=== PATIENT | male | born 1940 | race Caucasian/White ===

== ENCOUNTER 2017-07-19 16:06 | Inpatient (IN) ==
[2017-07-19] MEDS ORDERED: D5% in Water 1,000 ML IVC PRN (20:01)
[2017-07-19] MEDS ORDERED: *HR* Dextrose 50 % in Water (Syg) 50 ML SYRINGE IVP PRN (20:01)
[2017-07-19] MEDS ORDERED: Dextrose Gel 15 GM/37.5 ML TUBE PO PRN ×2 (20:01)
[2017-07-19] MEDS ORDERED: Naloxone 0.4 MG/ML INJ IVP PRN (20:01)
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
[2017-07-19] MEDS: 0.9 % Sodium Chloride 1,000 ML IVC SCH (21:19)
[2017-07-19] MEDS: Acyclovir 700 MG in D5% in Water 250 ML IVPB SCH (23:16)
[2017-07-19] MEDS: Insulin LISPRO 300 UNITS/3 ML VIAL SQ SCH (23:53)
[2017-07-20] MEDS ORDERED: cefTRIAXone 2,000 MG in Water for inj. (sterile) 20 ML IVP SCH (02:00)
[2017-07-20] MEDS: cefTRIAXone 2,000 MG in Water for inj. (sterile) 20 ML 20 ML IVP SCH ×2 (02:49→16:42)
[2017-07-20] MEDS ORDERED: 0.9 % Sodium Chloride 2,000 ML IVC ONE (04:09)
[2017-07-20] MEDS ORDERED: 0.9 % Sodium Chloride 1,000 ML IVC ONE ×2 (04:19→11:11)
[2017-07-20 04:44] LABS: Basophils # 0.1 K/mcL (0.0-0.2); Basophils % 0.6 %; Eosinophils # 0.1 K/mcL (0.0-0.6); Eosinophils % 0.6 %; Hematocrit 38.1 % (37.5-50.1); Hemoglobin 12.5 g/dL (12.9-16.9); Immature Granulocytes % 0.5 % (0-4); Lymphocytes # 2.5 K/mcL (0.6-4.6); Lymphocytes % 16.9 %; Mean Corpuscular HGB Conc 32.8 g/dL (31.6-35.5); Mean Corpuscular Hemoglobin 30.3 pg (28.0-33.3); Mean Corpuscular Volume 92.3 fL (83.0-100.0); Mean Platelet Volume 8.9 fL (9.4-12.4); Monocytes # 1.7 K/mcL (0.0-1.3); Monocytes % 11.7 %; Neutrophils # 10.4 K/mcL (1.6-8.9); Platelet Count 322 K/mcL (140-400); Red Blood Count 4.13 M/mcL (4.19-5.50); Red Cell Distribution Width 12.7 % (11.5-14.5); Segmented Neutrophils % 69.7 %
[2017-07-20 04:49] LABS: Prothrombin Time 11.1 Seconds (9.4-12.1)
[2017-07-20 04:51] LABS: Activated Partial Thrombo Time 25.7 Seconds (26.0-36.0)
[2017-07-20 05:09] LABS: Albumin 3.2 g/dL (3.5-5.7); Albumin/Globulin Ratio 1.1 (1.1-2.2); Bilirubin,Total 0.3 mg/dL (0.3-1.0); Globulin 2.9 g/dL (2.4-3.5); Magnesium 1.7 mg/dL (1.6-2.6); Potassium 3.7 mEq/L (3.5-5.1); Total Protein 6.1 g/dL (6.4-8.9)
[2017-07-20] MEDS: *HR* Heparin 5,000 UNIT/ML VIAL SQ SCH ×2 (05:15→16:43)
[2017-07-20] MEDS: Insulin LISPRO 300 UNITS/3 ML VIAL SQ SCH ×3 (06:10→18:16)
[2017-07-20 09:29] LABS: Hemoglobin A1C 11.1 %
[2017-07-20 09:55] LABS: Red Blood Cell,CSF < 0.002 M/mcL
[2017-07-20 10:00] LABS: Appearance,CSF Clear (Clear)
[2017-07-20] MEDS ORDERED: 0.9 % Sodium Chloride 500 ML IVC ONE ×2 (10:04→10:27)
[2017-07-20] MEDS ORDERED: 0.9 % Sodium Chloride 500 ML ONE (10:07)
[2017-07-20 10:12] LABS: Glucose,CSF 156 mg/dL (40-70); Total Protein,CSF 82 mg/dL (15-45)
[2017-07-20] MEDS ORDERED: 0.9 % Sodium Chloride 1,000 ML IVC SCH (10:30)
[2017-07-20] MEDS ORDERED: Potassium Phosphate 44 MEQ in 0.9 % Sodium Chloride 250 ML IVPB PRN (11:07)
[2017-07-20] MEDS: 0.9 % Sodium Chloride 1,000 ML IVC SCH (11:14)
[2017-07-20] MEDS: Acyclovir 700 MG in D5% in Water 250 ML IVPB SCH ×2 (11:14→16:42)
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
[2017-07-20 11:30] LABS: Troponin I 0.03 ng/mL (< 0.04)
[2017-07-20 11:35] LABS: BUN/Creatinine Ratio 26 (6-26); Blood Urea Nitrogen 30 mg/dL (8-23); Calcium 8.2 mg/dL (8.6-10.3); Carbon Dioxide 24 mEq/L (23-29); Chloride 112 mEq/L (98-107); Glucose 173 mg/dL (70-105); Magnesium 1.7 mg/dL (1.6-2.6); Osmolality,Calculated 306 (280-300); Phosphorous 2.4 mg/dL (2.7-4.5); Potassium 3.7 mEq/L (3.5-5.1); Sodium 143 mEq/L (136-145); eGFR For African Americans > 60 (> 60); eGFR For Non-African Americans > 60 (> 60)
--- NOTE | 2017-07-20 13:33 | Procedure Note ---
<Pierce Bueno - Last Filed: 07/20/17 13:28> Date of procedure: 07/20/17 Pre-op diagnosis: Hypotension Post-op diagnosis: same Procedure: Resident: Pierce Bueno DO Attending: Dennise French A time-out was completed verifying correct patient, procedure, site, positioning , and special equipment. The patient was placed in a supine position appropriate for central line placement based on the vein to be cannulated. The patients right groin was prepped and draped in sterile fashion. 1% Lidocaine was used to anesthetize the surrounding skin area. A triple lumen 9Fr Cordis catheter was introduced into the the right common femoral vein using the Seldinger technique under ultrasound guidance. The needle was visualized entering the femoral vein with appropriate easy blood draw. The guide wire was visualized in the vein in longitudinal and cross sectional views. The catheter was threaded smoothly over the guide wire and appropriate blood return was obtained. Each lumen of the catheter was evacuated of air and flushed with sterile saline. The catheter was then sutured in place to the skin and a sterile dressing applied. Perfusion to the extremity distal to the point of catheter insertion was checked and found to be adequate. Dr. French was present for the entire procedure. Estimated Blood Loss: 1-2mL The patient tolerated the procedure well and there were no complications. Anesthesia: local Surgeon: Pierce Bueno Was there an assistant community director present: Yes Welder Fitter Helper: Dennise French Estimated blood loss (cc): 1 IV fluids (cc): 0 Urine output (cc): 0 Specimen: 0 Pathology: none sent Condition: critical Disposition: ICU <Dennise French - Last Filed: 07/20/17 18:58> Procedure: I was present in the entire procedure assisting in critical portions of the procedure .
--- NOTE | 2017-07-20 13:48 | Infectious Disease Consult ---
Date of Encounter: 07/20/17 Time of Encounter: 14:15 Assessment and Plan (1) Septic shock Status: Acute Assessment and plan: Septic shock present Patient requiring levofed for blood pressure support Leukocytosis and hypothermia present Causative organism unknown Possible URI or GI pathogen (2) Altered mental status Status: Acute Assessment and plan: Patient had decreased mentation, some confusion, disorientation Secondary to acute CVA Lumbar puncture and Gram stain negative for pathogens, leukocytosis observed No meningeal signs on physical exam Nervous system infection unlikely Recommend stopping all antimicrobials for potential [employer] infection Qualifiers: Altered mental status type: delirium Qualified Code(s): R41.0 - Disorientation, unspecified (3) Abnormal chest xray Status: Acute Assessment and plan: Right-sided interstitial lung markings observed Might be due to aspiration Consider swallow evaluation All other antimicrobial stopped Start Zosyn (4) Diarrhea Status: Acute Assessment and plan: Patient's describes having 2 episodes of diarrhea. One the night before admission and the second at the [place] [facility]. His son is a chronic carrier of C. difficile and his states that his son's previous acute bout was similar to this We will send C. difficile PCR Recommend contact and droplet precautions until result of C. difficile PCR returned Qualifiers: Diarrhea type: unspecified type Qualified Code(s): R19.7 - Diarrhea, unspecified (5) URI (upper respiratory infection) Status: Acute Assessment and plan: Patient's reports he had cough for 3 days prior to admission States she has been coughing as well Concern for URI We will obtain respiratory infection panel Qualifiers: URI type: unspecified viral URI Qualified Code(s): J06.9 - Acute upper respiratory infection, unspecified (6) Carotid stenosis Status: Acute Assessment and plan: Severe carotid stenosis diagnosed in 05/23/17 Complete occlusion right carotid artery with concerns of 60-75% occlusion of left Acute strokes likely due to carotid disease Continue management per primary team Qualifiers: Laterality: right Qualified Code(s): I65.21 - Occlusion and stenosis of right carotid artery (7) Coronary artery disease Status: Chronic Assessment and plan: Patient has coronary artery disease with prior MIs Had CABG done in 2009 Qualifiers: Coronary Disease-Associated Artery/Lesion type: bypass graft [place] vs. transplanted heart: [place] heart Associated angina: angina presence unspecified Qualified Code(s): I25.810 - Atherosclerosis of coronary artery bypass graft(s) without angina pectoris (8) Hypotension Status: Resolved Assessment and plan: Patient having consistent hypotension requiring levofed to maintain blood pressure Unsure cause of hypotension Plan as above Qualifiers: Hypotension type: unspecified hypotension type Qualified Code(s): I95.9 - Hypotension, unspecified (9) Diabetes mellitus Status: Chronic Assessment and plan: Continue management per primary team Qualifiers: Diabetes mellitus type: type 2 Diabetes mellitus [employer]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 Nava is a 77 year old male with past medical history significant for CAD ( with prior AK and CABG in 2009), diabetes mellitus, mild dementia (as per his ), and severe carotid stenosis (diagnosed on 05/23/2017) presented to the [place] [facility] on 07/19/17 with disorientation, confusion, reports a bout of diarrhea and nausea. Infectious disease was consulted on 07/20/17 because of concerns of viral meningitis. Patient does not appear to be answering questions appropriately, as such most history is obtained by talking to patients and through chart review. Patient lives at home with his and presented to the [place] [facility] the morning of 07/21/17 because his is having difficulty getting him to talk or walk. She states that the night before patient had a single episode of nausea and diarrhea, that occurred around midnight. Following this the patient went to sleep and upon awakening the morning was disoriented and confused. Prior to this occurring she states that the patient had been relatively healthy , had not had fever, chills, shortness of breath, chest pain, or abdominal pain. We does state that he had had a cough for several days duration. She also states that she has had a cough for several weeks as well. She has had other sick contacts recently including his grandchildren who have had various episodes of 24-hour GI bugs resulting in diarrhea and nausea. She also states that their son is a chronic carrier of C. difficile and that the patients diarrhea with confusion was reminiscent of the times that he has had acute C. difficile before. At the [place], patient had decreased mentation so a neurologic was difficult to perform. His initial vital signs showed a temperature of 99.3, heart rate of 95, respiratory rate 20. Initial lab work showed a neutrophil predominant leukocytosis of 19.4, elevated serum creatinine 1.33, elevated lactic acid 3.2, and a UA that was not suspicious for UTI. He had a chest x- ray and head CT, neither of which showed acute abnormalities. He was started on IV fluids and given vancomycin and ceftriaxone. Due to concerns of patient decreased mentation, he was transferred to [place] for further workup and management. At [place] he underwent a lumbar puncture, the resultant CSF fluid showed a glucose of 156, elevated protein of 82, and total nucleated cells of 5. An MRI and MRA of his head were performed that showed 6 subcentimeter foci of restricted diffusion consistent with acute infarct. Diffuse cerebral volume loss, chronic small vessel ischemic changes, and fluid in the middle ears. Complete occlusion of the right carotid was observed as well. Patient has been negative for meningeal signs, but neurologic exam shows asymmetric weakness. Patient mentation has improved and he has started answering some questions and states that he is hungry. Although he does answer questions appropriately, is unclear how much he comprehends. CC: Renetta Faulkner, LILIAN Past Med Surg Social Fam HX - Past Medical History Medical history: diabetes Psychiatric history: no psych history - Past Surgical History Surgical History: angioplasty/stent, cholecystectomy - Social History Smoking Status: Never smoker Alcohol use: none Drug use: none - Family History Mother Hx Family Endocrine Disorder: Yes (DM) Infectious Disease-CN:Meds Aspirin [Lo-Dose Aspirin EC] 81 mg PO DAILY 04/07/16 [History] glipiZIDE [Glipizide] 10 mg PO BIDWM 04/07/16 [History] Metformin HCl [Glucophage] 1,000 mg PO QAM 07/19/17 [History] Metformin HCl [Glucophage] 1,500 mg PO QPM 07/19/17 [History] 3 Allergy/AdvReac Type Severity Reaction Status Date / Time No Known Allergies Allergy Verified 07/19/17 21:37 ROS unobtainable: due to mental status Review of systems: Gen: Denies fever, denies chills, denies weakness CV: Denies chest pain Resp: Denies shortness of breath, denies dyspnea, denies coughing, denies changes in phlegm production GI: Denies nausea, denies vomiting, denies abdominal pain, denies constipation, denies diarrhea MSK: denies arthralgia, denies muscle weakness Neuro: Denies headache, denies confusion, denies focal weakness, denies numbness , denies tingling, denies vision changes, denies photophobia, denies phonophobia Exam - Constitutional Vitals: Temp Pulse Resp BP Pulse Ox 96.7 F L 75 15 109/59 96 07/20/17 11:22 07/20/17 11:24 07/20/17 11:22 07/20/17 11:22 07/20/17 11:22 - Additional findings Additional findings: General: Cooperative, pleasant, no acute distress, alert and oriented 2, answers questions appropriately HEENT: Normocephalic, atraumatic, neck supple, trachea midline, Conjunctiva pink , sclera anicteric, EOMI, left pupil reactive to light, right pupil unreactive, oral mucosa moist, no orophargeal erythema or exudates Respiratory: No accessory muscle usage, rales in left lower lobe Cardiovascular: Regular rate and rhythm, S1 and S2 present, no murmurs/rubs/ gallops/clicks appreciated GI/abdominal: Nondistended, nontender, soft, normal bowel sounds, no peritoneal signs Extremities: No calf tenderness, noncyanotic, no pedal edema appreciated, warm, lower extremity pulses palpable and symmetrical Neurological: Alert and oriented 2, no facial droop, no focal deficits, hemineglect on left, altered sensation (but he can't say how), no nuchal rigidity, no photophobia Skin: Dry, intact, normal color Infectious Disease CN: Results - Labs CBC & Chem 7: 07/21/17 03:24 07/21/17 04:00 Cultures: Cultures 07/19/17 08:52 CSF Culture - Preliminary Cerebral Spinal Fluid Serology: Serology 07/19/17 Range/Units 08:52 CSF Volume 6.5 mL CSF Appearance Clear (Clear) CSF Color Colorless (Colorless) CSF RBC < 0.002 (0.000 - 0.002) M/mcL CSF Tot Nucleated Cells 5 (0-5) TNC/mcL CSF Seg Neutrophils TNP CSF Band Neutrophils % TNP CSF Lymphocytes % TNP CSF Monocytes % TNP CSF Eosinophils % TNP CSF Basophils % TNP CSF Other Cells % TNP CSF Glucose 156 H (40-70) mg/dL CSF Xanth Comm Not Observed (Not Observe) CSF Total Protein 82 H (15-45) mg/dL - Stroke Is the patient on any antithrombotics?: No Are there any contradictions to antithrombotics?: Yes Contraindication Antithromb by Day Two: Medical contraindication Consult Discharge Plan - Plan Referrals: Michael Brown Jr, MD [Primary Care Provider] - - Attending Attestation I examined this patient and my medical decision-making was reviewed with the Resident Physician. I agree with the documented findings, disposition and treatment plan as described except to the extent set forth below. Patient is a 77 year old gentleman with past medical history mentioned below and DM, history of CAD with h/o CABG and severe carotid stenosis presented to ED on 07/19 with AMS, we are consulted today to rule out meningitis/encephalitis. Patient states that one day prior to admission, he had one episode of nausea, vomiting and diarrhea. Patient went to sleep that night, in the AM he woke up and he was unable to talk to walk with expressive aphasia. IN the ED, he was septic with no fever, tachycardic and WBC of 19.4 with neutrophilic predominance and lactic acidosis and acute kidney injury. Pt got transferred to [place] for evaluation. A cXR and CT head both of which were negative. An LP was done which revealed no pleocytosis a protein of 82 and glucose of 156 and 475 plasma glucose. Patient was started on meningitis/ encephalitis protocol. An MRI was done and it revealed six foci of acute infarcts within the cortex of the right frontal lobe. MRA complete occlusion of the right carotid and CXR reveals no infiltrates but pulmonary is concerned for possible early infiltrate. tells us that multiple family members have had URI symptoms. Physicial exam reveals AandOx3. Does not know who president is. Pupil on right side is fixed sluggish to react. No lung wheezing or ronchi. Heart without murmur. Abdomen soft non tender Assessment/plan: 1. Septic shock 2. AMS/confustion/encephalitis secondary to ACUTE CVA a .LP negative for pleocytosis gram stain negative on CSF b.No meningeal signs of physical exam c.I dont believe patient has an infectious etiology to his AMS all likely due to CVA 3.Concern for right sided infiltrate vs congestion a.Might be due to aspiration pneumonia 4. Diarrhea C diff PCR sent 5.URI symptoms 6.Carotid stenosis with 100% occlusion on the right 7.CAD/DM/HTV Check respiratory infectious panel Check C diff pcr Place patient in contact and droplet isolation until labs result Get blood culture x 2 d/c ampicillin, vancomycin, rocephin and acyclovir start zosyn for now get swallow evaluation
--- NOTE | 2017-07-20 13:48 | Pulmonology History & Physical ---
<Pierce Bueno - Last Filed: 07/20/17 14:54> Date of Encounter: 07/20/17 Time of Encounter: 12:30 Assessment and Plan (1) Acute ischemic stroke Current visit: Yes Status: Acute Last known well appx 9pm 07/18. Greater than 24hrs prior to presentation to [facility]. Left sided hemineglect on intake exam to ICU. Carotid Echo 05/23/17: Right prox ICA completely occluded. Left proximal ICA has severe 60-79% stenosis. Medical therapy recommended. CT head 07/20: no acute intracranial abnormalities MRI brain 07/20: acute infarct in both right frontal lobe and left occipotal lobe consistent with central embolic event. No acute hemorrhage. MRA head wo con 07/20: Absence of flow in RCA. No high grade stenosis in LCA. BL posterior communicating, anterior cerebral, and middle cerebral arteries visualized. No A. Fib on arrival. No hx A. Fib. Antiplatelet: Aspirin rectally Plavix PO once cleared by speech therapy Pending: Cardiac Echo BL Carotid duplex Serial neurologic assessments Maintain perfusing BP with goal BP > 140's/90's. Consult neurology Consult speech therapy - swallow eval (2) Septic shock Current visit: Yes Status: Acute SIRS (+): hypothermia, leukocytosis CXR concerning for possible RML pneumonia. UA not concerning for UTI. C. Diff tox pending LP has no xanthochromia, elevated glucose, elevated protein. Empiric meningitic coverage: Vancomycin Ceftriaxone Acyclovir Empiric CAP coverage: Vancomycin Levaquin Hold on C. Diff coverage - patient has only had 2 loose stools. C. Dif pending. Microbiology: CSF 07/20 cell count: high glucose, high protein CSF 07/20 g-stain prelim no WBC, no bacteria. Pending: Blood peripheral culture 07/20 C-diff pending Urine culture Respiratory infectious panel Begin levophed after fluid resuscitation to maintain CPP. Anemia - suspect dilutional. No hematochezia, melena, hemetemesis. No anticoagulants at home. Platelets appropriate. Continue to monitor. Infectious disease following (3) Diabetes mellitus Current visit: Yes Status: Chronic DM II. Low sliding scale insulin. Qualifiers: Diabetes mellitus type: type 2 Diabetes mellitus complication status: with circulatory complication Diabetes mellitus complication detail: with other circulatory complications Diabetes mellitus snf insulin use: without snf use Qualified Code(s): E11.59 - Type 2 diabetes mellitus with other circulatory complications (4) DVT prophylaxis Current visit: Yes Status: Acute Heparin SQ History of Present Illness HPI: Mr. Nava is a 77 year old male presented to [facility] with 1 day history of fatigue, dyspnea, nausea, vomiting, loose stools (x1 at home, x1 at [facility]). He seemed fine per family the evening of the (9pm). The morning of the , he was found sitting in a recliner, had soiled himself, and was non-verbal. Family reported he was unable to raise his right arm at that time. Patient has a family member currently in the hospital with C-diff colitis. Patient's notes the patient's loose stools and confusion are very similar to the initial symptoms of the family member. PMH: DM on oral antihyperglycemics, CAD with ACS s/p stent, hx cholecystectomy. No hx CVA or TIA. Antiplatelet: aspirin Anticoagulant: none Patient was transferred from [facility] to [facility] medical floor. He was transferred from [facility] medical floor to the ICU after he became hypotensive and was unable to lift his left arm. On my evaluation, last known well is appx 50 hrs prior to my exam. Patient is awake, protecting his airway, breathing comfortably and saturating well in 2-3L NC. GCS 15. No facial asymmetry, no slurring of speech. With verbal command to lift both arms, he lifts his right arm. When I lift both arms, he maintains them with no drift. He appears confused. He did not initially recognize his brother. When speaking to him while on his left side, patient does not respond. When speaking to him on the right side, patient is appropriate. CT head shows no acute changes. MRI concerning for embolic ischemic stroke involving the right frontal and left occipotal lobes. Not a tPa candidate as last known well is well outside the window. Patient has been adequately fluid resusciteted. Will begin norepinephrine for target SBP >= 140 and DBP >= 90. Discussed the patient with [facility] Neurology. Aspirin and Plavix. Stat echo and carotid duplex. 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 Patient is SIRS (+): temp 96.7, WBC > 15k. CXR concerning for possible RML Pneumonia. Will empirocally cover. Given patient's confusion, a mengitic workup was initiated. Will await LP results prior to de-escilating antiviral or antibiotic coverage. ID following; multiple potential sources of sepsis. Past Med Surg Social Fam HX - Past Medical History Medical history: diabetes Psychiatric history: no psych history - Past Surgical History Surgical History: angioplasty/stent, cholecystectomy - Social History Smoking Status: Never smoker Alcohol use: none Drug use: none - Family History Mother Hx Family Endocrine Disorder: Yes (DM) Medications and Allergies Aspirin [Lo-Dose Aspirin EC] 81 mg PO DAILY 04/07/16 [History] glipiZIDE [Glipizide] 10 mg PO BIDWM 04/07/16 [History] Metformin HCl [Glucophage] 1,000 mg PO QAM 07/19/17 [History] Metformin HCl [Glucophage] 1,500 mg PO QPM 07/19/17 [History] 3 Allergy/AdvReac Type Severity Reaction Status Date / Time No Known Allergies Allergy Verified 07/19/17 21:37 All Systems: The remainder of the systems were reviewed and are negative - Constitutional Constitutional: weakness, no anorexia, no chills, no fever(s), no frequent falls - EENT Nose, mouth and throat: no disequilibrium, no dizziness, no dysphagia, no headache(s) - Cardiovascular Cardiovascular: dyspnea, no chest pain, no edema, no lightheadedness, no palpitations, no pedal edema - Respiratory Respiratory: no cough, no dyspnea - Gastrointestinal Gastrointestinal: diarrhea, loose stools, nausea, vomiting, no abdominal pain, no cramping, no hematemesis, no hematochezia, no melena - Genitourinary Genitourinary: no difficulty urinating - Musculoskeletal Musculoskeletal: no joint pain, no abnormal gait, no back pain, no neck pain - Neurological Neurological: confusion, no abnormal speech, no numbness, no paresthesias - Hematologic/Lymphatic Hematologic/Lymphatic: no easy bleeding, no easy bruising Physical Examination Vital Signs: Vital Signs, Last 4 Hours Temp Pulse Resp BP Pulse Ox 07/20/17 11:24 75 07/20/17 11:22 96.7 F L 76 15 109/59 96 General appearance: no acute distress, alert Eyes: nonicteric ENT: oropharynx moist Neck: supple Effort: normal Auscultation: bilateral: clear Cardiovascular: regular rate and rhythm Gastrointestinal: normoactive bowel sounds, soft, non-tender, non-distended Integumentary: normal Extremities: no cyanosis, no edema, no clubbing, pink and warm, pulses normal, no ischemia or petechiae Musculoskeletal: no deformities pupils equal and round, other (NIHSS 1: Left upper extremity inattention when asked to raise arms. Left silvino neglect. No facial asymmetry. No slurring of speech. No limb drift of upper or lower extremities when arms raised by the examiner. Sensation equal bilaterally in upper and lower extremities. ) mood appropriate Results - Laboratory Findings CBC and BMP: 07/20/17 04:01 07/20/17 10:41 PT/INR, D-dimer PT 11.1 Seconds (9.4-12.1) 07/20/17 04:01 Abnormal lab findings: Abnormal lab results WBC 14.9 K/mcL (4.3-11.1) H 07/20/17 04:01 RBC 4.13 M/mcL (4.19-5.50) L 07/20/17 04:01 Hgb 12.5 g/dL (12.9-16.9) L D 07/20/17 04:01 MPV 8.9 fL (9.4-12.4) L 07/20/17 04:01 Neutrophils # 10.4 K/mcL (1.6-8.9) H 07/20/17 04:01 Monocytes # 1.7 K/mcL (0.0-1.3) H 07/20/17 04:01 APTT 25.7 Seconds (26.0-36.0) L 07/20/17 04:01 Chloride 112 mEq/L (98-107) H 07/20/17 10:41 BUN 30 mg/dL (8-23) H 07/20/17 10:41 Glucose 173 mg/dL (70-105) H 07/20/17 10:41 POC Glucose 147 (58-89) H 07/20/17 11:09 Hemoglobin A1c 11.1 % (-5.6) H 07/19/17 20:46 Calculated Osmolality 306 (280-300) H 07/20/17 10:41 Calcium 8.2 mg/dL (8.6-10.3) L 07/20/17 10:41 Phosphorus 2.4 mg/dL (2.7-4.5) L 07/20/17 10:41 Serum Total Protein 6.1 g/dL (6.4-8.9) L 07/20/17 04:01 Albumin 3.2 g/dL (3.5-5.7) L 07/20/17 04:01 CSF Glucose 156 mg/dL (40-70) H 07/19/17 08:52 CSF Total Protein 82 mg/dL (15-45) H 07/19/17 08:52 <Dennise French S - Last Filed: 07/20/17 22:03> Date of Encounter: 07/20/17 History of Present Illness HPI: Mr. Nava is a 77 year old male All Systems: The remainder of the systems were reviewed and are negative Physical Examination Vital Signs: Vital Signs, Last 4 Hours Temp Pulse Resp BP Pulse Ox 07/20/17 18:00 84 18 144/66 93 07/20/17 17:00 80 16 144/60 94 07/20/17 16:00 81 16 144/66 94 07/20/17 15:53 98.1 F 07/20/17 15:37 79 07/20/17 15:00 76 16 144/66 94 Results - Laboratory Findings CBC and BMP: 07/20/17 15:10 07/20/17 10:41 PT/INR, D-dimer PT 11.1 Seconds (9.4-12.1) 07/20/17 04:01 Abnormal lab findings: Abnormal lab results WBC 13.8 K/mcL (4.3-11.1) H 07/20/17 15:10 RBC 3.86 M/mcL (4.19-5.50) L 07/20/17 15:10 Hgb 11.8 g/dL (12.9-16.9) L 07/20/17 15:10 Hct 36.2 % (37.5-50.1) L 07/20/17 15:10 MPV 8.9 fL (9.4-12.4) L 07/20/17 15:10 Neutrophils # 9.7 K/mcL (1.6-8.9) H 07/20/17 15:10 APTT 25.7 Seconds (26.0-36.0) L 07/20/17 04:01 Chloride 112 mEq/L (98-107) H 07/20/17 10:41 BUN 30 mg/dL (8-23) H 07/20/17 10:41 Glucose 173 mg/dL (70-105) H 07/20/17 10:41 POC Glucose 248 (58-89) H 07/20/17 17:59 Hemoglobin A1c 11.1 % (-5.6) H 07/19/17 20:46 Calculated Osmolality 306 (280-300) H 07/20/17 10:41 Calcium 8.2 mg/dL (8.6-10.3) L 07/20/17 10:41 Phosphorus 2.4 mg/dL (2.7-4.5) L 07/20/17 10:41 Serum Total Protein 6.1 g/dL (6.4-8.9) L 07/20/17 04:01 Albumin 3.2 g/dL (3.5-5.7) L 07/20/17 04:01 CSF Glucose 156 mg/dL (40-70) H 07/19/17 08:52 CSF Total Protein 82 mg/dL (15-45) H 07/19/17 08:52 - Stroke Is the patient on any antithrombotics?: Yes Are there any contradictions to antithrombotics?: No Contraindication Antithromb by Day Two: Medical contraindication (needs evalaution on dischargeg) Reason for No Antithrombin at DC: Not Indicated - Due to Bleeding Disorder or Risk of Bleeding Reason for No Anticoagulant at DC: Medical contraindication Contraindication Not Initiating IV-Tpa: Medical contraindication Onset of Symptoms Date: 07/18/17 Onset of Symptoms Time: 21:00 Contraindication No Statin at DC: Medical contraindication (needs evalaution on discharge) Has Patient Been Evaluated by Rehab for Stroke: No Contraindication Rehab Services Not Assessed: Refused by Patient / Family - VTE Documentation of Mechanical Device: Graduated compression elastic hosiery - Attending Attestation This is a Pulmonary Consultation note : I saw and evaluated this patient and my medical decision-making was reviewed with the Resident Physician. I agree with the documented findings, disposition and treatment plan as described except to the extent set forth below. We independently had [id number] contact with the patient I spent 32 minutes of Critical Care time with this patient. It involved decision making of high complexity to assess, manipulate, and support vital organ system failure and/or to prevent further life threatening deterioration of the patient's condition. Patient seen and examined at bedside Labs, radiology, chart personally reviewed. Management was reviewed during multidisciplinary critical care rounds. FOOD GENERAL MANAGER:Patient is multiple embolic infarct might explain his neuro symptoms initial concern for meningitis , encephalitis . CSF studies were unremarkable patient is outside of neuro interventional window . Will aim for higher MAP around 75 for adequate CPP .Will do embolic stroke work up according to Neuro . Pulm:. Patient has acceptable oxygenation and ventilation possible RML infiltrate possible aspiration will cover with empiric zosyn Cards:To keep MAP around 75 to keep high cerebral perfusion pressure FEN-GI: To advance diet per speech Renal:Labs and output reviewed ID: Appreciate ID recs will continue Zosyn for now Heme/Onc:DVT prophylaxis Endo: Glucose Monitored Integ/MSK: Skin Care per routine ICU Nursing Protocol to prevent ulcers. Lines: All lines examined without evidence of infection : Dispo: Needs Q1 hour neuro monitoring CODE:Full Code
--- NOTE | 2017-07-20 14:32 | Neurology - Consult Note ---
<Bruce Espinoza - Last Filed: 07/20/17 14:27> Date of Encounter: 07/20/17 Time of Encounter: 08:35 Assessment and Plan (1) Right sided cerebral hemisphere cerebrovascular accident (CVA) Current Visit: Yes Status: Acute Upon evaluation Mr. Nava demonstrated left-sided silvino-neglect and left-sided weakness, difficulty following commands both simple and complex. He demonstrated exacerbation of his symptoms with hypotension and improvement with improvement of his blood pressure. - Risk factors included diabetes, hypertension, hyperlipidemia, known carotid vessel disease. - Significant laboratory findings include elevated WBC of 14.9, hyperglycemia, lumbar puncture with elevated protein and glucose but normal cells. - High suspicion that his symptoms are from a right hemispheric cerebral infarct and exacerbation secondary to vasospasm and hypertension that demonstrated improvement with improvement of his blood pressure. I have lower suspicion for meningitis and believe his elevated protein is likely secondary to his clinical findings of infarct. Plan: - MRI of the brain - MRA versus CTA imaging stat - Full dose rectal aspirin - Lipid panel History of Present Illness HPI: Mr. Nava is a 77 year old male known PMH CAD, CABG, DM who presents in transfer from [facility] ER for concerns of acute confusion, disorientation, vomiting, and diarrhea. Upon initial evaluation was concern that he was having symptoms of meningitis versus encephalitis was started on acyclovir, vancomycin and ceftriaxone. According to his he he is a very mobile gentleman who rides a tractor and [place] without any difficulty and was doing that on Monday. He ate dinner did not have any signs of fevers, chills or other sources of infection without any noticeable neurologic dysfunction and then around midnight he awoke with nausea vomiting and diarrhea which his said he had difficulty getting out of bed. In the morning he was laying in bed and she was telling him to go to the bathroom to clean himself up which she was not answering her she tried to get him out of bed and he fell to the ground and was unable to respond verbally. This became very concerning to her and she called EMS for transportation and further evaluation. She denies having any history of strokes, seizures, clotting disorders, head trauma or no neurologic dysfunction. Upon initial evaluation he was concerned that he may have symptoms of meningitis versus encephalitis and was started on broad-spectrum antibiotics. He underwent lumbar puncture this morning and upon evaluation was found to have a blood pressure of 60 systolically and was tachycardic around 127. At that time he demonstrated left silvino-neglect and left -sided weakness that improved with improvement of his blood pressure. He continued to demonstrate left silvino-neglect and then demonstrated bradycardia and difficulty with speech. He became very slow and difficult to respond to questions. He was transferred to the ICU for closer monitoring and intervention if necessary. Past Med Surg Social Fam HX - Past Medical History Medical history: diabetes Psychiatric history: no psych history - Past Surgical History Surgical History: angioplasty/stent, cholecystectomy - Social History Smoking Status: Never smoker Alcohol use: none Drug use: none - Family History Mother Hx Family Endocrine Disorder: Yes (DM) Medications and Allergies Aspirin [Lo-Dose Aspirin EC] 81 mg PO DAILY 04/07/16 [History] glipiZIDE [Glipizide] 10 mg PO BIDWM 04/07/16 [History] Metformin HCl [Glucophage] 1,000 mg PO QAM 07/19/17 [History] Metformin HCl [Glucophage] 1,500 mg PO QPM 07/19/17 [History] 3 Allergy/AdvReac Type Severity Reaction Status Date / Time No Known Allergies Allergy Verified 07/19/17 21:37 ROS unobtainable: due to mental status All Systems: The remainder of the systems were reviewed and are negative Physical Examination - Vital Signs Vital Signs: Initial Vital Signs Temp Pulse Resp BP Pulse Ox 99.3 F 88 18 117/53 95 07/19/17 19:47 07/19/17 19:47 07/19/17 19:47 07/19/17 19:47 07/19/17 19:47 - Constitutional General appearance: acutely ill - Neurologic Sensorimotor examination: intact, hemiparesis, hemineglect Motor examination - right side: 5/5: deltoids, biceps, triceps, wrist flexion, wrist extension, real estate site analyst, hip flexors, tibialis Anterior, quadriceps, toe extension (EHL), plantarflexion Motor examination - left side: 4/5: deltoids, biceps, triceps, wrist flexion, wrist extension, hip flexors, real estate site analyst, quadriceps, tibialis Anterior, toe extension (EHL), plantarflexion Detailed sensory examination: other (Intact to gross sensation) Reflexes: Biceps: 2+, Triceps: 2+, Brachioradialis: 2+, Patella: 2+, Achilles: 2 + Mental Status Examination: awake, alert, oriented to person, lucid, opens eyes to voice, makes eye contact, follows simple commands, receptive aphasia, inattentive, impaired memory, impaired cognition Cranial nerve examination: PERRL, EOMI, corneal reflexes brisk symmetrically, sensory to face intact, mastication intact, no facial asymmetry is present, hearing is intact symmetrically, soft palate elevates bilaterally upon phonation , gag reflex intact, flexes SCM and trapezius muscles symmetrically with full power, tongue protrudes midline, no atrophy or facial fasiculations present Cerebellar examination: performs finger to nose and heel to luis symmetrically without ataxia Results - Laboratory Findings CBC and BMP: 07/20/17 04:01 07/20/17 10:41 Abnormal lab findings: Abnormal lab results WBC 14.9 K/mcL (4.3-11.1) H 07/20/17 04:01 RBC 4.13 M/mcL (4.19-5.50) L 07/20/17 04:01 Hgb 12.5 g/dL (12.9-16.9) L D 07/20/17 04:01 MPV 8.9 fL (9.4-12.4) L 07/20/17 04:01 Neutrophils # 10.4 K/mcL (1.6-8.9) H 07/20/17 04:01 Monocytes # 1.7 K/mcL (0.0-1.3) H 07/20/17 04:01 APTT 25.7 Seconds (26.0-36.0) L 07/20/17 04:01 Chloride 112 mEq/L (98-107) H 07/20/17 10:41 BUN 30 mg/dL (8-23) H 07/20/17 10:41 Glucose 173 mg/dL (70-105) H 07/20/17 10:41 POC Glucose 147 (58-89) H 07/20/17 11:09 Hemoglobin A1c 11.1 % (-5.6) H 07/19/17 20:46 Calculated Osmolality 306 (280-300) H 07/20/17 10:41 Calcium 8.2 mg/dL (8.6-10.3) L 07/20/17 10:41 Phosphorus 2.4 mg/dL (2.7-4.5) L 07/20/17 10:41 Serum Total Protein 6.1 g/dL (6.4-8.9) L 07/20/17 04:01 Albumin 3.2 g/dL (3.5-5.7) L 07/20/17 04:01 CSF Glucose 156 mg/dL (40-70) H 07/19/17 08:52 CSF Total Protein 82 mg/dL (15-45) H 07/19/17 08:52 Consult Discharge Plan - Plan Referrals: Michael Brown Jr, MD [Primary Care Provider] - <Tatiana Harmon I - Last Filed: 07/20/17 16:35> Date of Encounter: 07/20/17 History of Present Illness HPI: Mr. Nava is a 77 year old male All Systems: The remainder of the systems were reviewed and are negative Physical Examination - Vital Signs Vital Signs: Initial Vital Signs Temp Pulse Resp BP Pulse Ox 99.3 F 88 18 117/53 95 07/19/17 19:47 07/19/17 19:47 07/19/17 19:47 07/19/17 19:47 07/19/17 19:47 Results - Laboratory Findings CBC and BMP: 07/20/17 15:10 07/20/17 10:41 Abnormal lab findings: Abnormal lab results WBC 13.8 K/mcL (4.3-11.1) H 07/20/17 15:10 RBC 3.86 M/mcL (4.19-5.50) L 07/20/17 15:10 Hgb 11.8 g/dL (12.9-16.9) L 07/20/17 15:10 Hct 36.2 % (37.5-50.1) L 07/20/17 15:10 MPV 8.9 fL (9.4-12.4) L 07/20/17 15:10 Neutrophils # 9.7 K/mcL (1.6-8.9) H 07/20/17 15:10 APTT 25.7 Seconds (26.0-36.0) L 07/20/17 04:01 Chloride 112 mEq/L (98-107) H 07/20/17 10:41 BUN 30 mg/dL (8-23) H 07/20/17 10:41 Glucose 173 mg/dL (70-105) H 07/20/17 10:41 POC Glucose 147 (58-89) H 07/20/17 11:09 Hemoglobin A1c 11.1 % (-5.6) H 07/19/17 20:46 Calculated Osmolality 306 (280-300) H 07/20/17 10:41 Calcium 8.2 mg/dL (8.6-10.3) L 07/20/17 10:41 Phosphorus 2.4 mg/dL (2.7-4.5) L 07/20/17 10:41 Serum Total Protein 6.1 g/dL (6.4-8.9) L 07/20/17 04:01 Albumin 3.2 g/dL (3.5-5.7) L 07/20/17 04:01 CSF Glucose 156 mg/dL (40-70) H 07/19/17 08:52 CSF Total Protein 82 mg/dL (15-45) H 07/19/17 08:52 - Attending Attestation Pt was seen and examined, my medical decision was reviewed with the Resident Physician, I agree with the documented findings, disposition and treatment plas as described except to the extent set forth below This patient who was admitted earlier with atypical presentation of a stroke apparently was unresponsive and not responding there was a concern that he may be have some underlying [employer] infection especially with elevated white count. Spinal tap did not show any evidence of bacterial infection. He is been on broad-spectrum antibiotics as well as antiviral agent. Though CSF did shows elevated proteins but not much WBC count. Viral encephalitis remains in the differential MRI of the brain that shows evidence of his stroke though it seems to be embolic but not as large event that would explain his mental status, do not think that could be causing that amount of mental status changes from these embolic event that he had on his MRI scan. I would still recommend that we should continue look for any underlying infectious or any metabolic abnormality that may be accompanied these a stroke. Or probably need a CT angiogram later on along with the workup for the stroke including echocardiogram and carotid. Strongly recommend echocardiogram and particularly to exclude possibility of any endocarditis. In the meantime he may continue on Plavix along with a baby aspirin. Other treatment is as per primary team will follow the patient with you Brandon Harmon MD
[2017-07-20] MEDS ORDERED: Ringers Solution, Lactated 1,000 ML IVC ONE (14:36)
[2017-07-20] MEDS ORDERED: Norepinephrine 4 MG in D5% in Water 250 ML IVC SCH (14:45)
[2017-07-20] MEDS ORDERED: Levofloxacin 750 MG/150 ML 750 MG/150 ML BAG IVPB SCH (15:00)
[2017-07-20 15:29] LABS: Basophils # 0.1 K/mcL (0.0-0.2); Basophils % 0.7 %; Eosinophils # 0.5 K/mcL (0.0-0.6); Eosinophils % 3.5 %; Hematocrit 36.2 % (37.5-50.1); Hemoglobin 11.8 g/dL (12.9-16.9); Immature Granulocytes % 0.4 % (0-4); Lymphocytes # 2.2 K/mcL (0.6-4.6); Lymphocytes % 15.9 %; Mean Corpuscular HGB Conc 32.6 g/dL (31.6-35.5); Mean Corpuscular Hemoglobin 30.6 pg (28.0-33.3); Mean Corpuscular Volume 93.8 fL (83.0-100.0); Mean Platelet Volume 8.9 fL (9.4-12.4); Monocytes # 1.2 K/mcL (0.0-1.3); Monocytes % 8.9 %; Neutrophils # 9.7 K/mcL (1.6-8.9); Platelet Count 283 K/mcL (140-400); Red Blood Count 3.86 M/mcL (4.19-5.50); Red Cell Distribution Width 12.9 % (11.5-14.5); Segmented Neutrophils % 70.6 %
[2017-07-20] MEDS: Aspirin 325 MG TABLET PO SCH (17:01)
[2017-07-20 17:27] LABS: Adenovirus Not Detected (Not Detect); Bordetella Pertussis Not Detected (Not Detect); Chlamydophila pneumoniae Not Detected (Not Detect); Coronavirus 229E Not Detected (Not Detect); Coronavirus HKU1 Not Detected (Not Detect); Coronavirus NL63 Not Detected (Not Detect); Coronavirus OC43 Not Detected (Not Detect); Human Metapneumovirus Not Detected (Not Detect); Human Rhinovirus/Enterovirus Not Detected (Not Detect); Influenza A Subtype 2009 H1 Not Detected (Not Detect); Influenza A Untypeable Not Detected (Not Detect); Influenza B Not Detected (Not Detect); Mycoplasma pneumoniae Not Detected (Not Detect); Parainfluenza Virus 1 Not Detected (Not Detect); Parainfluenza Virus 2 Not Detected (Not Detect); Parainfluenza Virus 3 Not Detected (Not Detect); Parainfluenza Virus 4 Not Detected (Not Detect); Respiratory Syncytial Virus Not Detected (Not Detect)
[2017-07-20] MEDS: Piperacillin/Tazobactam 3.375 GM in 0.9 % Sodium Chloride Mini Bag 100 ML IVPB SCH (17:46)
[2017-07-21] MEDS: Insulin LISPRO 300 UNITS/3 ML VIAL SQ SCH ×3 (00:12→16:33)
[2017-07-21] MEDS: Piperacillin/Tazobactam 3.375 GM in 0.9 % Sodium Chloride Mini Bag 100 ML IVPB SCH ×2 (01:51→07:54)
[2017-07-21 04:47] LABS: Hematocrit 35.5 % (37.5-50.1); Hemoglobin 11.7 g/dL (12.9-16.9); Immature Granulocytes % 0.5 % (0-4); Mean Corpuscular Hemoglobin 30.7 pg (28.0-33.3); Mean Corpuscular Volume 93.2 fL (83.0-100.0); Mean Platelet Volume 8.8 fL (9.4-12.4); Monocytes % 8.1 %; Platelet Count 270 K/mcL (140-400); Red Blood Count 3.81 M/mcL (4.19-5.50); Red Cell Distribution Width 12.7 % (11.5-14.5); Segmented Neutrophils % 69.2 %
[2017-07-21 04:48] LABS: Basophils # 0.1 K/mcL (0.0-0.2); Basophils % 0.9 %; Eosinophils # 0.8 K/mcL (0.0-0.6); Eosinophils % 6.3 %; Lymphocytes # 1.8 K/mcL (0.6-4.6); Neutrophils # 8.5 K/mcL (1.6-8.9)
[2017-07-21 05:20] LABS: BUN/Creatinine Ratio 22 (6-26); Blood Urea Nitrogen 24 mg/dL (8-23); Calcium 7.7 mg/dL (8.6-10.3); Carbon Dioxide 24 mEq/L (23-29); Chloride 109 mEq/L (98-107); Glucose 189 mg/dL (70-105); Osmolality,Calculated 299 (280-300); Potassium 3.5 mEq/L (3.5-5.1); Sodium 140 mEq/L (136-145); eGFR For African Americans > 60 (> 60); eGFR For Non-African Americans > 60 (> 60)
[2017-07-21] MEDS: *HR* Heparin 5,000 UNIT/ML VIAL SQ SCH ×2 (05:50→16:55)
[2017-07-21] MEDS: Aspirin 325 MG TABLET PO SCH (07:54)
--- NOTE | 2017-07-21 09:28 | Neurology Progress Note ---
<Bruce Espinoza - Last Filed: 07/21/17 11:28> Date of Encounter: 07/21/17 Time of Encounter: 09:26 Assessment and Plan (1) Right sided cerebral hemisphere cerebrovascular accident (CVA) Current Visit: Yes Status: Acute Upon evaluation Mr. Nava demonstrated left-sided silvino-neglect and left-sided weakness, difficulty following commands both simple and complex. He demonstrated exacerbation of his symptoms with hypotension and improvement with improvement of his blood pressure. - Risk factors included diabetes, hypertension, hyperlipidemia, known carotid vessel disease. - Significant laboratory findings include elevated WBC of 14.9, hyperglycemia, lumbar puncture with elevated protein and glucose but normal cells. - High suspicion that his symptoms are from a right hemispheric cerebral infarct and exacerbation secondary to vasospasm and hypertension that demonstrated improvement with improvement of his blood pressure. I have lower suspicion for meningitis and believe his elevated protein is likely secondary to his clinical findings of infarct. 07/21:MRI of the brain demonstrates that there are 6 foci of restricted diffusion involving the cortex of the right frontal lobe at the vertex measuring up 8 mm consistent with acute infarcts. There is an acute 7 mm infarct within the cortex and subcortical white matter of the left occipital lobe. There is no acute intracranial hemorrhage. Echocardiogram demonstrated LVEF of 55%, mild concentric left ventricular hypertrophy, mild segmental systolic dysfunction, mild left ventricular diastolic dysfunction and atypical septal motion consistent with postoperative changes. There is no evidence of PFO when agitated saline was performed. No evidence pulmonary hypertension no significant valvular dysfunction. Carotid duplex on recent evaluation demonstrated complete right sided occluded carotid and left ICA demonstrates 60- 79% stenosis. There is suspicion that his cerebral infarcts are secondary to embolic cause. So medication was aspirin 81 mg adjusted daily, he should be continued on Plavix 75 mg and Aspirin 81mg by mouth daily at the time of discharge. He should also continue high dose statin with his level of CAD unless otherwise contraindicated. Continue with physical therapy/occupational therapy and further recommendations from vascular surgery. Subjective Interval history: Mr. Nava 77-year-old male seen and evaluated patient bedside. He is alert awake and reactive no acute distress. Clinical picture is significantly improved compared to yesterday. He is moving all 4 extremities spontaneously answering questions appropriately of mental status is much improved. He states that he is doing well has no complaints at this time he does not remember many of the events that transpired yesterday. He denies any pain, discomfort, headaches, change in vision, difficulty with speech or swallowing, chest pains, palpitations abdominal pain nausea vomiting diarrhea constipation. Overall he is feeling well and almost back to his normal self. Objective - Constitutional Vitals: Temp Pulse Resp BP Pulse Ox 97.7 F 76 16 138/80 93 07/21/17 08:00 07/21/17 09:00 07/21/17 09:00 07/21/17 09:00 07/21/17 09:00 General appearance: Present: cooperative, A&O X 3, pleasant, no acute distress - Neurological Exam Sensorimotor examination: Present: intact Motor Examination: Present: grossly full strength in all extremities, full strength in all major muscle groups Motor examination - right side: 5/5: deltoids, biceps, triceps, wrist flexion, wrist extension, online marketer, hip flexors, tibialis Anterior, quadriceps, toe extension (EHL), plantarflexion Motor examination - left side: 5/5: deltoids, biceps, triceps, wrist flexion, wrist extension, hip flexors, online marketer, quadriceps, tibialis Anterior, toe extension (EHL), plantarflexion Sensation intact: Present: other (Intact to gross sensation) Reflex and gait examination: intact Reflexes: Biceps: 2+, Triceps: 2+, Brachioradialis: 2+, Patella: 2+, Achilles: 2 + Mental Status Examination: Present: awake, alert, oriented to person, oriented to place, oriented to time, follows commands appropriately, answers questions appropriately, no agnosia, no aphasia, no aproxia, lucid, opens eyes to voice, makes eye contact Cranial nerve examination: Present: PERRL, EOMI, visual whittaker intact, corneal reflexes brisk symmetrically, sensory to face intact, mastication intact, no facial asymmetry is present, no dysarthria, hearing is intact symmetrically, soft palate elevates bilaterally upon phonation, gag reflex intact, flexes SCM and trapezius muscles symmetrically with full power, tongue protrudes midline, no atrophy or facial fasiculations present Cerebellar examination: Present: performs finger to nose and heel to luis symmetrically without ataxia - Stroke Is the patient on any antithrombotics?: Yes Contraindication Antithromb by Day Two: Medical contraindication (needs evalaution on dischargeg) Reason for No Antithrombin at DC: Not Indicated - Due to Bleeding Disorder or Risk of Bleeding Reason for No Anticoagulant at DC: Medical contraindication Contraindication Not Initiating IV-Tpa: Medical contraindication Contraindication No Statin at DC: Medical contraindication (needs evalaution on discharge) Contraindication Rehab Services Not Assessed: Refused by Patient / Family - VTE Documentation of Mechanical Device: Graduated compression elastic hosiery Results - Laboratory Findings CBC and BMP: 07/21/17 03:24 07/21/17 04:00 Abnormal lab findings: Abnormal lab results WBC 12.3 K/mcL (4.3-11.1) H 07/21/17 03:24 RBC 3.81 M/mcL (4.19-5.50) L 07/21/17 03:24 Hgb 11.7 g/dL (12.9-16.9) L 07/21/17 03:24 Hct 35.5 % (37.5-50.1) L 07/21/17 03:24 MPV 8.8 fL (9.4-12.4) L 07/21/17 03:24 Eosinophils # 0.8 K/mcL (0.0-0.6) H 07/21/17 03:24 APTT 25.7 Seconds (26.0-36.0) L 07/20/17 04:01 Chloride 109 mEq/L (98-107) H 07/21/17 04:00 BUN 24 mg/dL (8-23) H 07/21/17 04:00 Glucose 189 mg/dL (70-105) H 07/21/17 04:00 POC Glucose 163 (58-89) H 07/21/17 05:51 Hemoglobin A1c 11.1 % (-5.6) H 07/19/17 20:46 Calcium 7.7 mg/dL (8.6-10.3) L 07/21/17 04:00 Phosphorus 2.4 mg/dL (2.7-4.5) L 07/20/17 10:41 Serum Total Protein 6.1 g/dL (6.4-8.9) L 07/20/17 04:01 Albumin 3.2 g/dL (3.5-5.7) L 07/20/17 04:01 CSF Glucose 156 mg/dL (40-70) H 07/19/17 08:52 CSF Total Protein 82 mg/dL (15-45) H 07/19/17 08:52 Consult Discharge Plan - Plan Referrals: Michael Brown Jr, MD [Primary Care Provider] - <Tatiana Harmon I - Last Filed: 07/21/17 11:53> Date of Encounter: 07/21/17 Assessment and Plan (1) Right sided cerebral hemisphere cerebrovascular accident (CVA) Current Visit: Yes Status: Acute I examined this patient and my medical decision-making was reviewed with the Resident Physician, I agree with the documented findings, disposition and treatment plan as described except to the extent set forth below. continue on ASA 81 mg and PLAVIX 75 mg daily PT, OT , may need rehab discussed with Primary team Tatiana Harmon MD Objective - Constitutional Vitals: Temp Pulse Resp BP Pulse Ox 97.7 F 72 16 145/70 93 07/21/17 08:00 07/21/17 10:00 07/21/17 10:00 07/21/17 10:00 07/21/17 10:00 Results - Laboratory Findings CBC and BMP: 07/21/17 03:24 07/21/17 04:00 Abnormal lab findings: Abnormal lab results WBC 12.3 K/mcL (4.3-11.1) H 07/21/17 03:24 RBC 3.81 M/mcL (4.19-5.50) L 07/21/17 03:24 Hgb 11.7 g/dL (12.9-16.9) L 07/21/17 03:24 Hct 35.5 % (37.5-50.1) L 07/21/17 03:24 MPV 8.8 fL (9.4-12.4) L 07/21/17 03:24 Eosinophils # 0.8 K/mcL (0.0-0.6) H 07/21/17 03:24 APTT 25.7 Seconds (26.0-36.0) L 07/20/17 04:01 Chloride 109 mEq/L (98-107) H 07/21/17 04:00 BUN 24 mg/dL (8-23) H 07/21/17 04:00 Glucose 189 mg/dL (70-105) H 07/21/17 04:00 POC Glucose 184 (58-89) H 07/21/17 11:20 Hemoglobin A1c 11.1 % (-5.6) H 07/19/17 20:46 Calcium 7.7 mg/dL (8.6-10.3) L 07/21/17 04:00 Phosphorus 2.4 mg/dL (2.7-4.5) L 07/20/17 10:41 Serum Total Protein 6.1 g/dL (6.4-8.9) L 07/20/17 04:01 Albumin 3.2 g/dL (3.5-5.7) L 07/20/17 04:01 CSF Glucose 156 mg/dL (40-70) H 07/19/17 08:52 CSF Total Protein 82 mg/dL (15-45) H 07/19/17 08:52
--- NOTE | 2017-07-21 10:29 | Pulmonology Progress Note ---
Addendum entered and electronically signed by Pierce Bueno DO 14:01: Addendum to correct an error on patient's severe sepsis plan: Patient is not urine strep pneumoniae antigen (+). This was discussed with my attending and with infectious disease. Plan to discontinue Zosyn. Original Note: <Pierce Bueno - Last Filed: 07/21/17 12:46> Date of Encounter: 07/21/17 Time of Encounter: 08:00 Assessment and Plan (1) Acute ischemic stroke Current Visit: Yes Status: Acute Last known well appx 9pm 07/18. Greater than 24hrs prior to presentation to [facility]. Left sided hemineglect on intake exam to ICU. Carotid Echo 05/23/17: Right prox ICA completely occluded. Left proximal ICA has severe 60-79% stenosis. Medical therapy recommended. No A. Fib on arrival. No hx A. Fib. CT head 07/20: no acute intracranial abnormalities MRI brain 07/20: acute infarct in both right frontal lobe and left occipotal lobe consistent with central embolic event. No acute hemorrhage. MRA head wo con 07/20: Absence of flow in RCA. No high grade stenosis in LCA. BL posterior communicating, anterior cerebral, and middle cerebral arteries visualized. Carotid Echo 07/20 unchanged from prior May study. Cardiac echo 07/21: LVEF 55%, mild LV segmental systolic function, mild LV diastolic dysfunction. Suboptimal. No PFO. No pulmonary HTN. No significant valvular dysfunction. Passed speech therapy swallow study 07/20 No obvious embolic source on carotid doppler or cardiac echo. Antiplatelet: Aspirin PO Plavix PO Serial neurologic assessments Maintain perfusing BP with goal BP > 140's/90's. Consult neurology (2) Severe sepsis Current Visit: Yes Status: Acute SIRS (+): hypothermia, leukocytosis Not septic shock: no lactic acidemia or tissue hypoperfusion. CXR concerning for possible RML pneumonia. UA not concerning for UTI. Leukocytosis improving. Empiric meningitic coverage discontinued per ID Low clinical suspicion for meningitis CSF microbiology not consistent with meningitis. Empiric coverage for RML pneumoniae; urine S. pneumoniae (+) Zosyn day 2 Discontinue C-diff investigation Low clinical suspicion - alternate explanation for symptoms readily apparent. No bowel movements in ICU. Microbiology: CSF 07/20 cell count: high glucose, high protein CSF 07/20 g-stain prelim no WBC, no bacteria. Pending: Blood peripheral culture 07/20 (-) x2 @ 24 hr Urine culture Respiratory infectious panel 07/20 (-) Urine legionella antigen (-) Urine strep pneumoniae antigen (+) Levophed available to maintain MAP for CPP; has not required it yet. Anemia - suspect dilutional. No hematochezia, melena, hemetemesis. No anticoagulants at home. Platelets appropriate. Continue to monitor. Infectious disease following and appreciated. (3) Diabetes mellitus Current Visit: Yes Status: Chronic DM II. Low sliding scale insulin. Qualifiers: Diabetes mellitus type: type 2 Diabetes mellitus fdc insulin use: without fdc use Diabetes mellitus complication status: with circulatory complication Diabetes mellitus complication detail: with other circulatory complications Qualified Code(s): E11.59 - Type 2 diabetes mellitus with other circulatory complications (4) DVT prophylaxis Current Visit: Yes Status: Acute Heparin SQ Objective PUL Vital signs: Last Vital Signs Temp 97.7 F 07/21/17 08:00 Pulse 76 07/21/17 09:00 Resp 16 07/21/17 09:00 BP 138/80 07/21/17 09:00 Pulse Ox 93 07/21/17 09:00 Results - Laboratory Findings CBC and BMP: 07/21/17 03:24 07/21/17 04:00 PT/INR, D-dimer PT 11.1 Seconds (9.4-12.1) 07/20/17 04:01 Abnormal lab findings: Abnormal lab results WBC 12.3 K/mcL (4.3-11.1) H 07/21/17 03:24 RBC 3.81 M/mcL (4.19-5.50) L 07/21/17 03:24 Hgb 11.7 g/dL (12.9-16.9) L 07/21/17 03:24 Hct 35.5 % (37.5-50.1) L 07/21/17 03:24 MPV 8.8 fL (9.4-12.4) L 07/21/17 03:24 Eosinophils # 0.8 K/mcL (0.0-0.6) H 07/21/17 03:24 APTT 25.7 Seconds (26.0-36.0) L 07/20/17 04:01 Chloride 109 mEq/L (98-107) H 07/21/17 04:00 BUN 24 mg/dL (8-23) H 07/21/17 04:00 Glucose 189 mg/dL (70-105) H 07/21/17 04:00 POC Glucose 163 (58-89) H 07/21/17 05:51 Hemoglobin A1c 11.1 % (-5.6) H 07/19/17 20:46 Calcium 7.7 mg/dL (8.6-10.3) L 07/21/17 04:00 Phosphorus 2.4 mg/dL (2.7-4.5) L 07/20/17 10:41 Serum Total Protein 6.1 g/dL (6.4-8.9) L 07/20/17 04:01 Albumin 3.2 g/dL (3.5-5.7) L 07/20/17 04:01 CSF Glucose 156 mg/dL (40-70) H 07/19/17 08:52 CSF Total Protein 82 mg/dL (15-45) H 07/19/17 08:52 - Microbiology Findings Microbiology Findings: Microbiology, Last 48 Hours 07/19/17 08:52 CSF Culture - Preliminary Cerebral Spinal Fluid 07/19/17 22:04 Urine Culture - Final Urine,[place] No growth. - Clinical Findings Intake & Output: Intake & Output 07/20/17 07/21/17 07/21/17 23:59 07:59 15:59 Intake Total 1894 / 1894 100 / 100 360 / 360 Output Total 400 / 400 500 / 500 Balance 1494 / 1494 -400 / -400 360 / 360 Weight 78.2 kg - Stroke Is the patient on any antithrombotics?: No Are there any contradictions to antithrombotics?: Yes Contraindication Antithromb by Day Two: Medical contraindication (needs evalaution on dischargeg) Reason for No Antithrombin at DC: Not Indicated - Due to Bleeding Disorder or Risk of Bleeding Reason for No Anticoagulant at DC: Medical contraindication Contraindication Not Initiating IV-Tpa: Medical contraindication Contraindication No Statin at DC: Medical contraindication (needs evalaution on discharge) Contraindication Rehab Services Not Assessed: Refused by Patient / Family - VTE Documentation of Mechanical Device: Graduated compression elastic hosiery Consult Discharge Plan - Plan Referrals: Michael Brown Jr, MD [Primary Care Provider] - <Dennise French S - Last Filed: 07/21/17 23:39> Date of Encounter: 07/21/17 Objective PUL Vital signs: Last Vital Signs Temp 98.6 F 07/21/17 19:40 Pulse 71 07/21/17 21:10 Resp 18 07/21/17 21:10 BP 112/51 07/21/17 21:10 Pulse Ox 95 07/21/17 21:10 Results - Laboratory Findings CBC and BMP: 07/21/17 03:24 07/21/17 04:00 PT/INR, D-dimer PT 11.1 Seconds (9.4-12.1) 07/20/17 04:01 Abnormal lab findings: Abnormal lab results WBC 12.3 K/mcL (4.3-11.1) H 07/21/17 03:24 RBC 3.81 M/mcL (4.19-5.50) L 07/21/17 03:24 Hgb 11.7 g/dL (12.9-16.9) L 07/21/17 03:24 Hct 35.5 % (37.5-50.1) L 07/21/17 03:24 MPV 8.8 fL (9.4-12.4) L 07/21/17 03:24 Eosinophils # 0.8 K/mcL (0.0-0.6) H 07/21/17 03:24 APTT 25.7 Seconds (26.0-36.0) L 07/20/17 04:01 Chloride 109 mEq/L (98-107) H 07/21/17 04:00 BUN 24 mg/dL (8-23) H 07/21/17 04:00 Glucose 189 mg/dL (70-105) H 07/21/17 04:00 POC Glucose 163 (58-89) H 07/21/17 19:56 Hemoglobin A1c 11.1 % (-5.6) H 07/19/17 20:46 Calcium 7.7 mg/dL (8.6-10.3) L 07/21/17 04:00 Phosphorus 2.4 mg/dL (2.7-4.5) L 07/20/17 10:41 Serum Total Protein 6.1 g/dL (6.4-8.9) L 07/20/17 04:01 Albumin 3.2 g/dL (3.5-5.7) L 07/20/17 04:01 CSF Glucose 156 mg/dL (40-70) H 07/19/17 08:52 CSF Total Protein 82 mg/dL (15-45) H 07/19/17 08:52 - Microbiology Findings Microbiology Findings: Microbiology, Last 48 Hours 07/19/17 20:46 Blood Culture - Preliminary Peripheral Venipuncture No growth. 07/19/17 20:46 Blood Culture - Preliminary Peripheral Venipuncture No growth. 07/19/17 08:52 CSF Culture - Preliminary Cerebral Spinal Fluid 07/19/17 22:04 Urine Culture - Final Urine,[place] No growth. - Clinical Findings Intake & Output: Intake & Output 07/21/17 07/21/17 07/21/17 07:59 15:59 23:59 Intake Total 100 / 100 480 / 480 120 / 120 Output Total 500 / 500 150 / 150 100 / 100 Balance -400 / -400 330 / 330 20 / 20 Weight 78.2 kg - Attending Attestation - Attending Attestation I saw and evaluated this patient and my medical decision-making was reviewed with the Resident Physician. I agree with the documented findings, disposition and treatment plan as described except to the extent set forth below. We independently had [id number] contact with the patient Patient seen and examined at bedside Labs, radiology, chart personally reviewed. Management was reviewed during multidisciplinary critical care rounds. RN LABOR DELIVERY:Patient is multiple embolic infarct might explain his neuro symptoms initial concern for meningitis , encephalitis . CSF studies were unremarkable patient is outside of neuro interventional window . Will aim for higher MAP around 75 for adequate CPP .Will do embolic stroke work up according to Neuro . 07/21 so far work up showed the carotid artery disease . Pulm:. Patient has acceptable oxygenation and ventilation possible RML infiltrate possible aspiration will descalate the antibiotics Cards:To keep MAP around 65 . FEN-GI: To advance diet per speech Renal:Labs and output reviewed ID: Appreciate ID recs will discontinue antibiotics Heme/Onc:DVT prophylaxis Endo: Glucose Monitored Integ/MSK: Skin Care per routine ICU Nursing Protocol to prevent ulcers. Lines: All lines examined without evidence of infection : Dispo: Needs Q4 hour neuro monitoring can be transferred to Step down CODE:Full Code
--- NOTE | 2017-07-21 11:03 | Infectious Disease Progress No ---
Date of Encounter: 07/21/17 Time of Encounter: 11:01 - Assessment and Plan (1) Septic shock Current Visit: Yes Status: Acute The patient had leukocytosis on admission and developed hypothermia and hypotension requiring a short course of vasopressors. Etiology not entirely clear, possible GI or URI pathogen. Improved. WBC trending down. Vasopressors have been turned off. Blood cultures drawn 07/19/17 are NGTD x 2 sets. (2) Altered mental status Current Visit: Yes Status: Acute The patient had decreased mentation, confusion, and disorientation yesterday. Likely secondary to hypoperfusion from CVA, hypotension, and sepsis. Status post LP. No pleocytosis. Culture is negative. HSV PCR is pending. No meningeal signs. Neurology consulted. Continue to monitor closely. Qualifiers: Altered mental status type: delirium Qualified Code(s): R41.0 - Disorientation, unspecified (3) Right sided cerebral hemisphere cerebrovascular accident (CVA) Current Visit: Yes Status: Acute MRI of the brain shows six subcentimeter foci of restricted diffusion consistent with acute infarcts within the cortex of the right frontal love and a single acute infarct within the left occipital loved suggestive of a central embolic event. Likely secondary to severe carotid stenosis. Neurology consulted and following. (4) Abnormal chest xray Current Visit: Yes Status: Acute CXR concerning for right sided interstitial lung markings. Aspiration ruled out. Swallow evaluation done per BLASTING ENTRY SPECIALIST and did not show aspiration. RIP negative. Continue Zosyn 3.375 grams IV Q8H for now. (5) URI (upper respiratory infection) Current Visit: Yes Status: Acute Causative organism unclear. RIP negative. Continue supportive care. Qualifiers: URI type: unspecified viral URI Qualified Code(s): J06.9 - Acute upper respiratory infection, unspecified (6) Diarrhea Current Visit: Yes Status: Acute Etiology unclear, but likely viral. The patient has not had any diarrhea since admission. C. diff not collected due to lack of stools. Qualifiers: Diarrhea type: unspecified type Qualified Code(s): R19.7 - Diarrhea, unspecified (7) Hypotension Current Visit: Yes Status: Resolved Qualifiers: Hypotension type: unspecified hypotension type Qualified Code(s): I95.9 - Hypotension, unspecified (8) Carotid stenosis Current Visit: Yes Status: Acute Carotid ultrasound shows complete occlusion of the right carotid arter with 60%- 75% occlusion of the left. Likely contributing to acute CVA. Management per the primary team. Qualifiers: Laterality: right Qualified Code(s): I65.21 - Occlusion and stenosis of right carotid artery (9) Coronary artery disease Current Visit: Yes Status: Chronic Qualifiers: Coronary Disease-Associated Artery/Lesion type: bypass graft [place] vs. transplanted heart: koi heart Associated angina: angina presence unspecified Qualified Code(s): I25.810 - Atherosclerosis of coronary artery bypass graft(s) without angina pectoris (10) Diabetes mellitus Current Visit: Yes Status: Chronic Managemenet per the primary team. 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 No acute events noted overnight. Patient currently off vasopressors. States he feels tired, but otherwise has no acute complaints. Denies any fevers or chills or rigors. Denies any chest pain, shortness of breath, or cough. Denies any nausea, vomiting, diarrhea. States he is not sure the last time he had a bowel movement. Has a Alanis catheter that remains patent. Denies pain at this time. Denies any oral thrush or new skin lesions. Infect Dis PN-Objective Data - Labs CBC & Chem 7: 07/21/17 03:24 07/21/17 04:00 Labs: Laboratory Results - last 24 hr 07/19/17 07/20/17 07/20/17 08:52 05:34 10:41 WBC RBC Hgb Hct MCV MCH MCHC RDW Plt Count MPV Immature Gran % Seg Neutrophils % Lymphocytes % Monocytes % Eosinophils % Basophils % Neutrophils # Lymphocytes # Monocytes # Eosinophils # Basophils # Sodium 143 Potassium 3.7 Chloride 112 H Carbon Dioxide 24 BUN 30 H Creatinine 1.16 Est GFR ( Amer) > 60 Est GFR (Non-Af Amer) > 60 BUN/Creatinine Ratio 26 Glucose 173 H POC Glucose 195 H Calculated Osmolality 306 H Lactic Acid Calcium 8.2 L Phosphorus 2.4 L Magnesium 1.7 Troponin I 0.03 CSF Seg Neutrophils TNP CSF Band Neutrophils % TNP CSF Lymphocytes % TNP CSF Monocytes % TNP CSF Eosinophils % TNP CSF Basophils % TNP CSF Other Cells % TNP Chlamy pneumoniae PCR Adenovirus (PCR) B. pertussis DNA (PCR) B.parapertussis DNA PCR Coronavirus OC43 (PCR) Coronavirus HKU1 (PCR) Coronavirus 229E (PCR) Coronavirus NL63 (PCR) Human Metapneumovir PCR Influenza A (H1) PCR Influ A (H1N1/09) PCR Influenza A (H3) PCR Influenza A Untype (PCR) Influenza Type B (PCR) M.pneumoniae DNA (PCR) Parainfluenza 1 (PCR) Parainfluenza 2 (PCR) Parainfluenza 3 (PCR) Parainfluenza 4 (PCR) RSV (PCR) Entero/Rhino (PCR) 07/20/17 07/20/17 07/20/17 11:09 14:05 15:05 WBC RBC Hgb Hct MCV MCH MCHC RDW Plt Count MPV Immature Gran % Seg Neutrophils % Lymphocytes % Monocytes % Eosinophils % Basophils % Neutrophils # Lymphocytes # Monocytes # Eosinophils # Basophils # Sodium Potassium Chloride Carbon Dioxide BUN Creatinine Est GFR ( Amer) Est GFR (Non-Af Amer) BUN/Creatinine Ratio Glucose POC Glucose 147 H Calculated Osmolality Lactic Acid 0.7 Calcium Phosphorus Magnesium Troponin I CSF Seg Neutrophils CSF Band Neutrophils % CSF Lymphocytes % CSF Monocytes % CSF Eosinophils % CSF Basophils % CSF Other Cells % Chlamy pneumoniae PCR Not Detected Adenovirus (PCR) Not Detected B. pertussis DNA (PCR) Not Detected B.parapertussis DNA PCR Not Detected Coronavirus OC43 (PCR) Not Detected Coronavirus HKU1 (PCR) Not Detected Coronavirus 229E (PCR) Not Detected Coronavirus NL63 (PCR) Not Detected Human Metapneumovir PCR Not Detected Influenza A (H1) PCR Not Detected Influ A (H1N1/09) PCR Not Detected Influenza A (H3) PCR Not Detected Influenza A Untype (PCR) Not Detected Influenza Type B (PCR) Not Detected M.pneumoniae DNA (PCR) Not Detected Parainfluenza 1 (PCR) Not Detected Parainfluenza 2 (PCR) Not Detected Parainfluenza 3 (PCR) Not Detected Parainfluenza 4 (PCR) Not Detected RSV (PCR) Not Detected Entero/Rhino (PCR) Not Detected 07/20/17 07/20/17 07/20/17 15:10 17:59 23:39 WBC 13.8 H RBC 3.86 L Hgb 11.8 L Hct 36.2 L MCV 93.8 MCH 30.6 MCHC 32.6 RDW 12.9 Plt Count 283 MPV 8.9 L Immature Gran % 0.4 Seg Neutrophils % 70.6 Lymphocytes % 15.9 Monocytes % 8.9 Eosinophils % 3.5 Basophils % 0.7 Neutrophils # 9.7 H Lymphocytes # 2.2 Monocytes # 1.2 Eosinophils # 0.5 Basophils # 0.1 Sodium Potassium Chloride Carbon Dioxide BUN Creatinine Est GFR ( Amer) Est GFR (Non-Af Amer) BUN/Creatinine Ratio Glucose POC Glucose 248 H 179 H Calculated Osmolality Lactic Acid Calcium Phosphorus Magnesium Troponin I CSF Seg Neutrophils CSF Band Neutrophils % CSF Lymphocytes % CSF Monocytes % CSF Eosinophils % CSF Basophils % CSF Other Cells % Chlamy pneumoniae PCR Adenovirus (PCR) B. pertussis DNA (PCR) B.parapertussis DNA PCR Coronavirus OC43 (PCR) Coronavirus HKU1 (PCR) Coronavirus 229E (PCR) Coronavirus NL63 (PCR) Human Metapneumovir PCR Influenza A (H1) PCR Influ A (H1N1/09) PCR Influenza A (H3) PCR Influenza A Untype (PCR) Influenza Type B (PCR) M.pneumoniae DNA (PCR) Parainfluenza 1 (PCR) Parainfluenza 2 (PCR) Parainfluenza 3 (PCR) Parainfluenza 4 (PCR) RSV (PCR) Entero/Rhino (PCR) 07/21/17 07/21/17 07/21/17 03:24 04:00 05:51 WBC 12.3 H RBC 3.81 L Hgb 11.7 L Hct 35.5 L MCV 93.2 MCH 30.7 MCHC 33.0 RDW 12.7 Plt Count 270 MPV 8.8 L Immature Gran % 0.5 Seg Neutrophils % 69.2 Lymphocytes % 15.0 Monocytes % 8.1 Eosinophils % 6.3 Basophils % 0.9 Neutrophils # 8.5 Lymphocytes # 1.8 Monocytes # 1.0 Eosinophils # 0.8 H Basophils # 0.1 Sodium 140 Potassium 3.5 Chloride 109 H Carbon Dioxide 24 BUN 24 H Creatinine 1.08 Est GFR ( Amer) > 60 Est GFR (Non-Af Amer) > 60 BUN/Creatinine Ratio 22 Glucose 189 H POC Glucose 163 H Calculated Osmolality 299 Lactic Acid Calcium 7.7 L Phosphorus Magnesium Troponin I CSF Seg Neutrophils CSF Band Neutrophils % CSF Lymphocytes % CSF Monocytes % CSF Eosinophils % CSF Basophils % CSF Other Cells % Chlamy pneumoniae PCR Adenovirus (PCR) B. pertussis DNA (PCR) B.parapertussis DNA PCR Coronavirus OC43 (PCR) Coronavirus HKU1 (PCR) Coronavirus 229E (PCR) Coronavirus NL63 (PCR) Human Metapneumovir PCR Influenza A (H1) PCR Influ A (H1N1/09) PCR Influenza A (H3) PCR Influenza A Untype (PCR) Influenza Type B (PCR) M.pneumoniae DNA (PCR) Parainfluenza 1 (PCR) Parainfluenza 2 (PCR) Parainfluenza 3 (PCR) Parainfluenza 4 (PCR) RSV (PCR) Entero/Rhino (PCR) Cultures: Cultures 07/19/17 08:52 CSF Culture - Preliminary Cerebral Spinal Fluid 07/19/17 22:04 Urine Culture - Final Urine,[place] No growth. Serology 07/20/17 07/19/17 Range/Units 15:05 08:52 CSF Volume 6.5 mL CSF Appearance Clear (Clear) CSF Color Colorless (Colorless) CSF RBC < 0.002 (0.000 - 0.002) M/mcL CSF Tot Nucleated Cells 5 (0-5) TNC/mcL CSF Seg Neutrophils TNP CSF Band Neutrophils % TNP CSF Lymphocytes % TNP CSF Monocytes % TNP CSF Eosinophils % TNP CSF Basophils % TNP CSF Other Cells % TNP CSF Glucose 156 H (40-70) mg/dL CSF Xanth Comm Not Observed (Not Observe) CSF Total Protein 82 H (15-45) mg/dL Chlamy pneumoniae PCR Not Detected (Not Detect) Adenovirus (PCR) Not Detected (Not Detect) B. pertussis DNA (PCR) Not Detected (Not Detect) B.parapertussis DNA PCR Not Detected (Not Detect) Coronavirus OC43 (PCR) Not Detected (Not Detect) Coronavirus HKU1 (PCR) Not Detected (Not Detect) Coronavirus 229E (PCR) Not Detected (Not Detect) Coronavirus NL63 (PCR) Not Detected (Not Detect) Human Metapneumovir PCR Not Detected (Not Detect) Influenza A (H1) PCR Not Detected (Not Detect) Influ A (H1N1/09) PCR Not Detected (Not Detect) Influenza A (H3) PCR Not Detected (Not Detect) Influenza A Untype (PCR) Not Detected (Not Detect) Influenza Type B (PCR) Not Detected (Not Detect) M.pneumoniae DNA (PCR) Not Detected (Not Detect) Parainfluenza 1 (PCR) Not Detected (Not Detect) Parainfluenza 2 (PCR) Not Detected (Not Detect) Parainfluenza 3 (PCR) Not Detected (Not Detect) Parainfluenza 4 (PCR) Not Detected (Not Detect) RSV (PCR) Not Detected (Not Detect) Entero/Rhino (PCR) Not Detected (Not Detect) - Impressions Impressions Brain MRI 07/20/17 08:11 IMPRESSION: 1. Six subcentimeter foci of restricted diffusion consistent with acute infarcts within the cortex of the right frontal lobe and a single acute infarct within the left occipital lobe. The findings suggest the sequelae of a central embolic event given the multiple vascular territories involved. 2. No acute intracranial hemorrhage. 3. Diffuse cerebral volume loss and mild chronic small vessel ischemic changes. 4. Fluid within the middle ears and mastoid air cells, left greater than right. The findings were sent to the Radiology Results Communication [facility] at 2:01 pm on 07/20/2017to be communicated to a licensed caregiver. D/ / 07/20/2017 14:10:18 Shadi Zhang MD / [facility] Interpreting Provider: Shadi Zhang MD Head MRA 07/20/17 10:44 IMPRESSION: Absence of flow related signal in the intracranial right internal carotid artery is consistent with occlusion. There is distal reconstitution of the right internal carotid artery terminus, at the level of the right posterior communicating artery origin. D/ / 07/20/2017 14:14:56 Jose Copeland MD / [email or web address] Interpreting Provider: Jose Copeland MD Head CT 07/20/17 11:06 IMPRESSION: No acute intracranial abnormality. Persistent opacification of the right mastoid air cells. D/ / 07/20/2017 13:05:36 Axel Colbert MD / [facility] Interpreting Provider: Axel Colbert MD Chest X-Ray 07/20/17 14:42 IMPRESSION: 1. Findings suggestive of mild pulmonary venous congestion. 2. No focal consolidation, pneumothorax, or pleural effusion. D/ / 07/20/2017 15:11:49 Chandana Copeland MD / [email or web address] Interpreting Provider: Chandana Copeland MD Echocardiogram 07/20/17 14:44 Impressions: LVEF 55%. Mild concentric left ventricular hypertrophy. Mild segmental systolic dysfunction, but overall normal LV functio. Mild left ventricular diastolic dysfunction. Atypical septal motion consistent with post-operative status. Normal right ventricular structure and function. Suboptimal image quality, but no evidence of a PFO with agitated saline contrast. No evidence of pulmonary hypertension. No significant valvular dysfunction. Left Ventricular Wall Motion: Rest Echo Findings The basal inferior wall was akinetic. All other wall segments showed normal motion. Findings: Study Quality * Technically adequate exam. ECG Findings * Normal sinus rhythm. Left Ventricle * LVEF 55%. * Normal LV chamber size. * Mild concentric left ventricular hypertrophy. * Mild segmental systolic dysfunction, but overall normal LV functio. * Mild left ventricular diastolic dysfunction. * Atypical septal motion consistent with post-operative status. Right Ventricle * Normal right ventricular structure and function. Left Atrium * Moderately dilated left atrium. Right Atrium * Mildly dilated right atrium. Interatrial Septum * Suboptimal image quality, but no evidence of a PFO with agitated saline contrast. Aortic Valve * Trileaflet aortic valve with normal function. * No aortic regurgitation. * No aortic stenosis. Mitral Valve * Mild mitral annular calcification. * No mitral regurgitation. * No mitral stenosis. Tricuspid Valve * Normal tricuspid valve structure and function. * Trace tricuspid regurgitation. * No evidence of pulmonary hypertension. Pulmonic Valve * Normal pulmonic valve structure and function. * Trace pulmonic regurgitation. Aorta * Normally sized aortic root. Pericardium * The pericardium appears normal. IVC * Normal IVC dimensions and inspiratory collapse. Pulmonary Artery * Normal visualized portions of the main pulmonary artery. Exam - Constitutional Vitals: Temp Pulse Resp BP Pulse Ox 97.7 F 72 16 145/70 93 07/21/17 08:00 07/21/17 10:00 07/21/17 10:00 07/21/17 10:00 07/21/17 10:00 General appearance: average body habitus, cooperative, no acute distress - Head Head exam: Present: atraumatic, normal inspection, normocephalic - Eye Eye exam: Present: EOMI, normal appearance, PERRL Pupils: Present: normal accommodation - ENT ENT exam: Present: mucous membranes moist - Neck Neck exam: Present: normal inspection. Absent: meningismus - Respiratory Respiratory exam: Present: wheezes (Coarse expiratory RUL). Absent: rales, respiratory distress, rhonchi - Cardiovascular Cardiovascular exam: Present: RRR, +S1, +S2 - GI/Abdominal GI/Abdominal exam: Present: normal bowel sounds, soft. Absent: distended, tenderness Additional comments: Alanis catheter patent draining clear yellow urine. - Extremities Exam Extremities exam: Present: normal inspection. Absent: joint swelling, pedal edema, tenderness - Neurological Exam Neurological exam: Present: alert, oriented X3. Absent: no focal deficits ( Weakness noted to the LUE, but DENNIS x 4.) - Psychiatric Psychiatric exam: Present: normal affect, normal mood - Skin Skin exam: Present: dry, intact, normal color, warm - Stroke Is the patient on any antithrombotics?: No Are there any contradictions to antithrombotics?: Yes Contraindication Antithromb by Day Two: Medical contraindication (needs evalaution on dischargeg) Reason for No Antithrombin at DC: Not Indicated - Due to Bleeding Disorder or Risk of Bleeding Reason for No Anticoagulant at DC: Medical contraindication Contraindication Not Initiating IV-Tpa: Medical contraindication Contraindication No Statin at DC: Medical contraindication (needs evalaution on discharge) Contraindication Rehab Services Not Assessed: Refused by Patient / Family - VTE Documentation of Mechanical Device: Graduated compression elastic hosiery Consult Discharge Plan - Plan Referrals: Michael Brown Jr, MD [Primary Care Provider] - - Attending Attestation I examined this patient and my medical decision-making was reviewed with the Resident Physician. I agree with the documented findings, disposition and treatment plan as described except to the extent set forth below. patient seen and examined, agree with above findings and clinical findings this is entered by Dr. Horn
[2017-07-21] MEDS ORDERED: Insulin LISPRO 300 UNITS/3 ML VIAL SQ SCH ×3 (11:38→21:00)
[2017-07-21] MEDS ORDERED: Aminoglycoside Consult 1 EACH MC ONE (12:38)
[2017-07-21] MEDS ORDERED: Potassium Phosphate 44 MEQ in 0.9 % Sodium Chloride 250 ML IVPB PRN (14:16)
[2017-07-21] MEDS ORDERED: Dextrose Gel 15 GM/37.5 ML TUBE PO PRN ×2 (14:16)
[2017-07-21] MEDS ORDERED: D5% in Water 1,000 ML IVC PRN (14:16)
[2017-07-21] MEDS ORDERED: *HR* Dextrose 50 % in Water (Syg) 50 ML SYRINGE IVP PRN (14:16)
[2017-07-21] MEDS ORDERED: Naloxone 0.4 MG/ML INJ IVP PRN (14:16)
--- NOTE | 2017-07-21 16:57 | Electrocardiograph Report ---
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
--- NOTE | 2017-07-21 16:58 | Electrocardiograph Report ---
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
[2017-07-21] MEDS ORDERED: Acetaminophen 325 MG TABLET PO PRN (21:43)
[2017-07-22] MEDS: *HR* Heparin 5,000 UNIT/ML VIAL SQ SCH ×2 (04:52→18:35)
[2017-07-22 05:23] LABS: INR 1.1; Prothrombin Time 11.5 Seconds (9.4-12.1)
[2017-07-22 05:24] LABS: Basophils # 0.1 K/mcL (0.0-0.2); Basophils % 0.8 %; Eosinophils # 0.7 K/mcL (0.0-0.6); Hematocrit 36.2 % (37.5-50.1); Hemoglobin 12.1 g/dL (12.9-16.9); Immature Granulocytes % 0.9 % (0-4); Lymphocytes # 2.1 K/mcL (0.6-4.6); Lymphocytes % 18.7 %; Mean Corpuscular HGB Conc 33.4 g/dL (31.6-35.5); Mean Corpuscular Hemoglobin 30.7 pg (28.0-33.3); Mean Corpuscular Volume 91.9 fL (83.0-100.0); Mean Platelet Volume 8.7 fL (9.4-12.4); Monocytes # 0.7 K/mcL (0.0-1.3); Monocytes % 6.6 %; Neutrophils # 7.5 K/mcL (1.6-8.9); Platelet Count 286 K/mcL (140-400); Red Blood Count 3.94 M/mcL (4.19-5.50); Red Cell Distribution Width 12.7 % (11.5-14.5)
[2017-07-22 06:29] LABS: BUN/Creatinine Ratio 18 (6-26); Blood Urea Nitrogen 16 mg/dL (8-23); Calcium 8.1 mg/dL (8.6-10.3); Carbon Dioxide 24 mEq/L (23-29); Chloride 108 mEq/L (98-107); Glucose 177 mg/dL (70-105); Magnesium 1.7 mg/dL (1.6-2.6); Osmolality,Calculated 300 (280-300); Potassium 3.5 mEq/L (3.5-5.1); Sodium 142 mEq/L (136-145); eGFR For African Americans > 60 (> 60); eGFR For Non-African Americans > 60 (> 60)
[2017-07-22] MEDS: Insulin LISPRO 300 UNITS/3 ML VIAL SQ SCH ×4 (07:47→21:45)
[2017-07-22] MEDS ORDERED: Aspirin 325 MG TABLET PO SCH (09:00)
--- NOTE | 2017-07-22 09:14 | Pulmonology Progress Note ---
Date of Encounter: 07/22/17 Time of Encounter: 09:00 Assessment and Plan (1) Acute ischemic stroke Current Visit: Yes Status: Acute Last known well appx 9pm 07/18. Greater than 24hrs prior to presentation to [facility]. Left sided hemineglect on intake exam to ICU. Carotid Echo 05/23/17: Right prox ICA completely occluded. Left proximal ICA has severe 60-79% stenosis. Medical therapy recommended. No A. Fib on arrival. No hx A. Fib. CT head 07/20: no acute intracranial abnormalities MRI brain 07/20: acute infarct in both right frontal lobe and left occipotal lobe consistent with central embolic event. No acute hemorrhage. MRA head wo con 07/20: Absence of flow in RCA. No high grade stenosis in LCA. BL posterior communicating, anterior cerebral, and middle cerebral arteries visualized. Carotid Echo 07/20 unchanged from prior May study. Cardiac echo 07/21: LVEF 55%, mild LV segmental systolic function, mild LV diastolic dysfunction. Suboptimal. No PFO. No pulmonary HTN. No significant valvular dysfunction. Passed speech therapy swallow study 07/20 No obvious embolic source on carotid doppler or cardiac echo. Antiplatelet: Aspirin PO Plavix PO Serial neurologic assessments every 4 hrs will transfer to Telemetry . (2) Severe sepsis Current Visit: Yes Status: Acute SIRS (+): hypothermia, leukocytosis Not septic shock: no lactic acidemia or tissue hypoperfusion. CXR concerning for possible RML pneumonia. UA not concerning for UTI. Leukocytosis improving. Empiric meningitic coverage discontinued per ID Low clinical suspicion for meningitis CSF microbiology not consistent with meningitis. Empiric coverage for RML pneumoniae patient doesnt have clinical symptoms of pneumonia will discontinue antibiotics . Discontinue C-diff investigation Low clinical suspicion - alternate explanation for symptoms readily apparent. No bowel movements in ICU. Microbiology: CSF 07/20 cell count: high glucose, high protein CSF 07/20 g-stain prelim no WBC, no bacteria. Pending: Blood peripheral culture 07/20 (-) x2 @ 24 hr Urine culture Respiratory infectious panel 07/20 (-) Urine legionella antigen (-) Anemia - suspect dilutional. No hematochezia, melena, hemetemesis. No anticoagulants at home. Platelets appropriate. Continue to monitor. Infectious disease following and appreciated. 07/22 : Sepsis seemed to be resolved . (3) Diabetes mellitus Current Visit: Yes Status: Chronic To continue current management Qualifiers: Diabetes mellitus type: type 2 Diabetes mellitus complication status: with circulatory complication Qualified Code(s): E11.51 - Type 2 diabetes mellitus with diabetic peripheral angiopathy without gangrene (4) DVT prophylaxis Current Visit: Yes Status: Acute Heparin sq Subjective Principal diagnosis: acute ischemic stroke Interval history: Patient presented with left sided upper limb weakenss with some altered mental status patient is almost back to baseline . Patient did not have any acute events Objective PUL Vital signs: Last Vital Signs Temp 97.5 F L 07/22/17 08:14 Pulse 67 07/22/17 05:00 Resp 14 07/22/17 05:00 BP 146/75 07/22/17 05:00 Pulse Ox 94 07/22/17 05:00 Auscultation: bilateral: diminished breath sounds other (left sided minimal upper limb weakness ) Results - Laboratory Findings CBC and BMP: 07/22/17 04:00 07/22/17 04:55 PT/INR, D-dimer PT 11.5 Seconds (9.4-12.1) 07/22/17 04:00 Abnormal lab findings: Abnormal lab results RBC 3.94 M/mcL (4.19-5.50) L 07/22/17 04:00 Hgb 12.1 g/dL (12.9-16.9) L 07/22/17 04:00 Hct 36.2 % (37.5-50.1) L 07/22/17 04:00 MPV 8.7 fL (9.4-12.4) L 07/22/17 04:00 Eosinophils # 0.7 K/mcL (0.0-0.6) H 07/22/17 04:00 APTT 25.7 Seconds (26.0-36.0) L 07/20/17 04:01 Chloride 108 mEq/L (98-107) H 07/22/17 04:55 Glucose 177 mg/dL (70-105) H 07/22/17 04:55 POC Glucose 208 (58-89) H 07/22/17 07:32 Hemoglobin A1c 11.1 % (-5.6) H 07/19/17 20:46 Calcium 8.1 mg/dL (8.6-10.3) L 07/22/17 04:55 Phosphorus 2.4 mg/dL (2.7-4.5) L 07/20/17 10:41 Serum Total Protein 6.1 g/dL (6.4-8.9) L 07/20/17 04:01 Albumin 3.2 g/dL (3.5-5.7) L 07/20/17 04:01 CSF Glucose 156 mg/dL (40-70) H 07/19/17 08:52 CSF Total Protein 82 mg/dL (15-45) H 07/19/17 08:52 - Microbiology Findings Microbiology Findings: Microbiology, Last 48 Hours 07/19/17 08:52 CSF Culture - Preliminary Cerebral Spinal Fluid 07/19/17 20:46 Blood Culture - Preliminary Peripheral Venipuncture No growth. 07/19/17 20:46 Blood Culture - Preliminary Peripheral Venipuncture No growth. 07/19/17 22:04 Urine Culture - Final Urine,Alanis [place] No growth. - Clinical Findings Intake & Output: Intake & Output 07/21/17 07/22/17 07/22/17 23:59 07:59 15:59 Intake Total 120 / 120 0 / 0 Output Total 100 / 100 0 / 0 Balance 0 / 0 Weight 79.3 kg - Stroke Is the patient on any antithrombotics?: Yes Are there any contradictions to antithrombotics?: No Contraindication Antithromb by Day Two: Medical contraindication (needs evalaution on dischargeg) Reason for No Antithrombin at DC: Not Indicated - Due to Bleeding Disorder or Risk of Bleeding Contraindication Not Initiating IV-Tpa: Medical contraindication Onset of Symptoms Date: 07/18/17 Onset of Symptoms Time: 21:00 Symptom Onset Unknown: No Contraindication No Statin at DC: Medical contraindication (needs evalaution on discharge) Has Patient Been Evaluated by Rehab for Stroke: No Contraindication Rehab Services Not Assessed: Returned to Prior Level of Function - VTE Documentation of Mechanical Device: Graduated compression elastic hosiery Consult Discharge Plan - Plan Referrals: Michael Brown Jr, MD [Primary Care Provider] -
[2017-07-22] MEDS ORDERED: Potassium Phosphate 44 MEQ in 0.9 % Sodium Chloride 250 ML IVPB PRN (15:26)
[2017-07-22] MEDS ORDERED: *HR* Dextrose 50 % in Water (Syg) 50 ML SYRINGE IVP PRN (15:26)
[2017-07-22] MEDS ORDERED: Acetaminophen 325 MG TABLET PO PRN (15:26)
[2017-07-22] MEDS ORDERED: D5% in Water 1,000 ML IVC PRN (15:26)
[2017-07-22] MEDS ORDERED: Dextrose Gel 15 GM/37.5 ML TUBE PO PRN ×2 (15:26)
[2017-07-22] MEDS ORDERED: Naloxone 0.4 MG/ML INJ IVP PRN (15:26)
[2017-07-22 16:36] LABS: HSV Source CSF
[2017-07-23] MEDS: *HR* Heparin 5,000 UNIT/ML VIAL SQ SCH ×2 (05:28→17:15)
[2017-07-23] MEDS: Aspirin 325 MG TABLET PO SCH (08:04)
[2017-07-23] MEDS: Insulin LISPRO 300 UNITS/3 ML VIAL SQ SCH ×3 (08:04→17:14)
--- NOTE | 2017-07-23 09:22 | Internal Med Progress Note ---
Date of Encounter: 07/23/17 Time of Encounter: 09:02 - Subjective Interval history: Transfer from ICU --> 2NE this am Acute ischemic stroke From ICU notes: Last known well appx 9pm 07/18. Greater than 24hrs prior to presentation to [facility]. Left sided hemineglect on intake exam to ICU. Carotid Echo 05/23/17: Right prox ICA completely occluded. Left proximal ICA has severe 60-79% stenosis. Vascular surgery consulted No hx of A-Fib or A-Fib on telemetry since arrival CT head 07/20: no acute intracranial abnormalities MRI brain 07/20: acute infarct in both right frontal lobe and left occipotal lobe consistent with central embolic event. No acute hemorrhage. MRA head wo con 07/20: Absence of flow in RCA. No high grade stenosis in LCA. BL posterior communicating, anterior cerebral, and middle cerebral arteries visualized. Carotid Echo 07/20 unchanged from prior May study. Cardiac echo 07/21: LVEF 55%, mild LV segmental systolic function, mild LV diastolic dysfunction. Suboptimal. No PFO. No pulmonary HTN. No significant valvular dysfunction. Passed speech therapy swallow study 07/20 No obvious embolic source on carotid doppler or cardiac PT/OT/ST Aspirin, Plavix and statin Positive severe sepsis criteria: Resolving prior to transfer from ICU ID following Hypothermia, leukocytosis Not septic shock: no lactic acidemia or tissue hypoperfusion. CXR showed possible RML pneumonia but clinically no PNA Abx stopped UA neg CSF not consistent with meningitis. Empiric coverage for RML pneumoniae patient doesnt have clinical symptoms of pneumonia will discontinue antibiotics . Low clinical suspicion per C.diff per ICU notes and w/u stopped. Microbiology: CSF 07/20 cell count: high glucose, high protein CSF 07/20 g-stain prelim no WBC, no bacteria. Blood peripheral culture 07/20 (-) x2 @ 24 hr Urine culture Respiratory infectious panel 07/20 (-) Urine legionella antigen (-) Diabetes mellitus-2: LD-SSI qACHS - Constitutional Vitals: Temp Pulse Resp BP Pulse Ox 97.8 F 83 16 145/86 93 07/23/17 07:03 07/23/17 07:03 07/23/17 07:03 07/23/17 07:03 07/23/17 07:03 General appearance: Present: A&O X 3, no acute distress, answers questions appropriately - Head Head exam: Present: atraumatic, normocephalic - Eye Eye exam: Present: PERRL, conjuntiva pink, sclera anicteric Pupils: Present: PERRL - Neck Neck exam general surgery: Present: supple, trachea midline. Absent: lymphadenopathy - Respiratory Respiratory exam: Present: CTAB. Absent: accessory muscle use, rales, rhonchi, wheezes - Cardiovascular Cardiovascular exam: Present: RRR, +S1, +S2, tachycardia. Absent: diastolic murmur, gallop, JVD, rubs, systolic murmur - GI/Abdominal GI/Abdominal exam: Present: normal bowel sounds, soft, no peritoneal signs. Absent: distended, tenderness - Extremities Exam Extremities exam: Present: warm, radial pulses palpable and symmetrical. Absent : calf tenderness, cyanotic, pedal edema - Neurological Exam Neurological exam: Present: alert, CN II-XII intact, oriented X3, no focal deficits. Absent: altered, motor sensory deficit, facial droop, speech deficit - Psychiatric Psychiatric exam: Present: normal affect, normal mood - Skin Skin exam: Present: dry, intact Internal Medicine: Result - Labs CBC & Chem 7: 07/22/17 04:00 07/22/17 04:55 - ABG Interpretation ABG results: PT/INR, D-dimer PT 11.5 Seconds (9.4-12.1) 07/22/17 04:00 - Stroke Is the patient on any antithrombotics?: No Are there any contradictions to antithrombotics?: No Contraindication Not Initiating IV-Tpa: Medical contraindication Contraindication No Statin at DC: Medical contraindication (needs evalaution on discharge) Contraindication Rehab Services Not Assessed: Returned to Prior Level of Function - VTE Documentation of Mechanical Device: Graduated compression elastic hosiery Consult Discharge Plan - Plan Instructions: Ischemic Stroke (DC), Ischemic Stroke (GEN), Self Care Measures After a Stroke (DC), Self Care Measures After a Stroke (GEN), Ischemic Stroke, Customs 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
[2017-07-24] MEDS: Insulin LISPRO 300 UNITS/3 ML VIAL SQ SCH ×5 (00:09→23:13)
[2017-07-24] MEDS: *HR* Heparin 5,000 UNIT/ML VIAL SQ SCH ×2 (05:18→16:45)
[2017-07-24] MEDS: Aspirin 325 MG TABLET PO SCH (08:09)
--- NOTE | 2017-07-24 09:58 | Internal Med Progress Note ---
Date of Encounter: 07/24/17 Time of Encounter: 09:45 - Subjective Interval history: Transfer from ICU --> 2NE this am Acute ischemic stroke From ICU notes: Last known well appx 9pm 07/18. Greater than 24hrs prior to presentation to [facility]. Left sided hemineglect on intake exam to ICU. Carotid Echo 05/23/17: Right prox ICA completely occluded. Left proximal ICA has severe 60-79% stenosis. Vascular surgery consulted No hx of A-Fib or A-Fib on telemetry since arrival CT head 07/20: no acute intracranial abnormalities MRI brain 07/20: acute infarct in both right frontal lobe and left occipotal lobe consistent with central embolic event. No acute hemorrhage. MRA head wo con 07/20: Absence of flow in RCA. No high grade stenosis in LCA. BL posterior communicating, anterior cerebral, and middle cerebral arteries visualized. Carotid Echo 07/20 unchanged from prior May study. Cardiac echo 07/21: LVEF 55%, mild LV segmental systolic function, mild LV diastolic dysfunction. Suboptimal. No PFO. No pulmonary HTN. No significant valvular dysfunction. Passed speech therapy swallow study 07/20 No obvious embolic source on carotid doppler or cardiac PT/OT/ST Aspirin, Plavix and statin Vascular consulted PT/OT recommending InPt rehab/swingbed Severe Carotid occlusive disease: Aspirin, Plavix and statin Vascular consulted Positive severe sepsis criteria: Resolving prior to transfer from ICU ID following Hypothermia, leukocytosis Not septic shock: no lactic acidemia or tissue hypoperfusion. CXR showed possible RML pneumonia but clinically no PNA Abx stopped UA neg CSF not consistent with meningitis. Empiric coverage for RML pneumoniae patient doesnt have clinical symptoms of pneumonia will discontinue antibiotics . Low clinical suspicion per C.diff per ICU notes and w/u stopped. Microbiology: CSF 07/20 cell count: high glucose, high protein CSF 07/20 g-stain prelim no WBC, no bacteria. Blood peripheral culture 07/20 (-) x2 @ 24 hr Urine culture Respiratory infectious panel 07/20 (-) Urine legionella antigen (-) Diabetes mellitus-2: LD-SSI qACHS - Constitutional Vitals: Temp Pulse Resp BP Pulse Ox 98.6 F 73 17 141/74 100 07/24/17 07:27 07/24/17 07:27 07/24/17 07:27 07/24/17 07:27 07/24/17 07:27 General appearance: Present: A&O X 3, no acute distress, answers questions appropriately - Head Head exam: Present: atraumatic, normocephalic - Eye Eye exam: Present: PERRL, conjuntiva pink, sclera anicteric Pupils: Present: PERRL - Neck Neck exam general surgery: Present: supple, trachea midline. Absent: lymphadenopathy - Respiratory Respiratory exam: Present: CTAB. Absent: accessory muscle use, rales, rhonchi, wheezes - Cardiovascular Cardiovascular exam: Present: RRR, +S1, +S2. Absent: diastolic murmur, gallop, rubs, systolic murmur - GI/Abdominal GI/Abdominal exam: Present: normal bowel sounds, soft, no peritoneal signs. Absent: distended, tenderness - Extremities Exam Extremities exam: Present: warm, radial pulses palpable and symmetrical. Absent : calf tenderness, cyanotic, pedal edema - Neurological Exam Neurological exam: Present: CN II-XII intact, oriented X3, no focal deficits. Absent: pronater drift, facial droop, speech deficit - Skin Skin exam: Present: dry, intact Internal Medicine: Result - Labs CBC & Chem 7: 07/22/17 04:00 07/22/17 04:55 - ABG Interpretation ABG results: PT/INR, D-dimer PT 11.5 Seconds (9.4-12.1) 07/22/17 04:00 - Impressions Impressions Head CT 07/20/17 11:06 IMPRESSION: No acute intracranial abnormality. Persistent opacification of the right mastoid air cells. D/ / 07/20/2017 13:05:36 [facility]bert [facility] Interpreting Provider: Axel Colbert MD - Stroke Is the patient on any antithrombotics?: Yes Are there any contradictions to antithrombotics?: No Contraindication Antithromb by Day Two: Medical contraindication (needs evalaution on dischargeg) Reason for No Antithrombin at DC: Not Indicated - Due to Bleeding Disorder or Risk of Bleeding Reason for No Anticoagulant at DC: Medical contraindication Contraindication Not Initiating IV-Tpa: Medical contraindication Contraindication No Statin at DC: Medical contraindication (needs evalaution on discharge) Contraindication Rehab Services Not Assessed: Returned to Prior Level of Function - VTE Documentation of Mechanical Device: Graduated compression elastic hosiery Consult Discharge Plan - Plan Instructions: Ischemic Stroke (DC), Ischemic Stroke (GEN), Self Care Measures After a Stroke (DC), Self Care Measures After a Stroke (GEN), Ischemic Stroke, Honing Machine Operator Production (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
[2017-07-24 10:39] LABS: Basophils # 0.1 K/mcL (0.0-0.2); Basophils % 0.9 %; Eosinophils # 0.4 K/mcL (0.0-0.6); Eosinophils % 3.4 %; Hematocrit 37.9 % (37.5-50.1); Hemoglobin 12.6 g/dL (12.9-16.9); Immature Granulocytes % 0.8 % (0-4); Lymphocytes % 17.8 %; Mean Corpuscular HGB Conc 33.2 g/dL (31.6-35.5); Mean Corpuscular Hemoglobin 30.4 pg (28.0-33.3); Mean Corpuscular Volume 91.5 fL (83.0-100.0); Mean Platelet Volume 8.8 fL (9.4-12.4); Monocytes # 0.6 K/mcL (0.0-1.3); Monocytes % 5.5 %; Platelet Count 302 K/mcL (140-400); Red Blood Count 4.14 M/mcL (4.19-5.50); Red Cell Distribution Width 12.7 % (11.5-14.5); Segmented Neutrophils % 71.6 %
[2017-07-24 10:55] LABS: BUN/Creatinine Ratio 12 (6-26); Blood Urea Nitrogen 11 mg/dL (8-23); Calcium 8.1 mg/dL (8.6-10.3); Carbon Dioxide 28 mEq/L (23-29); Chloride 106 mEq/L (98-107); Glucose 276 mg/dL (70-105); Osmolality,Calculated 299 (280-300); Potassium 3.4 mEq/L (3.5-5.1); Sodium 140 mEq/L (136-145); eGFR For African Americans > 60 (> 60); eGFR For Non-African Americans > 60 (> 60)
--- NOTE | 2017-07-24 12:49 | Infectious Disease Progress No ---
Date of Encounter: 07/24/17 Time of Encounter: 11:00 - Assessment and Plan (1) Altered mental status Current Visit: Yes Status: Acute The patient had decreased mentation, confusion, and disorientation after admission. Cognition improved. - Likely secondary to hypoperfusion from CVA, hypotension, and sepsis. Vitals have been stable throughout the remainder of his inpatient stay. Status post LP. No pleocytosis. Culture is negative. HSV PCR negative. No meningeal signs. Neurology following. NO infectious etiology at this point. Will sign off, please call us if change in clinical picture. Qualifiers: Altered mental status type: delirium Qualified Code(s): R41.0 - Disorientation, unspecified (2) Right sided cerebral hemisphere cerebrovascular accident (CVA) Current Visit: Yes Status: Acute MRI of the brain shows six subcentimeter foci of restricted diffusion consistent with acute infarcts within the cortex of the right frontal love and a single acute infarct within the left occipital loved suggestive of a central embolic event. Likely secondary to severe carotid stenosis. - Patient continued on Plavix and aspirin. Neurology consulted and following. (3) Carotid stenosis Current Visit: Yes Status: Acute Carotid ultrasound shows complete occlusion of the right carotid arter with 60%- 75% occlusion of the left. Likely contributing to acute CVA. Management per the primary team. Qualifiers: Laterality: right Qualified Code(s): I65.21 - Occlusion and stenosis of right carotid artery (4) Diarrhea Current Visit: Yes Status: Acute Etiology unclear, but likely viral. The patient has not had any diarrhea since admission. C. diff not collected. Qualifiers: Diarrhea type: unspecified type Qualified Code(s): R19.7 - Diarrhea, unspecified (5) Coronary artery disease Current Visit: Yes Status: Chronic Known history of CAD, CABG. - Continue management per primary team. Qualifiers: Coronary Disease-Associated Artery/Lesion type: bypass graft [place] vs. transplanted heart: [place] heart Associated angina: angina presence unspecified Qualified Code(s): I25.810 - Atherosclerosis of coronary artery bypass graft(s) without angina pectoris - Subjective Interval history: Mr. Nava 77-year-old male seen and evaluated patient bedside. He is alert awake interactive in no acute distress. Denies fevers, chills, diaphoresis, shortness of breath, palpitations, chest pressure chest pain, abdominal pain nausea vomiting constipation. He does admit to some mild coughing with no sputum production and occasional episodes of diarrhea but no abdominal discomforts. He feels well and almost back to his normal self. He or his have no further questions for infectious disease at this time. Infect Dis PN-Objective Data - Labs CBC & Chem 7: 07/24/17 10:26 07/24/17 10:26 Labs: Laboratory Results - last 24 hr 07/20/17 07/23/17 07/23/17 08:52 07:05 11:44 WBC RBC Hgb Hct MCV MCH MCHC RDW Plt Count MPV Immature Gran % Seg Neutrophils % Lymphocytes % Monocytes % Eosinophils % Basophils % Neutrophils # Lymphocytes # Monocytes # Eosinophils # Basophils # Sodium Potassium Chloride Carbon Dioxide BUN Creatinine Est GFR ( Amer) Est GFR (Non-Af Amer) BUN/Creatinine Ratio Glucose POC Glucose 244 H 255 H Calculated Osmolality Calcium Herpes Simplex Source CSF Herpes Simplex DNA PCR NOT DETECTED 07/23/17 07/23/17 07/24/17 16:36 20:57 10:26 WBC 11.2 H RBC 4.14 L Hgb 12.6 L Hct 37.9 MCV 91.5 MCH 30.4 MCHC 33.2 RDW 12.7 Plt Count 302 MPV 8.8 L Immature Gran % 0.8 Seg Neutrophils % 71.6 Lymphocytes % 17.8 Monocytes % 5.5 Eosinophils % 3.4 Basophils % 0.9 Neutrophils # 8.0 Lymphocytes # 2.0 Monocytes # 0.6 Eosinophils # 0.4 Basophils # 0.1 Sodium Potassium Chloride Carbon Dioxide BUN Creatinine Est GFR ( Amer) Est GFR (Non-Af Amer) BUN/Creatinine Ratio Glucose POC Glucose 267 H 267 H Calculated Osmolality Calcium Herpes Simplex Source Herpes Simplex DNA PCR 07/24/17 10:26 WBC RBC Hgb Hct MCV MCH MCHC RDW Plt Count MPV Immature Gran % Seg Neutrophils % Lymphocytes % Monocytes % Eosinophils % Basophils % Neutrophils # Lymphocytes # Monocytes # Eosinophils # Basophils # Sodium 140 Potassium 3.4 L Chloride 106 Carbon Dioxide 28 BUN 11 Creatinine 0.93 Est GFR ( Amer) > 60 Est GFR (Non-Af Amer) > 60 BUN/Creatinine Ratio 12 Glucose 276 H POC Glucose Calculated Osmolality 299 Calcium 8.1 L Herpes Simplex Source Herpes Simplex DNA PCR Cultures: Cultures 07/19/17 08:52 CSF Culture - Final Cerebral Spinal Fluid 07/19/17 20:46 Blood Culture - Preliminary Peripheral Venipuncture No growth. 07/19/17 20:46 Blood Culture - Preliminary Peripheral Venipuncture No growth. 07/19/17 22:04 Urine Culture - Final Urine,[place] No growth. Serology 07/20/17 07/20/17 07/19/17 Range/Units 15:05 08:52 08:52 CSF Volume 6.5 mL CSF Appearance Clear (Clear) CSF Color Colorless (Colorless) CSF RBC < 0.002 (0.000 - 0.002) M/mcL CSF Tot Nucleated Cells 5 (0-5) TNC/mcL CSF Seg Neutrophils TNP CSF Band Neutrophils % TNP CSF Lymphocytes % TNP CSF Monocytes % TNP CSF Eosinophils % TNP CSF Basophils % TNP CSF Other Cells % TNP CSF Glucose 156 H (40-70) mg/dL CSF Xanth Comm Not Observed (Not Observe) CSF Total Protein 82 H (15-45) mg/dL Chlamy pneumoniae PCR Not Detected (Not Detect) Adenovirus (PCR) Not Detected (Not Detect) B. pertussis DNA (PCR) Not Detected (Not Detect) B.parapertussis DNA PCR Not Detected (Not Detect) Coronavirus OC43 (PCR) Not Detected (Not Detect) Coronavirus HKU1 (PCR) Not Detected (Not Detect) Coronavirus 229E (PCR) Not Detected (Not Detect) Coronavirus NL63 (PCR) Not Detected (Not Detect) Herpes Simplex Source CSF Herpes Simplex DNA PCR NOT DETECTED Human Metapneumovir PCR Not Detected (Not Detect) Influenza A (H1) PCR Not Detected (Not Detect) Influ A (H1N1/09) PCR Not Detected (Not Detect) Influenza A (H3) PCR Not Detected (Not Detect) Influenza A Untype (PCR) Not Detected (Not Detect) Influenza Type B (PCR) Not Detected (Not Detect) M.pneumoniae DNA (PCR) Not Detected (Not Detect) Parainfluenza 1 (PCR) Not Detected (Not Detect) Parainfluenza 2 (PCR) Not Detected (Not Detect) Parainfluenza 3 (PCR) Not Detected (Not Detect) Parainfluenza 4 (PCR) Not Detected (Not Detect) RSV (PCR) Not Detected (Not Detect) Entero/Rhino (PCR) Not Detected (Not Detect) - Impressions Impressions Head CT 07/20/17 11:06 IMPRESSION: No acute intracranial abnormality. Persistent opacification of the right mastoid air cells. D/ / 07/20/2017 13:05:36 Axel Colbert MD / [facility] Interpreting Provider: Axel Colbert MD Exam - Constitutional Vitals: Temp Pulse Resp BP Pulse Ox 97.9 F 73 18 143/67 97 07/24/17 11:20 07/24/17 11:20 07/24/17 11:20 07/24/17 11:20 07/24/17 11:20 General appearance: cooperative, no acute distress - Head Head exam: Present: atraumatic, normocephalic - ENT ENT exam: Present: mucous membranes moist - Respiratory Respiratory exam: Present: CTAB - Cardiovascular Cardiovascular exam: Present: RRR, +S1, +S2 - GI/Abdominal GI/Abdominal exam: Present: normal bowel sounds - Extremities Exam Extremities exam: Present: full ROM Additional comments: Scrapes and healing scabs over his upper extremities without any signs of active infection. - Stroke Is the patient on any antithrombotics?: No Are there any contradictions to antithrombotics?: No Contraindication Antithromb by Day Two: Medical contraindication (needs evalaution on dischargeg) Reason for No Antithrombin at DC: Not Indicated - Due to Bleeding Disorder or Risk of Bleeding Reason for No Anticoagulant at DC: Medical contraindication Contraindication Not Initiating IV-Tpa: Medical contraindication Contraindication No Statin at DC: Medical contraindication (needs evalaution on discharge) Contraindication Rehab Services Not Assessed: Returned to Prior Level of Function - VTE Documentation of Mechanical Device: Graduated compression elastic hosiery Consult Discharge Plan - Plan Instructions: Ischemic Stroke (DC), Ischemic Stroke (GEN), Self Care Measures After a Stroke (DC), Self Care Measures After a Stroke (GEN), Ischemic Stroke, Curator Of Collections (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 - Attending Attestation I examined this patient and my medical decision-making was reviewed with the Resident Physician. I agree with the documented findings, disposition and treatment plan as described except to the extent set forth below. no infectious etiology identified. HSV PCR was negative no cough , chest pain or sputum production - no pneumonia noted off all antibiotics will sign off, please call us if change in clinical picture
--- NOTE | 2017-07-24 16:17 | Vascular/Endovasc Consult Note ---
Date of Encounter: 07/24/17 Time of Encounter: 08:30 Assessment and Plan (1) Carotid occlusion, right Status: Chronic The patient has a chronic right internal carotid artery occlusion that has been noted as far back as a CT scan in 2016. The patient has sustained a right hemispheric infarct. He presented with left upper and lower extremity weakness. His symptoms have significantly improved since admission. He does have a 60-79% left internal carotid artery stenosis. He may follow-up in clinic after discharge to discuss elective left carotid endarterectomy. Continue with daily ASA and statin. (2) Carotid stenosis, left Status: Chronic (3) Acute ischemic stroke Status: Acute (4) Mixed hyperlipidemia Status: Chronic The patient was counseled regarding atherosclerotic risk factor reduction. (5) Coronary artery disease Status: Chronic Qualifiers: Coronary Disease-Associated Artery/Lesion type: bypass graft [place] vs. transplanted heart: [place] heart Associated angina: angina presence unspecified Qualified Code(s): I25.810 - Atherosclerosis of coronary artery bypass graft(s) without angina pectoris (6) Diabetes mellitus Status: Chronic Qualifiers: Diabetes mellitus type: type 2 Diabetes mellitus senior living insulin use: without senior living use Diabetes mellitus complication status: with circulatory complication Diabetes mellitus complication detail: with other circulatory complications Qualified Code(s): E11.59 - Type 2 diabetes mellitus with other circulatory complications - History of Present Illness Consult date: 07/24/17 Requesting physician: Rajeev Myers Consult reason: Carotid stenosis, CVA Chief complaint: CVA History of present illness: Mr. Nava is a 77 year old male with a history of diabetes, hypertension and hyperlipidemia who presented to [facility] with complaints of left sided weakeness and left sided neglect. He also developed a speech deficit. He was admitted to [facility] and hist symptoms resolved. He underwent and MRI and was noted to have an acute right frontal lobe and left occipital lobe infarction. The patient was also noted to have a right carotid occlusion and left carotid stenosis. Vascular surgery was consulted for further evaluation. The patient denies recurrent symptoms. He deneis chest pain or shortness of breath. Past Med Surg Social Fam HX - Past Medical History Medical history: diabetes Psychiatric history: no psych history - Past Surgical History Surgical History: angioplasty/stent, cholecystectomy - Social History Smoking Status: Never smoker Alcohol use: none Drug use: none - Family History Mother Hx Family Endocrine Disorder: Yes (DM) Medications and Allergies glipiZIDE [Glipizide] 10 mg PO BIDWM 04/07/16 [History] Metformin HCl [Glucophage] 1,000 mg PO QAM 07/19/17 [History] Metformin HCl [Glucophage] 1,500 mg PO QPM 07/19/17 [History] Aspirin Enteric Coated [Aspirin EC] 81 mg PO DAILY 14 Days #14 tablet. [Rx] Atorvastatin [Lipitor] 80 mg PO HS 14 Days #28 tablet 07/25/17 [Rx] Clopidogrel [Plavix] 75 mg PO DAILY 14 Days #14 tablet 07/25/17 [Rx] 3 Allergy/AdvReac Type Severity Reaction Status Date / Time No Known Allergies Allergy Verified 07/19/17 21:37 All Systems Review: The remainder of the systems were reviewed and are negative Exam Vital Signs, Last 4 Hours Temp Pulse Resp BP Pulse Ox 07/24/17 15:59 97.9 F 72 18 151/74 93 General: Present: Conversant, No Apparent Distress HEENT: Present: Atraumatic, Trachea midline, Pupils equal Neck: Present: Left Carotid bruit. Absent: JVD, Right Carotid bruit Cardiac: Present: Reg Rate and Rhythm, Normal S1 and S2 Lungs: Present: Normal Breath Sounds, No Wheeze, Rales, Rhonchi Neuro: Present: Alert and responsive, No focal deficits noted, Motor nerves grossly intact, Sensory nerves grossly intact Abdomen: Present: Soft, Non-tender. Absent: Masses Vascular: Present: Normal capillary refill. 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 Follow up with vascular surgery in 1-2 weeks after discharge. Referrals: Michael Brown Jr, MD [Primary Care Provider] - Mode Flores MD [Partnered Physician] - Prescriptions: Aspirin Enteric Coated [Aspirin EC] 81 mg PO DAILY 14 Days #14 tablet. Atorvastatin [Lipitor] 80 mg PO HS 14 Days #28 tablet Clopidogrel [Plavix] 75 mg PO DAILY 14 Days #14 tablet
[2017-07-25] MEDS: *HR* Heparin 5,000 UNIT/ML VIAL SQ SCH (06:05)
[2017-07-25 06:35] LABS: Basophils # 0.1 K/mcL (0.0-0.2); Basophils % 1.1 %; Eosinophils # 0.4 K/mcL (0.0-0.6); Eosinophils % 4.3 %; Hematocrit 34.6 % (37.5-50.1); Hemoglobin 11.8 g/dL (12.9-16.9); Immature Granulocytes % 0.8 % (0-4); Lymphocytes # 1.9 K/mcL (0.6-4.6); Lymphocytes % 20.9 %; Mean Corpuscular HGB Conc 34.1 g/dL (31.6-35.5); Mean Corpuscular Hemoglobin 30.8 pg (28.0-33.3); Mean Corpuscular Volume 90.3 fL (83.0-100.0); Mean Platelet Volume 8.8 fL (9.4-12.4); Monocytes # 0.8 K/mcL (0.0-1.3); Monocytes % 8.2 %; Platelet Count 272 K/mcL (140-400); Red Blood Count 3.83 M/mcL (4.19-5.50); Red Cell Distribution Width 12.8 % (11.5-14.5); Segmented Neutrophils % 64.7 %
[2017-07-25 06:49] LABS: BUN/Creatinine Ratio 10 (6-26); Blood Urea Nitrogen 9 mg/dL (8-23); Carbon Dioxide 29 mEq/L (23-29); Chloride 105 mEq/L (98-107); Glucose 228 mg/dL (70-105); Osmolality,Calculated 296 (280-300); Potassium 3.5 mEq/L (3.5-5.1); Sodium 140 mEq/L (136-145); eGFR For African Americans > 60 (> 60); eGFR For Non-African Americans > 60 (> 60)
[2017-07-25] MEDS: Aspirin 325 MG TABLET PO SCH (08:34)
[2017-07-25] MEDS: Insulin LISPRO 300 UNITS/3 ML VIAL SQ SCH ×2 (08:34→11:42)
[2017-07-25 11:40] VITALS: BP 145/80
--- NOTE | 2017-07-25 15:19 | Discharge Summary ---
Date of Encounter: 07/25/17 Time of Encounter: 15:15 - Discharge Diagnosis (1) Acute ischemic stroke Priority: Primary Status: Acute (2) Severe sepsis Priority: Secondary Status: Resolved (3) Carotid occlusion, right Priority: Secondary Status: Chronic (4) Carotid stenosis, left Priority: Secondary Status: Chronic (5) Diabetes mellitus Priority: Secondary Status: Chronic Qualifiers: Diabetes mellitus type: type 2 Diabetes mellitus technician terminal and repeater insulin use: without technician terminal and repeater use Diabetes mellitus complication status: with circulatory complication Diabetes mellitus complication detail: with other circulatory complications Qualified Code(s): E11.59 - Type 2 diabetes mellitus with other circulatory complications (6) DVT prophylaxis Priority: Secondary Status: Acute Hospital course: Mr. Nava is a 77 year old male admitted for acute encephalopathy. He was found to meet severe sepsis criteria. LP was obtained and showed no xanthochromia, elevated glucose, and elevated protein. MRI brain was obtained and showed acute infarct in both right frontal lobe and left occipotal lobe consistent with central embolic event; no acute hemorrhage. MRA head w/o contrast was obtained and showed absence of flow in RCA, no high grade stenosis in LCA, and BL posterior communicating, anterior cerebral, and middle cerebral arteries visualized. He was started on empiric antibiotic coverage for meningitis and CAP. He had hypotension and was transferred to ICU and started on levophed. Infectious disease was consulted. He was eventually weaned off levophed. WBC trended down and blood cultures were no growth x 2. No source of infection detected; antibiotics were deescalated. He was transferred back to general medical floor. Neurology was consulted and recommended lipitor 80 mg QHS, aspirin 81 mg QD, and plavix 75 mg QD. Vascular surgery was consulted for 60-79 % left internal carotid artery stenosis. They recommended follow up in clinic after discharged to discuss elective left carotid endarterectomy. Patient is back to his baseline mentation and suffering from no sequelae from acute stroke. He wants to go home. He will follow up with PCP in 2-3 days after discharge. He will follow up with vascular surgery in 1-2 weeks after discharge. Patient has met maximum benefit of this hospitalization and will be discharged home in stable condition. Discharge discussed with: patient, family, nurse, case management, other ( Pharmacist) - Time Spent with Patient Total time spent providing and/or coordinating discharge services: Greater than 30 minutes - Discharge Medications Prescriptions: Aspirin [Adult Aspirin Regimen] 81 mg PO DAILY 14 Days #14 tablet. Atorvastatin [Lipitor] 80 mg PO HS 14 Days #28 tablet Clopidogrel [Plavix] 75 mg PO DAILY 14 Days #14 tablet Home Medications: glipiZIDE [Glipizide] 10 mg PO BIDWM 04/07/16 [History] Metformin HCl [Glucophage] 1,000 mg PO QAM 07/19/17 [History] Metformin HCl [Glucophage] 1,500 mg PO QPM 07/19/17 [History] Aspirin [Adult Aspirin Regimen] 81 mg PO DAILY 14 Days #14 tablet. 07/25/17 [ Rx] Atorvastatin [Lipitor] 80 mg PO HS 14 Days #28 tablet 07/25/17 [Rx] Clopidogrel [Plavix] 75 mg PO DAILY 14 Days #14 tablet 07/25/17 [Rx] Allergies/Adverse Reactions: 3 Allergy/AdvReac Type Severity Reaction Status Date / Time No Known Allergies Allergy Verified 07/19/17 21:37 Date of admission: 07/19/17 20:01 Primary care physician: Michael Brown Jr, MD Consults: 07/19/17 20:10 Consult to Physician [CONS] Routine Consulting Provider: Tatiana Harmon I Reason for Consult: acute encephalopathy Time Notified: 20:10 Call Completed: Yes 07/19/17 20:19 Consult to Interventional Radiology [CONS] Routine Consulting Provider: Radiology Interventional Cols Reason for Consult: lumbar puncture -- CSF studies ordered; concern for meningitis/encephalitis Call Completed: No 07/20/17 10:51 Consult to Infectious Diseases [CONS] Routine Consulting Provider: Infectious Disease Marian Reason for Consult: possible viral meningitis Time Notified: 10:52 Call Completed: Yes 07/20/17 15:37 Consult to Speech Therapy [CONS] Routine Comment: Evaluate, develop and implement POC Reason for Consult: Ischemic stroke: right frontal, left occipotal. Swallow eval for PO plavix. Time Notified: 15:38 Call Completed: No 07/21/17 10:53 Consult to Occupational Therapy [CONS] Routine Comment: Evaluate, develop and implement POC Reason for Consult: post stroke Consult to Physical Therapy [CONS] Routine Comment: Evaluate, develop and implement POC Reason for Consult: post stroke 07/23/17 18:01 Consult to Vascular Surgery [CONS] Routine Consulting Provider: Vascular Surgery Marian Reason for Consult: 100% rt. prox ICA occl and severe lt. ICA occl. rt. cerebral hem. carlos stroke. Time Notified: 18:03 Call Completed: Yes 07/24/17 09:14 Consult to Recycling Tech [CONS] Routine Reason for SW Consult: PT/OT recommending inpatient swing bed 07/24/17 13:43 Consult to Invasive Line Access Team [CONS] Routine Reason for Consult: poor access Line Type: EPIV Discharging clinician: Jong Garner Anticipated date of discharge: 07/25/17 - Constitutional Vitals: Temp Pulse Resp BP Pulse Ox 98 F 68 19 145/80 97 07/25/17 11:35 07/25/17 11:35 07/25/17 11:35 07/25/17 11:35 07/25/17 11:35 General appearance: Present: A&O X 3, pleasant, no acute distress, answers questions appropriately - Respiratory Respiratory exam: Present: CTAB. Absent: accessory muscle use, rales, rhonchi, wheezes Additional comments: Normal WOB - Cardiovascular Cardiovascular exam: Present: RRR, +S1, +S2. Absent: diastolic murmur, gallop, rubs, systolic murmur Additional comments: No BLE edema - GI/Abdominal GI/Abdominal exam: Present: normal bowel sounds, soft. Absent: distended, hepatomegaly, mass, splenomegaly, tenderness - Psychiatric Psychiatric exam: Present: normal affect, normal mood. Absent: anxious, depressed - Skin Skin exam: Present: dry, intact, warm. 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 Follow up with vascular surgery in 1-2 weeks after discharge. - Diet and Activity Activity: resume usual activities as tolerated Diet: advance to your usual diet - Stroke Is the patient on any antithrombotics?: Yes Contraindication Antithromb by Day Two: Medical contraindication (needs evalaution on dischargeg) Reason for No Antithrombin at DC: Not Indicated - Due to Bleeding Disorder or Risk of Bleeding Reason for No Anticoagulant at DC: Medical contraindication Contraindication Not Initiating IV-Tpa: Medical contraindication Contraindication Rehab Services Not Assessed: Returned to Prior Level of Function - VTE Documentation of Mechanical Device: Graduated compression elastic hosiery
[2017-07-26] MEDS ORDERED: Aspirin Enteric Coated 81 MG Tablet PO SCH (09:00)
== END 2017-07-25 16:35 | disposition home or self-care (01) | DRG 871 ==
LOC: 3BNU → SUATTDRO 20:01 → ICNU 07-20 11:02 → 2NENU 07-22 17:11
PROVIDERS: ADMIT Pediatrics; ATTEND Internal Medicine

== ENCOUNTER 2017-08-16 10:34 | Observation (INO) ==
[~2017-08-16 10:34] MED LIST: Vancomycin 1,000 MG, Sodium Chloride IRRigation 1,000 ML IR ONE
[2017-08-16] MEDS ORDERED: Ringers Solution, Lactated 1,000 ML IVC SCH (11:15)
[2017-08-16] MEDS ORDERED: CeFAZolin Syr 2,000MG/20 ML 2,000 MG/20 ML SYRINGE IVPB ONE (11:17)
--- NOTE | 2017-08-16 11:36 | Anesthesia Evaluation PreOp ---
Date of Encounter: 08/16/17 Time of Encounter: 11:33 - Past History Planned Operation: left CEA Cardiac History: IA, HTN, Hyperlipidemia, Cardiac Surgery (CABG 9 yrs ago), Other (complete right Carotid occlusion) Pulmonary History: Denies Any Significant HX TRAFFIC EXPERT History: CVA (bilateral hemispheric infarct with full resolution) Other Medical History: Diabetes Type II Anesthesia History: No Prior Anesthetic Complications, Past Anesthesia Alcohol Use: none Drug use: none Medications and Allergies glipiZIDE [Glipizide] 10 mg PO BIDWM 04/07/16 [History] Metformin HCl [Glucophage] 1,000 mg PO QAM 07/19/17 [History] Metformin HCl [Glucophage] 1,500 mg PO QPM 07/19/17 [History] Aspirin Enteric Coated [Aspirin EC] 81 mg PO DAILY 14 Days #14 tablet. [Rx] Atorvastatin [Lipitor] 80 mg PO HS 14 Days #28 tablet 07/25/17 [Rx] Clopidogrel [Plavix] 75 mg PO DAILY 14 Days #14 tablet 07/25/17 [Rx] 3 Allergy/AdvReac Type Severity Reaction Status Date / Time No Known Allergies Allergy Verified 07/19/17 21:37 - Meds/Allergy Pre-op Review Medications Reviewed: Yes Allergies Reviewed: Yes Beta Blockers on Current Med List: Yes If Beta Blockers taken, Date/Time (Last Dose taken): Patient and aren't certain he takes this medication anymore Anesthesia Results - Labs Laboratory Tests 07/25/17 07/25/17 05:54 05:54 Hgb 11.8 L Hct 34.6 L Plt Count 272 Sodium 140 Potassium 3.5 BUN 9 Creatinine 0.87 - Imaging EKG: report reviewed (SINUS RHYTHM INFERIOR MYOCARDIAL INFARCTION, PROBABLY OLD) Additional studies: echo: Impressions: LVEF 55%. Mild concentric left ventricular hypertrophy. Mild segmental systolic dysfunction, but overall normal LV functio. Mild left ventricular diastolic dysfunction. Atypical septal motion consistent with post-operative status. Normal right ventricular structure and function. Suboptimal image quality, but no evidence of a PFO with agitated saline contrast. No evidence of pulmonary hypertension. No significant valvular dysfunction. Anesthesia Exam Selected Entries 08/16/17 11:13 Temperature 98.4 F Pulse Rate 52 Respiratory Rate 18 Blood Pressure 119/67 O2 Sat by Pulse Oximetry 98 Weight: 79kg NPO (# of Hours): 8 - HEENT Pupil (Motor): EOMI Mallampati: III Teeth: Missing Oral Opening: Greater than 3 - TRAFFIC EXPERT LOC: Oriented TRAFFIC EXPERT Motor: Normal RUE, Normal LUE, Normal RLE, Normal LLE, Normal Face TRAFFIC EXPERT Sensory: Normal: RUE, LUE, RLE, LLE, Face - Cardiac Rhythm: Regular Murmur: None - Pulmonary Breath Sounds: bilateral Clear Respiratory Effort: Symmetrical - Additional Findings Patient is not able to tolerate oral opioids, oxycodone, hydrocodone, morphine all give severe confusion and agitation. Anesthesia Assess/Plan ASA Score: 3 Modified Radha Scale for Level of Consciousness: Cooperative, oriented, and tranquil Anesthetic Plan: General Monitoring Plan: Standard Monitors, A-Line Recovery Plan: PACU (agrees to GA and a-line.)
[2017-08-16] MEDS ORDERED: Lidocaine -MPF 2% 2 ML VIAL ONE (11:43)
[2017-08-16] MEDS ORDERED: *HR* Phenylephrine 10 MG/ML VIAL ONE (11:43)
[2017-08-16] MEDS ORDERED: Lidocaine -MPF 4% 5 ML AMPUL ONE (11:43)
[2017-08-16] MEDS ORDERED: *HR* Propofol 200 MG/20 ML VIAL IVP ONE (11:43)
[2017-08-16] MEDS ORDERED: *HR* Midazolam HCl 2 MG/2 ML VIAL ONE (11:45)
[2017-08-16] MEDS ORDERED: *HR* Remifentanil 2 MG VIAL IVP ONE (11:45)
[2017-08-16] MEDS ORDERED: *HR* FentaNYL (PF) 100 MCG/2 ML VIAL ONE (11:45)
[2017-08-16] MEDS ORDERED: Heparin 1,000 UNITS/500 mL 500 ML ONE ×2 (12:08→12:13)
--- NOTE | 2017-08-16 12:10 | History & Physical Report ---
Date of Encounter: 08/16/17 Time of Encounter: 11:20 24 Hour HP Update - Instructions Instructions: If the History and Physical is less than 30 days old and was completed prior to A.M. admission and or procedure and has NOT been updated on calendar day of procedure please complete this update prior to performing procedure. - Update Patient reports changes in Medical Condition: No Changes in examination, assessment, or condition: No Changes in Medication: No Preop tests/diagnostics Reviewed: Yes Surgery Remains Indicated: Yes Consent for Planned Operative Procedure(s) Verified: Yes - Pre-Operative Checklist Preoperative Checklist Indicated: Yes Prophylactic Antibiotic Ordered: Yes (vancomycin due to MRSA risk) Home Medications Include Beta Tristen: No Beta Tristen Taken Today (Day of Surgery): No Beta Tristen Taken Yesterday (Day Prior to Surgery): No Is VTE Prophylaxis Indicated?: Yes
[2017-08-16] MEDS ORDERED: Protamine Sulfate 50 MG/5 ML VIAL IVP ONE (12:13)
[2017-08-16] MEDS ORDERED: Bupivacaine-MPF 0.25% 10 ML VIAL ONE (12:13)
[2017-08-16] MEDS ORDERED: Vancomycin 1,000 MG VIAL ONE (12:14)
[2017-08-16] MEDS ORDERED: Lidocaine 1% 20 ML MDV ONE (12:14)
[2017-08-16] MEDS ORDERED: *HR* Succinylcholine 200 MG/10 ML VIAL IVP ONE (12:21)
[2017-08-16] MEDS ORDERED: *HR* Heparin 5,000 UNIT/ML VIAL ONE ×2 (13:38→14:42)
[2017-08-16] MEDS ORDERED: *HR* OxyCODONE Immed Rel 5 MG TABLET PO PRN ×2 (13:38→17:15)
[2017-08-16] MEDS ORDERED: traMADol 50 MG TABLET PO PRN (13:38)
[2017-08-16] MEDS ORDERED: Ondansetron 4 MG/2 ML VIAL IVP PRN ×2 (13:38→17:15)
[2017-08-16] MEDS ORDERED: *HR* Labetalol 20 MG/4 ML SYRINGE IVP PRN ×2 (13:38→17:15)
[2017-08-16] MEDS ORDERED: Dexamethasone 4 MG/ML VIAL ONE (13:41)
[2017-08-16] MEDS ORDERED: Ondansetron 4 MG/2 ML VIAL ONE (13:41)
--- NOTE | 2017-08-16 14:04 | Anesthesia Procedures ---
Date of Encounter: 08/16/17 Time of Encounter: 13:05 Procedures: Anesthesia - Arterial Line Consent obtained: verbal consent Time out performed: Yes Local Anesthetic: Lidocaine 1% (0.1mL ID inj) Size (Gauge): 20 Length (inches): 1 3/4 Technique Used: sterile prep, guide wire technique, direct puncture technique Post-Procedure: line taped into place, dry sterile dressing placed Patient tolerated procedure: well, no complications Complications: none Site: Radial R Vitals: see anesthesia record
[2017-08-16] MEDS ORDERED: Acetaminophen IV 1,000 MG/100 ML INFUS..BTL ONE (14:23)
[2017-08-16] MEDS ORDERED: Ketorolac 30 MG/ML VIAL ONE (15:28)
[2017-08-16] MEDS ORDERED: EPHEDrine 50 MG/ML VIAL ONE (15:29)
--- NOTE | 2017-08-16 15:47 | Operative Note ---
Date of procedure: 08/16/17 Pre-op diagnosis: Symptomatic carotid stenosis Post-op diagnosis: same Procedure: Left carotid endarterectomy with hemashield patch angioplasty. Complications: None Anesthesia: GETA Surgeon: Mode Flores Was there an assistant front office manager present: No Estimated blood loss (cc): 100 Specimen: Left carotid plaque Condition: stable Disposition: PACU Procedure in Detail: Indications: The patient is a 77 year old male with a history of carotid stenosis. He has a right internal carotid artery occlusion. He recently sustained bilateral hemispheric cerobrovascular accidents. He was noted to have significant left internal carotid artery stenosis. A left carotid endarterectomy was recommended to reduce his risk of recurrent cerebrovascular accident. Procedure: The patient was identified in the preoperative area. The risks, benefits, and alternatives of the procedure were discussed and all questions were answered. The patient was then taken to the operating room and placed in supine position on the operating table. After induction of general endotracheal anesthesia, the patient was cleaned and draped in normal sterile fashion. A longitudinal incision was made anterior to the left sternocleidomastoid muscle. Hemostasis was obtained via electrocautery. Through a process of blunt , sharp, and electrocautery dissection, the platysma was traversed. The jugular vein was identified. The facial vein was clamped, divided, tied off with a 2-0 silk suture ligature. The jugular vein was retracted in order to expose the carotid bifurcation. The patient received 3000 units of heparin intravenously at this time. Proximal dissection of the common and external carotid arteries were performed circumferentially. Dissection of the internal carotid was performed circumferentially. Vessels loops were passed around the internal and external carotid and an umbilical tape was passed from the common carotid artery. The patient received additional 2000 units of heparin intravenously. Additional heparin was given throughout the case to maintain adequate anticoagulation. After waiting adequate time for it to circulate, the vessels were occluded and a longitudinal arteriotomy was made into the common carotid artery extending into the internal carotid beyond the plaque. Pulsatile retrograde flow was noted from the internal carotid artery upon release of the loop. A shunt was inserted into the internal carotid artery and then back bled into the wound. The shunt was inserted proximally, but would not pass easily into the common carotid artery. The shunt was then removed. The arteriotomy was extended proximally and a shelf of plaque was noted to be intruding into the lumen. A dental [place] was used to perform a standard endarterectomy on the common, internal and external carotid artery plaque. Proximal and distal endpoints were inspected and elevated flaps were noted. A Hemashield patch was cut to fit the defect and sutured in place with running 6 -0 Prolene. Prior to completing the closure, each vessel was flushed and then reoccluded. Heparinized saline was infused into the lumen. The patch was completed. Flow was restored in the external carotid artery, followed the common carotid artery, lastly the internal carotid artery was opened. A low resistance arterialized signal was present within the internal carotid artery beyond the patch. Thrombin and Gelfoam were used to aid in hemostasis. Meticulous hemostasis was obtained throughout the wound with electrocautery. Platelet rich and platelet poor plasma were infused into the wounds. The sternocleidomastoid was reapproximated with interrupted 3-0 Vicryl. Platelet rich and platelet poor plasma were infused into the wound. A TLS drain was brought through a separate stab incision and sutured in place with 0 silk suture. The platysma was reapproximated with running 3-0 Vicryl. Local anesthetic was infused in the skin. A 3-0 Monocryl was used to reapproximate the skin. Sterile dressing was applied. The patient was extubated, taken to the recovery room in stable condition.
--- NOTE | 2017-08-16 16:27 | Anesthesia Evaluation Post Op ---
Date of Encounter: 08/16/17 Time of Encounter: 16:27 - Vital Signs Vital Signs: Vital Signs/O2 Sat, Most Current Temp Pulse Resp BP Pulse Ox 97.9 F 52 14 99/51 96 08/16/17 16:15 08/16/17 16:15 08/16/17 16:15 08/16/17 16:15 08/16/17 16:15 - Lungs Lungs: Clear Ascult./Percussion - Airway Airway: Non-obstructed - Cardiovascular Regular Rate - Mental Status Mental Status: Alert & Oriented, Answers Appropriately - Pain Pain Scale: 0 Pain Scale used: Numeric (1 - 10) - Nausea Vomiting Nausea Vomiting: Not Present - Hydration Hydration: Ice chips, Has not voided - Discharge PostOp Status: Transfer Patient to floor
[2017-08-16] MEDS ORDERED: D5% in Water 1,000 ML IVC PRN (17:15)
[2017-08-16] MEDS ORDERED: 0.9 % Sodium Chloride 1,000 ML IVC SCH (17:15)
[2017-08-16] MEDS ORDERED: OXYCODONE Oral CONC 10 MG/0.5 ML ORAL.SYG SL PRN ×2 (17:15)
[2017-08-16] MEDS ORDERED: Naloxone 0.4 MG/ML INJ IVP PRN (17:15)
[2017-08-16] MEDS ORDERED: Dextrose Gel 15 GM/37.5 ML TUBE PO PRN ×2 (17:15)
[2017-08-16] MEDS ORDERED: *HR* Dextrose 50 % in Water (Syg) 50 ML SYRINGE IVP PRN (17:15)
[2017-08-16] MEDS ORDERED: Acetaminophen 325 MG TABLET PO PRN (17:15)
[2017-08-16] MEDS ORDERED: *HR* HYDROcodone/Acet 5/325 mg TABLET PO PRN (17:15)
[2017-08-16] MEDS: Insulin LISPRO 300 UNITS/3 ML VIAL SQ SCH (18:30)
[2017-08-16] MEDS ORDERED: 0.9 % Sodium Chloride 500 ML ONE (19:06)
[2017-08-16] MEDS ORDERED: 0.9 % Sodium Chloride 500 ML IV SCH (19:15)
[2017-08-16] MEDS ORDERED: ceFAZolin 2,000 MG in D5% in Water 100 ML IVPB SCH (19:30)
[2017-08-16] MEDS ORDERED: Insulin LISPRO 300 UNITS/3 ML VIAL SQ SCH (21:00)
[2017-08-17] MEDS ORDERED: Vancomycin 1,250 MG in D5% in Water 250 ML IVPB ONE (00:30)
[2017-08-17] MEDS ORDERED: *HR* Heparin 5,000 UNIT/ML VIAL SQ SCH ×2 (06:00)
--- NOTE | 2017-08-17 07:04 | Discharge Summary ---
Orders not resulted at time of discharge: Pending orders 08/16/17 15:14 Surgical Pathology [PTH] Routine Date of Encounter: 08/17/17 Time of Encounter: 08:05 - Discharge Diagnosis (1) Carotid stenosis, left Priority: Primary Status: Chronic Comments: He is post operative day #1 after a left carotid endarterectomy. He has no neurologic deficits, is tolerating a diet and his pain is controlled. He will be discharged today. Code(s): I65.22 - Occlusion and stenosis of left carotid artery SNOMED Code(s) : 243240677584228 (2) Coronary artery disease Priority: Secondary Status: Chronic Qualifiers: Coronary Disease-Associated Artery/Lesion type: [place] artery [place] vs. transplanted heart: [place] heart Associated angina: without angina Qualified Code(s): I25.10 - Atherosclerotic heart disease of [place] coronary artery without angina pectoris Code(s): I25.10 - Atherosclerotic heart disease of [place] coronary artery without angina pectoris SNOMED Code(s): 18518629 (3) Mixed hyperlipidemia Priority: Secondary Status: Chronic Code(s): E78.2 - Mixed hyperlipidemia SNOMED Code(s): 157041512 (4) Carotid occlusion, right Priority: Secondary Status: Chronic Code(s): I65.21 - Occlusion and stenosis of right carotid artery SNOMED Code(s): 277844849723484 (5) BPH (benign prostatic hyperplasia) Priority: Secondary Status: Chronic Comments: Patient has BPH and urinary retention. He did not have a catheter placed for surgery, but required catheterization to to inability to void. He will follow- up with Urology next week for avoiding trial. Qualifiers: Lower urinary tract symptom presence: symptoms present Lower urinary tract symptom detail: urinary retention Qualified Code(s): N40.1 - Benign prostatic hyperplasia with lower urinary tract symptoms; R33.8 - Other retention of urine ; R33.8 - Other retention of urine Code(s): N40.0 - Benign prostatic hyperplasia without lower urinary tract symptoms SNOMED Code(s): 386577561 (6) Diabetes mellitus Priority: Secondary Status: Chronic Qualifiers: Diabetes mellitus type: type 2 Diabetes mellitus [facility] insulin use: unspecified terminal supervisor insulin use status Diabetes mellitus complication status : with circulatory complication Diabetes mellitus complication detail: with other circulatory complications Qualified Code(s): E11.59 - Type 2 diabetes mellitus with other circulatory complications Code(s): E11.9 - Type 2 diabetes mellitus without complications SNOMED Code(s) : 73626914 - Hospital Course Hospital course: Mr. Nava is a 77 year old male who underwent a left carotid endarterectomy and tolerated the procedure well. He was discharged in stable condition on postoperative day #1 without complications. He did not have a edgar placed preoperatively, but was unable to avoid postoperatively due to his BPH. He required a edgar catheter and was scheduled to follow-up with Urology. - Discharge Medications Prescriptions: HYDROcodone/Acet 5/325 mg [[place] 5-325 mg] 1 tab PO Q6HR PRN 5 Days #20 tablet PRN Reason: postoperative pain Home Medications: glipiZIDE [Glipizide] 10 mg PO BIDWM 04/07/16 [History] Metformin HCl [Glucophage] 1,000 mg PO QAM 07/19/17 [History] Metformin HCl [Glucophage] 1,500 mg PO QPM 07/19/17 [History] Aspirin Enteric Coated [Aspirin EC] 81 mg PO DAILY 14 Days #14 tablet. [Rx] Clopidogrel [Plavix] 75 mg PO DAILY 14 Days #14 tablet 07/25/17 [Rx] Buspirone HCl [Buspar] 10 mg PO BID 08/16/17 [History] Simvastatin [Zocor] 80 mg PO HS 08/16/17 [History] HYDROcodone/Acet 5/325 mg [[place] 5-325 mg] 1 tab PO Q6HR PRN 5 Days #20 tablet 08/17/17 [Rx] Allergies/Adverse Reactions: 3 Allergy/AdvReac Type Severity Reaction Status Date / Time No Known Allergies Allergy Verified 08/16/17 12:13 Date of admission: 08/16/17 17:07 Primary care physician: Michael Brown Jr, MD Procedure(s) Performed: Left carotid endarterectomy Discharging clinician: Mode Flores Anticipated date of discharge: 08/17/17 Exam Vital Signs, Last 4 Hours Temp Pulse Resp BP Pulse Ox 08/17/17 04:00 93 08/17/17 03:14 98.4 F 63 16 104/46 93 General: Present: Conversant, No Apparent Distress HEENT: Present: Pupils equal Neck: Absent: JVD, Tracheal deviation Cardiac: Present: Reg Rate and Rhythm Lungs: Present: Normal Breath Sounds Neuro: Present: No focal deficits noted, Motor nerves grossly intact, Sensory nerves grossly intact Abdomen: Present: Soft Vascular: Present: Normal capillary refill, Surgical incisions (incision clean, dry and intact without erythema or drainage, no hematoma) Skin: Present: No rashes noted on visualized skin - Patient Status Disposition: Home, Self-Care Condition: Good Functional capacity at discharge: independent ambulation Overall status at discharge: patient is progressing back to baseline - Discharge Instructions Instructions: Carotid Endarterectomy (DC) Follow Up With: Michael Brown Jr, MD [Primary Care Provider] - 08/25/17 2:30 pm Mode Flores MD [Partnered Physician] - 09/25/17 8:30 am Lux Dutton MD [Partnered Physician] - 08/21/17 10:15 am Additional Instructions: May remove bandage and shower on 08/18/17. Wash wound gently and pat to dry. No driving for [address] Flores at [phone]. - Diet and Activity Activity: increase activity as tolerated Diet: advance to your usual diet, diabetic diet - VTE Documentation of Mechanical Device: Intermittent pneumatic compression device
[2017-08-17] MEDS: Insulin LISPRO 300 UNITS/3 ML VIAL SQ SCH ×3 (08:22→16:51)
[2017-08-17] MEDS ORDERED: 0.9 % Sodium Chloride 500 ML IVC ONE ×2 (08:37→10:21)
[2017-08-17] MEDS ORDERED: Aspirin Enteric Coated 81 MG Tablet PO SCH (09:00)
[2017-08-17 16:26] VITALS: BP 144/67
== END 2017-08-17 17:30 | disposition home or self-care (01) | DRG 39 ==
LOC: SAMDAY 10:34 → 2NNU 17:07 → INTOOBSV 17:07
PROVIDERS: ADMIT Surgery; ATTEND Surgery

== ENCOUNTER 2018-02-06 14:16 | Inpatient (IN) ==
[2018-02-06] MEDS ORDERED: 0.9 % Sodium Chloride 1,000 ML IVC ONE (15:39)
--- NOTE | 2018-02-06 15:39 | Emergency Department Note ---
Disposition Clinical Impression: Osteomyelitis Qualifiers: Osteomyelitis type: unspecified type Osteomyelitis location: foot Laterality: right Qualified Code(s): M86.9 - Osteomyelitis, unspecified Falls Qualifiers: Encounter type: initial encounter Qualified Code(s): W19.XXXA - Unspecified fall, initial encounter Disposition: Admitted As Inpatient General Adult HPI - General Chief complaint: ED Weakness Stated complaint: multiple falls,no appetite Time Seen by Provider: 02/06/18 15:02 Source: patient, family Limitations: no limitations Nursing Notes Reviewed: Yes Vital Signs Reviewed: Yes - History of Present Illness HPI Narrative: 77-year-old male presents emergency department with concern for recurrent falls. This is been going on for the last 6 months, but has been worsening over the last few weeks. noticed that this morning, she noticed that patient's right big toe was black. Is a diabetic. He has significant history of vascular disease with a recent endarterectomy in August. There was concern because of the recurrent falls and decreased ability to ambulate well. No fevers. Pain Scale: 0 - Related Data Home Medications Medication Instructions Recorded Confirmed glipiZIDE [Glipizide] 10 mg PO BIDWM 04/07/16 02/06/18 Metformin HCl [Glucophage] 1,000 mg PO QAM 07/19/17 02/06/18 Metformin HCl [Glucophage] 1,500 mg PO QPM 07/19/17 02/06/18 Simvastatin [Zocor] 80 mg PO HS 08/16/17 02/06/18 BuPROPion XL (24 HR) [Wellbutrin 150 mg PO DAILY 02/06/18 02/06/18 XL] Metoprolol [Lopressor] 25 mg PO BID 02/06/18 02/06/18 Tamsulosin [Flomax] 0.4 mg PO DAILY 02/06/18 02/06/18 Previous Rx's Medication Instructions Recorded Aspirin Enteric Coated [Aspirin EC] 81 mg PO DAILY 14 Days #14 07/25/17 tablet. Clopidogrel [Plavix] 75 mg PO DAILY 14 Days #14 tablet 07/25/17 Allergies Allergy/AdvReac Type Severity Reaction Status Date / Time No Known Allergies Allergy Verified 08/16/17 12:13 All systems ED: reviewed and negative except as stated. Review of Systems: As Per HPI Constitutional: Denies: fever Cardiovascular: Denies: chest pain Respiratory: Denies: cough, dyspnea Gastrointestinal: Denies: abdominal pain, nausea, vomiting Genitourinary: Denies: urgency, dysuria, frequency Musculoskeletal: Denies: back pain Integumentary: Reports: other (Black right toe) Neurological: Denies: headache, weakness, numbness, paresthesias Endocrine: Denies: fatigue Past Medical History - Past Medical History Medical history: Reports: coronary artery disease, diabetes, hyperlipidemia, other Surgical history: Reports: angioplasty/stent, cholecystectomy, other Psychiatric history: Reports: no psych history - Social History Smoking Status: Never smoker Smokeless Tobacco Status: No Alcohol use: Reports: none Drug use: Reports: none Physical Exam - General Limitations: no limitations General appearance: alert, in no apparent distress - Head Head exam: normocephalic - Eye Eye exam: Present: EOMI - ENT ENT exam: mucous membranes moist - Neck Neck exam: Present: trachea midline - Chest Chest inspection: Present: symmetric chest wall rise - Respiratory Respiratory exam: Present: normal lung sounds bilaterally. Absent: respiratory distress, accessory muscle use - Cardiovascular Cardiovascular exam: Present: normal rhythm, bradycardia, normal heart sounds - Abdominal Exam Abdominal exam: Present: soft, Non-Tender. Absent: distention, guarding, rebound, rigidity - Extremities Exam Extremities exam: Present: normal capillary refill - Expanded Lower Extremity Exam Foot/toe exam: Present: other (Right toe appears to be discolored and is necrotic. Patient has no sensation of the tip of his toe He does have dorsalis pedis pulse) - Back Exam Back exam: Present: normal inspection - Neurological Exam Neurological exam: Present: alert - Psychiatric Psychiatric exam: Present: normal affect, normal mood Course Vital Signs Temperature 97.7 F 02/06/18 14:36 Pulse Rate 54 02/06/18 14:36 Respiratory Rate 16 02/06/18 14:36 Blood Pressure 88/53 02/06/18 14:36 O2 Sat by Pulse Oximetry 97 02/06/18 14:36 Temperature 97.9 F 02/06/18 14:49 Pulse Rate 71 02/06/18 19:42 Respiratory Rate 18 02/06/18 19:42 Blood Pressure 103/89 02/06/18 19:42 O2 Sat by Pulse Oximetry 99 02/06/18 19:42 Oxygen Delivery Oxygen Delivery Room Air Medical Decision Making - [facility] Narrative Medical decision making narrative: 77-year-old male presents to the emergency department with concern for recurrent falls and necrotic right toe. Patient has no peripheral rash disease. Toe appears to have been ischemic for quite some time. The rest of patient's foot is vastly intact, however, he does have neurologic deficits and the sensation of his toes. This is most likely secondary to diabetic neuropathy as well as is no peripheral vascular disease associated with it. Obtain CT scan of the right foot. It did reveal pathologic fracture as well as evidence of osteomyelitis with gas foci. Patient was given vancomycin and Zosyn here in the emergency department. Blood cultures were obtained. Patient' s creatinine was 1.32. Mildly elevated from his baseline. We gave fluids as well. Patient met the hospitalist for further evaluation and workup. Family agree with plan. Hemodynamically stable and not in acute distress at time of admission. Chest X-Ray 02/06/18 15:37 IMPRESSION: No evidence of acute cardiopulmonary disease. D/ / Akshat Hare MD / Akshat Hare MD Interpreting Provider: Akshat Hare MD Head CT 02/06/18 15:38 IMPRESSION: No acute intracranial abnormality. D/ / Dre Patterson MD / Dre Patterson MD Interpreting Provider: Dre Patterson MD Foot CT 02/06/18 16:26 IMPRESSION: 1. Osseous erosion of the distal aspect of the 1st distal phalanx compatible with osteomyelitis. 2. Large deep soft tissue ulceration over the medial distal aspect of the 1st digit with adjacent subcutaneous fat stranding compatible with cellulitis. Small foci of gas lateral to the 1st proximal phalanx. No drainable fluid collection identified. 3. Small acute possibly pathologic fracture of the base of the 1st distal phalanx. D/ / Yuri Luna MD / Yuri Luna MD Interpreting Provider: Yuri Luna MD Vital Signs Temperature 97.7 F 02/06/18 14:36 Pulse Rate 54 02/06/18 14:36 Respiratory Rate 16 02/06/18 14:36 Blood Pressure 88/53 02/06/18 14:36 O2 Sat by Pulse Oximetry 97 02/06/18 14:36 Temperature 97.9 F 02/06/18 14:49 Pulse Rate 85 02/06/18 17:53 Respiratory Rate 18 02/06/18 17:53 Blood Pressure 145/59 02/06/18 17:53 O2 Sat by Pulse Oximetry 95 02/06/18 17:53 Oxygen Delivery Oxygen Delivery Room Air - Lab Data Result diagrams: 02/06/18 15:51 02/06/18 15:51 Lab Results 02/06/18 02/06/18 02/06/18 Range/Units 15:51 15:51 15:51 WBC 13.1 H (4.3-11.1) K/mcL RBC 4.03 L (4.19-5.50) M/mcL Hgb 12.3 L (12.9-16.9) g/dL Hct 36.2 L (37.5-50.1) % MCV 89.8 (83.0-100.0) fL MCH 30.5 (28.0-33.3) pg MCHC 34.0 (31.6-35.5) g/dL RDW 12.0 (11.5-14.5) % Plt Count 467 H (140-400) K/mcL MPV 8.3 L (9.4-12.4) fL Immature Gran % 0.6 (0-4) % Seg Neutrophils % 72.1 % Lymphocytes % 16.4 % Monocytes % 8.5 % Eosinophils % 1.6 % Basophils % 0.8 % Neutrophils # 9.4 H (1.6-8.9) K/mcL Lymphocytes # 2.2 (0.6-4.6) K/mcL Monocytes # 1.1 (0.0-1.3) K/mcL Eosinophils # 0.2 (0.0-0.6) K/mcL Basophils # 0.1 (0.0-0.2) K/mcL ESR (0-10) mm/hr PT 11.9 (9.4-12.1) Seconds INR 1.1 APTT 21.6 L (26.0-36.0) Seconds Sodium 135 L (136-145) mEq/L Potassium 4.7 (3.5-5.1) mEq/L Chloride 103 (98-107) mEq/L Carbon Dioxide 24 (23-29) mEq/L BUN 28 H (8-23) mg/dL Creatinine 1.32 H (0.70-1.30) mg/dL Est GFR ( Amer) > 60 (> 60) Est GFR (Non-Af Amer) 53 L (> 60) BUN/Creatinine Ratio 21 (6-26) Glucose 209 H (70-105) mg/dL Calculated Osmolality 292 (280-300) Lactic Acid (0.5-2.2) mmol/L Calcium 9.2 (8.6-10.3) mg/dL Total Bilirubin 0.3 (0.3-1.0) mg/dL Direct Bilirubin 0.1 (0.0-0.2) mg/dL Indirect Bilirubin 0.2 (0.0-1.2) mg/dL AST 8 L (13-39) Units/L ALT 5 L (7-52) Units/L Alkaline Phosphatase 73 (34-104) Units/L Troponin I < 0.03 (< 0.04) ng/mL C-Reactive Protein 90 H (Less than 10) mg/L Serum Total Protein 7.1 (6.4-8.9) g/dL Albumin 3.3 L (3.5-5.7) g/dL Globulin 3.8 H (2.4-3.5) g/dL Albumin/Globulin Ratio 0.9 L (1.1-2.2) TSH 3.887 (0.340-5.600) mcIU/mL 02/06/18 02/06/18 Range/Units 16:42 19:31 WBC (4.3-11.1) K/mcL RBC (4.19-5.50) M/mcL Hgb (12.9-16.9) g/dL Hct (37.5-50.1) % MCV (83.0-100.0) fL MCH (28.0-33.3) pg MCHC (31.6-35.5) g/dL RDW (11.5-14.5) % Plt Count (140-400) K/mcL MPV (9.4-12.4) fL Immature Gran % (0-4) % Seg Neutrophils % % Lymphocytes % % Monocytes % % Eosinophils % % Basophils % % Neutrophils # (1.6-8.9) K/mcL Lymphocytes # (0.6-4.6) K/mcL Monocytes # (0.0-1.3) K/mcL Eosinophils # (0.0-0.6) K/mcL Basophils # (0.0-0.2) K/mcL ESR >= 130 H (0-10) mm/hr PT (9.4-12.1) Seconds INR APTT (26.0-36.0) Seconds Sodium (136-145) mEq/L Potassium (3.5-5.1) mEq/L Chloride (98-107) mEq/L Carbon Dioxide (23-29) mEq/L BUN (8-23) mg/dL Creatinine (0.70-1.30) mg/dL Est GFR ( Amer) (> 60) Est GFR (Non-Af Amer) (> 60) BUN/Creatinine Ratio (6-26) Glucose (70-105) mg/dL Calculated Osmolality (280-300) Lactic Acid 2.1 (0.5-2.2) mmol/L Calcium (8.6-10.3) mg/dL Total Bilirubin (0.3-1.0) mg/dL Direct Bilirubin (0.0-0.2) mg/dL Indirect Bilirubin (0.0-1.2) mg/dL AST (13-39) Units/L ALT (7-52) Units/L Alkaline Phosphatase (34-104) Units/L Troponin I (< 0.04) ng/mL C-Reactive Protein (Less than 10) mg/L Serum Total Protein (6.4-8.9) g/dL Albumin (3.5-5.7) g/dL Globulin (2.4-3.5) g/dL Albumin/Globulin Ratio (1.1-2.2) TSH (0.340-5.600) mcIU/mL - EKG Data EKG #1 EKG attestation: Yes I reviewed and interpreted this EKG. EKG results narrative: 50:39 Ventricular rate 50 bpm, P1 151 ms, QRS duration 190 ms, QT 488 ms, QTC 480 ms, left axis deviation. No ischemic ST changes noted on this EKG. Attestation Statement - Attestation Attestation: Dr Villasenor : Pt seen in conjunction w/ Resident DR Leal; Please see his charting for complete documentation; I spent face to face time w/ the pt and agree w/ the pt 's treatment and disposition; pt has had progresive necrosis/loss of his rt great toe; no constitutional sx; present for over 1 wk.... but didnt tell anybody; no fever/n/v/d; long time diabetic; will require admission for definitive care and likely amputation of his affected digit;
[2018-02-06 16:12] LABS: Basophils # 0.1 K/mcL (0.0-0.2); Basophils % 0.8 %; Eosinophils # 0.2 K/mcL (0.0-0.6); Eosinophils % 1.6 %; Hematocrit 36.2 % (37.5-50.1); Hemoglobin 12.3 g/dL (12.9-16.9); Immature Granulocytes % 0.6 % (0-4); Lymphocytes # 2.2 K/mcL (0.6-4.6); Lymphocytes % 16.4 %; Mean Corpuscular Hemoglobin 30.5 pg (28.0-33.3); Mean Corpuscular Volume 89.8 fL (83.0-100.0); Mean Platelet Volume 8.3 fL (9.4-12.4); Monocytes # 1.1 K/mcL (0.0-1.3); Monocytes % 8.5 %; Neutrophils # 9.4 K/mcL (1.6-8.9); Platelet Count 467 K/mcL (140-400); Red Blood Count 4.03 M/mcL (4.19-5.50); Segmented Neutrophils % 72.1 %
[2018-02-06 16:17] LABS: INR 1.1; Prothrombin Time 11.9 Seconds (9.4-12.1)
[2018-02-06 16:20] LABS: Activated Partial Thrombo Time 21.6 Seconds (26.0-36.0)
[2018-02-06] MEDS ORDERED: Isovue-370 500 ML INFUS..BTL IV ONE (16:26)
[2018-02-06 16:31] LABS: Alanine Aminotransferase 5 Units/L (7-52); Albumin 3.3 g/dL (3.5-5.7); Albumin/Globulin Ratio 0.9 (1.1-2.2); Alkaline Phosphatase 73 Units/L (34-104); Aspartate Amino Transferase 8 Units/L (13-39); BUN/Creatinine Ratio 21 (6-26); Bilirubin,Direct 0.1 mg/dL (0.0-0.2); Bilirubin,Indirect 0.2 mg/dL (0.0-1.2); Bilirubin,Total 0.3 mg/dL (0.3-1.0); Blood Urea Nitrogen 28 mg/dL (8-23); Calcium 9.2 mg/dL (8.6-10.3); Carbon Dioxide 24 mEq/L (23-29); Chloride 103 mEq/L (98-107); Globulin 3.8 g/dL (2.4-3.5); Glucose 209 mg/dL (70-105); Osmolality,Calculated 292 (280-300); Potassium 4.7 mEq/L (3.5-5.1); Sodium 135 mEq/L (136-145); Total Protein 7.1 g/dL (6.4-8.9); Troponin I < 0.03 ng/mL (< 0.04); eGFR For Non-African Americans 53 (> 60)
[2018-02-06 16:45] LABS: Thyroid Stimulating Hormone 3.887 mcIU/mL (0.340-5.600)
[2018-02-06] MEDS ORDERED: Piperacillin/Tazobactam 3.375 GM in 0.9 % Sodium Chloride Mini Bag 100 ML IVPB ONE (17:34)
[2018-02-06] MEDS ORDERED: Naloxone 0.4 MG/ML INJ IVP PRN (17:50)
[2018-02-06] MEDS ORDERED: D5% in Water 1,000 ML IVC PRN (17:58)
[2018-02-06] MEDS ORDERED: Dextrose Gel 15 GM/37.5 ML TUBE PO PRN ×2 (17:58)
[2018-02-06] MEDS ORDERED: *HR* Dextrose 50 % in Water (Syg) 50 ML SYRINGE IVP PRN (17:58)
--- NOTE | 2018-02-06 19:27 | Internal Med History&Physical ---
Date of Encounter: 02/06/18 Time of Encounter: 19:20 Internal Medicine - H&P: HPI Chief complaint: Recurrent falls, right toe ulcer History of present illness: Mr. Nava is a 77 year old male with pmh of diabetes, CVA, CAD, carotid endaterectomy presenting with complaints of recurrent falls and right great toe ulcer of about 4 days duration. Patient notes he was going to see his primary care, but on the prompting of his and son, decided to come to the ER to get his right foot ulcer looked at. He says he has had the ulcer for about 4 days, denies any trauma or any bleeding. Toe has gotten black. Patient otherwise denies any other acute complaints. Complains of subjective chills. also notes patient has been having recurrent falls. In the ER, CT scan showed evidence of right foot osteomyelitis. He was started on vanc and zosyn and he is being admitted for further management Past Med Surg Social Fam HX - Past Medical History Medical history: coronary artery disease, diabetes, hyperlipidemia, other Additional medical history: multiple spinal fractures, left ear laceration, rib fractures, occlusion right ICA (chronic) Psychiatric history: no psych history - Past Surgical History Surgical History: angioplasty/stent, cholecystectomy, other Additional surgical history: BPH - Social History Smoking Status: Never smoker Smokeless Tobacco Status: No Alcohol use: none Drug use: none - Family History Mother Hx Family Endocrine Disorder: Yes (DM) Internal Medicine - H&P: Meds glipiZIDE [Glipizide] 10 mg PO BIDWM 04/07/16 [History] Metformin HCl [Glucophage] 1,000 mg PO QAM 07/19/17 [History] Metformin HCl [Glucophage] 1,500 mg PO QPM 07/19/17 [History] Aspirin Enteric Coated [Aspirin EC] 81 mg PO DAILY 14 Days #14 tablet. [Rx] Clopidogrel [Plavix] 75 mg PO DAILY 14 Days #14 tablet 07/25/17 [Rx] Simvastatin [Zocor] 80 mg PO HS 08/16/17 [History] BuPROPion XL (24 HR) [Wellbutrin XL] 150 mg PO DAILY 02/06/18 [History] Metoprolol [Lopressor] 25 mg PO BID 02/06/18 [History] Tamsulosin [Flomax] 0.4 mg PO DAILY 02/06/18 [History] 3 Allergy/AdvReac Type Severity Reaction Status Date / Time No Known Allergies Allergy Verified 08/16/17 12:13 All Systems PM: A 10-system review of systems was performed and is negative for pertinent findings except as documented above in the HPI. - Constitutional Constitutional: chills, no fever(s), no night sweats - EENT Eyes: no change in vision, no discharge, no pain, no photophobia Ears: no ear discharge, no ear pain, no tinnitus Nose, mouth and throat: no dysphagia, no nasal discharge, no neck pain, no sore throat - Cardiovascular Cardiovascular ROS IM: no chest pain, no diaphoresis, no dyspnea, no lightheadedness, no palpitations, no syncope - Respiratory Respiratory: no cough, no dyspnea, no wheezing, no excessive phlegm production - Gastrointestinal Gastrointestinal: no abdominal pain, no diarrhea, no hematemesis, no hematochezia, no melena, no nausea, no vomiting - Musculoskeletal Musculoskeletal ROS IM: no numbness, no tingling - Integumentary Integumentary IM: skin ulcer, no rash, no unusual bruising - Neurological Neurological ROS: no confusion, no convulsions, no focal weakness, no numbness, no tingling, no tremor(s) - Hematologic/Lymphatic Hematologic/Lymphatic: no easy bruising - Constitutional Vitals: Temp Pulse Resp BP Pulse Ox 97.9 F 85 18 145/59 95 02/06/18 14:49 02/06/18 17:53 02/06/18 17:53 02/06/18 17:53 02/06/18 17:53 Exam: Black right great toe ulcer - Head Head exam: Present: atraumatic, normocephalic - Eye Eye exam: Present: PERRL, conjuntiva pink, sclera anicteric Pupils: Present: PERRL - Neck Neck exam general surgery: Present: supple, trachea midline. Absent: lymphadenopathy - Respiratory Respiratory exam: Present: CTAB. Absent: accessory muscle use, rales, rhonchi, wheezes - Cardiovascular Cardiovascular exam: Present: RRR, +S1, +S2. Absent: diastolic murmur, gallop, rubs, systolic murmur - GI/Abdominal GI/Abdominal exam: Present: normal bowel sounds, soft, no peritoneal signs. Absent: distended, tenderness - Extremities Exam Extremities exam: Present: warm, radial pulses palpable and symmetrical. Absent : calf tenderness, cyanotic, pedal edema - Neurological Exam Neurological exam: Present: CN II-XII intact, oriented X3, no focal deficits. Absent: pronater drift, facial droop, speech deficit - Skin Skin exam: Present: dry, intact Internal Med - H&P Results - Labs CBC & Chem 7: 02/06/18 15:51 02/06/18 15:51 Labs: Short CBC 02/06/18 Range/Units 15:51 WBC 13.1 H (4.3-11.1) K/mcL Hgb 12.3 L (12.9-16.9) g/dL Hct 36.2 L (37.5-50.1) % Plt Count 467 H (140-400) K/mcL Neutrophils # 9.4 H (1.6-8.9) K/mcL BMP 02/06/18 15:51 Sodium 135 L Potassium 4.7 Chloride 103 Carbon Dioxide 24 BUN 28 H Creatinine 1.32 H Glucose 209 H Calcium 9.2 Cardiac Enzymes 02/06/18 Range/Units 15:51 Troponin I < 0.03 (< 0.04) ng/mL Liver Function 02/06/18 Range/Units 15:51 Total Bilirubin 0.3 (0.3-1.0) mg/dL Direct Bilirubin 0.1 (0.0-0.2) mg/dL AST 8 L (13-39) Units/L ALT 5 L (7-52) Units/L Alkaline Phosphatase 73 (34-104) Units/L Albumin 3.3 L (3.5-5.7) g/dL - Impressions ITS Impressions Chest X-Ray 02/06/18 15:37 IMPRESSION: No evidence of acute cardiopulmonary disease. D/ / Akshat Hare MD / Akshat Hare MD Interpreting Provider: Akshat Hare MD Head CT 02/06/18 15:38 IMPRESSION: No acute intracranial abnormality. D/ / Dre Patterson MD / Dre Patterson MD Interpreting Provider: Dre Patterson MD Foot CT 02/06/18 16:26 IMPRESSION: 1. Osseous erosion of the distal aspect of the 1st distal phalanx compatible with osteomyelitis. 2. Large deep soft tissue ulceration over the medial distal aspect of the 1st digit with adjacent subcutaneous fat stranding compatible with cellulitis. Small foci of gas lateral to the 1st proximal phalanx. No drainable fluid collection identified. 3. Small acute possibly pathologic fracture of the base of the 1st distal phalanx. D/ / Yuri Luna MD / Yuri Luna MD Interpreting Provider: Yuri Luna MD - Assessment and plan (1) Acute osteomyelitis Current Visit: Yes Status: Acute Assessment and plan: Pt has elevated WBC of [address] scan showing right foot osteomyelitis. Started on vanc and zosyn. Consult podiatry and infectious disease fr bone biopsy and antibiotic management and appreciate recs Obtain ESR and CRP (2) Coronary artery disease Current Visit: No Status: Chronic Assessment and plan: Continue aspirin and plavix Qualifiers: Coronary Disease-Associated Artery/Lesion type: [place] artery [place] vs. transplanted heart: [place] heart Associated angina: without angina Qualified Code(s): I25.10 - Atherosclerotic heart disease of [place] coronary artery without angina pectoris (3) Falls Current Visit: Yes Status: Acute Assessment and plan: CT head WNL. PT consult Qualifiers: Encounter type: initial encounter Qualified Code(s): W19.XXXA - Unspecified fall, initial encounter (4) Diabetes mellitus Current Visit: No Status: Chronic Assessment and plan: Continue inuslin, monitor fingersticks Qualifiers: Diabetes mellitus type: type 2 Diabetes mellitus skilled nursing insulin use: unspecified long term care pharmacist insulin use status Diabetes mellitus complication status : with circulatory complication Diabetes mellitus complication detail: with other circulatory complications Qualified Code(s): E11.59 - Type 2 diabetes mellitus with other circulatory complications (5) DVT prophylaxis Current Visit: No Status: Acute Assessment and plan: heparin sc - Time Spent With Patient Total time spent is greater than 50% in coordination of care (as documented) at patient's floor/unit and/or counseling patient:
[2018-02-06 19:51] LABS: C-Reactive Protein 90 mg/L (Less than 10)
[2018-02-06] MEDS: 0.9 % Sodium Chloride 1,000 ML IVC SCH (21:54)
[2018-02-06] MEDS: Piperacillin/Tazobactam 3.375 GM in 0.9 % Sodium Chloride Mini Bag 100 ML IVPB SCH (23:47)
[2018-02-07 04:21] LABS: Basophils # 0.1 K/mcL (0.0-0.2); Basophils % 0.8 %; Eosinophils # 0.3 K/mcL (0.0-0.6); Eosinophils % 2.4 %; Hematocrit 32.3 % (37.5-50.1); Hemoglobin 10.9 g/dL (12.9-16.9); Immature Granulocytes % 0.6 % (0-4); Lymphocytes # 1.8 K/mcL (0.6-4.6); Lymphocytes % 15.5 %; Mean Corpuscular HGB Conc 33.7 g/dL (31.6-35.5); Mean Corpuscular Hemoglobin 30.7 pg (28.0-33.3); Mean Platelet Volume 8.4 fL (9.4-12.4); Monocytes % 8.9 %; Neutrophils # 8.3 K/mcL (1.6-8.9); Platelet Count 444 K/mcL (140-400); Red Blood Count 3.55 M/mcL (4.19-5.50); Red Cell Distribution Width 11.9 % (11.5-14.5); Segmented Neutrophils % 71.8 %
[2018-02-07 04:37] LABS: Calcium 8.4 mg/dL (8.6-10.3); Magnesium 1.5 mg/dL (1.6-2.6); Phosphorous 3.4 mg/dL (2.7-4.5); Potassium 4.4 mEq/L (3.5-5.1)
--- NOTE | 2018-02-07 07:20 | Internal Med Progress Note ---
Hospitalist Progress Note - Encounter Date of Encounter: 02/07/18 Time of Encounter: 07:00 - Subjective Interval History: No acute events overnight - Exam Vitals: Temp Pulse Resp BP Pulse Ox 98.2 F 56 16 91/50 95 02/07/18 05:04 02/07/18 05:04 02/07/18 05:04 02/07/18 05:04 02/07/18 05:04 Exam: Gen - Awake, alert, oriented x 3, no acute distress HEENT - NCAT, PERRLA, EOMI, hearing grossly intact, oropharynx benign CV - RRR, normal S1 and S2, no M/R/G, no BLE edema Resp - Normal WOB, CTAB, no W/R/R GI - Soft, NT/ND, no masses, normal bowel sounds, Skin - Warm, dry, Black right great toe ulcer Psych - Normal mood and affect, no depression or anxiety - Assessment and Plan (1) Sepsis Current Visit: Yes Status: Acute Assessment and Plan: Sepsis 2/2 to acute osteomyelitis. Pt came in with a leukocytosis of 13 and evidence of osteomyelitis on CT scan Follow up blood and wound cultures. Continue antibiotics (2) Acute osteomyelitis Current Visit: Yes Status: Acute Assessment and Plan: Pt has elevated WBC of [address] scan showing right foot osteomyelitis. Started on vanc and zosyn. Consult podiatry and infectious disease for bone biopsy and antibiotic management and appreciate recs Obtain ESR and CRP (3) Coronary artery disease Current Visit: No Status: Chronic Assessment and Plan: Continue aspirin and plavix (4) Falls Current Visit: Yes Status: Acute Assessment and Plan: CT head WNL. PT consult (5) Diabetes mellitus Current Visit: No Status: Chronic Assessment and Plan: Continue inuslin, monitor fingersticks (6) DVT prophylaxis Current Visit: No Status: Acute Assessment and Plan: heparin sc - Time Spent with Patient Total time spent is greater than 50% in coordination of care (as documented) at patient's floor/unit and/or counseling patient: Internal Medicine: Result - Labs CBC & Chem 7: 02/07/18 03:29 02/07/18 03:29 Labs: Short CBC 02/07/18 Range/Units 03:29 WBC 11.6 H (4.3-11.1) K/mcL Hgb 10.9 L (12.9-16.9) g/dL Hct 32.3 L (37.5-50.1) % Plt Count 444 H (140-400) K/mcL Neutrophils # 8.3 (1.6-8.9) K/mcL BMP 02/07/18 03:29 Sodium 139 Potassium 4.4 Chloride 106 Carbon Dioxide 26 BUN 26 H Creatinine 1.40 H Glucose 172 H Calcium 8.4 L - ABG Interpretation ABG results: PT/INR, D-dimer PT 11.9 Seconds (9.4-12.1) 02/06/18 15:51 Consult Discharge Plan - Plan Referrals: Michael Brown Jr, MD [Primary Care Provider] - (3) Coronary artery disease Qualifiers: Coronary Disease-Associated Artery/Lesion type: [place] artery [place] vs. transplanted heart: [place] heart Associated angina: without angina Qualified Code(s): I25.10 - Atherosclerotic heart disease of [place] coronary artery without angina pectoris (4) Falls Qualifiers: Encounter type: initial encounter Qualified Code(s): W19.XXXA - Unspecified fall, initial encounter (5) Diabetes mellitus Qualifiers: Diabetes mellitus type: type 2 Diabetes mellitus retirement insulin use: unspecified intermediate card tender insulin use status Diabetes mellitus complication status : with circulatory complication Diabetes mellitus complication detail: with other circulatory complications Qualified Code(s): E11.59 - Type 2 diabetes mellitus with other circulatory complications
[2018-02-07] MEDS: *HR* GlipiZIDE 5 MG TABLET PO SCH ×2 (08:02→18:19)
[2018-02-07] MEDS: Aspirin Enteric Coated 81 MG Tablet PO SCH (08:03)
[2018-02-07] MEDS: BuPROPion XL (24 HR) 150 MG TABLET PO SCH (08:03)
[2018-02-07] MEDS: Insulin LISPRO 300 UNITS/3 ML VIAL SQ SCH ×3 (08:04→18:31)
[2018-02-07] MEDS: Piperacillin/Tazobactam 3.375 GM in 0.9 % Sodium Chloride Mini Bag 100 ML IVPB SCH ×3 (08:05→23:31)
--- NOTE | 2018-02-07 11:30 | Infectious Disease Consult ---
Date of Encounter: 02/08/18 Time of Encounter: 11:25 Assessment and Plan (1) Acute osteomyelitis Status: Acute Assessment and plan: CT right foot on 02/06/2018: Osseous erosion of the distal aspect of the first distal phalanx compatible with osteomyelitis. Causative organism not clear ESR initially over 130 Concern for ischemia and dry necrosis Apparently symptoms of been there for 2-3 days but I do not think the patient and his are the best historians. She tells me she even notice anything 4 days prior to admission. Patient is a really started on vancomycin and Zosyn prior to going to surgery We will discuss with podiatry if surgery is Taking its time I will stop all antibiotics and observe so we can get a better specimen intraoperatively Monitor labs and for drug toxicity (2) Ischemic ulcer of toe of right foot Status: Acute Assessment and plan: Vascular surgery has been consulted Qualifiers: Non-pressure ulcer stage: with necrosis of bone Qualified Code(s): 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 (3) Diabetes mellitus Status: Chronic Qualifiers: Diabetes mellitus type: type 2 Diabetes mellitus mcfp insulin use: unspecified mcfp insulin use status Diabetes mellitus complication status : with circulatory complication Diabetes mellitus complication detail: with other circulatory complications Qualified Code(s): E11.59 - Type 2 diabetes mellitus with other circulatory complications (4) Mixed hyperlipidemia Status: Chronic (5) Leukocytosis Status: Acute Qualifiers: Leukocytosis type: unspecified Qualified Code(s): D72.829 - Elevated white blood cell count, unspecified Infectious Disease HPI - Data of Consult Patient: new to practice Consult date: 02/07/18 Requesting Physician: Edilson Durant DO Primary Care Provider: Michael Brown Jr, MD - Consult Narrative Reason for consult: osteomyelitis History of present illness: Mr. Nava is a 77 year old male Patient is 77-year-old gentleman presented to [facility] on 02/06/2015 with recurrent falls and right toe ulcer. We are consulted today for osteomyelitis. Patient is an 77-year-old gentleman with extensive past medical history mentioned below including diabetes mellitus type 2, history of CVA, coronary artery disease and vasculopath with history of carotid endarterectomy apparently has been having recurrent falls and a right great toe ulcer of about 4 days' duration. Patient has been seen by his primary care physician. Patient denied any fevers or chills or night sweats. No weight loss. Since admission, patient has been afebrile, bradycardic and no tachypnea. Presenting labs revealed leukocytosis with WBC of 13.1 with normal differential no bands. An ESR was obtained and it was over 130. A shunt was also noted to be in acute kidney injury with a BUN of 28 creatinine of 1.32. CRP was also elevated at 90. Blood culture was obtained 2 and are no growth to date. Patient had a foot CT which revealed osseous erosion of the distal aspect of the first distal phalanx compatible with osteomyelitis. Large deep soft tissue ulceration over the medial aspect of the first digit with adjacent subcutaneous fat stranding compatible with cellulitis. Small foci of gas lateral to the first proximal phalanx. Small acute possibly pathologic fracture of the base of the first distal phalanx. Patient was started on vancomycin and Zosyn were consulted to evaluate the patient make further recommendations. CC: Edilson Durant, DO Past Med Surg Social Fam HX - Past Medical History Medical history: coronary artery disease, diabetes, hyperlipidemia, other Additional medical history: multiple spinal fractures, left ear laceration, rib fractures, occlusion right ICA (chronic) Psychiatric history: no psych history - Past Surgical History Surgical History: angioplasty/stent, cholecystectomy, other Additional surgical history: BPH - Social History Smoking Status: Never smoker Smokeless Tobacco Status: No Alcohol use: none Drug use: none - Family History Mother Hx Family Endocrine Disorder: Yes (DM) Infectious Disease-CN:Meds glipiZIDE [Glipizide] 10 mg PO BIDWM 04/07/16 [History] Metformin HCl [Glucophage] 1,000 mg PO QAM 07/19/17 [History] Metformin HCl [Glucophage] 1,500 mg PO QPM 07/19/17 [History] Aspirin Enteric Coated [Aspirin EC] 81 mg PO DAILY 14 Days #14 tablet. [Rx] Clopidogrel [Plavix] 75 mg PO DAILY 14 Days #14 tablet 07/25/17 [Rx] Simvastatin [Zocor] 80 mg PO HS 08/16/17 [History] BuPROPion XL (24 HR) [Wellbutrin XL] 150 mg PO DAILY 02/06/18 [History] Metoprolol [Lopressor] 25 mg PO BID 02/06/18 [History] Tamsulosin [Flomax] 0.4 mg PO DAILY 02/06/18 [History] 3 Allergy/AdvReac Type Severity Reaction Status Date / Time No Known Allergies Allergy Verified 08/16/17 12:13 Review of systems: 10 point review of systems done, negative other for what mentioned in the history of present illness. Exam - Constitutional Vitals: Temp Pulse Resp BP Pulse Ox 97.6 F 64 16 109/52 96 02/07/18 07:11 02/07/18 07:11 02/07/18 07:11 02/07/18 07:11 02/07/18 07:45 General appearance: no acute distress, no febrile - Head Head exam: Present: atraumatic, normocephalic - Eye Eye exam: Present: EOMI, PERRL - Neck Neck exam: Present: full ROM. Absent: meningismus - Respiratory Respiratory exam: Present: CTAB. Absent: wheezes - Cardiovascular Cardiovascular exam: Present: RRR, +S1, +S2 - GI/Abdominal GI/Abdominal exam: Present: normal bowel sounds, soft. Absent: tenderness - Extremities Exam Additional comments: Ischemic toe right foot with ulceration. No surrounding cellulitis or drainage - Neurological Exam Neurological exam: Present: alert, oriented X3. Absent: speech deficit Infectious Disease CN: Results - Labs CBC & Chem 7: 02/08/18 05:05 02/08/18 05:05 Consult Discharge Plan - Plan Referrals: Michael Brown Jr, MD [Primary Care Provider] -
[2018-02-07 12:57] LABS: Bilirubin,Urine Negative (Negative); Blood,Urine Negative (Negative); Clarity,Urine Clear (Clear); Color,Urine Yellow (Yellow); Glucose,Urine (UA) 100 mg/dL (Normal); Ketones,Urine Negative (Negative); Leukocyte Esterase,Urine Large (Negative); Nitrite,Urine Negative (Negative); PH,Urine 5.5 pH Units (5.0-8.0); Protein,Urine Negative (Neg-Trace); Specific Gravity,Urine 1.015 (1.010-1.025); Urobilinogen,Urine Normal (Normal)
[2018-02-07 12:59] LABS: Bacteria,Urine None Seen per hpf (None-Few); Hyaline Casts,Urine None Seen per lpf (None-Few); Squamous Epithelial Cell,Urine Many per lpf (None-Few); WBC,Urine 15-30 per hpf (0-3)
--- NOTE | 2018-02-07 14:05 | Podiatry Consult Note ---
Date of Encounter: 02/07/18 Time of Encounter: 12:00 Assessment and Plan (1) Ischemic ulcer of toe of right foot Current visit: Yes Status: Acute Assessment: Appearance of ischemic toe #1 right foot with associated ulceration and osteomyelitis of the distal phalynx and gas within the tissue Plan Assessed today at bedside Explained that this appeared ischemic- patient states he believes it is just dry blood Will order VERONICA's today to assess blood flow Will likely need vascular consult pending results. Patient will be NPO after midnight Will go to OR with tomorrow morning for ambulation of toe. Explained to patient Verbalized understanding May eat today Daily dressing change, paint with betadine, apply dry dressing, tape in place. Foot CT 02/06/18 16:26 IMPRESSION: 1. Osseous erosion of the distal aspect of the 1st distal phalanx compatible with osteomyelitis. 2. Large deep soft tissue ulceration over the medial distal aspect of the 1st digit with adjacent subcutaneous fat stranding compatible with cellulitis. Small foci of gas lateral to the 1st proximal phalanx. No drainable fluid collection identified. 3. Small acute possibly pathologic fracture of the base of the 1st distal phalanx. D/ / Yuri Luna MD / Yuri Luna MD Interpreting Provider: Yuri Luna MD Qualifiers: Non-pressure ulcer stage: with necrosis of bone Qualified Code(s): 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 (2) Acute osteomyelitis Current visit: Yes Status: Acute see above History of Present Illness HPI: Mr. Nava is a 77 year old male with pmh of diabetes, CVA, CAD, carotid endaterectomy presenting with complaints of recurrent falls who presents with complaints of blister to toe of right foot. at bedside- patient reports that 2 days ago a blister was noted on his toe. States he tried to trim it with nail clippers and it bled some. States that now it is black. Patient states he thinks it is "just dry blood" to the end of his toe. states that patient is non compliant with DM management. States he eats whatever he wants. Patient was admitted to internal medicine. WBC 13.1 now 11.6 temp 98.2. Patient reports subjective chills. Past Med Surg Social Fam HX - Past Medical History Medical history: coronary artery disease, diabetes, hyperlipidemia, other Additional medical history: multiple spinal fractures, left ear laceration, rib fractures, occlusion right ICA (chronic) Psychiatric history: no psych history - Past Surgical History Surgical History: angioplasty/stent, cholecystectomy, other Additional surgical history: BPH - Social History Smoking Status: Never smoker Smokeless Tobacco Status: No Alcohol use: none Drug use: none - Family History Mother Hx Family Endocrine Disorder: Yes (DM) Medications and Allergies glipiZIDE [Glipizide] 10 mg PO BIDWM 04/07/16 [History] Metformin HCl [Glucophage] 1,000 mg PO QAM 07/19/17 [History] Metformin HCl [Glucophage] 1,500 mg PO QPM 07/19/17 [History] Aspirin Enteric Coated [Aspirin EC] 81 mg PO DAILY 14 Days #14 tablet. [Rx] Clopidogrel [Plavix] 75 mg PO DAILY 14 Days #14 tablet 07/25/17 [Rx] Simvastatin [Zocor] 80 mg PO HS 08/16/17 [History] BuPROPion XL (24 HR) [Wellbutrin XL] 150 mg PO DAILY 02/06/18 [History] Metoprolol [Lopressor] 25 mg PO BID 02/06/18 [History] Tamsulosin [Flomax] 0.4 mg PO DAILY 02/06/18 [History] 3 Allergy/AdvReac Type Severity Reaction Status Date / Time No Known Allergies Allergy Verified 08/16/17 12:13 All Systems Reviewed: as per HPI Physical Exam - Constitutional Vitals: Temp Pulse Resp BP Pulse Ox 97.8 F 71 16 107/56 96 02/07/18 11:28 02/07/18 11:28 02/07/18 11:28 02/07/18 11:28 02/07/18 11:28 Exam: General Examination: CONSTITUTIONAL: Alert, oriented, in no acute distress, non-toxic. EXTREMITIES: CFT 3 seconds all toes except toe #1 right. . Edema +1 and pedal pulses non palpable DP/PT. Warm tibia to toes with exception of toe #1. SKIN: Skin with decreased turgor, decreased subcutaneous tissue, skin thin and shiny with trophic changes associated with comorbidities as described in history.. ULCERATION: Black ischemic ulceration to entire distal/medial aspect of toe #1 right stopping at the IP joint of the toe. measures [id number] with unknown depth due to the presence of necrotic tissue. Foul odor noted. No drainage. Dry. There is probe to bone at the medial IP joint and to the distal aspect of the distal phalynx. There is mild reported pain with palpation. There is mild surrounding erythema to periwound. Minimal warmth. Mild edema. NEUROLOGIC: Intact sensation to moderate touch. . Results - Labs Result Diagrams: 02/07/18 03:02/07/18 03:29 Labs: Abnormal lab results WBC 11.6 K/mcL (4.3-11.1) H 02/07/18 03: RBC 3.55 M/mcL (4.19-5.50) L 02/07/18 03: Hgb 10.9 g/dL (12.9-16.9) L 02/07/18 03: Hct 32.3 % (37.5-50.1) L 02/07/18 03: Plt Count 444 K/mcL (140-400) H 02/07/18 03:29 MPV 8.4 fL (9.4-12.4) L 02/07/18 03:29 ESR >= 130 mm/hr (0-10) H 02/06/18 19:31 APTT 21.6 Seconds (26.0-36.0) L 02/06/18 15:51 BUN 26 mg/dL (8-23) H 02/07/18 03:29 Creatinine 1.40 mg/dL (0.70-1.30) H 02/07/18 03:29 Est GFR (Non-Af Amer) 49 (> 60) L 02/07/18 03:29 Glucose 172 mg/dL (70-105) H 02/07/18 03:29 POC Glucose 209 mg/dL (70-99) H 02/07/18 05:01 Calcium 8.4 mg/dL (8.6-10.3) L 02/07/18 03: Magnesium 1.5 mg/dL (1.6-2.6) L 02/07/18 03:29 AST 8 Units/L (13-39) L 02/06/18 15:51 ALT 5 Units/L (7-52) L 02/06/18 15:51 C-Reactive Protein 90 mg/L (Less than 10) H 02/06/18 15:51 Albumin 3.3 g/dL (3.5-5.7) L 02/06/18 15:51 Globulin 3.8 g/dL (2.4-3.5) H 02/06/18 15:51 Albumin/Globulin Ratio 0.9 (1.1-2.2) L 02/06/18 15:51 Urine Glucose (UA) 100 mg/dL (Normal) H 02/07/18 11:34 Ur Leukocyte Esterase Large (Negative) H 02/07/18 11:34 Urine Microscopic RBC 3-5 per hpf (0-3) H 02/07/18 11:34 Urine Microscopic WBC 15-30 per hpf (0-3) H 02/07/18 11:34 Ur Squamous Epith Cells Many per lpf (None-Few) H 02/07/18 11:34 Ur Culture Indicated? NO. (NO) A 02/07/18 11:34 H & H 02/07/18 Range/Units 03:29 Hgb 10.9 L (12.9-16.9) g/dL Hct 32.3 L (37.5-50.1) % All other labs normal. Consult Discharge Plan - Plan Referrals: Michael Brown Jr, MD [Primary Care Provider] -
[2018-02-07] MEDS: 0.9 % Sodium Chloride 1,000 ML IVC SCH ×2 (18:23→18:24)
--- NOTE | 2018-02-07 19:35 | Anesthesia Evaluation PreOp ---
Date of Encounter: 02/07/18 Time of Encounter: 19:33 - Past History Planned Operation: R-1st Ray Amputation Cardiac History: HTN, Hyperlipidemia, Cardiac Surgery (CABG 2008), Other (CAD, PVDz s/p CEA) [employer]UMENT [employer]PER[employer] History: CVA (chronic R-ICA occlusion. Bilateral Hemispheric infarct without residual deficit.), Other (Multiple spinal fractures) Other Medical History: Diabetes Type II, Other (Anxiety/Depression) Anesthesia History: No Prior Anesthetic Complications, Past Anesthesia (luci) Alcohol Use: none Drug use: none Medications and Allergies glipiZIDE [Glipizide] 10 mg PO BIDWM 04/07/16 [History] Metformin HCl [Glucophage] 1,000 mg PO QAM 07/19/17 [History] Metformin HCl [Glucophage] 1,500 mg PO QPM 07/19/17 [History] Aspirin Enteric Coated [Aspirin EC] 81 mg PO DAILY 14 Days #14 tablet. [Rx] Clopidogrel [Plavix] 75 mg PO DAILY 14 Days #14 tablet 07/25/17 [Rx] Simvastatin [Zocor] 80 mg PO HS 08/16/17 [History] BuPROPion XL (24 HR) [Wellbutrin XL] 150 mg PO DAILY 02/06/18 [History] Metoprolol [Lopressor] 25 mg PO BID 02/06/18 [History] Tamsulosin [Flomax] 0.4 mg PO DAILY 02/06/18 [History] 3 Allergy/AdvReac Type Severity Reaction Status Date / Time No Known Allergies Allergy Verified 08/16/17 12:13 - Meds/Allergy Pre-op Review Medications Reviewed: Yes Allergies Reviewed: Yes Beta Blockers on Current Med List: Yes (Metoprolol) Anesthesia Results - Labs 02/07/18 03:29 02/07/18 03:29 held on 02/07/2018 re: BradyCardia - Imaging EKG: report reviewed (ekg dated 07/20/2017 - SINUS RHYTHM INFERIOR MYOCARDIAL INFARCTION, PROBABLY OLD Electronically Signed On 07-21-2017 16:56:45 EST by Misael Gamboa) Additional studies: ECHO 07/2017 Impressions: LVEF 55%. Mild concentric left ventricular hypertrophy. Mild segmental systolic dysfunction, but overall normal LV function. Mild left ventricular diastolic dysfunction. Atypical septal motion consistent with post-operative status. Normal right ventricular structure and function. Suboptimal image quality, but no evidence of a PFO with agitated saline contrast. No evidence of pulmonary hypertension. No significant valvular dysfunction. Left Ventricular Wall Motion: Rest Echo Findings The basal inferior wall was akinetic. All other wall segments showed normal motion. Anesthesia Exam Vital Signs Temp Pulse Resp BP Pulse Ox 02/07/18 19:04 97.9 F 78 16 143/56 95 02/07/18 11:28 97.8 F 71 16 107/56 96 02/07/18 07:45 96 02/07/18 07:11 97.6 F 64 16 109/52 96 02/07/18 05:04 98.2 F 56 16 91/50 95 02/06/18 23:15 98.9 F 62 15 110/60 95 02/06/18 21:28 97.5 F L 71 15 120/74 97 02/06/18 20:52 18 114/88 02/06/18 19:42 71 18 103/89 99 Patient Weight 02/07/18 23:59 Weight 76.5 kg Height: 5'10" Weight: 168# BMI= 24 NPO (# of Hours): MNoc - HEENT Pupil (Motor): Pupils equal, EOMI Mallampati: III Teeth: Missing, Edentulous, Poor dentition Oral Opening: Greater than 3 - [employer]UMENT [employer] LOC: Oriented [employer] Motor: Normal RUE, Normal LUE, Normal RLE, Normal LLE, Normal Face [employer] Sensory: Normal: RUE, LUE, RLE, LLE, Face - Cardiac Rhythm: Regular Murmur: None - Pulmonary Breath Sounds: bilateral Clear Respiratory Effort: Symmetrical - Additional Findings Per 08/16/2017 Dr. Cruz Pre-op: Pt unable to tolerate oral opioids, oxycodone, hydrocodone, morphine all give severe confusion & agitation. Anesthesia Assess/Plan ASA Score: 3 (CAD, PVDz,) Modified [place] Scale for Level of Consciousness: Cooperative, oriented, and tranquil Anesthetic Plan: General Monitoring Plan: Standard Monitors Recovery Plan: PACU
[2018-02-08] MEDS: 0.9 % Sodium Chloride 1,000 ML IVC SCH ×3 (01:13→17:19)
[2018-02-08 05:32] LABS: Basophils # 0.1 K/mcL (0.0-0.2); Basophils % 0.9 %; Eosinophils # 0.5 K/mcL (0.0-0.6); Eosinophils % 4.9 %; Hematocrit 30.8 % (37.5-50.1); Hemoglobin 10.1 g/dL (12.9-16.9); Immature Granulocytes % 0.8 % (0-4); Lymphocytes # 1.9 K/mcL (0.6-4.6); Lymphocytes % 18.1 %; Mean Corpuscular HGB Conc 32.8 g/dL (31.6-35.5); Mean Corpuscular Hemoglobin 29.4 pg (28.0-33.3); Mean Corpuscular Volume 89.8 fL (83.0-100.0); Mean Platelet Volume 8.3 fL (9.4-12.4); Monocytes % 9.7 %; Neutrophils # 6.8 K/mcL (1.6-8.9); Platelet Count 436 K/mcL (140-400); Red Blood Count 3.43 M/mcL (4.19-5.50); Segmented Neutrophils % 65.6 %
[2018-02-08 05:53] LABS: BUN/Creatinine Ratio 15 (6-26); Blood Urea Nitrogen 17 mg/dL (8-23); Carbon Dioxide 25 mEq/L (23-29); Chloride 108 mEq/L (98-107); Glucose 104 mg/dL (70-105); Magnesium 1.8 mg/dL (1.6-2.6); Osmolality,Calculated 292 (280-300); Sodium 140 mEq/L (136-145); eGFR For Non-African Americans > 60 (> 60)
--- NOTE | 2018-02-08 07:36 | Internal Med Progress Note ---
Hospitalist Progress Note - Encounter Date of Encounter: 02/08/18 Time of Encounter: 07:30 - Subjective Interval History: No acute events overnight - Exam Vitals: Temp Pulse Resp BP Pulse Ox 97.7 F 59 16 135/61 97 02/08/18 07:06 02/08/18 07:06 02/08/18 07:06 02/08/18 07:06 02/08/18 07:06 Exam: Gen - Awake, alert, oriented x 3, no acute distress HEENT - NCAT, PERRLA, EOMI, hearing grossly intact, oropharynx benign CV - RRR, normal S1 and S2, no M/R/G, no BLE edema Resp - Normal WOB, CTAB, no W/R/R GI - Soft, NT/ND, no masses, normal bowel sounds, Skin - Warm, dry, Black right great toe ulcer Psych - Normal mood and affect, no depression or anxiety - Assessment and Plan (1) Sepsis Current Visit: Yes Status: Acute Assessment and Plan: Sepsis 2/2 to acute osteomyelitis. Pt came in with a leukocytosis of 13, elevated ESR and CRP, and evidence of osteomyelitis on CT scan Follow up blood and wound cultures. Continue antibiotics (2) Acute osteomyelitis Current Visit: Yes Status: Acute Assessment and Plan: Pt has elevated WBC of [address] scan showing right foot osteomyelitis. Started on vanc and zosyn. Consult podiatry and infectious disease for bone biopsy and antibiotic management and appreciate recs 02/08- Podiatry plan for toe amputation today. Also suspected ischemic right toe / PAD and ABIs were ordered which came back normal in the left foot but non compressible in the right foot. Will order arterial doppler of right foot to assess for peripheral arterial disease (3) Coronary artery disease Current Visit: No Status: Chronic Assessment and Plan: Continue aspirin and plavix (4) Falls Current Visit: Yes Status: Acute Assessment and Plan: CT head WNL. PT consult (5) Diabetes mellitus Current Visit: No Status: Chronic Assessment and Plan: Continue inuslin, monitor fingersticks (6) Ischemic ulcer of toe of right foot Current Visit: Yes Status: Acute Assessment and Plan: For amputation in OR today. VERONICA came back normal on left foot and non compressible in right foot Will order arterial dopplers to evaluate for PAD. Vascular consult if indicated (7) DVT prophylaxis Current Visit: No Status: Acute Assessment and Plan: heparin sc - Time Spent with Patient Total time spent is greater than 50% in coordination of care (as documented) at patient's floor/unit and/or counseling patient: Internal Medicine: Result - Labs CBC & Chem 7: 02/08/18 05:05 02/08/18 05:05 Labs: Short CBC 02/08/18 Range/Units 05:05 WBC 10.4 (4.3-11.1) K/mcL Hgb 10.1 L (12.9-16.9) g/dL Hct 30.8 L (37.5-50.1) % Plt Count 436 H (140-400) K/mcL Neutrophils # 6.8 (1.6-8.9) K/mcL BMP 02/08/18 05:05 Sodium 140 Potassium 4.0 Chloride 108 H Carbon Dioxide 25 BUN 17 Creatinine 1.11 Glucose 104 Calcium 8.0 L Urine 02/07/18 Range/Units 11:34 Urine Color Yellow (Yellow) Urine Clarity Clear (Clear) Urine pH 5.5 (5.0-8.0) pH Units Ur Specific [place] 1.015 (1.010-1.025) Urine Protein Negative (Neg-Trace) mg/dL Urine Glucose (UA) 100 H (Normal) mg/dL - ABG Interpretation ABG results: PT/INR, D-dimer PT 11.9 Seconds (9.4-12.1) 02/06/18 15:51 - Impressions Impressions Foot X-Ray 02/07/18 11:47 IMPRESSION: Soft tissue ulceration and findings concerning for osteomyelitis involving the distal phalanx 1st digit with probable underlying fracture. D/ / Justina Holm MD / Justina Holm MD Interpreting Provider: Justina Holm MD Consult Discharge Plan - Plan Referrals: Michael Brown Jr, MD [Primary Care Provider] - (3) Coronary artery disease Qualifiers: Coronary Disease-Associated Artery/Lesion type: three affiliated artery [place] vs. transplanted heart: three affiliated heart Associated angina: without angina Qualified Code(s): I25.10 - Atherosclerotic heart disease of three affiliated coronary artery without angina pectoris (4) Falls Qualifiers: Encounter type: initial encounter Qualified Code(s): W19.XXXA - Unspecified fall, initial encounter (5) Diabetes mellitus Qualifiers: Diabetes mellitus type: type 2 Diabetes mellitus penitentiary insulin use: unspecified supervisor car and yard insulin use status Diabetes mellitus complication status : with circulatory complication Diabetes mellitus complication detail: with other circulatory complications Qualified Code(s): E11.59 - Type 2 diabetes mellitus with other circulatory complications (6) Ischemic ulcer of toe of right foot Qualifiers: Non-pressure ulcer stage: with necrosis of bone Qualified Code(s): 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
[2018-02-08] MEDS: Insulin LISPRO 300 UNITS/3 ML VIAL SQ SCH ×2 (08:07→16:17)
[2018-02-08] MEDS: *HR* GlipiZIDE 5 MG TABLET PO SCH (08:07)
[2018-02-08] MEDS: Aspirin Enteric Coated 81 MG Tablet PO SCH (08:08)
[2018-02-08] MEDS ORDERED: Lidocaine -MPF 2% 2 ML VIAL ONE (08:57)
[2018-02-08] MEDS: Piperacillin/Tazobactam 3.375 GM in 0.9 % Sodium Chloride Mini Bag 100 ML IVPB SCH ×3 (08:58→23:37)
[2018-02-08] MEDS ORDERED: *HR* Propofol 200 MG/20 ML VIAL IVP ONE (08:58)
[2018-02-08] MEDS: BuPROPion XL (24 HR) 150 MG TABLET PO SCH (08:58)
[2018-02-08] MEDS ORDERED: Propofol 500 MG/50 ML INFUS..BTL ONE (08:58)
[2018-02-08] MEDS ORDERED: Bupivacaine-MPF 0.25% 10 ML VIAL ONE (10:28)
[2018-02-08] MEDS ORDERED: Lidocaine 1% 20 ML MDV ONE (10:28)
[2018-02-08] MEDS ORDERED: Bupivacaine/Clonidine Syringe 1 EACH SYRINGE ONE (10:29)
[2018-02-08] MEDS ORDERED: EPHEDrine 50 MG/ML VIAL ONE (11:09)
--- NOTE | 2018-02-08 11:41 | Orthopedic Operative Note ---
Date of procedure: 02/08/18 Pre-op diagnosis: #1 gangrene right great toe Post-op diagnosis: same Procedure: 02/08/18 11:37 #1 amputation of right great toe at the level of the metatarsophalangeal joint Implants: None Complications: None Anesthesia: MAC, local Local Anesthetics: 0.25% Sensorcaine HCL SubQ (cc) Surgeon: Misael Stokes Was there an liaison inspection laboratory assistant present: No Estimated blood loss (cc): 5 Tourniquet Time (Minutes): 0 Specimen: Right great toe with cultures Condition: stable Disposition: floor Procedure in Detail: 02/08/18 11:38 Details in summary of procedure: Patient brought to surgical suite. A sign in procedure was performed. Patient transferred surgical table and positioned properly safely securely. Right foot was elevated on foam block. Anesthetic timeout was taken. Right ankle was then prepped with alcohol 3 times. Ankle block was carried out without difficulty application. No epinephrine used. Surgical timeout was taken. Right great toe was noted to be eroded with dry gangrene in evidence of some serous drainage. There is no foul odor. The erosion was covered the distal medial plantar proximal portion of the right great toe. At that point a planned incision was drawn the Skin Skribe. Beginning on the medial aspect of the medial junction of the medial plantar skin and brought distally to the level of the head of the proximal phalanx then transversely and obliquely and distally and then circumferentially around the lateral aspect of the base of the toe just proximal to the line of demarcation of the necrosis and then proximally and dorsally meeting the medial aspect of the first incision at the level of the metatarsophalangeal joint. These incisions were then deepened directly down the bone. The DIPJ was then disarticulated. Wound was then cultured. The distal aspect the proximal phalanx was not of normal color to ask her density was ma thin crumbly and discolored. Dissection was then carried out the level of periosteum a fresh 15 scalpel blade to the level of the MTPJ which was then disarticulated by dividing the medial lateral collateral ligaments cleanly. The extensor tendon and the flexor tendon were also divided cleanly as well on the initial incision. After resection of the proximal phalanx wound was then flushed with copious amounts sterile saline. There is no active purulent drainage no loculated areas of pus. The head of the first metatarsal was not of normal color texture density was noted be pristine and without evidence of necrosis or infection. The flexor tendon was then remodeled and removed and debrided it to level the weather tendon was viable. The wound was then debrided with ultrasonics Misonix debrider. Satisfied immediately clean wound and the skin edges were noted to bleed freely without necessitating use of Bovie ligature was encouraging. At that point a 3-0 Vicryl was then used to anastomose the extensor flexor tendons of the great toe and skin was repaired with 3-0 Prolene. Wound was then dressed with Adaptic 4 x 4's Kerlix a mild compressive dressing. Estimated blood loss less than 5 mL, patient encountered none patient sent to holding room in good condition with vital signs stable. 02/12/18 08:06
[2018-02-08] MEDS ORDERED: *HR* Dextrose 50 % in Water (Syg) 50 ML SYRINGE IVP PRN (11:57)
[2018-02-08] MEDS ORDERED: Dextrose Gel 15 GM/37.5 ML TUBE PO PRN ×2 (11:57)
[2018-02-08] MEDS ORDERED: D5% in Water 1,000 ML IVC PRN (11:57)
[2018-02-08] MEDS ORDERED: Naloxone 0.4 MG/ML INJ IVP PRN (11:57)
--- NOTE | 2018-02-08 16:10 | Infectious Disease Progress No ---
Date of Encounter: 02/08/18 Time of Encounter: 16:07 - Assessment and Plan (1) Acute osteomyelitis Current Visit: Yes Status: Acute CT right foot on 02/06/2018: Osseous erosion of the distal aspect of the first distal phalanx compatible with osteomyelitis. Causative organism not clear ESR initially over 130 Concern for ischemia and dry necrosis Apparently symptoms of been there for 2-3 days but I do not think the patient and his are the best historians. She tells me she even notice anything 4 days prior to admission. was already started on vancomycin and zosyn prior to surgery; s/p #1 amputation of right great toe at the level of the metatarsophalangeal joint 02/08 Gram stain no bacteria; cultures pending continue vancomycin and zosyn for now goal vanc trough 10-15 will ask pharmacy to help with the dosing duration of treatment likely 6 weeks await cultures to finalize before we recommend picc vs midline vs other monitor labs and for drug toxicity (2) Ischemic ulcer of toe of right foot Current Visit: Yes Status: Acute Vascular surgery has been consulted Qualifiers: Non-pressure ulcer stage: with necrosis of bone Qualified Code(s): 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 (3) Diabetes mellitus Current Visit: No Status: Chronic Qualifiers: Diabetes mellitus type: type 2 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 Clinically doing well. No chest pain or shortness of breath. No diarrhea. No urinary symptoms. Came out of surgery couple hours ago and he is feeling great. is at bedside. Afebrile and hemodynamically stable WBC improved and kidney function improved Status post #1 amputation of right great toe at the level of the metatarsophalangeal joint by Dr. Stokes earlier today Infect Dis PN-Objective Data - Labs CBC & Chem 7: 02/08/18 05:05 02/08/18 05:05 Labs: Laboratory Results - last 24 hr 02/07/18 02/07/18 02/08/18 18:28 21:02 05:05 WBC 10.4 RBC 3.43 L Hgb 10.1 L Hct 30.8 L MCV 89.8 MCH 29.4 MCHC 32.8 RDW 12.0 Plt Count 436 H MPV 8.3 L Immature Gran % 0.8 Seg Neutrophils % 65.6 Lymphocytes % 18.1 Monocytes % 9.7 Eosinophils % 4.9 Basophils % 0.9 Neutrophils # 6.8 Lymphocytes # 1.9 Monocytes # 1.0 Eosinophils # 0.5 Basophils # 0.1 Sodium Potassium Chloride Carbon Dioxide BUN Creatinine Est GFR ( Amer) Est GFR (Non-Af Amer) BUN/Creatinine Ratio Glucose POC Glucose 257 H 155 H Calculated Osmolality Calcium Phosphorus Magnesium 02/08/18 02/08/18 02/08/18 05:05 07:10 12:23 WBC RBC Hgb Hct MCV MCH MCHC RDW Plt Count MPV Immature Gran % Seg Neutrophils % Lymphocytes % Monocytes % Eosinophils % Basophils % Neutrophils # Lymphocytes # Monocytes # Eosinophils # Basophils # Sodium 140 Potassium 4.0 Chloride 108 H Carbon Dioxide 25 BUN 17 Creatinine 1.11 Est GFR ( Amer) > 60 Est GFR (Non-Af Amer) > 60 BUN/Creatinine Ratio 15 Glucose 104 POC Glucose 104 H 103 H Calculated Osmolality 292 Calcium 8.0 L Phosphorus 3.0 Magnesium 1.8 Cultures: Cultures 02/08/18 07:20 Gram Stain - Final Right Great Toe Serology 02/07/18 Range/Units 11:34 Urine Color Yellow (Yellow) Urine Clarity Clear (Clear) Urine pH 5.5 (5.0-8.0) pH Units Ur Specific [place] 1.015 (1.010-1.025) Urine Protein Negative (Neg-Trace) mg/dL Urine Glucose (UA) 100 H (Normal) mg/dL Urine Ketones Negative (Negative) mg/dL Urine Blood Negative (Negative) Urine Nitrite Negative (Negative) Urine Bilirubin Negative (Negative) Urine Urobilinogen Normal (Normal) mg/dL Ur Leukocyte Esterase Large H (Negative) Urine Microscopic RBC 3-5 H (0-3) per hpf Urine Microscopic WBC 15-30 H (0-3) per hpf Ur Squamous Epith Cells Many H (None-Few) per lpf Urine Bacteria None Seen (None-Few) per hpf Hyaline Casts None Seen (None-Few) per lpf Ur Culture Indicated? NO. A (NO) - Impressions Impressions Foot X-Ray 02/07/18 11:47 IMPRESSION: Soft tissue ulceration and findings concerning for osteomyelitis involving the distal phalanx 1st digit with probable underlying fracture. D/ / Justina Holm MD / Justina Holm MD Interpreting Provider: Justina Holm MD Exam - Constitutional Vitals: Temp Pulse Resp BP Pulse Ox 97.7 F 59 16 135/61 97 02/08/18 07:06 02/08/18 07:06 02/08/18 07:06 02/08/18 07:06 02/08/18 07:06 Consult Discharge Plan - Plan Referrals: Michael Brown Jr, MD [Primary Care Provider] -
[2018-02-09 03:35] LABS: Basophils # 0.1 K/mcL (0.0-0.2); Basophils % 0.8 %; Eosinophils # 0.5 K/mcL (0.0-0.6); Eosinophils % 4.3 %; Hematocrit 30.2 % (37.5-50.1); Hemoglobin 10.1 g/dL (12.9-16.9); Immature Granulocytes % 0.5 % (0-4); Lymphocytes # 1.8 K/mcL (0.6-4.6); Lymphocytes % 16.1 %; Mean Corpuscular HGB Conc 33.4 g/dL (31.6-35.5); Mean Corpuscular Hemoglobin 30.4 pg (28.0-33.3); Mean Platelet Volume 8.2 fL (9.4-12.4); Neutrophils # 7.6 K/mcL (1.6-8.9); Platelet Count 440 K/mcL (140-400); Red Blood Count 3.32 M/mcL (4.19-5.50); Segmented Neutrophils % 69.3 %
[2018-02-09] MEDS: Insulin LISPRO 300 UNITS/3 ML VIAL SQ SCH ×4 (03:35→18:12)
[2018-02-09 03:54] LABS: BUN/Creatinine Ratio 15 (6-26); Blood Urea Nitrogen 16 mg/dL (8-23); Calcium 7.9 mg/dL (8.6-10.3); Carbon Dioxide 25 mEq/L (23-29); Chloride 110 mEq/L (98-107); Glucose 207 mg/dL (70-105); Magnesium 1.6 mg/dL (1.6-2.6); Osmolality,Calculated 295 (280-300); Phosphorous 2.7 mg/dL (2.7-4.5); Potassium 4.2 mEq/L (3.5-5.1); Sodium 139 mEq/L (136-145); eGFR For Non-African Americans > 60 (> 60)
[2018-02-09] MEDS: 0.9 % Sodium Chloride 1,000 ML IVC SCH ×2 (04:43→23:44)
--- NOTE | 2018-02-09 07:26 | Internal Med Progress Note ---
Hospitalist Progress Note - Encounter Date of Encounter: 02/09/18 Time of Encounter: 07:20 - Subjective Interval History: No acute events overnight - Exam Vitals: Temp Pulse Resp BP Pulse Ox 97.9 F 67 16 151/73 96 02/09/18 05:35 02/09/18 05:35 02/09/18 05:35 02/09/18 05:35 02/09/18 05:35 Exam: Gen - Awake, alert, oriented x 3, no acute distress HEENT - NCAT, PERRLA, EOMI, hearing grossly intact, oropharynx benign CV - RRR, normal S1 and S2, no M/R/G, no BLE edema Resp - Normal WOB, CTAB, no W/R/R GI - Soft, NT/ND, no masses, normal bowel sounds, Skin - Warm, dry, Black right great toe ulcer Psych - Normal mood and affect, no depression or anxiety - Assessment and Plan (1) Sepsis Current Visit: Yes Status: Acute Assessment and Plan: Sepsis 2/2 to acute osteomyelitis. Pt came in with a leukocytosis of 13, elevated ESR and CRP, and evidence of osteomyelitis on CT scan Follow up blood and wound cultures. Continue antibiotics Will likely need 4-6 weeks of IV antibiotics. ID following (2) Acute osteomyelitis Current Visit: Yes Status: Acute Assessment and Plan: Pt has elevated WBC of [address] scan showing right foot osteomyelitis. Started on vanc and zosyn. Consult podiatry and infectious disease for bone biopsy and antibiotic management and appreciate recs 02/09- s/p right great toe amputation . Also suspected ischemic right toe/ PAD and ABIs were ordered which came back normal in the left foot but non compressible in the right foot. Arterial doppler of right foot has been completed (3) Coronary artery disease Current Visit: No Status: Chronic Assessment and Plan: Continue aspirin and plavix (4) Falls Current Visit: Yes Status: Acute Assessment and Plan: CT head WNL. PT consult (5) Diabetes mellitus Current Visit: No Status: Chronic Assessment and Plan: Continue in[place]lin, monitor fingersticks (6) Ischemic ulcer of toe of right foot Current Visit: Yes Status: Acute Assessment and Plan: s/p roght great toe amputation. VERONICA came back normal on left foot and non compressible in right foot Will order arterial dopplers to evaluate for PAD. Vascular consult if indicated (7) DVT prophylaxis Current Visit: Yes Status: Acute Assessment and Plan: heparin sc - Time Spent with Patient Total time spent is greater than 50% in coordination of care (as documented) at patient's floor/unit and/or counseling patient: Internal Medicine: Result - Labs CBC & Chem 7: 02/09/18 02:58 02/09/18 02:58 Labs: Short CBC 02/09/18 Range/Units 02:58 WBC 10.9 (4.3-11.1) K/mcL Hgb 10.1 L (12.9-16.9) g/dL Hct 30.2 L (37.5-50.1) % Plt Count 440 H (140-400) K/mcL Neutrophils # 7.6 (1.6-8.9) K/mcL BMP 02/09/18 02:58 Sodium 139 Potassium 4.2 Chloride 110 H Carbon Dioxide 25 BUN 16 Creatinine 1.10 Glucose 207 H Calcium 7.9 L - ABG Interpretation ABG results: PT/INR, D-dimer PT 11.9 Seconds (9.4-12.1) 02/06/18 15:51 Consult Discharge Plan - Plan Referrals: Michael Brown Jr, MD [Primary Care Provider] - (3) Coronary artery disease Qualifiers: Coronary Disease-Associated Artery/Lesion type: [place] artery [place] vs. transplanted heart: [place] heart Associated angina: without angina Qualified Code(s): I25.10 - Atherosclerotic heart disease of [place] coronary artery without angina pectoris (4) Falls Qualifiers: Encounter type: initial encounter Qualified Code(s): W19.XXXA - Unspecified fall, initial encounter (5) Diabetes mellitus Qualifiers: Diabetes mellitus type: type 2 Diabetes mellitus intermission coordinator insulin use: unspecified intermission coordinator insulin use status Diabetes mellitus complication status : with circulatory complication Diabetes mellitus complication detail: with other circulatory complications Qualified Code(s): E11.59 - Type 2 diabetes mellitus with other circulatory complications (6) Ischemic ulcer of toe of right foot Qualifiers: Non-pressure ulcer stage: with necrosis of bone Qualified Code(s): 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
[2018-02-09] MEDS: Piperacillin/Tazobactam 3.375 GM in 0.9 % Sodium Chloride Mini Bag 100 ML IVPB SCH ×3 (08:31→22:37)
[2018-02-09] MEDS: BuPROPion XL (24 HR) 150 MG TABLET PO SCH (11:04)
[2018-02-09] MEDS: Aspirin Enteric Coated 81 MG Tablet PO SCH (11:05)
--- NOTE | 2018-02-09 15:55 | Infectious Disease Progress No ---
Date of Encounter: 02/09/18 Time of Encounter: 15:53 - Assessment and Plan (1) Acute osteomyelitis Current Visit: Yes Status: Acute CT right foot on 02/06/2018: Osseous erosion of the distal aspect of the first distal phalanx compatible with osteomyelitis. Causative organism not clear (GPC and GNR ESR initially over 130 Concern for ischemia and dry necrosis Apparently symptoms of been there for 2-3 days but I do not think the patient and his are the best historians. She tells me she even notice anything 4 days prior to admission. was already started on vancomycin and zosyn prior to surgery; s/p #1 amputation of right great toe at the level of the metatarsophalangeal joint 02/08 Gram stain no bacteria; cultures pending continue vancomycin and zosyn for now goal vanc trough 10-15 will ask pharmacy to help with the dosing duration of treatment likely 6 weeks await cultures to finalize before we recommend picc vs midline vs other monitor labs and for drug toxicity (2) Ischemic ulcer of toe of right foot Current Visit: Yes Status: Acute Vascular surgery has been consulted Qualifiers: Non-pressure ulcer stage: with necrosis of bone Qualified Code(s): 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 (3) Diabetes mellitus Current Visit: No Status: Chronic Qualifiers: Diabetes mellitus type: type 2 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 Clinically doing well. Family at bedside. Has not had a bowel movement for 3 days. No chest pain or shortness of breath. Vital signs noted. Labs reviewed. Culture of the great toe is revealing gram- positive cocci and gram-negative franc[place] final I&D pending. Infect Dis PN-Objective Data - Labs CBC & Chem 7: 02/09/18 02:58 02/09/18 02:58 Labs: Laboratory Results - last 24 hr 02/08/18 02/09/18 02/09/18 16:22 02:58 02:58 WBC 10.9 RBC 3.32 L Hgb 10.1 L Hct 30.2 L MCV 91.0 MCH 30.4 MCHC 33.4 RDW 12.0 Plt Count 440 H MPV 8.2 L Immature Gran % 0.5 Seg Neutrophils % 69.3 Lymphocytes % 16.1 Monocytes % 9.0 Eosinophils % 4.3 Basophils % 0.8 Neutrophils # 7.6 Lymphocytes # 1.8 Monocytes # 1.0 Eosinophils # 0.5 Basophils # 0.1 Sodium 139 Potassium 4.2 Chloride 110 H Carbon Dioxide 25 BUN 16 Creatinine 1.10 Est GFR ( Amer) > 60 Est GFR (Non-Af Amer) > 60 BUN/Creatinine Ratio 15 Glucose 207 H POC Glucose 242 H Calculated Osmolality 295 Calcium 7.9 L Phosphorus 2.7 Magnesium 1.6 Vancomycin Trough 02/09/18 05:04 WBC RBC Hgb Hct MCV MCH MCHC RDW Plt Count MPV Immature Gran % Seg Neutrophils % Lymphocytes % Monocytes % Eosinophils % Basophils % Neutrophils # Lymphocytes # Monocytes # Eosinophils # Basophils # Sodium Potassium Chloride Carbon Dioxide BUN Creatinine Est GFR ( Amer) Est GFR (Non-Af Amer) BUN/Creatinine Ratio Glucose POC Glucose Calculated Osmolality Calcium Phosphorus Magnesium Vancomycin Trough 10 Cultures: Cultures 02/08/18 07:20 Wound Culture - Preliminary Right Great Toe Gram Positive Cocci Gram Negative [place] 02/08/18 07:20 Gram Stain - Final Right Great Toe Serology 02/07/18 Range/Units 11:34 Urine Color Yellow (Yellow) Urine Clarity Clear (Clear) Urine pH 5.5 (5.0-8.0) pH Units Ur Specific [place] 1.015 (1.010-1.025) Urine Protein Negative (Neg-Trace) mg/dL Urine Glucose (UA) 100 H (Normal) mg/dL Urine Ketones Negative (Negative) mg/dL Urine Blood Negative (Negative) Urine Nitrite Negative (Negative) Urine Bilirubin Negative (Negative) Urine Urobilinogen Normal (Normal) mg/dL Ur Leukocyte Esterase Large H (Negative) Urine Microscopic RBC 3-5 H (0-3) per hpf Urine Microscopic WBC 15-30 H (0-3) per hpf Ur Squamous Epith Cells Many H (None-Few) per lpf Urine Bacteria None Seen (None-Few) per hpf Hyaline Casts None Seen (None-Few) per lpf Ur Culture Indicated? NO. A (NO) Exam - Constitutional Vitals: Temp Pulse Resp BP Pulse Ox 98.3 F 65 16 138/54 95 02/09/18 15:21 02/09/18 15:21 02/09/18 15:21 02/09/18 15:21 02/09/18 15:21 General appearance: no acute distress, no febrile - Respiratory Respiratory exam: Present: CTAB. Absent: wheezes - Cardiovascular Cardiovascular exam: Present: RRR, +S1, +S2 - GI/Abdominal GI/Abdominal exam: Present: normal bowel sounds, soft. Absent: tenderness - Extremities Exam Extremities exam: Absent: joint swelling, tenderness - Neurological Exam Neurological exam: Present: alert, oriented X3 Consult Discharge Plan - Plan Referrals: Michael Brown Jr, MD [Primary Care Provider] -
[2018-02-09] MEDS: *HR* Heparin 5,000 UNIT/ML VIAL SQ SCH (18:12)
[2018-02-10 03:29] LABS: Basophils # 0.1 K/mcL (0.0-0.2); Basophils % 0.7 %; Eosinophils # 0.4 K/mcL (0.0-0.6); Eosinophils % 3.7 %; Hematocrit 28.2 % (37.5-50.1); Hemoglobin 9.3 g/dL (12.9-16.9); Immature Granulocytes % 0.4 % (0-4); Immature Platelets 0.9 % (1.1-6.1); Lymphocytes # 2.1 K/mcL (0.6-4.6); Lymphocytes % 20.5 %; Mean Corpuscular Hemoglobin 29.5 pg (28.0-33.3); Mean Corpuscular Volume 89.5 fL (83.0-100.0); Mean Platelet Volume 8.4 fL (9.4-12.4); Monocytes # 0.9 K/mcL (0.0-1.3); Monocytes % 9.1 %; Neutrophils # 6.7 K/mcL (1.6-8.9); Platelet Count 526 K/mcL (140-400); Red Blood Count 3.15 M/mcL (4.19-5.50); Red Cell Distribution Width 12.2 % (11.5-14.5); Segmented Neutrophils % 65.6 %
[2018-02-10 03:47] LABS: BUN/Creatinine Ratio 9 (6-26); Blood Urea Nitrogen 9 mg/dL (8-23); Carbon Dioxide 25 mEq/L (23-29); Chloride 105 mEq/L (98-107); Glucose 201 mg/dL (70-105); Magnesium 1.5 mg/dL (1.6-2.6); Osmolality,Calculated 290 (280-300); Phosphorous 2.3 mg/dL (2.7-4.5); Potassium 3.7 mEq/L (3.5-5.1); Sodium 138 mEq/L (136-145); eGFR For Non-African Americans > 60 (> 60)
[2018-02-10] MEDS: *HR* Heparin 5,000 UNIT/ML VIAL SQ SCH ×2 (05:28→16:49)
--- NOTE | 2018-02-10 07:26 | Internal Med Progress Note ---
Hospitalist Progress Note - Encounter Date of Encounter: 02/10/18 Time of Encounter: 07:20 - Subjective Interval History: No acute events overnight - Exam Vitals: Temp Pulse Resp BP Pulse Ox 98.0 F 92 18 127/64 98 02/10/18 07:11 02/10/18 07:11 02/10/18 07:11 02/10/18 07:11 02/10/18 07:11 Exam: Gen - Awake, alert, oriented x 3, no acute distress HEENT - NCAT, PERRLA, EOMI, hearing grossly intact, oropharynx benign CV - RRR, normal S1 and S2, no M/R/G, no BLE edema Resp - Normal WOB, CTAB, no W/R/R GI - Soft, NT/ND, no masses, normal bowel sounds, Skin - Warm, dry, Black right great toe ulcer Psych - Normal mood and affect, no depression or anxiety - Assessment and Plan (1) Sepsis Current Visit: Yes Status: Acute Assessment and Plan: Sepsis 2/2 to acute osteomyelitis. Pt came in with a leukocytosis of 13, elevated ESR and CRP, and evidence of osteomyelitis on CT scan Wound cultures growing staph aureus and gram negative rods. Will d/c vanc and continue on zosyn as staph in wound is not MRSA Will likely need 4-6 weeks of IV antibiotics. ID following (2) Acute osteomyelitis Current Visit: Yes Status: Acute Assessment and Plan: Pt has elevated WBC of [address] scan showing right foot osteomyelitis. Cotninue on zosyn. Podiatry and infectious disease following 02/10- s/p right great toe amputation on 02/08 .Continue IV antibiotics (3) Coronary artery disease Current Visit: No Status: Chronic Assessment and Plan: Continue aspirin and plavix (4) Falls Current Visit: Yes Status: Acute Assessment and Plan: CT head WNL. PT consult (5) Diabetes mellitus Current Visit: No Status: Chronic Assessment and Plan: Continue in[place]lin, monitor fingersticks (6) Ischemic ulcer of toe of right foot Current Visit: Yes Status: Acute Assessment and Plan: s/p right great toe amputation. VERONICA came back normal on left foot and non compressible in right foot Arterial dopplers of right foot came back showing normal tibial waveforms. No further intervention indicated (7) DVT prophylaxis Current Visit: Yes Status: Acute Assessment and Plan: heparin sc - Time Spent with Patient Total time spent is greater than 50% in coordination of care (as documented) at patient's floor/unit and/or counseling patient: Internal Medicine: Result - Labs CBC & Chem 7: 02/10/18 01:40 02/10/18 01:40 Labs: Short CBC 02/10/18 Range/Units 01:40 WBC 10.2 (4.3-11.1) K/mcL Hgb 9.3 L (12.9-16.9) g/dL Hct 28.2 L (37.5-50.1) % Plt Count 526 H (140-400) K/mcL Neutrophils # 6.7 (1.6-8.9) K/mcL BMP 02/10/18 01:40 Sodium 138 Potassium 3.7 Chloride 105 Carbon Dioxide 25 BUN 9 Creatinine 0.96 Glucose 201 H Calcium 8.0 L - ABG Interpretation ABG results: PT/INR, D-dimer PT 11.9 Seconds (9.4-12.1) 02/06/18 15:51 Consult Discharge Plan - Plan Referrals: Michael Brown Jr, MD [Primary Care Provider] - (1) Sepsis Qualifiers: Sepsis type: methicillin susceptible Staphylococcus aureus Qualified Code(s) : A41.01 - Sepsis due to Methicillin susceptible Staphylococcus aureus (3) Coronary artery disease Qualifiers: Coronary Disease-Associated Artery/Lesion type: [place] artery [place] vs. 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
[2018-02-10] MEDS ORDERED: Aminoglycoside Consult 1 EACH MC ONE (09:23)
[2018-02-10] MEDS: BuPROPion XL (24 HR) 150 MG TABLET PO SCH (10:22)
[2018-02-10] MEDS: Aspirin Enteric Coated 81 MG Tablet PO SCH (10:22)
[2018-02-10] MEDS: Piperacillin/Tazobactam 3.375 GM in 0.9 % Sodium Chloride Mini Bag 100 ML IVPB SCH ×3 (10:22→23:58)
[2018-02-10] MEDS: Insulin LISPRO 300 UNITS/3 ML VIAL SQ SCH ×3 (10:23→16:50)
[2018-02-10] MEDS: Pantoprazole 40 MG VIAL IVP SCH (10:39)
[2018-02-11 05:16] LABS: Basophils # 0.1 K/mcL (0.0-0.2); Basophils % 0.8 %; Eosinophils # 0.4 K/mcL (0.0-0.6); Eosinophils % 4.8 %; Hematocrit 29.2 % (37.5-50.1); Hemoglobin 9.7 g/dL (12.9-16.9); Immature Granulocytes % 0.3 % (0-4); Lymphocytes # 1.8 K/mcL (0.6-4.6); Lymphocytes % 19.9 %; Mean Corpuscular HGB Conc 33.2 g/dL (31.6-35.5); Mean Corpuscular Hemoglobin 29.6 pg (28.0-33.3); Mean Platelet Volume 8.4 fL (9.4-12.4); Monocytes # 0.7 K/mcL (0.0-1.3); Monocytes % 7.7 %; Neutrophils # 6.1 K/mcL (1.6-8.9); Platelet Count 419 K/mcL (140-400); Red Blood Count 3.28 M/mcL (4.19-5.50); Segmented Neutrophils % 66.5 %
[2018-02-11] MEDS: *HR* Heparin 5,000 UNIT/ML VIAL SQ SCH ×2 (05:27→16:18)
[2018-02-11 05:42] LABS: BUN/Creatinine Ratio 9 (6-26); Blood Urea Nitrogen 10 mg/dL (8-23); Calcium 8.3 mg/dL (8.6-10.3); Carbon Dioxide 27 mEq/L (23-29); Chloride 107 mEq/L (98-107); Glucose 284 mg/dL (70-105); Magnesium 1.9 mg/dL (1.6-2.6); Osmolality,Calculated 295 (280-300); Phosphorous 2.9 mg/dL (2.7-4.5); Potassium 3.9 mEq/L (3.5-5.1); Sodium 138 mEq/L (136-145); eGFR For Non-African Americans > 60 (> 60)
--- NOTE | 2018-02-11 07:33 | Internal Med Progress Note ---
Hospitalist Progress Note - Encounter Date of Encounter: 02/11/18 Time of Encounter: 07:50 - Subjective Interval History: No acute events overnight - Exam Vitals: Temp Pulse Resp BP Pulse Ox 98.4 F 54 14 136/58 98 02/11/18 07:07 02/11/18 07:07 02/11/18 07:07 02/11/18 07:07 02/11/18 07:07 Exam: Gen - Awake, alert, oriented x 3, no acute distress HEENT - NCAT, PERRLA, EOMI, hearing grossly intact, oropharynx benign CV - RRR, normal S1 and S2, no M/R/G, no BLE edema Resp - Normal WOB, CTAB, no W/R/R GI - Soft, NT/ND, no masses, normal bowel sounds, Skin - Warm, dry, s/p amputation, dressing in place, clean dry and intact Psych - Normal mood and affect, no depression or anxiety - Assessment and Plan (1) Sepsis Current Visit: Yes Status: Acute Assessment and Plan: Sepsis 2/2 to acute osteomyelitis. Pt came in with a leukocytosis of 13, elevated ESR and CRP, and evidence of osteomyelitis on CT scan Wound cultures growing staph aureus and providencia. Will d/c vanc and continue on zosyn as staph in wound is MSSA Will likely need 4-6 weeks of IV antibiotics. ID following (2) Acute osteomyelitis Current Visit: Yes Status: Acute Assessment and Plan: Pt has elevated WBC of [address] scan showing right foot osteomyelitis. Cotninue on zosyn. Podiatry and infectious disease following 02/10- s/p right great toe amputation on 02/08 .Continue IV antibiotics (3) Coronary artery disease Current Visit: No Status: Chronic Assessment and Plan: Continue aspirin and plavix (4) Falls Current Visit: Yes Status: Acute Assessment and Plan: CT head WNL. PT consult (5) Diabetes mellitus Current Visit: No Status: Chronic Assessment and Plan: Continue in[place], monitor fingersticks (6) Ischemic ulcer of toe of right foot Current Visit: Yes Status: Acute Assessment and Plan: s/p right great toe amputation. VERONICA came back normal on left foot and non compressible in right foot Arterial dopplers of right foot came back showing normal tibial waveforms. No further intervention indicated (7) DVT prophylaxis Current Visit: Yes Status: Acute Assessment and Plan: heparin sc - Time Spent with Patient Total time spent is greater than 50% in coordination of care (as documented) at patient's floor/unit and/or counseling patient: Internal Medicine: Result - Labs CBC & Chem 7: 02/11/18 04:39 02/11/18 04:39 Labs: Short CBC 02/11/18 Range/Units 04:39 WBC 9.2 (4.3-11.1) K/mcL Hgb 9.7 L (12.9-16.9) g/dL Hct 29.2 L (37.5-50.1) % Plt Count 419 H (140-400) K/mcL Neutrophils # 6.1 (1.6-8.9) K/mcL BMP 02/11/18 04:39 Sodium 138 Potassium 3.9 Chloride 107 Carbon Dioxide 27 BUN 10 Creatinine 1.14 Glucose 284 H Calcium 8.3 L - ABG Interpretation ABG results: PT/INR, D-dimer PT 11.9 Seconds (9.4-12.1) 02/06/18 15:51 Consult Discharge Plan - Plan Referrals: Michael Brown Jr, MD [Primary Care Provider] - (1) Sepsis Qualifiers: Sepsis type: methicillin susceptible Staphylococcus aureus Qualified Code(s) : A41.01 - Sepsis due to Methicillin susceptible Staphylococcus aureus (3) Coronary artery disease Qualifiers: Coronary Disease-Associated Artery/Lesion type: [place] artery [place] vs. 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
[2018-02-11] MEDS: Piperacillin/Tazobactam 3.375 GM in 0.9 % Sodium Chloride Mini Bag 100 ML IVPB SCH ×2 (08:51→16:17)
[2018-02-11] MEDS: BuPROPion XL (24 HR) 150 MG TABLET PO SCH (08:51)
[2018-02-11] MEDS: Pantoprazole 40 MG VIAL IVP SCH (08:51)
[2018-02-11] MEDS: Aspirin Enteric Coated 81 MG Tablet PO SCH (08:51)
[2018-02-11] MEDS: Insulin LISPRO 300 UNITS/3 ML VIAL SQ SCH ×3 (08:52→16:18)
--- NOTE | 2018-02-11 09:01 | Electrocardiograph Report ---
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
[2018-02-12] MEDS: Piperacillin/Tazobactam 3.375 GM in 0.9 % Sodium Chloride Mini Bag 100 ML IVPB SCH ×3 (00:26→16:26)
[2018-02-12] MEDS: *HR* Heparin 5,000 UNIT/ML VIAL SQ SCH ×2 (05:43→17:20)
[2018-02-12 05:48] LABS: Basophils # 0.1 K/mcL (0.0-0.2); Basophils % 0.7 %; Eosinophils # 0.7 K/mcL (0.0-0.6); Eosinophils % 6.3 %; Hematocrit 28.4 % (37.5-50.1); Hemoglobin 9.3 g/dL (12.9-16.9); Immature Granulocytes % 0.5 % (0-4); Lymphocytes # 1.8 K/mcL (0.6-4.6); Lymphocytes % 16.4 %; Mean Corpuscular HGB Conc 32.7 g/dL (31.6-35.5); Mean Corpuscular Hemoglobin 29.2 pg (28.0-33.3); Mean Platelet Volume 8.2 fL (9.4-12.4); Monocytes # 0.9 K/mcL (0.0-1.3); Monocytes % 8.1 %; Neutrophils # 7.4 K/mcL (1.6-8.9); Platelet Count 405 K/mcL (140-400); Red Blood Count 3.19 M/mcL (4.19-5.50)
[2018-02-12 06:11] LABS: BUN/Creatinine Ratio 12 (6-26); Blood Urea Nitrogen 13 mg/dL (8-23); Calcium 8.4 mg/dL (8.6-10.3); Carbon Dioxide 27 mEq/L (23-29); Chloride 106 mEq/L (98-107); Glucose 242 mg/dL (70-105); Magnesium 1.7 mg/dL (1.6-2.6); Osmolality,Calculated 294 (280-300); Phosphorous 2.6 mg/dL (2.7-4.5); Potassium 3.9 mEq/L (3.5-5.1); Sodium 138 mEq/L (136-145); eGFR For Non-African Americans > 60 (> 60)
--- NOTE | 2018-02-12 07:48 | Internal Med Progress Note ---
Hospitalist Progress Note - Encounter Date of Encounter: 02/12/18 Time of Encounter: 07:45 - Subjective Interval History: No acute events overnight - Exam Vitals: Temp Pulse Resp BP Pulse Ox 98.1 F 61 15 140/68 93 02/12/18 06:47 02/12/18 06:47 02/12/18 06:47 02/12/18 06:47 02/12/18 06:47 Exam: Gen - Awake, alert, oriented x 3, no acute distress HEENT - NCAT, PERRLA, EOMI, hearing grossly intact, oropharynx benign CV - RRR, normal S1 and S2, no M/R/G, no BLE edema Resp - Normal WOB, CTAB, no W/R/R GI - Soft, NT/ND, no masses, normal bowel sounds, Skin - Warm, dry, s/p amputation, dressing in place, clean dry and intact Psych - Normal mood and affect, no depression or anxiety - Assessment and Plan (1) Sepsis Current Visit: Yes Status: Acute Assessment and Plan: Sepsis 2/2 to acute osteomyelitis. Pt came in with a leukocytosis of 13, elevated ESR and CRP, and evidence of osteomyelitis on CT scan Wound cultures growing staph aureus and providencia. Will d/c vanc and continue on zosyn as staph in wound is MSSA Will likely need 4-6 weeks of IV antibiotics. ID following (2) Acute osteomyelitis Current Visit: Yes Status: Acute Assessment and Plan: Pt has elevated WBC of [address] scan showing right foot osteomyelitis. Cotninue on zosyn. Podiatry and infectious disease following 02/12- s/p right great toe amputation on 02/08 .Continue IV antibiotics (3) Coronary artery disease Current Visit: No Status: Chronic Assessment and Plan: Continue aspirin and plavix (4) Falls Current Visit: Yes Status: Acute Assessment and Plan: CT head WNL. PT consult (5) Diabetes mellitus Current Visit: No Status: Chronic Assessment and Plan: Continue in[place]lin, monitor fingersticks (6) Ischemic ulcer of toe of right foot Current Visit: Yes Status: Acute Assessment and Plan: s/p right great toe amputation. VERONICA came back normal on left foot and non compressible in right foot Arterial dopplers of right foot came back showing normal tibial waveforms. No further intervention indicated (7) DVT prophylaxis Current Visit: Yes Status: Acute Assessment and Plan: heparin sc - Time Spent with Patient Total time spent is greater than 50% in coordination of care (as documented) at patient's floor/unit and/or counseling patient: Internal Medicine: Result - Labs CBC & Chem 7: 02/12/18 05:36 02/12/18 05:36 Labs: Short CBC 02/12/18 Range/Units 05:36 WBC 11.0 (4.3-11.1) K/mcL Hgb 9.3 L (12.9-16.9) g/dL Hct 28.4 L (37.5-50.1) % Plt Count 405 H (140-400) K/mcL Neutrophils # 7.4 (1.6-8.9) K/mcL BMP 02/12/18 05:36 Sodium 138 Potassium 3.9 Chloride 106 Carbon Dioxide 27 BUN 13 Creatinine 1.08 Glucose 242 H Calcium 8.4 L - ABG Interpretation ABG results: PT/INR, D-dimer PT 11.9 Seconds (9.4-12.1) 02/06/18 15:51 Consult Discharge Plan - Plan Referrals: Michael Brown Jr, MD [Primary Care Provider] - (1) Sepsis Qualifiers: Sepsis type: methicillin susceptible Staphylococcus aureus Qualified Code(s) : A41.01 - Sepsis due to Methicillin susceptible Staphylococcus aureus (3) Coronary artery disease Qualifiers: Coronary Disease-Associated Artery/Lesion type: [place] artery [place] vs. transplanted heart: [place] heart Associated angina: without angina Qualified Code(s): I25.10 - Atherosclerotic heart disease of [place] coronary artery without angina pectoris (4) Falls Qualifiers: Encounter type: initial encounter Qualified Code(s): W19.XXXA - Unspecified fall, initial encounter (5) Diabetes mellitus Qualifiers: Diabetes mellitus type: type 2 Diabetes mellitus intermediate insulin use: unspecified intermediate insulin use status Diabetes mellitus complication status : with circulatory complication Diabetes mellitus complication detail: with other circulatory complications Qualified Code(s): E11.59 - Type 2 diabetes mellitus with other circulatory complications (6) Ischemic ulcer of toe of right foot Qualifiers: Non-pressure ulcer stage: with necrosis of bone Qualified Code(s): 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
--- NOTE | 2018-02-12 08:00 | Podiatry Progress Note ---
Date of Encounter: 02/11/18 Time of Encounter: 12:00 - Assessment and Plan (1) Gangrene of toe of right foot Current Visit: Yes Status: Acute Assessment: #1 status post amputation right great toe at the level of metatarsophalangeal joint healing uneventfully suture line intact no evidence of dehiscence or acute infection. Plan: #1 change sterile dressing today inspected wound. Apply dry sterile dressing consisting of Adaptic over the dorsal aspect the foot with calcium alginate over the wound directly and 4 x 4's and Kerlix. #2 patient to be dispensed Darco healing postop shoe. Minimal weightbearing. Patient to be quiescent at home bound. #3 antibiotic choice per hospitalist/internal medicine service #4 will follow-up in clinic within 7 days of discharge. Patient to keep dressing dry clean and intact it is not to be removed should there be any kind of soiled dressing or saturated dressing on to be contacted immediately. [phone] Subjective Principal diagnosis: Status post amputation of gangrenous toe Interval history: Postop day #3 no complete the pain. Appetite good. No fever no leukocytosis. Patient's and son are in the room. Alert and oriented Objective - Vital Signs Vital Signs: Vital Signs Temp Pulse Resp BP Pulse Ox 02/12/18 06:47 98.1 F 61 15 140/68 93 02/12/18 05:09 98.4 F 59 15 112/58 92 02/11/18 19:20 98.3 F 67 16 113/63 97 02/11/18 14:04 98.6 F 56 16 139/66 98 02/11/18 10:52 98.3 F 49 14 131/66 98 Intake and Output 02/11/18 02/11/18 02/12/18 15:59 23:59 07:59 Intake Total 720 / 720 340 / 340 100 / 100 Output Total 0 / 0 Balance 720 / 720 340 / 340 100 / 100 Intake: IV Fluids 100 / 100 100 / 100 100 / 100 Zosyn 3.375 GM In 0.9 % Sodium 100 / 100 100 / 100 100 / 100 Chloride (Mini-Bag +) 100 ML @ 25 mls/hr IVPB Q8HR KRUNAL Rx#: [id number] Oral 620 / 620 240 / 240 0 / 0 Output: Urine 0 / 0 Other: Meal Lunch Dinner Percent of Meal Consumed 100% 40% Stool Size Moderate Stool Consistency formed Stool Color Brown # Voids 1 1 Weight 76.2 kg Blood Glucose* 237 268 237 Patient Weight 02/12/18 23:59 Weight 76.2 kg - Exam Exam: Sutures intact slight maceration of the incision line. Expected postoperative erythema. Minimal edema. Incision: Present: healing, clean and dry Capillary Refill: less than 3 seconds - Lab Result Diagrams: 02/12/18 05:36 02/12/18 05:36 Labs: Abnormal lab results RBC 3.19 M/mcL (4.19-5.50) L 02/12/18 05:36 Hgb 9.3 g/dL (12.9-16.9) L 02/12/18 05:36 Hct 28.4 % (37.5-50.1) L 02/12/18 05:36 Plt Count 405 K/mcL (140-400) H 02/12/18 05:36 MPV 8.2 fL (9.4-12.4) L 02/12/18 05:36 Eosinophils # 0.7 K/mcL (0.0-0.6) H 02/12/18 05:36 Immature Plt Fraction 0.9 % (1.1-6.1) L 02/10/18 01:40 ESR >= 130 mm/hr (0-10) H 02/06/18 19:31 APTT 21.6 Seconds (26.0-36.0) L 02/06/18 15:51 Glucose 242 mg/dL (70-105) H 02/12/18 05:36 POC Glucose 268 mg/dL (70-99) H 02/11/18 20:35 Calcium 8.4 mg/dL (8.6-10.3) L 02/12/18 05:36 Phosphorus 2.6 mg/dL (2.7-4.5) L 02/12/18 05:36 AST 8 Units/L (13-39) L 02/06/18 15:51 ALT 5 Units/L (7-52) L 02/06/18 15:51 C-Reactive Protein 90 mg/L (Less than 10) H 02/06/18 15:51 Albumin 3.3 g/dL (3.5-5.7) L 02/06/18 15:51 Globulin 3.8 g/dL (2.4-3.5) H 02/06/18 15:51 Albumin/Globulin Ratio 0.9 (1.1-2.2) L 02/06/18 15:51 Urine Glucose (UA) 100 mg/dL (Normal) H 02/07/18 11:34 Ur Leukocyte Esterase Large (Negative) H 02/07/18 11:34 Urine Microscopic RBC 3-5 per hpf (0-3) H 02/07/18 11:34 Urine Microscopic WBC 15-30 per hpf (0-3) H 02/07/18 11:34 Ur Squamous Epith Cells Many per lpf (None-Few) H 02/07/18 11:34 Ur Culture Indicated? NO. (NO) A 02/07/18 11:34 Microbiology, Last 48 Hours 02/08/18 07:20 Anaerobic Culture - Preliminary Right Great Toe At this time, no anaerobic growth is present. The culture will be finalized after 5 days of incubation. 02/08/18 07:20 Wound Culture - Final Right Great Toe Staphylococcus aureus Providencia rettgeri 02/08/18 07:20 Gram Stain - Final Right Great Toe Consult Discharge Plan - Plan Referrals: Michael Brown Jr, MD [Primary Care Provider] -
[2018-02-12] MEDS: BuPROPion XL (24 HR) 150 MG TABLET PO SCH (08:08)
[2018-02-12] MEDS: Aspirin Enteric Coated 81 MG Tablet PO SCH (08:09)
[2018-02-12] MEDS: Pantoprazole 40 MG VIAL IVP SCH (08:10)
[2018-02-12] MEDS: Insulin LISPRO 300 UNITS/3 ML VIAL SQ SCH ×3 (08:19→16:33)
[2018-02-12] MEDS ORDERED: *HR* Dextrose 50 % in Water (Syg) 50 ML SYRINGE IVP PRN (11:32)
[2018-02-12] MEDS ORDERED: Dextrose Gel 15 GM/37.5 ML TUBE PO PRN (11:32)
[2018-02-12] MEDS ORDERED: D5% in Water 1,000 ML IVC PRN (11:32)
--- NOTE | 2018-02-12 17:18 | Infectious Disease Progress No ---
Date of Encounter: 02/12/18 Time of Encounter: 11:50 - Assessment and Plan (1) Leukocytosis Current Visit: Yes Status: Resolved Likely secondary to right foot infection. Resolved. Qualifiers: Leukocytosis type: unspecified Qualified Code(s): D72.829 - Elevated white blood cell count, unspecified (2) Acute osteomyelitis Current Visit: Yes Status: Acute CT right foot on 02/06/2018: Osseous erosion of the distal aspect of the first distal phalanx compatible with osteomyelitis. Causative organism MSSA and P. rettgeri. ESR initially over 130. Concern for ischemia and dry necrosis. Status post #1 amputation of right great toe at the level of the metatarsophalangeal joint 02/[address] Stokes. Operative note reviewed. Intra-op cultures as above. Pathology negative for OM. Discontinue Vanc and Zosyn. Start Rocephin 2 grams IV daily. Duration of treatment depends on the clinical picture, but likely 4-6 weeks. Consult VAT for midline placement. Will need weekly CBC, BUN/Cr, ESR, CRP. Will need weekly IV care. Follow up with ID 2 weeks post-discharge. Monitor renal function and dose-adjust antibiotics. (3) Ischemic ulcer of toe of right foot Current Visit: Yes Status: Acute Status post amputation 02/08/[address] Stokes. Wound care per the podiatry team. 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 Management per the primary team. 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 We can attribute. No acute events noted overnight. Patient states overall he feels well and wants to go home. Denies any fevers or chills or rigors. Denies chest pain, shortness of breath, or cough. Denies nausea, vomiting, diarrhea, constipation. Denies pain at surgical site. The abdominal pain, urinary complaints. He does state he has a poor appetite. He denies any oral thrush or any skin lesions. Infect Dis PN-Objective Data - Labs CBC & Chem 7: 02/13/18 04:25 02/13/18 04:25 Labs: Laboratory Results - last 24 hr 02/08/18 02/11/18 02/12/18 20:15 20:35 05:36 WBC 11.0 RBC 3.19 L Hgb 9.3 L Hct 28.4 L MCV 89.0 MCH 29.2 MCHC 32.7 RDW 12.0 Plt Count 405 H MPV 8.2 L Immature Gran % 0.5 Seg Neutrophils % 68.0 Lymphocytes % 16.4 Monocytes % 8.1 Eosinophils % 6.3 Basophils % 0.7 Neutrophils # 7.4 Lymphocytes # 1.8 Monocytes # 0.9 Eosinophils # 0.7 H Basophils # 0.1 Sodium Potassium Chloride Carbon Dioxide BUN Creatinine Est GFR ( Amer) Est GFR (Non-Af Amer) BUN/Creatinine Ratio Glucose POC Glucose 146 H 268 H Calculated Osmolality Calcium Phosphorus Magnesium 02/12/18 05:36 WBC RBC Hgb Hct MCV MCH MCHC RDW Plt Count MPV Immature Gran % Seg Neutrophils % Lymphocytes % Monocytes % Eosinophils % Basophils % Neutrophils # Lymphocytes # Monocytes # Eosinophils # Basophils # Sodium 138 Potassium 3.9 Chloride 106 Carbon Dioxide 27 BUN 13 Creatinine 1.08 Est GFR ( Amer) > 60 Est GFR (Non-Af Amer) > 60 BUN/Creatinine Ratio 12 Glucose 242 H POC Glucose Calculated Osmolality 294 Calcium 8.4 L Phosphorus 2.6 L Magnesium 1.7 Cultures: Cultures 02/08/18 07:20 Anaerobic Culture - Preliminary Right Great Toe At this time, no anaerobic growth is present. The culture will be finalized after 5 days of incubation. 02/08/18 07:20 Wound Culture - Final Right Great Toe Staphylococcus aureus Providencia rettgeri 02/08/18 07:20 Gram Stain - Final Right Great Toe Serology 02/07/18 Range/Units 11:34 Urine Color Yellow (Yellow) Urine Clarity Clear (Clear) Urine pH 5.5 (5.0-8.0) pH Units Ur Specific [place] 1.015 (1.010-1.025) Urine Protein Negative (Neg-Trace) mg/dL Urine Glucose (UA) 100 H (Normal) mg/dL Urine Ketones Negative (Negative) mg/dL Urine Blood Negative (Negative) Urine Nitrite Negative (Negative) Urine Bilirubin Negative (Negative) Urine Urobilinogen Normal (Normal) mg/dL Ur Leukocyte Esterase Large H (Negative) Urine Microscopic RBC 3-5 H (0-3) per hpf Urine Microscopic WBC 15-30 H (0-3) per hpf Ur Squamous Epith Cells Many H (None-Few) per lpf Urine Bacteria None Seen (None-Few) per hpf Hyaline Casts None Seen (None-Few) per lpf Ur Culture Indicated? NO. A (NO) Exam - Constitutional Vitals: Temp Pulse Resp BP Pulse Ox 98.0 F 64 16 140/56 96 02/12/18 14:49 02/12/18 14:49 02/12/18 14:49 02/12/18 14:49 02/12/18 14:49 General appearance: average body habitus, cooperative, no acute distress - Head Head exam: Present: atraumatic, normal inspection, normocephalic - Eye Eye exam: Present: EOMI, normal appearance, PERRL Pupils: Present: normal accommodation - ENT ENT exam: Present: mucous membranes moist - Neck Neck exam: Present: normal inspection - Respiratory Respiratory exam: Present: CTAB. Absent: rales, respiratory distress, rhonchi, wheezes - Cardiovascular Cardiovascular exam: Present: RRR, +S1, +S2 - GI/Abdominal GI/Abdominal exam: Present: distended (obese), normal bowel sounds, soft. Absent: tenderness - Extremities Exam Additional comments: Right foot dressing C/D/I. - Neurological Exam Neurological exam: Present: alert, oriented X3, no focal deficits - Psychiatric Psychiatric exam: Present: normal affect, normal mood - Skin Skin exam: Present: dry, intact, normal color, warm Consult Discharge Plan - Plan - Attending Attestation I examined this patient and my medical decision-making was reviewed with the Resident Physician. I agree with the documented findings, disposition and treatment plan as described except to the extent set forth below.
[2018-02-12] MEDS ORDERED: Insulin LISPRO 300 UNITS/3 ML VIAL SQ SCH (21:00)
[2018-02-12] MEDS ORDERED: Insulin DETEMIR 100 UNIT/ML X5UNITS SQ SCH (21:00)
[2018-02-13] MEDS: Piperacillin/Tazobactam 3.375 GM in 0.9 % Sodium Chloride Mini Bag 100 ML IVPB SCH ×2 (00:21→07:57)
[2018-02-13] MEDS ORDERED: Melatonin 3 MG TABLET PO PRN (00:26)
[2018-02-13 05:29] LABS: Basophils # 0.1 K/mcL (0.0-0.2); Basophils % 0.8 %; Eosinophils # 0.6 K/mcL (0.0-0.6); Eosinophils % 5.9 %; Hemoglobin 9.7 g/dL (12.9-16.9); Immature Granulocytes % 0.6 % (0-4); Lymphocytes # 2.1 K/mcL (0.6-4.6); Mean Corpuscular HGB Conc 32.3 g/dL (31.6-35.5); Mean Corpuscular Hemoglobin 29.5 pg (28.0-33.3); Mean Corpuscular Volume 91.2 fL (83.0-100.0); Mean Platelet Volume 8.4 fL (9.4-12.4); Monocytes # 0.8 K/mcL (0.0-1.3); Monocytes % 7.9 %; Neutrophils # 6.9 K/mcL (1.6-8.9); Platelet Count 451 K/mcL (140-400); Red Blood Count 3.29 M/mcL (4.19-5.50); Red Cell Distribution Width 12.2 % (11.5-14.5); Segmented Neutrophils % 64.8 %
[2018-02-13] MEDS: *HR* Heparin 5,000 UNIT/ML VIAL SQ SCH (05:44)
[2018-02-13 05:53] LABS: BUN/Creatinine Ratio 11 (6-26); Blood Urea Nitrogen 13 mg/dL (8-23); Calcium 8.4 mg/dL (8.6-10.3); Carbon Dioxide 27 mEq/L (23-29); Chloride 105 mEq/L (98-107); Glucose 207 mg/dL (70-105); Magnesium 1.6 mg/dL (1.6-2.6); Osmolality,Calculated 294 (280-300); Phosphorous 2.9 mg/dL (2.7-4.5); Potassium 3.7 mEq/L (3.5-5.1); Sodium 139 mEq/L (136-145); eGFR For Non-African Americans > 60 (> 60)
--- NOTE | 2018-02-13 07:37 | Internal Med Progress Note ---
Hospitalist Progress Note - Encounter Date of Encounter: 02/13/18 Time of Encounter: 07:33 - Subjective Interval History: PATIENT with history of diabetes, CVA, CAD had a stent in the past and high cholesterol patient was admitted with right great toe ulcer that turned out to be acute osteomyelitis patient underwent vascular study which was unremarkable and subsequently underwent amputation of the toe patient being followed by infectious disease has been on vancomycin and Zosyn . the plan today is for patient to have a PICC line and discharge with home antibiotic for 6 weeks of Rocephin. Infection disease will talk and explain to patient once the set up is completed then I will work on patient discharge. - Exam Vitals: Temp Pulse Resp BP Pulse Ox 99.0 F 56 15 136/63 92 02/13/18 06:59 02/13/18 06:59 02/13/18 06:59 02/13/18 06:59 02/13/18 06:59 Exam: Gen - Awake, alert, oriented x 3, no acute distress HEENT - NCAT, PERRLA, EOMI, hearing grossly intact, oropharynx benign CV - RRR, normal S1 and S2, no M/R/G, no BLE edema Resp - Normal WOB, CTAB, no W/R/R GI - Soft, NT/ND, no masses, normal bowel sounds, Skin - Warm, dry, s/p amputation, dressing in place, clean dry and intact Psych - Normal mood and affect, no depression or anxiety - Assessment and Plan (1) Diabetes mellitus Current Visit: No Status: Chronic Assessment and Plan: We will continue on current medication and sliding scale (2) Coronary artery disease Current Visit: No Status: Chronic Assessment and Plan: Patient prior stent no chest pain at present (3) Acute osteomyelitis Current Visit: Yes Status: Acute Assessment and Plan: Patient has been on vancomycin and Zosyn underwent amputation of the right great toe and clinically stable and plan on discharge on IV antibiotic for 6 weeks. Infectious disease recommendation (4) Ischemic ulcer of toe of right foot Current Visit: Yes Status: Acute (5) Leukocytosis Current Visit: Yes Status: Resolved Assessment and Plan: Resolved - Time Spent with Patient Total time spent is greater than 50% in coordination of care (as documented) at patient's floor/unit and/or counseling patient: Internal Medicine: Result - Labs CBC & Chem 7: 02/13/18 04:25 02/13/18 04:25 Labs: Short CBC 02/13/18 Range/Units 04:25 WBC 10.6 (4.3-11.1) K/mcL Hgb 9.7 L (12.9-16.9) g/dL Hct 30.0 L (37.5-50.1) % Plt Count 451 H (140-400) K/mcL Neutrophils # 6.9 (1.6-8.9) K/mcL BMP 02/13/18 04:25 Sodium 139 Potassium 3.7 Chloride 105 Carbon Dioxide 27 BUN 13 Creatinine 1.18 Glucose 207 H Calcium 8.4 L - ABG Interpretation ABG results: PT/INR, D-dimer PT 11.9 Seconds (9.4-12.1) 02/06/18 15:51 Consult Discharge Plan - Plan Referrals: Michael Brown Jr, MD [Primary Care Provider] - (1) Diabetes mellitus Qualifiers: Diabetes mellitus type: type 2 Diabetes mellitus 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 artery [place] vs. transplanted heart: [place] heart Associated angina: without angina Qualified Code(s): I25.10 - Atherosclerotic heart disease of 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
[2018-02-13] MEDS: Insulin LISPRO 300 UNITS/3 ML VIAL SQ SCH ×2 (07:56→11:30)
[2018-02-13] MEDS: Aspirin Enteric Coated 81 MG Tablet PO SCH (07:57)
[2018-02-13] MEDS: BuPROPion XL (24 HR) 150 MG TABLET PO SCH (07:57)
[2018-02-13] MEDS ORDERED: cefTRIAXone 2,000 MG in Water for inj. (sterile) 20 ML 20 ML IVP SCH (09:00)
--- NOTE | 2018-02-13 10:56 | Infectious Disease Progress No ---
Date of Encounter: 02/13/18 Time of Encounter: 10:54 - Assessment and Plan (1) Leukocytosis Status: Resolved Likely secondary to right foot infection. Resolved. Qualifiers: Leukocytosis type: unspecified Qualified Code(s): D72.829 - Elevated white blood cell count, unspecified (2) Acute osteomyelitis Status: Acute CT right foot on 02/06/2018: Osseous erosion of the distal aspect of the first distal phalanx compatible with osteomyelitis. Causative organism MSSA and P. rettgeri. ESR initially over 130. Concern for ischemia and dry necrosis. Status post #1 amputation of right great toe at the level of the metatarsophalangeal joint 02/[address] Stokes. Operative note reviewed. Intra-op cultures as above. Pathology negative for OM. Continue Rocephin 2 grams IV daily. Duration of treatment depends on the clinical picture, but likely 4-6 weeks. Consult VAT for midline placement. Will need weekly CBC, BUN/Cr, ESR, CRP. Will need weekly IV care. Follow up with ID 02/05/18 at 1300. Monitor renal function and dose-adjust antibiotics. (3) Ischemic ulcer of toe of right foot Status: Acute Status post amputation 02/08/[address] Stokes. Wound care per the podiatry team. 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 Management per the primary team. Qualifiers: Diabetes mellitus type: type 2 Diabetes mellitus mcc insulin use: unspecified mcc insulin use status Diabetes mellitus complication status : with circulatory complication Diabetes mellitus complication detail: with other circulatory complications Qualified Code(s): E11.59 - Type 2 diabetes mellitus with other circulatory complications - Subjective Interval history: Patient seen and examined. No acute events noted overnight. Patient states overall he feels well and wants to go home. Denies any fevers or chills or rigors. Denies chest pain, shortness of breath, or cough. Denies nausea, vomiting, diarrhea, constipation. Denies pain at surgical site. Denies abdominal pain, urinary complaints. He does state he has a poor appetite, but it is getting better. He denies any oral thrush or any skin lesions. Infect Dis PN-Objective Data - Labs CBC & Chem 7: 02/13/18 04:25 02/13/18 04:25 Labs: Laboratory Results - last 24 hr 02/10/18 02/10/18 02/13/18 16:15 20:58 04:25 WBC 10.6 RBC 3.29 L Hgb 9.7 L Hct 30.0 L MCV 91.2 MCH 29.5 MCHC 32.3 RDW 12.2 Plt Count 451 H MPV 8.4 L Immature Gran % 0.6 Seg Neutrophils % 64.8 Lymphocytes % 20.0 Monocytes % 7.9 Eosinophils % 5.9 Basophils % 0.8 Neutrophils # 6.9 Lymphocytes # 2.1 Monocytes # 0.8 Eosinophils # 0.6 Basophils # 0.1 Sodium Potassium Chloride Carbon Dioxide BUN Creatinine Est GFR ( Amer) Est GFR (Non-Af Amer) BUN/Creatinine Ratio Glucose POC Glucose 233 H 217 H Calculated Osmolality Calcium Phosphorus Magnesium 02/13/18 04:25 WBC RBC Hgb Hct MCV MCH MCHC RDW Plt Count MPV Immature Gran % Seg Neutrophils % Lymphocytes % Monocytes % Eosinophils % Basophils % Neutrophils # Lymphocytes # Monocytes # Eosinophils # Basophils # Sodium 139 Potassium 3.7 Chloride 105 Carbon Dioxide 27 BUN 13 Creatinine 1.18 Est GFR ( Amer) > 60 Est GFR (Non-Af Amer) > 60 BUN/Creatinine Ratio 11 Glucose 207 H POC Glucose Calculated Osmolality 294 Calcium 8.4 L Phosphorus 2.9 Magnesium 1.6 Cultures: Cultures 02/08/18 07:20 Anaerobic Culture - Preliminary Right Great Toe At this time, no anaerobic growth is present. The culture will be finalized after 5 days of incubation. 02/08/18 07:20 Wound Culture - Final Right Great Toe Staphylococcus aureus Providencia rettgeri 02/08/18 07:20 Gram Stain - Final Right Great Toe Serology 02/07/18 Range/Units 11:34 Urine Color Yellow (Yellow) Urine Clarity Clear (Clear) Urine pH 5.5 (5.0-8.0) pH Units Ur Specific [place] 1.015 (1.010-1.025) Urine Protein Negative (Neg-Trace) mg/dL Urine Glucose (UA) 100 H (Normal) mg/dL Urine Ketones Negative (Negative) mg/dL Urine Blood Negative (Negative) Urine Nitrite Negative (Negative) Urine Bilirubin Negative (Negative) Urine Urobilinogen Normal (Normal) mg/dL Ur Leukocyte Esterase Large H (Negative) Urine Microscopic RBC 3-5 H (0-3) per hpf Urine Microscopic WBC 15-30 H (0-3) per hpf Ur Squamous Epith Cells Many H (None-Few) per lpf Urine Bacteria None Seen (None-Few) per hpf Hyaline Casts None Seen (None-Few) per lpf Ur Culture Indicated? NO. A (NO) Exam - Constitutional Vitals: Temp Pulse Resp BP Pulse Ox 99.0 F 56 15 136/63 92 02/13/18 06:59 02/13/18 06:59 02/13/18 06:59 02/13/18 06:59 02/13/18 06:59 General appearance: average body habitus, cooperative, no acute distress - Head Head exam: Present: atraumatic, normal inspection, normocephalic - Eye Eye exam: Present: EOMI, normal appearance, PERRL Pupils: Present: normal accommodation - ENT ENT exam: Present: mucous membranes moist - Neck Neck exam: Present: normal inspection - Respiratory Respiratory exam: Present: CTAB. Absent: rales, respiratory distress, rhonchi, wheezes - Cardiovascular Cardiovascular exam: Present: RRR, +S1, +S2 - GI/Abdominal GI/Abdominal exam: Present: normal bowel sounds, soft. Absent: distended, tenderness - Extremities Exam Extremities exam: Present: normal inspection. Absent: joint swelling, pedal edema, tenderness Additional comments: Right foot dressing C/D/I. - Neurological Exam Neurological exam: Present: alert, oriented X3, no focal deficits - Psychiatric Psychiatric exam: Present: normal affect, normal mood - Skin Skin exam: Present: dry, intact, normal color, warm Consult Discharge Plan - Plan Referrals: Michael Brown Jr, MD [Primary Care Provider] - Misael Stokes DPM [Partnered Physician] - 02/20/18 3:00 pm Ailyn Monique CNP [Advanced Practice Nurse] - 02/19/18 10:00 am - Attending Attestation I examined this patient and my medical decision-making was reviewed with the Resident Physician. I agree with the documented findings, disposition and treatment plan as described except to the extent set forth below.
[2018-02-13 11:24] VITALS: BP 158/81
--- NOTE | 2018-02-13 13:33 | Discharge Summary ---
Orders not resulted at time of discharge: Pending orders 02/08/18 07:20 Culture,Anaerobic [RM] Routine Date of Encounter: 02/13/18 Time of Encounter: 13:30 - Discharge Diagnosis (1) Diabetes mellitus Priority: Secondary Status: Chronic Qualifiers: Diabetes mellitus type: type 2 Diabetes mellitus intermediate insulin use: unspecified intermediate insulin use status Diabetes mellitus complication status : with circulatory complication Diabetes mellitus complication detail: with other circulatory complications Qualified Code(s): E11.59 - Type 2 diabetes mellitus with other circulatory complications (2) Coronary artery disease Priority: Secondary Status: Chronic Qualifiers: Coronary Disease-Associated Artery/Lesion type: [place] artery [place] vs. 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 Nava is a 77 year old male - Time Spent with Patient Total time spent providing and/or coordinating discharge services: - Discharge Medications Home Medications: glipiZIDE [Glipizide] 10 mg PO BIDWM 04/07/16 [History] Metformin HCl [Glucophage] 1,000 mg PO QAM 07/19/17 [History] Metformin HCl [Glucophage] 1,500 mg PO QPM 07/19/17 [History] Aspirin Enteric Coated [Aspirin EC] 81 mg PO DAILY 14 Days #14 tablet. [Rx] Clopidogrel [Plavix] 75 mg PO DAILY 14 Days #14 tablet 07/25/17 [Rx] Simvastatin [Zocor] 80 mg PO HS 08/16/17 [History] BuPROPion XL (24 HR) [Wellbutrin Xl] 150 mg PO DAILY 02/06/18 [History] Metoprolol [Lopressor] 25 mg PO BID 02/06/18 [History] Tamsulosin [Flomax] 0.4 mg PO DAILY 02/06/18 [History] Allergies/Adverse Reactions: 3 Allergy/AdvReac Type Severity Reaction Status Date / Time No Known Allergies Allergy Verified 08/16/17 12:13 Date of admission: 02/06/18 20:17 Primary care physician: Michael Brown Jr, MD Consults: 02/09/18 08:44 Consult to Warehouse Insulation Worker [CONS] Routine Reason for SW Consult: POSSIBLE PLACEMENT FOR WOUND CARE AND 6 WEEKS OF IV ATB 02/13/18 07:34 Consult to Invasive Line Access Team [CONS] Routine Reason for Consult: Midline placement for home Antibiotics Line Type: Midline Discharging clinician: Marcelle Ross Anticipated date of discharge: 02/13/18 - Constitutional Vitals: Temp Pulse Resp BP Pulse Ox 97.9 F 90 15 158/81 100 02/13/18 11:23 02/13/18 11:23 02/13/18 11:23 02/13/18 11:23 02/13/18 11:23 Exam: Gen - Awake, alert, oriented x 3, no acute distress HEENT - NCAT, PERRLA, EOMI, hearing grossly intact, oropharynx benign CV - RRR, normal S1 and S2, no M/R/G, no BLE edema Resp - Normal WOB, CTAB, no W/R/R GI - Soft, NT/ND, no masses, normal bowel sounds, Skin - Warm, dry, s/p amputation, dressing in place, clean dry and intact Psych - Normal mood and affect, no depression or anxiety - Patient Status Disposition: Transfer SNF Condition: Fair Functional capacity at discharge: independent ambulation Overall status at discharge: patient is back to baseline - Discharge Instructions - Diet and Activity Activity: as per physical therapy Diet: diabetic diet
--- NOTE | 2018-02-13 13:56 | Physician Discharge Referral ---
ExtendedCare Referral Info Transfer To: snf Provider in Charge after Transfer: PCP Institutional Level of Care: Skilled - Diagnosis (1) Diabetes mellitus Status: Chronic (2) Coronary artery disease Status: Chronic (3) Acute osteomyelitis Status: Acute (4) Ischemic ulcer of toe of right foot Status: Acute (5) Leukocytosis Status: Resolved - Transfer Medications Home Medications: glipiZIDE [Glipizide] 10 mg PO BIDWM 04/07/16 [History] Metformin HCl [Glucophage] 1,000 mg PO QAM 07/19/17 [History] Metformin HCl [Glucophage] 1,500 mg PO QPM 07/19/17 [History] Aspirin Enteric Coated [Aspirin EC] 81 mg PO DAILY 14 Days #14 tablet. [Rx] Clopidogrel [Plavix] 75 mg PO DAILY 14 Days #14 tablet 07/25/17 [Rx] Simvastatin [Zocor] 80 mg PO HS 08/16/17 [History] BuPROPion XL (24 HR) [Wellbutrin Xl] 150 mg PO DAILY 02/06/18 [History] Metoprolol [Lopressor] 25 mg PO BID 02/06/18 [History] Tamsulosin [Flomax] 0.4 mg PO DAILY 02/06/18 [History] Allergies/Adverse Reactions: 3 Allergy/AdvReac Type Severity Reaction Status Date / Time No Known Allergies Allergy Verified 08/16/17 12:13 - Respiratory Orders Smoking Cessation: Smoking cessation has been advised. For more information, call the [place] Tobacco Quit Line at 6-625-GNUI-NOW. - Rehabiliation Orders Rehab Orders: Evaluation for Physical Therapy, Evaluation for Occupational Therapy CERTIFICATION: I certify that the transfer of the above named patient to an Extended Care Facility is necessary for the continuing treatment of the diagnosis listed. The above information is true and accurate reflection of patient's current condition. Confidential - Redisclosure prohibited without a patient's written consent.
--- NOTE | 2018-02-13 14:13 | Podiatry Progress Note ---
Date of Encounter: 02/13/18 Time of Encounter: 12:00 - Assessment and Plan (1) Ischemic ulcer of toe of right foot Current Visit: Yes Status: Acute Assessment: Assessment: #1 status post amputation right great toe at the level of metatarsophalangeal joint healing uneventfully suture line intact no evidence of dehiscence or acute infection. Plan: #1 changed sterile dressing today inspected wound. Cleansed with saline, pat dry. Healing without complication. Betadine applied to maceration. Adaptic, 4x4 and kerlix. #2 patient to be dispensed Darco healing postop shoe. Minimal weightbearing. Patient to be quiescent at home bound. #3 antibiotic choice per hospitalist/internal medicine service- Cultures positive for SA and providencia rettgeri, Recephin 2g daily likely 4-6 weeks of treatment, being followed per ID. #4 will follow-up in clinic within 7 days of discharge. Patient to keep dressing dry clean and intact it is not to be removed should there be any kind of soiled dressing or saturated dressing on to be contacted immediately. [phone] #5 post operative shoe wear for ambulation- patient has at bedside, weight bearing to heel only. 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 Resting comfortably. Pending discharge today. States he feels good. Dressing to foot CDI on arrival. Denies any fevers, chills, n/v or fls. Denies any calf pain or sob. Objective - Vital Signs Vital Signs: Vital Signs Temp Pulse Resp BP Pulse Ox 02/13/18 11:23 97.9 F 90 15 158/81 100 02/13/18 06:59 99.0 F 56 15 136/63 92 02/13/18 02:49 98.0 F 56 16 135/69 94 02/12/18 20:22 98.4 F 69 16 123/68 97 02/12/18 14:49 98.0 F 64 16 140/56 96 Intake and Output 02/12/18 02/13/18 02/13/18 23:59 07:59 15:59 Intake Total 220 / 220 500 / 500 322.9 / 322.9 Output Total 0 / 0 Balance 220 / 220 500 / 500 322.9 / 322.9 Intake: IV Fluids 100 / 100 100 / 100 82.9 / 82.9 Rocephin 2,000 MG In Water for 20 / 20 inj. (sterile) 20 ML @ 600 mls/ hr IVP DAILY KRUNAL Rx#:[id number] Zosyn 3.375 GM In 0.9 % Sodium 100 / 100 100 / 100 62.9 / 62.9 Chloride (Mini-Bag +) 100 ML @ 25 mls/hr IVPB Q8HR KRUNAL Rx#: [id number] Oral 120 / 120 400 / 400 240 / 240 Output: Urine 0 / 0 Other: Meal Dinner Lunch Percent of Meal Consumed 50% 75% Weight 77.5 kg Blood Glucose* 318 185 136 Patient Weight 02/13/18 23:59 Weight 77.5 kg - Exam Exam: Awake, alert and oriented Pulses palpable DP/PT Warm toes to tibia Cap refill <3 seconds Diminished sensation to light and moderate touch Movement of toes intact s/p amputation of toe #3 right Incision line well approximated. Slight maceration along incision line. Well approximated- no dehiscence. No drainage. No warmth. No odor. No ascending cellulitis. minimal edema and erythema. No appearance of infection. - Lab Result Diagrams: 02/13/18 04:25 02/13/18 04:25 Labs: Abnormal lab results RBC 3.29 M/mcL (4.19-5.50) L 02/13/18 04:25 Hgb 9.7 g/dL (12.9-16.9) L 02/13/18 04:25 Hct 30.0 % (37.5-50.1) L 02/13/18 04:25 Plt Count 451 K/mcL (140-400) H 02/13/18 04:25 MPV 8.4 fL (9.4-12.4) L 02/13/18 04:25 Immature Plt Fraction 0.9 % (1.1-6.1) L 02/10/18 01:40 ESR >= 130 mm/hr (0-10) H 02/06/18 19:31 APTT 21.6 Seconds (26.0-36.0) L 02/06/18 15:51 Glucose 207 mg/dL (70-105) H 02/13/18 04:25 POC Glucose 185 mg/dL (70-99) H 02/13/18 07:08 Calcium 8.4 mg/dL (8.6-10.3) L 02/13/18 04:25 AST 8 Units/L (13-39) L 02/06/18 15:51 ALT 5 Units/L (7-52) L 02/06/18 15:51 C-Reactive Protein 90 mg/L (Less than 10) H 02/06/18 15:51 Albumin 3.3 g/dL (3.5-5.7) L 02/06/18 15:51 Globulin 3.8 g/dL (2.4-3.5) H 02/06/18 15:51 Albumin/Globulin Ratio 0.9 (1.1-2.2) L 02/06/18 15:51 Urine Glucose (UA) 100 mg/dL (Normal) H 02/07/18 11:34 Ur Leukocyte Esterase Large (Negative) H 02/07/18 11:34 Urine Microscopic RBC 3-5 per hpf (0-3) H 02/07/18 11:34 Urine Microscopic WBC 15-30 per hpf (0-3) H 02/07/18 11:34 Ur Squamous Epith Cells Many per lpf (None-Few) H 02/07/18 11:34 Ur Culture Indicated? NO. (NO) A 02/07/18 11:34 Microbiology, Last 48 Hours 02/08/18 07:20 Anaerobic Culture - Preliminary Right Great Toe At this time, no anaerobic growth is present. The culture will be finalized after 5 days of incubation. Consult Discharge Plan - Plan Referrals: Michael Brown Jr, MD [Primary Care Provider] -
--- NOTE | 2018-02-13 14:18 | Physician Discharge Referral ---
Home Health/Hosp Referral Info Transfer to: Home Health Provider in Charge Post Discharge: PCP - Diagnosis (1) Diabetes mellitus Status: Chronic (2) Coronary artery disease Status: Chronic (3) Acute osteomyelitis Status: Acute (4) Ischemic ulcer of toe of right foot Status: Acute (5) Leukocytosis Status: Resolved - Respiratory Orders Smoking Cessation: Smoking cessation has been advised. For more information, call the [place] Quit Line at 6-104-FXAG-NOW. - Transfer Medications Home Medications: glipiZIDE [Glipizide] 10 mg PO BIDWM 04/07/16 [History] Metformin HCl [Glucophage] 1,000 mg PO QAM 07/19/17 [History] Metformin HCl [Glucophage] 1,500 mg PO QPM 07/19/17 [History] Aspirin Enteric Coated [Aspirin EC] 81 mg PO DAILY 14 Days #14 tablet. [Rx] Clopidogrel [Plavix] 75 mg PO DAILY 14 Days #14 tablet 07/25/17 [Rx] Simvastatin [Zocor] 80 mg PO HS 08/16/17 [History] BuPROPion XL (24 HR) [Wellbutrin Xl] 150 mg PO DAILY 02/06/18 [History] Metoprolol [Lopressor] 25 mg PO BID 02/06/18 [History] Tamsulosin [Flomax] 0.4 mg PO DAILY 02/06/18 [History] Allergies/Adverse Reactions: 3 Allergy/AdvReac Type Severity Reaction Status Date / Time No Known Allergies Allergy Verified 08/16/17 12:13 Certification: Further, I certify that my clinical findings support that this patient is homebound (i.e. absences from home require considerable and taxing effort and are for medical reasons or [facility] or infrequently or short duration when for other reasons) because: Homebound Reason: Patient requires assistance of a person or device to safely leave home, Absences from home are contraindicated except to recieve medical care, Post-surgery restriction and or conditions limit ability to leave home, Leaving home requires considerable and taxing effort due to condition, Altered mental status requiring supervision when leaving home, Severity of cardiac or pulmonary status limits activity tolerance Attestation: My signature below is to certify that this patient is under my care and that I, or nurse practitioner, or a physician's phlebotomist medical lab assistant working with me, has a face-to -face encounter with this patient.
== END 2018-02-13 15:14 | disposition home health service (06) | DRG 854 ==
LOC: 3ANU 14:16 → EMEROOARM 14:16 → OBSVTOIN 20:17 → 3ANU 20:58
PROVIDERS: ADMIT Internal Medicine; ATTEND Internal Medicine

== ENCOUNTER 2018-04-10 10:50 | Observation (INO) ==
[2018-04-10] MEDS ORDERED: 0.9 % Sodium Chloride 1,000 ML IVC ONE ×2 (11:25→12:58)
[2018-04-10 12:16] LABS: Basophils # 0.1 K/mcL (0.0-0.2); Basophils % 0.6 %; Eosinophils # 0.3 K/mcL (0.0-0.6); Eosinophils % 2.3 %; Hematocrit 38.1 % (37.5-50.1); Hemoglobin 12.7 g/dL (12.9-16.9); Immature Granulocytes % 0.4 % (0-4); Lymphocytes % 17.8 %; Mean Corpuscular HGB Conc 33.3 g/dL (31.6-35.5); Mean Corpuscular Hemoglobin 29.6 pg (28.0-33.3); Mean Corpuscular Volume 88.8 fL (83.0-100.0); Mean Platelet Volume 8.9 fL (9.4-12.4); Monocytes # 0.6 K/mcL (0.0-1.3); Monocytes % 5.4 %; Neutrophils # 8.4 K/mcL (1.6-8.9); Platelet Count 317 K/mcL (140-400); Red Blood Count 4.29 M/mcL (4.19-5.50); Red Cell Distribution Width 14.4 % (11.5-14.5); Segmented Neutrophils % 73.5 %
[2018-04-10 12:18] LABS: VBG Ionized Calcium 1.19 mmol/L (1.15-1.35)
[2018-04-10 12:37] LABS: Troponin I < 0.03 ng/mL (< 0.04)
[2018-04-10 12:45] LABS: Alanine Aminotransferase 12 Units/L (7-52); Albumin 3.6 g/dL (3.5-5.7); Albumin/Globulin Ratio 1.1 (1.1-2.2); Alkaline Phosphatase 86 Units/L (34-104); Aspartate Amino Transferase 9 Units/L (13-39); BUN/Creatinine Ratio 23 (6-26); Bilirubin,Total 0.4 mg/dL (0.3-1.0); Blood Urea Nitrogen 31 mg/dL (8-23); Calcium 9.9 mg/dL (8.6-10.3); Carbon Dioxide 23 mEq/L (23-29); Chloride 101 mEq/L (98-107); Globulin 3.4 g/dL (2.4-3.5); Glucose 543 mg/dL (70-105); Osmolality,Calculated 309 (280-300); Phosphorous 3.6 mg/dL (2.7-4.5); Potassium 4.9 mEq/L (3.5-5.1); Sodium 134 mEq/L (136-145); eGFR For Non-African Americans 51 (> 60)
[2018-04-10 13:21] LABS: Bilirubin,Urine Negative (Negative); Blood,Urine Negative (Negative); Clarity,Urine Clear (Clear); Color,Urine Yellow (Yellow); Glucose,Urine (UA) >=1000 mg/dL (Normal); Ketones,Urine Negative (Negative); Leukocyte Esterase,Urine Negative (Negative); Nitrite,Urine Negative (Negative); PH,Urine 6.5 pH Units (5.0-8.0); Protein,Urine Trace mg/dL (Neg-Trace); Urobilinogen,Urine Normal (Normal)
[2018-04-10 13:22] LABS: Bacteria,Urine None Seen per hpf (None-Few); Hyaline Casts,Urine None Seen per lpf (None-Few); RBC,Urine 0-3 per hpf (0-3); Squamous Epithelial Cell,Urine Many per lpf (None-Few)
[2018-04-10 13:31] LABS: VBG HCO3 25 mEq/L (21-27); VBG PCO2 38 mmHg (41-51); VBG PH 7.42 pH Units (7.32-7.42); VBG PO2 121 mmHg (25-50)
--- NOTE | 2018-04-10 15:52 | Emergency Department Note ---
Disposition Clinical Impression: Diabetes mellitus, Failure to thrive in adult Disposition: Admitted As Inpatient Condition: Fair Referrals: Michael Brown Jr, MD [Primary Care Provider] - Forms: ED Satisfaction Letter Weakness HPI - General Chief complaint: ED Weakness Stated complaint: Weak / Not Eating Time Seen by Provider: 04/10/18 11:15 Source: patient Limitations: no limitations - History of Present Illness HPI Narrative: Eugene is a 77 YO M with a PMH significant for poorly controlled DM, CAD s/p CABG and carotid endarterectomy who presents to [facility] ED with chief complaint of weakness. History comes from both the patient and his family. Eugene lives at home with his and has home health aides who visit him for supplemental care. PCP is Dr. Brown, who has been monitoring his care during the time period of concern. 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 This procedure was complicated by the development of an infected ulceration at the amputation site, for which Eugene was given a PICC line and underwent 6 weeks of IV antibiotics while being followed by the infectious disease team. During this period Eugene experienced significant nausea and vomiting and had a near total loss of appetite and decreasing energy such that he developed difficulty performing previously tolerated activities of daily living. upon completion of his antibiotics and removal of the PICC line eugene continued to lose weight and spent most of his days in bed. Between January and his presentation today (04/10/18) Eugene has lost approximately 100 pounds, dropping from 250's to 150's in this time period. Last night Eugene was unable rouse himself from bed to urinate, and had an episode of incontinence while in bed. This loss of function was new, and led Eugene's family to bring him to the emergency department for further evaluation and treatment. Of note his diabetic ulceration persists, but per the family it has been granulating, closing and generally improving over the last 1-2 weeks. Pt Subjective Complaint: generalized weakness/fatigue, difficulty ambulating Onset (ago): month(s) Duration: constant, gradually worsening Location: generalized Pain Scale: 0 Improves with: none Worsens with: none Context: other (IV antibiotics 2/2 diabetic ulcer, recent metformin dosing change. ) - Related Data Home Medications Medication Instructions Recorded Confirmed glipiZIDE [Glipizide] 10 mg PO BIDWM 04/07/16 02/06/18 Metformin HCl [Glucophage] 1,000 mg PO QAM 07/19/17 02/06/18 Metformin HCl [Glucophage] 1,500 mg PO QPM 07/19/17 02/06/18 Simvastatin [Zocor] 80 mg PO HS 08/16/17 02/06/18 BuPROPion XL (24 HR) [Wellbutrin 150 mg PO DAILY 02/06/18 02/06/18 Xl] Metoprolol [Lopressor] 25 mg PO BID 02/06/18 02/06/18 Tamsulosin [Flomax] 0.4 mg PO DAILY 02/06/18 02/06/18 Previous Rx's Medication Instructions Recorded Aspirin Enteric Coated [Aspirin EC] 81 mg PO DAILY 14 Days #14 07/25/17 tablet. Clopidogrel [Plavix] 75 mg PO DAILY 14 Days #14 tablet 07/25/17 Allergies Allergy/AdvReac Type Severity Reaction Status Date / Time No Known Allergies Allergy Verified 08/16/17 12:13 Constitutional: Reports: as per HPI, weakness, weight change. Denies: fever, chills Eyes: Denies: vision change ENT ED: Denies: congestion Cardiovascular: Denies: chest pain, palpitations, syncope Respiratory: Denies: cough, dyspnea, wheezes Gastrointestinal: Reports: nausea. Denies: abdominal pain, vomiting Genitourinary: Reports: frequency. Denies: urgency, dysuria Musculoskeletal: Denies: back pain, neck pain Integumentary: Reports: lesions (left foot ulcer). Denies: rash, abrasion Neurological: Reports: weakness (general). Denies: headache Psychiatric: Reports: as per HPI. Denies: anxiety, depression Endocrine: Reports: fatigue Past Medical History - Past Medical History Medical history: Reports: coronary artery disease, diabetes, hyperlipidemia, other Surgical history: Reports: angioplasty/stent, cholecystectomy, other Psychiatric history: Reports: no psych history - Social History Smoking Status: Never smoker Smokeless Tobacco Status: No Alcohol use: Reports: none Drug use: Reports: none Physical Exam - General Limitations: no limitations General appearance: alert, in no apparent distress - Head Head exam: atraumatic, normocephalic - Eye Eye exam: Present: normal appearance, PERRL, EOMI - ENT ENT exam: normal exam, normal oropharynx, mucous membranes dry - Neck Neck exam: Present: normal inspection, full ROM, trachea midline - Chest Chest inspection: Present: normal inspection, symmetric chest wall rise - Cardiovascular Cardiovascular exam: Present: regular rate, normal rhythm, normal heart sounds. Absent: tachycardia, systolic murmur - Abdominal Exam Abdominal exam: Present: soft, Non-Tender, normal bowel sounds. Absent: tenderness, distention, guarding, rebound, rigidity - Extremities Exam Extremities exam: Present: normal inspection, full ROM. Absent: tenderness, pedal edema - Expanded Lower Extremity Exam Foot/toe exam: Present: other (Right great toe amputation with approximately 0.5 x 1 cm ulcer. No exudative drainage noted. ) - Neurological Exam Neurological exam: Present: alert, oriented X3, CN II-XII intact - Psychiatric Psychiatric exam: Present: normal affect, normal mood - Skin Skin exam: Present: warm, dry, intact Course Course Narrative: History consistent with failure to thrive Laboratory studies reveal marked hyperglycemia and glucosuria without anion gap or acidosis. 2L IVF delivered, will start insulin drip. UA negative for UTI. ESR elevated, likely from chronic ulcerative process Lactate elevated, likely 2/2 dehydration. 2L IVF ordered. CXR negative for PNA Spoke with admitting hospitalist (Dr. Cervantes), who has agreed to admit the pa tient for further evaluation and management. Vital Signs Temperature 97.5 F L 04/10/18 10:57 Pulse Rate 80 04/10/18 10:57 Respiratory Rate 14 04/10/18 10:57 Blood Pressure 86/55 04/10/18 10:57 O2 Sat by Pulse Oximetry 96 04/10/18 10:57 Temperature 97.5 F L 04/10/18 11:16 Pulse Rate 78 04/10/18 14:47 Respiratory Rate 16 04/10/18 14:47 Blood Pressure 194/78 04/10/18 14:47 O2 Sat by Pulse Oximetry 98 04/10/18 14:47 Oxygen Delivery Oxygen Delivery Room Air Weakness - Lab Data Lab results reviewed: Yes I reviewed the patient's lab results. Result diagrams: 04/10/18 12:02 04/10/18 12:02 Lab Results 04/10/18 04/10/18 04/10/18 Range/Units 12:02 12:02 12:02 WBC 11.4 H (4.3-11.1) K/mcL RBC 4.29 (4.19-5.50) M/mcL Hgb 12.7 L (12.9-16.9) g/dL Hct 38.1 (37.5-50.1) % MCV 88.8 (83.0-100.0) fL MCH 29.6 (28.0-33.3) pg MCHC 33.3 (31.6-35.5) g/dL RDW 14.4 (11.5-14.5) % Plt Count 317 (140-400) K/mcL MPV 8.9 L (9.4-12.4) fL Immature Gran % 0.4 (0-4) % Seg Neutrophils % 73.5 % Lymphocytes % 17.8 % Monocytes % 5.4 % Eosinophils % 2.3 % Basophils % 0.6 % Neutrophils # 8.4 (1.6-8.9) K/mcL Lymphocytes # 2.0 (0.6-4.6) K/mcL Monocytes # 0.6 (0.0-1.3) K/mcL Eosinophils # 0.3 (0.0-0.6) K/mcL Basophils # 0.1 (0.0-0.2) K/mcL ESR (0-10) mm/hr VBG pH (7.32-7.42) pH Units VBG pCO2 (41-51) mmHg VBG pO2 (25-50) mmHg VBG HCO3 (21-27) mEq/L Sodium 134 L (136-145) mEq/L Potassium 4.9 (3.5-5.1) mEq/L Chloride 101 (98-107) mEq/L Carbon Dioxide 23 (23-29) mEq/L BUN 31 H (8-23) mg/dL Creatinine 1.37 H (0.70-1.30) mg/dL Est GFR ( Amer) > 60 (> 60) Est GFR (Non-Af Amer) 51 L (> 60) BUN/Creatinine Ratio 23 (6-26) Glucose 543 H* (70-105) mg/dL Calculated Osmolality 309 H (280-300) Lactic Acid 3.4 H (0.5-2.2) mmol/L Calcium 9.9 (8.6-10.3) mg/dL Venous Ioniz Calcium (1.15-1.35) mmol/L Phosphorus 3.6 (2.7-4.5) mg/dL Magnesium 2.0 (1.6-2.6) mg/dL Total Bilirubin 0.4 (0.3-1.0) mg/dL AST 9 L (13-39) Units/L ALT 12 (7-52) Units/L Alkaline Phosphatase 86 (34-104) Units/L Troponin I < 0.03 (< 0.04) ng/mL C-Reactive Protein (Less than 10) mg/L Serum Total Protein 7.0 (6.4-8.9) g/dL Albumin 3.6 (3.5-5.7) g/dL Globulin 3.4 (2.4-3.5) g/dL Albumin/Globulin Ratio 1.1 (1.1-2.2) Beta-Hydroxybutyric Acd (0.02-0.27) mmol/L TSH 4.380 (0.340-5.600) mcIU/mL Urine Color (Yellow) Urine Clarity (Clear) Urine pH (5.0-8.0) pH Units Ur Specific [place] (1.010-1.025) Urine Protein (Neg-Trace) mg/dL Urine Glucose (UA) (Normal) mg/dL Urine Ketones (Negative) mg/dL Urine Blood (Negative) Urine Nitrite (Negative) Urine Bilirubin (Negative) Urine Urobilinogen (Normal) mg/dL Ur Leukocyte Esterase (Negative) Urine Microscopic RBC (0-3) per hpf Urine Microscopic WBC (0-3) per hpf Ur Squamous Epith Cells (None-Few) per lpf Urine Bacteria (None-Few) per hpf Hyaline Casts (None-Few) per lpf Ur Culture Indicated? (NO) 04/10/18 04/10/18 04/10/18 Range/Units 12:02 12:02 12:16 WBC (4.3-11.1) K/mcL RBC (4.19-5.50) M/mcL Hgb (12.9-16.9) g/dL Hct (37.5-50.1) % MCV (83.0-100.0) fL MCH (28.0-33.3) pg MCHC (31.6-35.5) g/dL RDW (11.5-14.5) % Plt Count (140-400) K/mcL MPV (9.4-12.4) fL Immature Gran % (0-4) % Seg Neutrophils % % Lymphocytes % % Monocytes % % Eosinophils % % Basophils % % Neutrophils # (1.6-8.9) K/mcL Lymphocytes # (0.6-4.6) K/mcL Monocytes # (0.0-1.3) K/mcL Eosinophils # (0.0-0.6) K/mcL Basophils # (0.0-0.2) K/mcL ESR 38 H (0-10) mm/hr VBG pH (7.32-7.42) pH Units VBG pCO2 (41-51) mmHg VBG pO2 (25-50) mmHg VBG HCO3 (21-27) mEq/L Sodium (136-145) mEq/L Potassium (3.5-5.1) mEq/L Chloride (98-107) mEq/L Carbon Dioxide (23-29) mEq/L BUN (8-23) mg/dL Creatinine (0.70-1.30) mg/dL Est GFR ( Amer) (> 60) Est GFR (Non-Af Amer) (> 60) BUN/Creatinine Ratio (6-26) Glucose (70-105) mg/dL Calculated Osmolality (280-300) Lactic Acid (0.5-2.2) mmol/L Calcium (8.6-10.3) mg/dL Venous Ioniz Calcium 1.19 (1.15-1.35) mmol/L Phosphorus (2.7-4.5) mg/dL Magnesium (1.6-2.6) mg/dL Total Bilirubin (0.3-1.0) mg/dL AST (13-39) Units/L ALT (7-52) Units/L Alkaline Phosphatase (34-104) Units/L Troponin I (< 0.04) ng/mL C-Reactive Protein < 5 (Less than 10) mg/L Serum Total Protein (6.4-8.9) g/dL Albumin (3.5-5.7) g/dL Globulin (2.4-3.5) g/dL Albumin/Globulin Ratio (1.1-2.2) Beta-Hydroxybutyric Acd (0.02-0.27) mmol/L TSH (0.340-5.600) mcIU/mL Urine Color (Yellow) Urine Clarity (Clear) Urine pH (5.0-8.0) pH Units Ur Specific [place] (1.010-1.025) Urine Protein (Neg-Trace) mg/dL Urine Glucose (UA) (Normal) mg/dL Urine Ketones (Negative) mg/dL Urine Blood (Negative) Urine Nitrite (Negative) Urine Bilirubin (Negative) Urine Urobilinogen (Normal) mg/dL Ur Leukocyte Esterase (Negative) Urine Microscopic RBC (0-3) per hpf Urine Microscopic WBC (0-3) per hpf Ur Squamous Epith Cells (None-Few) per lpf Urine Bacteria (None-Few) per hpf Hyaline Casts (None-Few) per lpf Ur Culture Indicated? (NO) 04/10/18 04/10/18 04/10/18 Range/Units 13:07 13:11 13:28 WBC (4.3-11.1) K/mcL RBC (4.19-5.50) M/mcL Hgb (12.9-16.9) g/dL Hct (37.5-50.1) % MCV (83.0-100.0) fL MCH (28.0-33.3) pg MCHC (31.6-35.5) g/dL RDW (11.5-14.5) % Plt Count (140-400) K/mcL MPV (9.4-12.4) fL Immature Gran % (0-4) % Seg Neutrophils % % Lymphocytes % % Monocytes % % Eosinophils % % Basophils % % Neutrophils # (1.6-8.9) K/mcL Lymphocytes # (0.6-4.6) K/mcL Monocytes # (0.0-1.3) K/mcL Eosinophils # (0.0-0.6) K/mcL Basophils # (0.0-0.2) K/mcL ESR (0-10) mm/hr VBG pH 7.42 (7.32-7.42) pH Units VBG pCO2 38 L (41-51) mmHg VBG pO2 121 H (25-50) mmHg VBG HCO3 25 (21-27) mEq/L Sodium (136-145) mEq/L Potassium (3.5-5.1) mEq/L Chloride (98-107) mEq/L Carbon Dioxide (23-29) mEq/L BUN (8-23) mg/dL Creatinine (0.70-1.30) mg/dL Est GFR ( Amer) (> 60) Est GFR (Non-Af Amer) (> 60) BUN/Creatinine Ratio (6-26) Glucose (70-105) mg/dL Calculated Osmolality (280-300) Lactic Acid (0.5-2.2) mmol/L Calcium (8.6-10.3) mg/dL Venous Ioniz Calcium (1.15-1.35) mmol/L Phosphorus (2.7-4.5) mg/dL Magnesium (1.6-2.6) mg/dL Total Bilirubin (0.3-1.0) mg/dL AST (13-39) Units/L ALT (7-52) Units/L Alkaline Phosphatase (34-104) Units/L Troponin I (< 0.04) ng/mL C-Reactive Protein (Less than 10) mg/L Serum Total Protein (6.4-8.9) g/dL Albumin (3.5-5.7) g/dL Globulin (2.4-3.5) g/dL Albumin/Globulin Ratio (1.1-2.2) Beta-Hydroxybutyric Acd 0.42 H (0.02-0.27) mmol/L TSH (0.340-5.600) mcIU/mL Urine Color Yellow (Yellow) Urine Clarity Clear (Clear) Urine pH 6.5 (5.0-8.0) pH Units Ur Specific Essie 1.020 (1.010-1.025) Urine Protein Trace (Neg-Trace) mg/dL Urine Glucose (UA) >=1000 H (Normal) mg/dL Urine Ketones Negative (Negative) mg/dL Urine Blood Negative (Negative) Urine Nitrite Negative (Negative) Urine Bilirubin Negative (Negative) Urine Urobilinogen Normal (Normal) mg/dL Ur Leukocyte Esterase Negative (Negative) Urine Microscopic RBC 0-3 (0-3) per hpf Urine Microscopic WBC 3-5 H (0-3) per hpf Ur Squamous Epith Cells Many H (None-Few) per lpf Urine Bacteria None Seen (None-Few) per hpf Hyaline Casts None Seen (None-Few) per lpf Ur Culture Indicated? NO (NO) - Radiology Data Radiology results reviewed: Yes I reviewed the patient's radiology results. negative for PNA - EKG Data EKG attestation: Yes I reviewed and interpreted this EKG. EKG shows normal: sinus rhythm Rate: normal Rhythm: NSR [place]/QRS: normal Q waves: v2 Interpretation: no acute changes, normal EKG, unchanged when compared to prior tracing (date) ()
[2018-04-10] MEDS ORDERED: *HR* Dextrose 50 % in Water (Syg) 50 ML SYRINGE IVP PRN (16:09)
[2018-04-10] MEDS: Insulin Human Regular 100 UNIT in 0.9 % Sodium Chloride 100 ML IVC SCH (17:15)
[2018-04-10] MEDS ORDERED: Naloxone 0.4 MG/ML INJ IVP PRN (17:28)
--- NOTE | 2018-04-10 17:30 | Internal Med History&Physical ---
Date of Encounter: 04/10/18 Time of Encounter: 17:28 Internal Medicine - H&P: HPI Chief complaint: weakness Admitted From: Home Plans for Post Hospital Care: Transfer [facility] History of present illness: Mr. Nava is a 77 year old male with past medical history of diabetes, CAD status post CABG, recently treated osteomyelitis of right toe status post amputation who comes in with complain of weakness or past few weeks along with weight loss and fatigability. History obtained from patient as well as at bedside as well as review of previous charts.. Patient had osteomyelitis and right toe amputation and was treated with IV antibiotics which were changed to by mouth antibiotics per at bedside which patient did not tolerate and had associated diarrhea on and off for past 2 weeks or so. Diarrhea is nonbloody and watery. Patient has associated decreased urine output until 2 weeks ago wh en he was seen by PCP who stopped his glipizide decrease metformin stopped statin after which he had some increase in urine output is he also started drinking well. Denies any fevers chills however has associated nausea and had 2 episodes of vomiting yesterday. Patient has been feeling fatigued for past few weeks and had lost significant weight as per about 100 pounds however review of previous charts did not reveal any significant weight loss. brought him to the ER because of patient feeling fatigued as well as decreased urine output and diarrhea and not able to take care of him herself. Had associated one episode of loss of bladder control yesterday. Currently patient was on Bactrim which was prescribed twice a day however patient is taking only once a day as per because she cannot tolerate it. Unclear how long patient had to be on it. Denies any chest pain, shortness of breath, abdominal pain or constipation. Denies any urinary complaints besides incontinence. No dysuria or burning passing urine. Past Med Surg Social Fam HX - Past Medical History Attestation: Yes The following information was validated with the patient. Medical history: coronary artery disease, diabetes, hyperlipidemia, other Additional medical history: multiple spinal fractures, left ear laceration, rib fractures, occlusion right ICA (chronic) Psychiatric history: depression - Past Surgical History Surgical History: coronary bypass (CABG), other Additional surgical history: BPH - Social History Smoking Status: Never smoker Smokeless Tobacco Status: No Alcohol use: none Drug use: none - Family History Mother Hx Family Endocrine Disorder: Yes (DM) Internal Medicine - H&P: Meds glipiZIDE [Glipizide] 10 mg PO BIDWM 04/07/16 [History] Metformin HCl [Glucophage] 1,000 mg PO QAM 07/19/17 [History] Metformin HCl [Glucophage] 1,500 mg PO QPM 07/19/17 [History] Aspirin Enteric Coated [Aspirin EC] 81 mg PO DAILY 14 Days #14 tablet. 07/25/17 [Rx] Clopidogrel [Plavix] 75 mg PO DAILY 14 Days #14 tablet 07/25/17 [Rx] Simvastatin [Zocor] 80 mg PO HS 08/16/17 [History] BuPROPion XL (24 HR) [Wellbutrin Xl] 150 mg PO DAILY 02/06/18 [History] Metoprolol [Lopressor] 25 mg PO BID 02/06/18 [History] Tamsulosin [Flomax] 0.4 mg PO DAILY 02/06/18 [History] Allergy/AdvReac Type Severity Reaction Status Date / Time No Known Allergies Allergy Verified 08/16/17 12:13 All Systems PM: A 10-system review of systems was performed and is negative for pertinent findings except as documented above in the HPI. - Constitutional Vitals: Temp Pulse Resp BP Pulse Ox 97.5 F L 78 16 178/87 98 04/10/18 11:16 04/10/18 14:47 04/10/18 17:18 04/10/18 17:18 04/10/18 14:47 General appearance: Present: no acute distress Exam: Constitutional: Vitals as noted. Conversant. No Apparent Distress. Eyes : Sclera white, conjunctiva clear, no lid lag, PEARLA. ENT : Grossly normal hearing. Oropharyngeal exam unremarkable. dry mucous membranes. No JVD, no cervical lymphadenopathy. no thyromegaly or mass. Respiratory : Clear to auscultation bilaterally. No accessory muscle use, rales, rhonchi or wheezes Cardiovascular : RRR, +S1, +S2. no murmur, gallop, rubs. No chest wall tenderness GI/Abdominal : Soft, Non-tender, Non-distended, normal bowel sounds, soft, no peritoneal signs. no orgenomegaly or mass appreciated. no hernia. Musculoskeletal: no deformity noted. no edema or cyanosis. warm extremities, pulses palpable and symmetrical in UE/LE. no calf tenderness. Neurological: AO X3, CN II-XII grossly intact, grossly normal motor and sensory exam. 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 Pych: Poor memory. AOx2. Internal Med - H&P Results - Labs CBC & Chem 7: 04/10/18 12:02 04/10/18 12:02 Labs: Short CBC 04/10/18 Range/Units 12:02 WBC 11.4 H (4.3-11.1) K/mcL Hgb 12.7 L (12.9-16.9) g/dL Hct 38.1 (37.5-50.1) % Plt Count 317 (140-400) K/mcL Neutrophils # 8.4 (1.6-8.9) K/mcL BMP 04/10/18 12:02 Sodium 134 L Potassium 4.9 Chloride 101 Carbon Dioxide 23 BUN 31 H Creatinine 1.37 H Glucose 543 H* Calcium 9.9 Cardiac Enzymes 04/10/18 Range/Units 12:02 Troponin I < 0.03 (< 0.04) ng/mL Liver Function 04/10/18 Range/Units 12:02 Total Bilirubin 0.4 (0.3-1.0) mg/dL AST 9 L (13-39) Units/L ALT 12 (7-52) Units/L Alkaline Phosphatase 86 (34-104) Units/L Albumin 3.6 (3.5-5.7) g/dL Urine 04/10/18 Range/Units 13:07 Urine Color Yellow (Yellow) Urine Clarity Clear (Clear) Urine pH 6.5 (5.0-8.0) pH Units Ur Specific [place] 1.020 (1.010-1.025) Urine Protein Trace (Neg-Trace) mg/dL Urine Glucose (UA) >=1000 H (Normal) mg/dL - ABG Interpretation ABG results: 04/10/18 13:28 VBG pH 7.42 VBG pCO2 38 L VBG pO2 121 H VBG HCO3 25 - Impressions ITS Impressions Chest X-Ray 04/10/18 11:25 IMPRESSION: No evidence pneumonia or pleural effusion. D/ / Tico El / Tico El Interpreting Provider: Tico El Foot X-Ray 04/10/18 11:44 IMPRESSION: Soft tissue swelling and edema at the operative site of the 1st digit. No radiographic evidence of osteomyelitis. D/ / Shadi Mcnair MD / Shadi Mcnair MD Interpreting Provider: Shadi Mcnair MD - Assessment and plan (1) Uncontrolled diabetes mellitus Current Visit: Yes Status: Acute Assessment and plan: Patient has signs and symptoms of failure to thrive - Likely secondary to uncontrolled diabetes. - Blood sugar and 500s in ER. Status post 2 L IV fluid - Patient was started on insulin drip however no sugar came down to 300s. - Patient had medial in ER and much more alert and oriented - Start patient on Levemir 8 units and sliding scale with diabetic diet - Continue IV fluids with LR at 75 mL an hour - Patient would likely need to be started on insulin on discharge - We will hold metformin and glipizide which was already stopped by patient - Obtain HbA1c in the morning Qualifiers: Diabetes mellitus type: type 2 Glycemic state: with hyperglycemia Qualified Code(s): E11.65 - Type 2 diabetes mellitus with hyperglycemia (2) GIANA (acute kidney injury) Current Visit: Yes Status: Acute Assessment and plan: - Likely due to hyperglycemia from uncontrolled diabetes - Continue IV fluids - Monitor renal function - Monitor ins and outs - Most likely prerenal (3) Failure to thrive in adult Current Visit: Yes Status: Acute Assessment and plan: - As above (4) Coronary artery disease Current Visit: No Status: Chronic Qualifiers: Coronary Disease-Associated Artery/Lesion type: [place] artery [place] vs. transplanted heart: [place] heart Associated angina: without angina Qualified Code(s): I25.10 - Atherosclerotic heart disease of [place] coronary artery without angina pectoris (5) Lactic acid acidosis Current Visit: Yes Status: Acute Assessment and plan: - Likely from dehydration - No anion gap - Resolved with IV fluids (6) Hyponatremia Current Visit: Yes Status: Acute Assessment and plan: - Likely from dehydration due to diarrhea and uncontrolled diabetes - Continue IV fluids and monitor (7) Elevated beta-hydroxybutyric acid level Current Visit: Yes Status: Acute Assessment and plan: - Not in DKA - ABG without acidosis (8) Leukocytosis Current Visit: No Status: Resolved Assessment and plan: - Likely reactive - CXR and UA unremarkable Qualifiers: Leukocytosis type: unspecified Qualified Code(s): D72.829 - Elevated white blood cell count, unspecified (9) Elevated erythrocyte sedimentation rate Current Visit: Yes Status: Acute (10) Diarrhea Current Visit: No Status: Acute Assessment and plan: - c/w IVF Qualifiers: Diarrhea type: unspecified type Qualified Code(s): R19.7 - Diarrhea, unspecified (11) DVT prophylaxis Current Visit: No Status: Acute Assessment and plan: - Heparin SQ. - Time Spent With Patient Total time spent is greater than 50% in coordination of care (as documented) at patient's floor/unit and/or counseling patient:
[2018-04-10] MEDS: Insulin DETEMIR 100 UNIT/ML X5UNITS SQ SCH ×2 (19:46→21:17)
[2018-04-10] MEDS: Ringers Solution, Lactated 1,000 ML IVC SCH (19:58)
[2018-04-10] MEDS: *HR* Heparin 5,000 UNIT/ML VIAL SQ SCH (21:17)
--- NOTE | 2018-04-11 03:46 | Electrocardiograph Report ---
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
[2018-04-11 04:39] LABS: Basophils # 0.1 K/mcL (0.0-0.2); Basophils % 0.6 %; Eosinophils # 0.5 K/mcL (0.0-0.6); Eosinophils % 4.2 %; Hemoglobin 12.4 g/dL (12.9-16.9); Immature Granulocytes % 0.3 % (0-4); Lymphocytes # 2.4 K/mcL (0.6-4.6); Lymphocytes % 22.7 %; Mean Corpuscular HGB Conc 33.5 g/dL (31.6-35.5); Mean Corpuscular Hemoglobin 29.2 pg (28.0-33.3); Mean Corpuscular Volume 87.3 fL (83.0-100.0); Mean Platelet Volume 8.9 fL (9.4-12.4); Monocytes # 0.7 K/mcL (0.0-1.3); Monocytes % 6.2 %; Platelet Count 315 K/mcL (140-400); Red Blood Count 4.24 M/mcL (4.19-5.50); Red Cell Distribution Width 14.5 % (11.5-14.5)
[2018-04-11 04:54] LABS: BUN/Creatinine Ratio 23 (6-26); Blood Urea Nitrogen 23 mg/dL (8-23); Calcium 9.3 mg/dL (8.6-10.3); Carbon Dioxide 26 mEq/L (23-29); Chloride 105 mEq/L (98-107); Glucose 278 mg/dL (70-105); Osmolality,Calculated 300 (280-300); Potassium 4.2 mEq/L (3.5-5.1); Sodium 138 mEq/L (136-145); eGFR For Non-African Americans > 60 (> 60)
[2018-04-11] MEDS: *HR* Heparin 5,000 UNIT/ML VIAL SQ SCH ×3 (05:26→21:20)
[2018-04-11 08:23] LABS: Estimated Average Glucose 226 mg/dl; Hemoglobin A1C 9.5 %
--- NOTE | 2018-04-11 08:35 | Internal Med Progress Note ---
Hospitalist Progress Note - Encounter Date of Encounter: 04/11/18 Time of Encounter: 08:33 - Subjective Interval History: Patient seen and examined this morning. No acute overnight events. No new complains. Feels much better. No N/V/D, constipation, abdominal pain, chest pain. - Exam Vitals: Temp Pulse Resp BP Pulse Ox 97.7 F 68 14 107/68 99 04/11/18 06:47 04/11/18 06:47 04/11/18 06:47 04/11/18 06:47 04/11/18 06:47 Exam: Constitutional: Vitals as noted. Conversant. No Apparent Distress. ENT : Grossly normal hearing. Oropharyngeal exam unremarkable. dry mucous membranes. No JVD, no cervical lymphadenopathy. no thyromegaly or mass. Respiratory : Clear to auscultation bilaterally. No accessory muscle use, rales, rhonchi or wheezes Cardiovascular : RRR, +S1, +S2. no murmur, gallop, rubs. No chest wall tenderness GI/Abdominal : Soft, Non-tender, Non-distended, normal bowel sounds, soft, no peritoneal signs. no orgenomegaly or mass appreciated. no hernia. Musculoskeletal: no deformity noted. no edema or cyanosis. warm extremities, pulses palpable and symmetrical in UE/LE. no calf tenderness. Neurological: AO X2, CN II-XII grossly intact, grossly normal motor and sensory exam. 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 - Assessment and Plan (1) Uncontrolled diabetes mellitus Current Visit: Yes Status: Acute (2) GIANA (acute kidney injury) Current Visit: Yes Status: Acute (3) Failure to thrive in adult Current Visit: Yes Status: Acute (4) Coronary artery disease Current Visit: No Status: Chronic (5) Lactic acid acidosis Current Visit: Yes Status: Acute (6) Hyponatremia Current Visit: Yes Status: Acute (7) Elevated beta-hydroxybutyric acid level Current Visit: Yes Status: Acute (8) Leukocytosis Current Visit: No Status: Resolved (9) Elevated erythrocyte sedimentation rate Current Visit: Yes Status: Acute (10) Diarrhea Current Visit: No Status: Acute (11) DVT prophylaxis Current Visit: No Status: Acute - Summary of Assessment and Plan Summary of Assessment and Plan: Uncontrolled diabetes mellitus - associated with failure to thrive. Likely secondary to uncontrolled diabetes/hyperglycemia - Increase levemir to 10. - c/w IVF - hold home metformin and glipizide - HbA1c of 9.5. Patient would likely need to be started on insulin on discharge. - f/u PT/OT GIANA - Likely due to hyperglycemia from uncontrolled diabetes - Continue IV fluids - Monitor renal function - Monitor ins and outs - Most likely prerenal Hyponatremia - Likely from dehydration due to diarrhea and uncontrolled diabetes - Now resolved Leukocytosis - Likely reactive - CXR and UA unremarkable - now resolved - Monitor for now Diarrhea - c/w IVF. Monitor for further episodes DVT prophylaxis - Heparin SQ. - Time Spent with Patient Total time spent is greater than 50% in coordination of care (as documented) at patient's floor/unit and/or counseling patient: Internal Medicine: Result - Labs CBC & Chem 7: 04/11/18 03:09 04/11/18 03:09 Labs: Short CBC 04/10/18 04/11/18 Range/Units 12:02 03:09 WBC 11.4 H 10.6 (4.3-11.1) K/mcL Hgb 12.7 L 12.4 L (12.9-16.9) g/dL Hct 38.1 37.0 L (37.5-50.1) % Plt Count 317 315 (140-400) K/mcL Neutrophils # 8.4 7.0 (1.6-8.9) K/mcL BMP 04/10/18 04/11/18 12:02 03:09 Sodium 134 L 138 Potassium 4.9 4.2 Chloride 101 105 Carbon Dioxide 23 26 BUN 31 H 23 Creatinine 1.37 H 1.01 Glucose 543 H* 278 H Calcium 9.9 9.3 Cardiac Enzymes 04/10/18 Range/Units 12:02 Troponin I < 0.03 (< 0.04) ng/mL Liver Function 04/10/18 Range/Units 12:02 Total Bilirubin 0.4 (0.3-1.0) mg/dL AST 9 L (13-39) Units/L ALT 12 (7-52) Units/L Alkaline Phosphatase 86 (34-104) Units/L Albumin 3.6 (3.5-5.7) g/dL Urine 04/10/18 Range/Units 13:07 Urine Color Yellow (Yellow) Urine Clarity Clear (Clear) Urine pH 6.5 (5.0-8.0) pH Units Ur Specific [place] 1.020 (1.010-1.025) Urine Protein Trace (Neg-Trace) mg/dL Urine Glucose (UA) >=1000 H (Normal) mg/dL - Impressions Impressions Chest X-Ray 04/10/18 11:25 IMPRESSION: No evidence pneumonia or pleural effusion. D/ / Tico El / Tico El Interpreting Provider: Tico El Foot X-Ray 04/10/18 11:44 IMPRESSION: Soft tissue swelling and edema at the operative site of the 1st digit. No radiographic evidence of osteomyelitis. D/ / Shadi Mcnair MD / Shadi Mcnair MD Interpreting Provider: Shadi Mcnair MD Consult Discharge Plan - Plan Referrals: Michael Brown Jr, MD [Primary Care Provider] - (appt wr) (1) Uncontrolled diabetes mellitus Qualifiers: Diabetes mellitus type: type 2 Glycemic state: with hyperglycemia Qualified Code(s): E11.65 - Type 2 diabetes mellitus with hyperglycemia (4) Coronary artery disease Qualifiers: Coronary Disease-Associated Artery/Lesion type: [place] artery [place] vs. transplanted heart: [place] heart Associated angina: without angina Qualified Code(s): I25.10 - Atherosclerotic heart disease of [place] coronary artery withou t angina pectoris (8) Leukocytosis Qualifiers: Leukocytosis type: unspecified Qualified Code(s): D72.829 - Elevated white blood cell count, unspecified (10) Diarrhea Qualifiers: Diarrhea type: unspecified type Qualified Code(s): R19.7 - Diarrhea, unspecified
[2018-04-11] MEDS: Megestrol Acetate 400 MG/10 ML UDC PO SCH ×2 (10:17→21:20)
[2018-04-11] MEDS: Insulin LISPRO 300 UNITS/3 ML VIAL SQ SCH ×4 (10:18→23:01)
[2018-04-11] MEDS: Aspirin Enteric Coated 81 MG Tablet PO SCH (10:24)
[2018-04-11] MEDS: Insulin Human Regular 100 UNIT in 0.9 % Sodium Chloride 100 ML IVC SCH (17:55)
[2018-04-11] MEDS ORDERED: Insulin DETEMIR 100 UNIT/ML X5UNITS SQ SCH (21:00)
[2018-04-12 04:26] LABS: Basophils # 0.1 K/mcL (0.0-0.2); Basophils % 0.8 %; Eosinophils # 0.5 K/mcL (0.0-0.6); Eosinophils % 4.8 %; Hematocrit 36.3 % (37.5-50.1); Hemoglobin 11.9 g/dL (12.9-16.9); Immature Granulocytes % 0.5 % (0-4); Mean Corpuscular HGB Conc 32.8 g/dL (31.6-35.5); Mean Corpuscular Hemoglobin 28.8 pg (28.0-33.3); Mean Corpuscular Volume 87.9 fL (83.0-100.0); Mean Platelet Volume 8.8 fL (9.4-12.4); Monocytes # 0.7 K/mcL (0.0-1.3); Monocytes % 6.5 %; Neutrophils # 5.8 K/mcL (1.6-8.9); Platelet Count 301 K/mcL (140-400); Red Blood Count 4.13 M/mcL (4.19-5.50); Red Cell Distribution Width 14.7 % (11.5-14.5); Segmented Neutrophils % 57.4 %
[2018-04-12 04:47] LABS: BUN/Creatinine Ratio 23 (6-26); Blood Urea Nitrogen 31 mg/dL (8-23); Calcium 8.9 mg/dL (8.6-10.3); Carbon Dioxide 25 mEq/L (23-29); Chloride 107 mEq/L (98-107); Glucose 189 mg/dL (70-105); Osmolality,Calculated 300 (280-300); Potassium 3.9 mEq/L (3.5-5.1); Sodium 139 mEq/L (136-145); eGFR For Non-African Americans 51 (> 60)
[2018-04-12] MEDS: *HR* Heparin 5,000 UNIT/ML VIAL SQ SCH ×3 (05:17→22:13)
[2018-04-12] MEDS: Ringers Solution, Lactated 1,000 ML IVC SCH ×2 (05:18→15:26)
[2018-04-12] MEDS: Megestrol Acetate 400 MG/10 ML UDC PO SCH ×2 (09:16→22:13)
[2018-04-12] MEDS: Insulin LISPRO 300 UNITS/3 ML VIAL SQ SCH ×4 (09:16→22:12)
[2018-04-12] MEDS: Aspirin Enteric Coated 81 MG Tablet PO SCH (09:16)
[2018-04-12] MEDS ORDERED: 0.9 % Sodium Chloride 500 ML IVC ONE (14:07)
--- NOTE | 2018-04-12 14:25 | Internal Med Progress Note ---
Hospitalist Progress Note - Encounter Date of Encounter: 04/12/18 Time of Encounter: 10:27 - Subjective Interval History: Patient seen and examined this morning. No acute overnight events. Denies N/V/D, constipation, abdominal pain, chest pain. Is urinating okay. Denies any burning urination, fever or chills. - Exam Vitals: Temp Pulse Resp BP Pulse Ox 97.6 F 57 16 120/66 97 04/12/18 11:23 04/12/18 11:23 04/12/18 11:23 04/12/18 11:23 04/12/18 11:23 Exam: Constitutional: Vitals as noted. Conversant. No Apparent Distress. Respiratory : Clear to auscultation bilaterally. No accessory muscle use, rales, rhonchi or wheezes Cardiovascular : RRR, +S1, +S2. no murmur, gallop, rubs. No chest wall tenderness GI/Abdominal : Soft, Non-tender, Non-distended, normal bowel sounds, soft, no peritoneal signs. no orgenomegaly or mass appreciated. no hernia. Musculoskeletal: no deformity noted. no edema or cyanosis. warm extremities, pulses palpable and symmetrical in UE/LE. no calf tenderness. Neurological: AO X2, CN II-XII grossly intact, grossly normal motor and sensory exam. 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 - Assessment and Plan (1) Uncontrolled diabetes mellitus Current Visit: Yes Status: Acute (2) GIANA (acute kidney injury) Current Visit: Yes Status: Acute (3) Failure to thrive in adult Current Visit: Yes Status: Acute (4) Coronary artery disease Current Visit: No Status: Chronic (5) Lactic acid acidosis Current Visit: Yes Status: Acute (6) Hyponatremia Current Visit: Yes Status: Acute (7) Elevated beta-hydroxybutyric acid level Current Visit: Yes Status: Acute (8) Leukocytosis Current Visit: No Status: Resolved (9) Elevated erythrocyte sedimentation rate Current Visit: Yes Status: Acute (10) Diarrhea Current Visit: No Status: Acute (11) DVT prophylaxis Current Visit: No Status: Acute - Summary of Assessment and Plan Summary of Assessment and Plan: Uncontrolled diabetes mellitus - associated with failure to thrive. Likely secondary to uncontrolled diabetes/hyperglycemia - Now better controlled - Increase levemir to 15. - c/w IVF - hold home metformin and glipizide - HbA1c of 9.5. Patient would likely need to be started on insulin on discharge. - PT/OT recommends rehab GIANA - Likely due to hyperglycemia from uncontrolled diabetes on presentation - Initially improved. Worse creatinine today. - Bladder scan with 180 cc. Will get Renal ultrasound. Obtain urine sodium, chloride and creatinine. - Monitor ins and outs - Will give 500 cc bolus. Restart IVF Hyponatremia - Likely from dehydration due to diarrhea and uncontrolled diabetes - Now resolved Leukocytosis - Likely reactive - CXR and UA unremarkable - now resolved - Monitor for now Diarrhea - resolved - c/w IVF. DVT prophylaxis - Heparin SQ. - Time Spent with Patient Total time spent is greater than 50% in coordination of care (as documented) at patient's floor/unit and/or counseling patient: Internal Medicine: Result - Labs CBC & Chem 7: 04/12/18 03:11 04/12/18 03:11 Labs: Short CBC 04/12/18 Range/Units 03:11 WBC 10.1 (4.3-11.1) K/mcL Hgb 11.9 L (12.9-16.9) g/dL Hct 36.3 L (37.5-50.1) % Plt Count 301 (140-400) K/mcL Neutrophils # 5.8 (1.6-8.9) K/mcL BMP 04/12/18 03:11 Sodium 139 Potassium 3.9 Chloride 107 Carbon Dioxide 25 BUN 31 H Creatinine 1.37 H Glucose 189 H Calcium 8.9 Consult Discharge Plan - Plan Referrals: Stoney Morris [Partnered Physician] - 04/18/18 10:00 am (1) Uncontrolled diabetes mellitus Qualifiers: Diabetes mellitus type: type 2 Glycemic state: with hyperglycemia Qualified Code(s): E11.65 - Type 2 diabetes mellitus with hyperglycemia (4) Coronary artery disease Qualifiers: Coronary Disease-Associated Artery/Lesion type: [place] artery [place] vs. transplanted heart: [place] heart Associated angina: without angina Qualified Code(s): I25.10 - Atherosclerotic heart disease of [place] coronary artery without angina pectoris (8) Leukocytosis Qualifiers: Leukocytosis type: unspecified Qualified Code(s): D72.829 - Elevated white blood cell count, unspecified (10) Diarrhea Qualifiers: Diarrhea type: unspecified type Qualified Code(s): R19.7 - Diarrhea, unspecified
[2018-04-12] MEDS: BuPROPion XL (24 HR) 150 MG TABLET PO SCH (15:26)
[2018-04-12] MEDS: Insulin Human Regular 100 UNIT in 0.9 % Sodium Chloride 100 ML IVC SCH (17:00)
[2018-04-12 17:59] LABS: Sodium, Urine 86.4 mEq/L
[2018-04-12] MEDS ORDERED: Insulin DETEMIR 100 UNIT/ML X5UNITS SQ SCH (21:00)
[2018-04-13] MEDS: *HR* Heparin 5,000 UNIT/ML VIAL SQ SCH (06:09)
[2018-04-13] MEDS: Ringers Solution, Lactated 1,000 ML IVC SCH (06:09)
[2018-04-13 06:17] LABS: BUN/Creatinine Ratio 23 (6-26); Blood Urea Nitrogen 26 mg/dL (8-23); Calcium 8.4 mg/dL (8.6-10.3); Carbon Dioxide 22 mEq/L (23-29); Chloride 108 mEq/L (98-107); Glucose 195 mg/dL (70-105); Osmolality,Calculated 294 (280-300); Sodium 137 mEq/L (136-145); eGFR For Non-African Americans > 60 (> 60)
[2018-04-13] MEDS: Insulin LISPRO 300 UNITS/3 ML VIAL SQ SCH ×3 (08:11→12:31)
[2018-04-13] MEDS: BuPROPion XL (24 HR) 150 MG TABLET PO SCH (08:12)
[2018-04-13] MEDS: Aspirin Enteric Coated 81 MG Tablet PO SCH (08:12)
[2018-04-13] MEDS: Megestrol Acetate 400 MG/10 ML UDC PO SCH (08:12)
--- NOTE | 2018-04-13 08:17 | Discharge Summary ---
- NOTES TO OUTPATIENT PROVIDER Notes to Outpatient Provider: Patient needs to have renal function testing in 3- 5 days as well as urology follow-up for chronic bladder outlet obstruction. Patient started on insulin for uncontrolled diabetes Date of Encounter: 04/13/18 Time of Encounter: 08:15 - Discharge Diagnosis (1) Uncontrolled diabetes mellitus Priority: Primary Status: Acute Qualifiers: Diabetes mellitus type: type 2 Glycemic state: with hyperglycemia Qualified Code(s): E11.65 - Type 2 diabetes mellitus with hyperglycemia (2) GIANA (acute kidney injury) Priority: Primary Status: Acute (3) Failure to thrive in adult Priority: Primary Status: Acute (4) Coronary artery disease Priority: Secondary Status: Chronic Qualifiers: Coronary Disease-Associated Artery/Lesion type: [place] artery [place] vs. transplanted heart: [place] heart Associated angina: without angina Qualified Code(s): I25.10 - Atherosclerotic heart disease of [place] coronary artery without angina pectoris (5) Lactic acid acidosis Priority: Secondary Status: Acute (6) Hyponatremia Priority: Primary Status: Acute (7) Elevated beta-hydroxybutyric acid level Priority: Secondary Status: Acute (8) Leukocytosis Priority: Primary Status: Resolved Qualifiers: Leukocytosis type: unspecified Qualified Code(s): D72.829 - Elevated white blood cell count, unspecified (9) Elevated erythrocyte sedimentation rate Priority: Secondary Status: Acute (10) Diarrhea Priority: Secondary Status: Acute Qualifiers: Diarrhea type: unspecified type Qualified Code(s): R19.7 - Diarrhea, unspecified (11) DVT prophylaxis Priority: Secondary Status: Acute Hospital course: Mr. Nava is a 77 year old male with past medical history of diabetes, CAD status post CABG, recently treated osteomyelitis with IV antibiotics came in with complain of feeling fatigued on and off diarrhea and weight loss. Patient was found to have uncontrolled blood sugar in 500s. He was initially managed with the IV fluids and started on insulin therapy. He was not in DKA and did not insulin drip. Home metformin was held as patient was in GIANA. He was dehydrated initially and GIANA and hyponatremia improved with IV fluids. His A1c came to be 9.5. He did not have UTI or pneumonia. His renal function worsened again on the third day. We were not able to put a Alanis catheter. He was found to have increased chronic bladder outlet obstruction on renal ultrasound and no hydronephrosis. He did have medical renal disease with cortical thinning of the kidney. He was continued on IV fluids which improved his renal function. He was able to urinate later though with high postvoid residual. Patient does have chronic kidney disease and appears to have renal function almost back to baseline today. We will discharge him to rehabilitation today. He started on insulin therapy. He would need monitoring of his renal function and evaluate for need for Alanis catheter and urology consult if renal function worsens. Discharge discussed with: patient, nurse, social work (36) - Time Spent with Patient Total time spent providing and/or coordinating discharge services: Greater than 30 minutes - Discharge Medications Prescriptions: Insulin DETEMIR [Levemir] 15 unit SQ HS 30 Days [id number] Insulin LISPRO [HumaLOG] See Protocol SQ TIDAC 30 Days vial Home Medications: Aspirin Enteric Coated [Aspirin EC] 81 mg PO DAILY 14 Days #14 tablet. 07/25/17 [Rx] Clopidogrel [Plavix] 75 mg PO DAILY 14 Days #14 tablet 07/25/17 [Rx] BuPROPion XL (24 HR) [Wellbutrin Xl] 150 mg PO DAILY 02/06/18 [History] Megestrol Acetate [Megace] 10 ml PO BID 04/10/18 [History] Insulin DETEMIR [Levemir] 15 unit SQ HS 30 Days [id number] 04/13/18 [Rx] Insulin LISPRO [HumaLOG] See Protocol SQ TIDAC 30 Days vial 04/13/18 [Rx] Metoprolol [Lopressor] 25 mg PO BID tablet 04/13/18 [Rx] Simvastatin [Zocor] 80 mg PO HS tablet 04/13/18 [Rx] Tamsulosin [Flomax] 0.4 mg PO DAILY capsule 04/13/18 [Rx] Allergies/Adverse Reactions: Allergy/AdvReac Type Severity Reaction Status Date / Time No Known Allergies Allergy Verified 08/16/17 12:13 Date of admission: 04/10/18 17:08 Primary care physician: Michael Brown Jr, MD Consults: 04/10/18 17:30 Consult to Occupational Therapy [CONS] Routine Comment: Evaluate, develop and implement POC Reason for Consult: improve mobility/strength Does patient have active BEDREST order?: No Is patient medically & hemodynamically stable?: Yes Consult to Physical Therapy [CONS] Routine Comment: Evaluate, develop and implement POC Reason for Consult: improve mobility/strength Does patient have active BEDREST order?: No Is patient medically & hemodynamically stable?: Yes 04/10/18 17:31 Consult to Diabetes Education [CONS] Routine Comment: Reason for Consult: may need to start insulin on discharge. 04/10/18 20:19 Consult to Retail Merchandising Coordinator [CONS] Routine Reason for SW Consult: Home health services 04/11/18 07:43 Consult to Nutrition [CONS] Routine Comment: failure to thrive Consulting Provider: NUTRITION Reason for Dietary Consult: PO Supplementation Discharging clinician: Gavi Copeland - Constitutional Vitals: Temp Pulse Resp BP Pulse Ox 97.8 F 64 17 153/89 96 04/13/18 06:54 04/13/18 06:54 04/13/18 06:54 04/13/18 06:54 04/13/18 06:54 General appearance: Present: no acute distress Exam: Constitutional: Vitals as noted. Conversant. No Apparent Distress. Respiratory : Clear to auscultation bilaterally. No accessory muscle use, rales, rhonchi or wheezes Cardiovascular : RRR, +S1, +S2. no murmur, gallop, rubs. No chest wall tenderness GI/Abdominal : Soft, Non-tender, Non-distended, normal bowel sounds, soft, no peritoneal signs. no orgenomegaly or mass appreciated. no hernia. Musculoskeletal: no deformity noted. no edema or cyanosis. warm extremities, pulses palpable and symmetrical in UE/LE. no calf tenderness. Neurological: AO X2, CN II-XII grossly intact, grossly normal motor and sensory exam. 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 - Patient Status Disposition: Transfer SNF Condition: Fair - Discharge Instructions Follow Up With: Stoney Morris [Partnered Physician] - 04/18/18 10:00 am - Diet and Activity Activity: as per physical therapy
--- NOTE | 2018-04-13 10:49 | Physician Discharge Referral ---
ExtendedCare Referral Info Institutional Level of Care: Skilled - Diagnosis (1) Uncontrolled diabetes mellitus Status: Acute (2) GIANA (acute kidney injury) Status: Acute (3) Failure to thrive in adult Status: Acute (4) Coronary artery disease Status: Chronic (5) Lactic acid acidosis Status: Acute (6) Hyponatremia Status: Acute (7) Elevated beta-hydroxybutyric acid level Status: Acute (8) Elevated erythrocyte sedimentation rate Status: Acute (9) Diarrhea Status: Acute (10) DVT prophylaxis Status: Acute - Transfer Medications Prescriptions: Insulin DETEMIR [Levemir] 15 unit SQ HS 30 Days [id number] Insulin LISPRO [HumaLOG] See Protocol SQ TIDAC 30 Days vial Home Medications: Aspirin Enteric Coated [Aspirin EC] 81 mg PO DAILY 14 Days #14 tablet. 07/25/17 [Rx] Clopidogrel [Plavix] 75 mg PO DAILY 14 Days #14 tablet 07/25/17 [Rx] BuPROPion XL (24 HR) [Wellbutrin Xl] 150 mg PO DAILY 02/06/18 [History] Megestrol Acetate [Megace] 10 ml PO BID 04/10/18 [History] Insulin DETEMIR [Levemir] 15 unit SQ HS 30 Days [id number] 04/13/18 [Rx] Insulin LISPRO [HumaLOG] See Protocol SQ TIDAC 30 Days vial 04/13/18 [Rx] Metoprolol [Lopressor] 25 mg PO BID tablet 04/13/18 [Rx] Simvastatin [Zocor] 80 mg PO HS tablet 04/13/18 [Rx] Tamsulosin [Flomax] 0.4 mg PO DAILY capsule 04/13/18 [Rx] Allergies/Adverse Reactions: Allergy/AdvReac Type Severity Reaction Status Date / Time No Known Allergies Allergy Verified 08/16/17 12:13 - Respiratory Orders Smoking Cessation: Smoking cessation has been advised. For more information, call the [place] Tobacco Quit Line at 7-450-HHEX-NOW. - Rehabiliation Orders Rehab Orders: Evaluation for Physical Therapy - Treatments List/Other: Patient needs to have renal function testing in 3-5 days. He may need to be urology for chronic bladder outlet obstruction if renal function worsen. CERTIFICATION: I certify that the transfer of the above named patient to an Extended Care Facility is necessary for the continuing treatment of the diagnosis listed. The above information is true and accurate reflection of patient's current con dition. Confidential - Redisclosure prohibited without a patient's written consent.
[2018-04-13 11:33] VITALS: BP 114/62
== END 2018-04-13 14:55 ==
LOC: 3BNU 10:50 → EMEROOARM 10:50 → SUATTDRO 17:08 → 3BNU 17:41
PROVIDERS: ADMIT Internal Medicine Cardiovascular Disease; ATTEND Internal Medicine

== ENCOUNTER 2018-04-20 11:12 | Inpatient (IN) ==
[2018-04-20] MEDS ORDERED: Acetaminophen 325 MG TABLET PO PRN (16:38)
[2018-04-20] MEDS ORDERED: Naloxone 0.4 MG/ML INJ IVP PRN (16:38)
--- NOTE | 2018-04-20 16:54 | Internal Med History&Physical ---
Date of Encounter: 04/20/18 Time of Encounter: 16:20 Internal Medicine - H&P: HPI Chief complaint: Orthostatic hypotension Admitted From: Intrahospital Transfer Plans for Post Hospital Care: Transfer Halfway Facility History of present illness: Mr. Nava is a 78 year old male transferred to our hospital from [facility] because of orthostatic hypotension and cannot have physical therapy. Past medical history is significant for diabetes, osteomyelitis S/P right big toe amputation and finished antibiotic course, CAD S/P CABG, S/P left carotid surgery. Patient was hospitalized in our hospital because of weakness and uncontrolled diabetes. Patient was discharged to [facility] for further physical therapy. However, patient shows significant orthostatic hypotension and cannot have physical therapy. Patient was also found paroxysmal A. fib per cardiac monitoring there. Patient was placed on Fludrocortisone however his orthostatic hypotension does not improve. [facility] physician wants to and midodrine but worry about A Fib. Patient also on by mouth metoprolol. [facility] physician asked to transfer patient to our hospital and consult cardiology for further medication adjustment for his orthostatic hypotension. Patient denies shortness of breath, chest pain, nausea, dizziness, palpitation. He said he has no dizziness upon getting up. Patient has good appetite. Complain of constipation for 4 days. Patient has right big toe amputation with unhealed wound. Past Med Surg Social Fam HX - Past Medical History Medical history: coronary artery disease, diabetes, hyperlipidemia, other Additional medical history: multiple spinal fractures, left ear laceration, rib fractures, occlusion right ICA (chronic), BPH Psychiatric history: depression - Past Surgical History Surgical History: coronary bypass (CABG), other Additional surgical history: right great toe amputation - Social History Smoking Status: Never smoker Smokeless Tobacco Status: No Alcohol use: none Drug use: none - Family History Father Living Status: Sister Hx Family Endocrine Disorder: Yes (DM) Mother Living Status: Hx Family Endocrine Disorder: Yes (DM) Internal Medicine - H&P: Meds Aspirin Enteric Coated [Aspirin EC] 81 mg PO DAILY 14 Days #14 tablet. 07/25/17 [Rx] Clopidogrel [Plavix] 75 mg PO DAILY 14 Days #14 tablet 07/25/17 [Rx] BuPROPion XL (24 HR) [Wellbutrin Xl] 150 mg PO DAILY 02/06/18 [History] Megestrol Acetate [Megace] 10 ml PO BID 04/10/18 [History] Insulin DETEMIR [Levemir] 15 unit SQ HS 30 Days [id number] 04/13/18 [Rx] Metoprolol [Lopressor] 25 mg PO BID tablet 04/13/18 [Rx] Simvastatin [Zocor] 80 mg PO HS tablet 04/13/18 [Rx] Tamsulosin [Flomax] 0.4 mg PO DAILY capsule 04/13/18 [Rx] Allergy/AdvReac Type Severity Reaction Status Date / Time No Known Allergies Allergy Verified 08/16/17 12:13 All Systems PM: A 10-system review of systems was performed and is negative for pertinent findings except as documented above in the HPI. - Constitutional Vitals: Temp Pulse Resp BP Pulse Ox 97.8 F 74 16 146/82 99 04/20/18 15:26 04/20/18 15:26 04/20/18 15:26 04/20/18 15:26 04/20/18 15:26 Exam: Pt is AAO x 3, in NAD HEENT: NC/AT, PERRL Neck: Supple, no JVD, no LAD Lungs: CTA b/l Heart: S1S2, RRR, grade II systolic murmur Abd: Soft, nontender, BS present Ext: ROM wnl, no pedal edema, right big toe unhealed wound with pus like discharge. Neuro: No focal deficit - Assessment and plan (1) Wound of right foot Current Visit: Yes Status: Acute Assessment and plan: Patient has no systemic signs of infection. We will consult podiatry for further management. (2) DVT prophylaxis Current Visit: No Status: Acute Assessment and plan: Heparin subcutaneously (3) BPH (benign prostatic hyperplasia) Current Visit: No Status: Chronic Assessment and plan: Continue home medication tamsulosin and finasteride. Qualifiers: Lower urinary tract symptom presence: symptoms present Lower urinary tract symptom detail: urinary retention Qualified Code(s): N40.1 - Benign prostatic hyperplasia with lower urinary tract symptoms; R33.8 - Other retention of urine; R33.8 - Other retention of urine (4) Coronary artery disease Current Visit: No Status: Chronic Assessment and plan: Patient has no chest pain. S/P CABG. On aspirin, Plavix, beta alissa, and statin Qualifiers: Coronary Disease-Associated Artery/Lesion type: [place] artery [place] vs. transplanted heart: [place] heart Associated angina: without angina Qualified Code(s): I25.10 - Atherosclerotic heart disease of [place] coronary artery without angina pectoris (5) Diabetes mellitus Current Visit: No Status: Chronic Assessment and plan: Poorly controlled diabetes. Continue basal and sliding scale insulin Qualifiers: Diabetes mellitus type: type 2 Diabetes mellitus buttermaker helper insulin use: unspecified buttermaker helper insulin use status Diabetes mellitus complication status: with circulatory complication Diabetes mellitus complication detail: with other circulatory complications Qualified Code(s): E11.59 - Type 2 diabetes mellitus with other circulatory complications (6) Orthostatic hypotension Current Visit: No Status: Acute Assessment and plan: Patient has orthostatic hypotension, he has long time diabetes with neuropathy. Patient also has bilateral carotid artery disease. - Fall precaution - Getup with assistant secretary only, get up slowly and immediately lay down if patient complaint of dizziness, nausea, or any discomfort. - Cont po flurocortisone. - Consult cardiology for medication adjustment. (7) A-fib Current Visit: Yes Status: Acute Assessment and plan: Report by [facility] physician that patient has intermittent A. fib. Sinus rhythm right now. - Continue cardiac monitoring - Echocardiogram - Magnesium and TSH - Consult cardiology Qualifiers: Atrial fibrillation type: paroxysmal Qualified Code(s): I48.0 - Paroxysmal atrial fibrillation - Time Spent With Patient Total time spent is greater than 50% in coordination of care (as documented) at patient's floor/unit and/or counseling patient: 40 min Greater than 35 minutes
[2018-04-20 17:05] LABS: Basophils # 0.1 K/mcL (0.0-0.2); Basophils % 0.6 %; Eosinophils # 0.4 K/mcL (0.0-0.6); Eosinophils % 3.2 %; Hematocrit 38.2 % (37.5-50.1); Hemoglobin 12.4 g/dL (12.9-16.9); Immature Granulocytes % 0.8 % (0-4); Lymphocytes # 2.7 K/mcL (0.6-4.6); Mean Corpuscular HGB Conc 32.5 g/dL (31.6-35.5); Mean Corpuscular Hemoglobin 29.3 pg (28.0-33.3); Mean Corpuscular Volume 90.3 fL (83.0-100.0); Mean Platelet Volume 8.6 fL (9.4-12.4); Monocytes # 0.9 K/mcL (0.0-1.3); Monocytes % 7.6 %; Neutrophils # 7.3 K/mcL (1.6-8.9); Platelet Count 366 K/mcL (140-400); Red Blood Count 4.23 M/mcL (4.19-5.50); Red Cell Distribution Width 15.9 % (11.5-14.5); Segmented Neutrophils % 63.8 %
[2018-04-20] MEDS ORDERED: *HR* Dextrose 50 % in Water (Syg) 50 ML SYRINGE IVP PRN (17:20)
[2018-04-20] MEDS ORDERED: D5% in Water 1,000 ML IVC PRN (17:20)
[2018-04-20] MEDS ORDERED: Dextrose Gel 15 GM/37.5 ML TUBE PO PRN ×2 (17:20)
[2018-04-20 17:21] LABS: Alanine Aminotransferase 28 Units/L (7-52); Albumin 3.2 g/dL (3.5-5.7); Alkaline Phosphatase 64 Units/L (34-104); Aspartate Amino Transferase 15 Units/L (13-39); BUN/Creatinine Ratio 34 (6-26); Bilirubin,Total 0.3 mg/dL (0.3-1.0); Blood Urea Nitrogen 39 mg/dL (8-23); Calcium 9.1 mg/dL (8.6-10.3); Carbon Dioxide 24 mEq/L (23-29); Chloride 105 mEq/L (98-107); Globulin 3.1 g/dL (2.4-3.5); Glucose 327 mg/dL (70-105); Osmolality,Calculated 304 (280-300); Potassium 4.5 mEq/L (3.5-5.1); Sodium 136 mEq/L (136-145); Total Protein 6.3 g/dL (6.4-8.9); eGFR For Non-African Americans > 60 (> 60)
[2018-04-20] MEDS: *HR* Heparin 5,000 UNIT/ML VIAL SQ SCH (17:32)
[2018-04-20] MEDS: Insulin LISPRO 300 UNITS/3 ML VIAL SQ SCH ×2 (17:32→21:12)
[2018-04-20 17:41] LABS: Thyroid Stimulating Hormone 4.946 mcIU/mL (0.340-5.600)
[2018-04-20] MEDS: Insulin DETEMIR 100 UNIT/ML X5UNITS SQ SCH (21:13)
[2018-04-20] MEDS: Megestrol Acetate 400 MG/10 ML UDC PO SCH (21:13)
[2018-04-21 02:26] LABS: Basophils # 0.1 K/mcL (0.0-0.2); Basophils % 0.7 %; Eosinophils # 0.4 K/mcL (0.0-0.6); Eosinophils % 3.7 %; Hematocrit 38.3 % (37.5-50.1); Hemoglobin 12.7 g/dL (12.9-16.9); Immature Granulocytes % 0.8 % (0-4); Lymphocytes # 2.7 K/mcL (0.6-4.6); Lymphocytes % 23.2 %; Mean Corpuscular HGB Conc 33.2 g/dL (31.6-35.5); Mean Corpuscular Hemoglobin 29.8 pg (28.0-33.3); Mean Corpuscular Volume 89.9 fL (83.0-100.0); Mean Platelet Volume 8.6 fL (9.4-12.4); Monocytes # 0.9 K/mcL (0.0-1.3); Monocytes % 7.7 %; Neutrophils # 7.4 K/mcL (1.6-8.9); Platelet Count 377 K/mcL (140-400); Red Blood Count 4.26 M/mcL (4.19-5.50); Red Cell Distribution Width 15.9 % (11.5-14.5); Segmented Neutrophils % 63.9 %
[2018-04-21 02:40] LABS: BUN/Creatinine Ratio 32 (6-26); Blood Urea Nitrogen 37 mg/dL (8-23); Calcium 9.1 mg/dL (8.6-10.3); Carbon Dioxide 23 mEq/L (23-29); Chloride 110 mEq/L (98-107); Glucose 278 mg/dL (70-105); Osmolality,Calculated 311 (280-300); Potassium 4.6 mEq/L (3.5-5.1); Sodium 141 mEq/L (136-145); eGFR For Non-African Americans > 60 (> 60)
[2018-04-21] MEDS: *HR* Heparin 5,000 UNIT/ML VIAL SQ SCH (05:12)
[2018-04-21] MEDS: Megestrol Acetate 400 MG/10 ML UDC PO SCH ×2 (08:57→22:09)
[2018-04-21] MEDS: Finasteride 5 MG TABLET PO SCH (08:57)
[2018-04-21] MEDS: Metoprolol XL (24 HR) Succ 25 MG TAB.ER.24H PO SCH (08:57)
[2018-04-21] MEDS: BuPROPion XL (24 HR) 150 MG TABLET PO SCH (08:57)
[2018-04-21] MEDS: Insulin LISPRO 300 UNITS/3 ML VIAL SQ SCH ×4 (08:58→22:08)
[2018-04-21] MEDS: Aspirin Enteric Coated 81 MG Tablet PO SCH (09:11)
--- NOTE | 2018-04-21 09:43 | Podiatry Consult Note ---
Date of Encounter: 04/21/18 Time of Encounter: 09:41 Assessment and Plan (1) Wound of right foot Current visit: Yes Status: Acute 1. Patient evaluated and treated. No signs of acute infection. 2. Wound culture taken right foot wound base, sent for aerobe and anaerobe culture. Will tailor PO antibiotics based on these results. 3. Wound painted with betadine and covered with dry dressing. Continue with this wound care dressing daily until follow up with Dr. Stokes in outpatient setting. I did discuss with the patient that the osseous prominence could be causing the wound to dehisce and not heal properly, but he defers any surgery at this time to remove more bone. He would like to continue with wound care. History of Present Illness Chief complaint: Right foot ulcer HPI: Mr. Nava is a 78 year old male transferred to our hospital from [facility] because of orthostatic hypotension. 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 Podiatry consulted to evaluated the wound. He denies any foot pain. He has been getting dressing changes with home health and he believes the wound is healing. He denies n/v/f/c at this time. Past Med Surg Social Fam HX - Past Medical History Medical history: coronary artery disease, diabetes, hyperlipidemia, other Additional medical history: multiple spinal fractures, left ear laceration, rib fractures, occlusion right ICA (chronic), BPH Psychiatric history: depression - Past Surgical History Surgical History: coronary bypass (CABG), other Additional surgical history: right great toe amputation - Social History Smoking Status: Never smoker Smokeless Tobacco Status: No Alcohol use: none Drug use: none - Family History Father Living Status: Sister Hx Family Endocrine Disorder: Yes (DM) Mother Living Status: Hx Family Endocrine Disorder: Yes (DM) Medications and Allergies Aspirin Enteric Coated [Aspirin EC] 81 mg PO DAILY 14 Days #14 tablet. 07/25/17 [Rx] Clopidogrel [Plavix] 75 mg PO DAILY 14 Days #14 tablet 07/25/17 [Rx] BuPROPion XL (24 HR) [Wellbutrin Xl] 150 mg PO DAILY 02/06/18 [History] Megestrol Acetate [Megace] 10 ml PO BID 04/10/18 [History] Insulin DETEMIR [Levemir] 15 unit SQ HS 30 Days [id number] 04/13/18 [Rx] Metoprolol [Lopressor] 25 mg PO BID tablet 04/13/18 [Rx] Simvastatin [Zocor] 80 mg PO HS tablet 04/13/18 [Rx] Tamsulosin [Flomax] 0.4 mg PO DAILY capsule 04/13/18 [Rx] Allergy/AdvReac Type Severity Reaction Status Date / Time No Known Allergies Allergy Verified 08/16/17 12:13 All Systems Reviewed: The remainder of the systems were reviewed and are negative Physical Exam - Constitutional Vitals: Temp Pulse Resp BP Pulse Ox 98.7 F 77 16 135/78 98 04/21/18 04:55 04/21/18 04:55 04/21/18 04:55 04/21/18 04:55 04/21/18 04:55 Exam: Alert, oriented x3. Vascular: DP and PT weakly palpable. Capillary refill less than 3 seconds to all digits. No significant increased warmth right forefoot. Dermatology: Right medial forefoot ulcer 1.2cm x 0.8cm x 0.3cm with mixed granular and fibrotic wound base. Mild maceration at wound margins. No streaking erythema. No probe to bone. Musculoskeletal: No pain with palpation right foot wound. Able to DF and PF at ankle. No pain with compression of calf. Neuro: Sensations diminished bilateral. Results - Labs Result Diagrams: 04/21/18 02:00 04/21/18 02:00 Labs: Abnormal lab results WBC 11.6 K/mcL (4.3-11.1) H 04/21/18 02:00 Hgb 12.7 g/dL (12.9-16.9) L 04/21/18 02:00 RDW 15.9 % (11.5-14.5) H 04/21/18 02:00 MPV 8.6 fL (9.4-12.4) L 04/21/18 02:00 Chloride 110 mEq/L (98-107) H 04/21/18 02:00 BUN 37 mg/dL (8-23) H 04/21/18 02:00 BUN/Creatinine Ratio 32 (6-26) H 04/21/18 02:00 Glucose 278 mg/dL (70-105) H 04/21/18 02:00 POC Glucose 334 mg/dL (70-99) H 04/20/18 20:45 Calculated Osmolality 311 (280-300) H 04/21/18 02:00 Serum Total Protein 6.3 g/dL (6.4-8.9) L 04/20/18 16:52 Albumin 3.2 g/dL (3.5-5.7) L 04/20/18 16:52 Albumin/Globulin Ratio 1.0 (1.1-2.2) L 04/20/18 16:52 H & H 04/20/18 04/21/18 Range/Units 16:52 02:00 Hgb 12.4 L 12.7 L (12.9-16.9) g/dL Hct 38.2 38.3 (37.5-50.1) % All other labs normal. Consult Discharge Plan - Plan Additional Instructions: 1. Follow up with Dr. Misael Stokes in wound care center or [facility] clinic 1 week after discharge. Referrals: Michael Brown Jr, MD [Primary Care Provider] -
--- NOTE | 2018-04-21 10:50 | Cardiology Consult Note ---
Addendum entered and electronically signed by Yuri Calvert DO 04/21/18 14:06: I have personally performed a face to face evaluation on this patient. I have reviewed and agree with the care plan. History and Exam by me shows: Patient apparently seen and examined. History suggestive of orthostatic hypotension. Orthostatic vital signs demonst rate the same. Symptoms persisted despite Florinef. Recommend addition of midodrine 2.5 mg 3 times daily. If necessary, we can increase to 5 mg. Supportive care encourage, including aggressive hydration. He should stand slowly and with caution. Reported possible atrial fibrillation prior to transfer here. Patient has been in sinus rhythm. No strips or ECGs were provided from [place]. There was one note that suggested patient was actually in sinus rhythm. We will continue heparin drip and continue to monitor for now. Records requested from [place]. Agree with aspirin, statin, and beta alissa therapy given history of CAD. Thanks, Yuri Calvert DO, [facility] Original Note: Date of Encounter: 04/21/18 Time of Encounter: 10:45 Assessment and Plan (1) Orthostatic hypotension Current Visit: No Status: Acute Transferred to our [facility] from [place] inpatient rehab because of orthostatic hypotension, unable to have physical therapy. Started on Fludrocortisone for without improvement. Orthostatic vitals this AM were positive. 135/78 lying, 92/58 sitting, 77/40 standing. On low dose BB--Toprol XL 25mg daily for questionable PAF diagnosis. Discussed and reviewed with Dr. Calvert. Will start Midodrine 2.5mg TID and monitor for improvement. (2) PAF (paroxysmal atrial fibrillation) Current Visit: Yes Status: Acute Questionable diagnosis of PAF. Reason for consult states orthostatic hypotension in setting of PAF. On review of [place] documentation it states pt was tachycardic when "he stood up and appeared to be sinus tach, not thought to be A-Fib". No strips or ECG showing A-Fib. Will request any strips or ECGs from [place]. On Toprol XL 25mg daily. SR on tele. TTE 07/2017 EF preserved. Recheck TTE. [id number] (Age, CAD, CVA, DM). High CVA risk. Since we are currently unable to determine if pt had A-Fib or not and he is high CVA risk, will start heparin gtt. On ASA and Plavix for CVA 07/2017. Continue telemetry and request records. If A-Fib is confirmed, will need to discuss [facility]. (3) Coronary artery disease Current Visit: No Status: Chronic Hx of CABG. Continue ASA, Statin, BB. Qualifiers: Coronary Disease-Associated Artery/Lesion type: [place] artery [place] vs. transplanted heart: [place] heart Associated angina: without angina Qualified Code(s): I25.10 - Atherosclerotic heart disease of [place] coronary artery without angina pectoris Discussion w patient/family: The assessment and plan as outlined above was discussed with the patient and/or family members who expressed understanding and agreement. All questions were answered. Thank you for involving us in the care of your patient. Please call with any questions. I will discuss all the above with Dr. Calvert and make changes as necessary. History of Present Illness Consult date: 04/21/18 Requesting physician: Arvin Nogueira Consult reason: orthostatic hypotension History of present illness: Mr. Nava is a 78 year old male with PMH of diabetes, CVA, osteomyelitis S/P right big toe amputation and finished antibiotic course, CAD S/P CABG, S/P left carotid surgery transferred to our [facility] from [place] inpatient rehab because of orthostatic hypotension, unable to have physical therapy. Initially hospitalized because of weakness and uncontrolled diabetes. Reportedly found to PAF on monitoring at [place]. However, on review of documents it states pt was tachycardic when he stood up and appeared to be sinus tach. No strips or ECG showing A-Fib. Placed on Fludrocortisone for orthostatic hypotension without imp rovement. Pt denies shortness of breath, chest pain, nausea, dizziness, or palpitations. He denies dizziness on standing. Prior CV testing: TTE 07/20/17: LVEF 55%. Mild cLVH Mild segmental systolic dysfunction, but overall normal LV function. Mild left ventricular diastolic dysfunction. Atypical septal motion consistent with post-operative status. Normal right ventricular structure and function. Suboptimal image quality, but no evidence of a PFO with agitated saline contrast. No evidence of pulmonary hypertension. No significant valvular dysfunction. Past Med Surg Social Fam HX - Past Medical History Medical history: coronary artery disease, diabetes, hyperlipidemia, other Additional medical history: multiple spinal fractures, left ear laceration, rib fractures, occlusion right ICA (chronic), BPH Psychiatric history: depression - Past Surgical History Surgical History: coronary bypass (CABG), other Additional surgical history: right great toe amputation - Social History Smoking Status: Never smoker Smokeless Tobacco Status: No Alcohol use: none Drug use: none - Family History Father Living Status: Sister Hx Family Endocrine Disorder: Yes (DM) Mother Living Status: Hx Family Endocrine Disorder: Yes (DM) Medications and Allergies Aspirin Enteric Coated [Aspirin EC] 81 mg PO DAILY 14 Days #14 tablet.dr 07/25/17 [Rx] Clopidogrel [Plavix] 75 mg PO DAILY 14 Days #14 tablet 07/25/17 [Rx] BuPROPion XL (24 HR) [Wellbutrin Xl] 150 mg PO DAILY 02/06/18 [History] Megestrol Acetate [Megace] 10 ml PO BID 04/10/18 [History] Insulin DETEMIR [Levemir] 15 unit SQ HS 30 Days [id number] 04/13/18 [Rx] Metoprolol [Lopressor] 25 mg PO BID tablet 04/13/18 [Rx] Simvastatin [Zocor] 80 mg PO HS tablet 04/13/18 [Rx] Tamsulosin [Flomax] 0.4 mg PO DAILY capsule 04/13/18 [Rx] Allergy/AdvReac Type Severity Reaction Status Date / Time No Known Allergies Allergy Verified 08/16/17 12:13 All Systems Review: The remainder of the systems were reviewed and are negative - Constitutional Constitutional: weakness Physical Examination Vital Signs Temp Pulse Resp BP BP BP BP 04/21/18 04:55 98.7 F 77 16 135/78 04/21/18 04:53 135/78 92/58 77/40 04/20/18 19:34 97.4 F L 75 16 138/72 04/20/18 16:35 142/88 108/69 43/31 04/20/18 15:26 97.8 F 74 16 146/82 04/20/18 15:22 Pulse Ox 04/21/18 04:55 98 04/21/18 04:53 04/20/18 19:34 100 04/20/18 16:35 04/20/18 15:26 99 04/20/18 15:22 99 Intake and Output 04/20/18 04/21/18 04/21/18 23:59 07:59 15:59 Intake Total 0 / 0 0 / 0 Output Total 200 / 200 300 / 300 200 / 200 Balance -200 / -200 -300 / -300 -200 / -200 Intake: Oral 0 / 0 0 / 0 Output: Urine 200 / 200 300 / 300 200 / 200 Other: Stool Size Smear # Voids 1 1 # Bowel Movements 1 Weight 73.028 kg 73.1 kg Blood Glucose* 334 232 Patient Weight 04/21/18 23:59 Weight 73.1 kg General: Conversant, No Apparent Distress HEENT: Atraumatic, Normocephaly, Mucus Membranes Moist Neck: No JVD, Normal carotid pulses Cardiac: Reg Rate and Rhythm, Normal S1 and S2, No Murmur Lungs: Normal Breath Sounds Neuro: Alert and responsive, No focal deficits noted Abdomen: Soft, Non-Tender Skin: No rashes noted on visualized skin Musculoskeletal: No Chest Wall Tenderness Extremities: No Clubbing, No Cyanosis, No Edema, Normal Pulses Results 04/21/18 02:00 04/21/18 02:00 Lab Results 04/20/18 04/20/18 04/21/18 16:52 16:52 02:00 WBC 11.4 H 11.6 H Hgb 12.4 L 12.7 L Hct 38.2 38.3 Plt Count 366 377 Sodium 136 Potassium 4.5 Chloride 105 Carbon Dioxide 24 BUN 39 H Creatinine 1.14 Glucose 327 H Calcium 9.1 Magnesium 2.0 Total Bilirubin 0.3 AST 15 ALT 28 Alkaline Phosphatase 64 TSH 4.946 04/21/18 02:00 WBC Hgb Hct Plt Count Sodium 141 Potassium 4.6 Chloride 110 H Carbon Dioxide 23 BUN 37 H Creatinine 1.17 Glucose 278 H Calcium 9.1 Magnesium Total Bilirubin AST ALT Alkaline Phosphatase TSH Short CBC 04/21/18 04/20/18 Range/Units 02:00 16:52 WBC 11.6 H 11.4 H (4.3-11.1) K/mcL Hgb 12.7 L 12.4 L (12.9-16.9) g/dL Hct 38.3 38.2 (37.5-50.1) % Plt Count 377 366 (140-400) K/mcL Neutrophils # 7.4 7.3 (1.6-8.9) K/mcL BMP 04/21/18 04/20/18 Range/Units 02:00 16:52 Sodium 141 136 (136-145) mEq/L Potassium 4.6 4.5 (3.5-5.1) mEq/L Chloride 110 H 105 (98-107) mEq/L Carbon Dioxide 23 24 (23-29) mEq/L BUN 37 H 39 H (8-23) mg/dL Creatinine 1.17 1.14 (0.70-1.30) mg/dL Glucose 278 H 327 H (70-105) mg/dL Calcium 9.1 9.1 (8.6-10.3) mg/dL Liver Function 04/20/18 Range/Units 16:52 Total Bilirubin 0.3 (0.3-1.0) mg/dL AST 15 (13-39) Units/L ALT 28 (7-52) Units/L Alkaline Phosphatase 64 (34-104) Units/L Albumin 3.2 L (3.5-5.7) g/dL Active Medications Acetaminophen (Tylenol) 650 mg PO Q6HR PRN PRN Reason: Mild Pain/Fever Stop: 10/20/18 16:39 Aspirin (Aspirin Ec) 81 mg PO DAILY REPLACED BY [facility] Stop: 10/21/18 09:01 Last Admin: 04/21/18 09:11 Dose: 81 mg Bupropion HCl (Wellbutrin Xl) 150 mg PO DAILY REPLACED BY [facility] Stop: 10/21/18 09:01 Last Admin: 04/21/18 08:57 Dose: 150 mg Clopidogrel Bisulfate (Plavix) 75 mg PO DAILY REPLACED BY [facility] Stop: 10/21/18 09:01 Last Admin: 04/21/18 08:56 Dose: 75 mg Dextrose/Water (Dextrose 50% (Syg)) 25 ml IVP AD PRN PRN Reason: Hypoglycemia Stop: 10/20/18 17:21 Finasteride (Proscar) 5 mg PO DAILY REPLACED BY [facility]; Protocol Stop: 10/21/18 09:01 Last Admin: 04/21/18 08:57 Dose: 5 mg Fludrocortisone Acetate (Florinef) 0.1 mg PO DAILY REPLACED BY [facility] Stop: 10/21/18 09:01 Last Admin: 04/21/18 08:56 Dose: 0.1 mg Glucagon (Glucagen) 1 mg IM ONCE PRN PRN Reason: Hypoglycemia Stop: 10/20/18 17:21 Glucose (Gluctose) 15 gm PO ONCE PRN PRN Reason: Hypoglycemia Stop: 10/20/18 17:21 Glucose (Gluctose) 30 gm PO ONCE PRN PRN Reason: Hypoglycemia Stop: 10/20/18 17:21 Heparin Sodium (Porcine) (Heparin) 5,000 unit SQ Q12HCO REPLACED BY [facility] Stop: 10/20/18 18:01 Last Admin: 04/21/18 05:12 Dose: 5,000 unit Dextrose (Dextrose 5%) 1,000 mls @ 100 mls/hr IVC .Q10H PRN PRN Reason: HYPOGLYCEMIA Stop: 10/20/18 17:21 Insulin Detemir (Levemir) 24 unit SQ HS REPLACED BY [facility] Stop: 10/20/18 21:01 Last Admin: 04/20/18 21:13 Dose: 24 unit Insulin Human Lispro (Humalog) 0 units SQ HS REPLACED BY [facility]; Protocol Stop: 10/20/18 21:01 Last Admin: 04/20/18 21:12 Dose: 7 units Insulin Human Lispro (Humalog) 0 units SQ TIDAC REPLACED BY [facility]; Protocol Stop: 10/20/18 17:31 Last Admin: 04/21/18 08:58 Dose: 10 units Megestrol Acetate (Megace) 400 mg PO BID REPLACED BY [facility]; Protocol Stop: 10/20/18 21:01 Last Admin: 04/21/18 08:57 Dose: 400 mg Metoprolol Succinate (Toprol Xl) 25 mg PO DAILY REPLACED BY [facility] Stop: 10/21/18 09:01 Last Admin: 04/21/18 08:57 Dose: 25 mg Midodrine (Proamatine) 2.5 mg PO 0800,1200,1700 REPLACED BY [facility] Stop: 10/21/18 12:01 Naloxone HCl (Narcan) 0.4 mg IVP Q2MIN PRN PRN Reason: SEE COMMENTS Stop: 10/20/18 16:39 Simvastatin (Zocor) 80 mg PO HS REPLACED BY [facility]; Protocol Stop: 10/20/18 21:01 Last Admin: 04/20/18 21:13 Dose: 80 mg Tamsulosin HCl (Flomax) 0.4 mg PO DAILY REPLACED BY [facility]; Protocol Stop: 10/21/18 09:01 Last Admin: 04/21/18 08:57 Dose: 0.4 mg - Imaging and Cardiology Echo: report reviewed - EKG Interpretation EKG results cardiology: personally reviewed, other (12 hr tele AVG HR 75, SR) Consult Discharge Plan - Plan Additional Instructions: 1. Follow up with Dr. Misael Stokes in wound care center or [facility] clinic 1 week after discharge. Referrals: Michael Brown Jr, MD [Primary Care Provider] -
[2018-04-21] MEDS ORDERED: *HR* Heparin 5,000 UNIT/ML VIAL IVP PRN ×2 (11:28)
[2018-04-21] MEDS ORDERED: *HR* Heparin 5,000 UNIT/ML VIAL IVP ONE (11:28)
[2018-04-21] MEDS ORDERED: Heparin 25,000 UNIT/500 ML D5W 25,000 UNIT/500 ML BAG IVC SCH (11:30)
[2018-04-21 13:20] LABS: Hematocrit 36.6 % (37.5-50.1); Hemoglobin 12.2 g/dL (12.9-16.9); Mean Corpuscular HGB Conc 33.3 g/dL (31.6-35.5); Mean Corpuscular Volume 89.9 fL (83.0-100.0); Mean Platelet Volume 8.7 fL (9.4-12.4); Platelet Count 357 K/mcL (140-400); Red Blood Count 4.07 M/mcL (4.19-5.50)
[2018-04-21 13:27] LABS: Heparin anti-factor XA UFH 0.06 IU/mL (0.30-0.70); Prothrombin Time 10.9 Seconds (9.4-12.1)
--- NOTE | 2018-04-21 21:39 | Internal Med Progress Note ---
Hospitalist Progress Note - Encounter Date of Encounter: 04/21/18 Time of Encounter: 19:00 - Subjective Interval History: SUBJECTIVE: The patient continues to have significant postural hypotension. He is not able to stand up/ambulate. He had a right foot surgery about a month ago. He has been dizzy/lightheaded for the last 3-4 days. Denies chest pain. Denies difficulty breathing, coughing and wheezing. He was constipated recently; moved his bowels yesterday. OBJECTIVE: Skin: Free of rash and discoloration. ENMT: Oral/pharyngeal mucosa is normal in appearance. Eyes: Sclera is white. There is no discharge from eyes. Respiratory: Normal breath sounds; no crackles or wheezes. CV: Heart is regular; no gallop or murmur. GI: Abdomen is soft and not tender. There is no palpable mass or visceromegaly. Neuro: There is no focal deficits. ADDITIONAL DATA: His hemoglobin is 12.7 with a WBC of 11.6 thousand and normal platelet count. BMP shows fasting glucose of 278. Otherwise, it is normal. ASSESSMENT AND PLAN: Postural hypotension. We appreciate help from cardiology. They added low-dose midodrine to Florinef. We will be checking his orthostatics at least once a day. The patient had recently high glucose levels; was making a lot of urine. His fasting glucose from today morning was 278. To continue Levemir and Humalog. He is on diabetic diet. Coronary artery disease. Seems to be stable/controlled. Continue Lopressor with Zocor and enteric coated aspirin/Plavix. The patient supposedly had an episode of atrial fibrillation shortly before this admission. We are trying to get the records from [place] (supposedly it hap pened there). The patient is currently on IV heparin drip. The patient had recently amputation of her right great toefor treatment of osteomyelitis. See notes from podiatry. BPH without urinary obstruction. To continue Flomax and Proscar. - Exam Vitals: Temp Pulse Resp BP Pulse Ox 98.6 F 71 18 91/60 95 04/21/18 19:22 04/21/18 19:22 04/21/18 19:22 04/21/18 19:22 04/21/18 19:22 Exam: xx - Assessment and Plan (1) Orthostatic hypotension Current Visit: No Status: Acute (2) Diabetes mellitus Current Visit: No Status: Chronic (3) Coronary artery disease Current Visit: No Status: Chronic (4) A-fib Current Visit: Yes Status: Acute (5) Wound of right foot Current Visit: Yes Status: Acute (6) BPH (benign prostatic hyperplasia) Current Visit: No Status: Chronic - Time Spent with Patient Total time spent is greater than 50% in coordination of care (as documented) at patient's floor/unit and/or counseling patient: 25 - 35 minutes Plan of Care Discussed with: patient Internal Medicine: Result - Labs CBC & Chem 7: 04/21/18 13:02 04/21/18 02:00 Labs: Short CBC 04/21/18 04/21/18 Range/Units 02:00 13:02 WBC 11.6 H 10.9 (4.3-11.1) K/mcL Hgb 12.7 L 12.2 L (12.9-16.9) g/dL Hct 38.3 36.6 L (37.5-50.1) % Plt Count 377 357 (140-400) K/mcL Neutrophils # 7.4 (1.6-8.9) K/mcL BMP 04/21/18 02:00 Sodium 141 Potassium 4.6 Chloride 110 H Carbon Dioxide 23 BUN 37 H Creatinine 1.17 Glucose 278 H Calcium 9.1 - ABG Interpretation ABG results: PT/INR, D-dimer PT 10.9 Seconds (9.4-12.1) 04/21/18 13:02 - Impressions Impressions Echocardiogram 04/20/18 16:53 Impressions: LVEF 55%. Normal LV chamber size, wall thickness and overall function. Mild segmental left ventricular systolic dysfunction. Mild left ventricular diastolic dysfunction. Atypical septal motion consistent with post-operative status. Normal right ventricular structure and function. Unable to estimate RVSP due to lack of adequate TR jet. No significant valvular dysfunction. Left Ventricular Wall Motion: Rest Echo Findings The basal inferior wall was akinetic. All other wall segments showed normal motion. Findings: Study Quality * Technically adequate exam. ECG Findings * Normal sinus rhythm. Left Ventricle * LVEF 55%. * Normal LV chamber size, wall thickness and overall function. * Mild segmental left ventricular systolic dysfunction. * Mild left ventricular diastolic dysfunction. * Atypical septal motion consistent with post-operative status. Right Ventricle * Normal right ventricular structure and function. Left Atrium * Mildly dilated left atrium. Right Atrium * Normal right atrial size. Aortic Valve * Trileaflet aortic valve. * Mildly sclerotic aortic valve leaflets. * No aortic regurgitation. * No aortic stenosis. Mitral Valve * Mild mitral annular calcification * Trace mitral regurgitation. * No mitral stenosis. Tricuspid Valve * Normal tricuspid valve structure and function. * No tricuspid regurgitation. * Unable to estimate RVSP due to lack of adequate TR jet. Pulmonic Valve * Pulmonic valve is not well visualized. * No pulmonic regurgitation. Aorta * Normally sized aortic root. Pericardium * The pericardium appears normal. IVC * Normal IVC dimensions and inspiratory collapse. Pulmonary Artery * Normal visualized portions of the main pulmonary artery. Consult Discharge Plan - Plan Additional Instructions: 1. Follow up with Dr. Misael Stokes in [facility] care center or [facility] clinic 1 week after discharge. 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 transplanted heart: [place] heart Associated angina: without angina Qualified C ode(s): I25.10 - Atherosclerotic heart disease of [place] coronary artery without angina pectoris (4) A-fib Qualifiers: Atrial fibrillation type: paroxysmal Qualified Code(s): I48.0 - Paroxysmal atrial fibrillation (6) BPH (benign prostatic hyperplasia) Qualifiers: Lower urinary tract symptom presence: symptoms present Lower urinary tract symptom detail: urinary retention Qualified Code(s): N40.1 - Benign prostatic hyperplasia with lower urinary tract symptoms; R33.8 - Other retention of urine; R33.8 - Other retention of urine
[2018-04-21] MEDS: Insulin DETEMIR 100 UNIT/ML X5UNITS SQ SCH (22:09)
[2018-04-22] MEDS ORDERED: GI Cocktail 40 ML EACH PO ONE (01:12)
[2018-04-22] MEDS: Aspirin Enteric Coated 81 MG Tablet PO SCH (08:21)
[2018-04-22] MEDS: Metoprolol XL (24 HR) Succ 25 MG TAB.ER.24H PO SCH (08:21)
[2018-04-22] MEDS: Finasteride 5 MG TABLET PO SCH (08:21)
[2018-04-22] MEDS: Megestrol Acetate 400 MG/10 ML UDC PO SCH ×2 (08:21→20:00)
[2018-04-22] MEDS: BuPROPion XL (24 HR) 150 MG TABLET PO SCH (08:22)
[2018-04-22] MEDS: Insulin LISPRO 300 UNITS/3 ML VIAL SQ SCH ×4 (08:22→21:30)
--- NOTE | 2018-04-22 08:34 | Podiatry Progress Note ---
Date of Encounter: 04/22/18 Time of Encounter: 08:34 - Assessment and Plan (1) Wound of right foot Current Visit: Yes Status: Acute 1. Patient evaluated and treated. No signs of acute infection. 2. No growth from foot cultures taken 04/21/2018, final pending. Patient can discharge from a Podiatry standpoint without antibiotics as the wound has no signs of acute infection. Xrays without evidence of osteomyelitis. 3. Wound painted with betadine and covered with dry dressing. Continue with this wound care dressing daily until follow up with Dr. Stokes in outpatient setting. I did discuss with the patient that the osseous prominence could be causing the wound to not heal properly, but he defers any surgery at this time to remove more bone. He would like to continue with wound care. Subjective Principal diagnosis: right foot ulcer Interval history: Mr. Nava is a 78 year old male transferred to our hospital from [facility] because of orthostatic hypotension. 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 Podiatry consulted to evaluated the wound. He denies any foot pain. He has been getting dressing changes with home health and he believes the wound is healing. He denies n/v/f/c at this time. He denies any new complaints to his foot. Objective - Vital Signs Vital Signs: Vital Signs Temp Pulse Resp BP BP BP Pulse Ox 04/22/18 07:57 128/83 71/52 04/22/18 06:31 99.0 F 71 20 128/83 99 04/22/18 04:32 98.1 F 70 16 112/71 98 04/22/18 00:32 98.4 F 66 16 129/80 96 04/21/18 19:22 98.6 F 71 18 91/60 95 04/21/18 15:58 98.2 F 64 16 103/53 97 04/21/18 12:02 98.3 F 71 16 115/64 97 04/21/18 09:00 98 Intake and Output 04/21/18 04/22/18 04/22/18 23:59 07:59 15:59 Intake Total 560 / 560 100 / 100 Output Total 425 / 425 Balance 560 / 560 -325 / -325 Intake: IV Fluids 200 / 200 100 / 100 Heparin 25,000 UNIT/500 ML D5W 200 / 200 100 / 100 25,000 unit In 500 ml @ 14 UNIT /KG/HR 20.468 mls/hr IVC .Q24H [facility] Rx#:[id number] Oral 360 / 360 0 / 0 Output: Urine 425 / 425 Other: Percent of Meal Consumed 80% # Voids 1 # Urine Diapers 1 # Bowel Movements 0 Weight 74.9 kg Blood Glucose* 282 212 Patient Weight 04/22/18 23:59 Weight 74.9 kg - Exam Exam: Alert, oriented x3. Vascular: DP and PT weakly palpable. Capillary refill less than 3 seconds to all digits. No significant increased warmth right forefoot. Dermatology: Right medial forefoot ulcer 1.2cm x 0.8cm x 0.3cm with mixed granular and fibrotic wound base. Mild maceration at wound margins. No streaking erythema. No probe to bone. Musculoskeletal: No pain with palpation right foot wound. Able to DF and PF at ankle. No pain with compression of calf. Neuro: Sensations diminished bilateral. - Lab Result Diagrams: 04/21/18 13:02 04/21/18 02:00 Labs: Abnormal lab results RBC 4.07 M/mcL (4.19-5.50) L 04/21/18 13:02 Hgb 12.2 g/dL (12.9-16.9) L 04/21/18 13:02 Hct 36.6 % (37.5-50.1) L 04/21/18 13:02 RDW 16.0 % (11.5-14.5) H 04/21/18 13:02 MPV 8.7 fL (9.4-12.4) L 04/21/18 13:02 Chloride 110 mEq/L (98-107) H 04/21/18 02:00 BUN 37 mg/dL (8-23) H 04/21/18 02:00 BUN/Creatinine Ratio 32 (6-26) H 04/21/18 02:00 Glucose 278 mg/dL (70-105) H 04/21/18 02:00 POC Glucose 334 mg/dL (70-99) H 04/20/18 20:45 Calculated Osmolality 311 (280-300) H 04/21/18 02:00 Serum Total Protein 6.3 g/dL (6.4-8.9) L 04/20/18 16:52 Albumin 3.2 g/dL (3.5-5.7) L 04/20/18 16:52 Albumin/Globulin Ratio 1.0 (1.1-2.2) L 04/20/18 16:52 Microbiology, Last 48 Hours 04/21/18 10:30 Surgical Biopsy Culture - Preliminary Right Foot Consult Discharge Plan - Plan Additional Instructions: 1. Follow up with Dr. Misael Stokes in wound care center or [facility] clinic 1 week after discharge. Referrals: Michael Brown Jr, MD [Primary Care Provider] -
--- NOTE | 2018-04-22 09:57 | Cardiology Progress Note ---
Addendum entered and electronically signed by Yuri Calvert DO 04/22/18 11:00: I have personally performed a face to face evaluation on this patient. I have reviewed and agree with the care plan. History and Exam by me shows: Agree with findings, impressions, and plan as outlined below. No documented AF. Given orthostasis and fall risk, okay to stop heparin and transition to back to aspirin. Thanks, Yuri Calvert DO, [facility] Original Note: Date of Encounter: 04/22/18 Time of Encounter: 09:55 Assessment and Plan (1) Orthostatic hypotension Current Visit: No Status: Acute Transferred to our [facility] from [facility] because of orthostatic hypotension, unable to have physical therapy. Started on Fludrocortisone at [facility] without improvement. Added Midodrine 2.5mg TID yesterday. Significant orthostatic hypotension noted this AM. BP 128/83 lying, 71/52 sitting. Given significant drop RN did not obtain standing. Will increase Midodrine to 5mg TID. Recommend increased water and Na intake, slow position change. On discussion with pt, he drinks mostly tea. Recommend water. Continue to follow. (2) PAF (paroxysmal atrial fibrillation) Current Visit: Yes Status: Acute Questionable diagnosis of PAF. Reason for consult states orthostatic hypotension in setting of PAF. On review of [facility] documentation it states pt was tachycardic when "he stood up and appeared to be sinus tach, not thought to be A-Fib". No strips or ECG showing A-Fib. Requested any strips or ECGs from [facility], none have been obtained. On Toprol XL 25mg daily. SR on tele. TTE LVEF 55%. Mild segmental left ventricular systolic dysfunction (unchanged from prior). Mild LVDD. No significant valvular dysfunction. [id number] (Age, CAD, CVA, DM). High CVA risk. Currently on heparin gtt. However, since we are unable to confirm that pt ever had A-Fib, will stop heparin gtt. Falls risk as well. Continue to monitor tele. (3) Coronary artery disease Current Visit: No Status: Chronic Hx of CABG. Continue ASA, Statin, BB. Qualifiers: Coronary Disease-Associated Artery/Lesion type: [place] artery [place] vs. transplanted heart: [place] heart Associated angina: without angina Qualified Code(s): I25.10 - Atherosclerotic heart disease of [place] coronary artery without angina pectoris Discussion w patient/family: The assessment and plan as outlined above was discussed with the patient and/or family members who expressed understanding and agreement. All questions were answered. Thank you for involving us in the care of your patient. Please call with any questions. I will discuss all the above with Dr. Calvert and make changes as necessary. Subjective Principal diagnosis: right foot ulcer Interval history: Denies acute complaints this AM. Objective Vital Signs, Last 4 Hours Temp Pulse Resp BP BP BP Pulse Ox 04/22/18 07:57 128/83 71/52 04/22/18 06:31 99.0 F 71 20 128/83 99 Vital Signs Temp Pulse Resp BP BP BP Pulse Ox 04/22/18 07:57 128/83 71/52 04/22/18 06:31 99.0 F 71 20 128/83 99 04/22/18 04:32 98.1 F 70 16 112/71 98 04/22/18 00:32 98.4 F 66 16 129/80 96 04/21/18 19:22 98.6 F 71 18 91/60 95 04/21/18 15:58 98.2 F 64 16 103/53 97 04/21/18 12:02 98.3 F 71 16 115/64 97 Intake and Output 04/21/18 04/22/18 04/22/18 23:59 07:59 15:59 Intake Total 560 / 560 100 / 100 360 / 360 Output Total 425 / 425 Balance 560 / 560 -325 / -325 360 / 360 Intake: IV Fluids 200 / 200 100 / 100 Heparin 25,000 UNIT/500 ML D5W 200 / 200 100 / 100 25,000 unit In 500 ml @ 14 UNIT /KG/HR 20.468 mls/hr IVC .Q24H [facility] Rx#:[id number] Oral 360 / 360 0 / 0 360 / 360 Output: Urine 425 / 425 Other: Meal Breakfast Percent of Meal Consumed 80% 100% # Voids 1 # Urine Diapers 1 # Bowel Movements 0 Weight 74.9 kg Blood Glucose* 282 212 Patient Weight 04/22/18 23:59 Weight 74.9 kg General: Conversant, No Apparent Distress HEENT: Atraumatic, Normocephaly, Mucus Membranes Moist Neck: No JVD, Normal carotid pulses Cardiac: Reg Rate and Rhythm, Normal S1 and S2, No Murmur Lungs: Normal Breath Sounds, No Wheeze, Rales, Rhonchi Neuro: Alert and responsive, No focal deficits noted Abdomen: Soft, Non-Tender Skin: No rashes noted on visualized skin Musculoskeletal: No Chest Wall Tenderness Extremities: No Clubbing, No Cyanosis, No Edema, Normal Pulses Results 04/21/18 13:02 04/21/18 02:00 Lab Results 04/21/18 04/21/18 13:02 13:02 WBC 10.9 Hgb 12.2 L Hct 36.6 L Plt Count 357 INR 1.0 Short CBC 04/21/18 Range/Units 13:02 WBC 10.9 (4.3-11.1) K/mcL Hgb 12.2 L (12.9-16.9) g/dL Hct 36.6 L (37.5-50.1) % Plt Count 357 (140-400) K/mcL Impressions Echocardiogram 04/20/18 16:53 Impressions: LVEF 55%. Normal LV chamber size, wall thickness and overall function. Mild segmental left ventricular systolic dysfunction. Mild left ventricular diastolic dysfunction. Atypical septal motion consistent with post-operative status. Normal right ventricular structure and function. Unable to estimate RVSP due to lack of adequate TR jet. No significant valvular dysfunction. Left Ventricular Wall Motion: Rest Echo Findings The basal inferior wall was akinetic. All other wall segments showed normal motion. Findings: Study Quality * Technically adequate exam. ECG Findings * Normal sinus rhythm. Left Ventricle * LVEF 55%. * Normal LV chamber size, wall thickness and overall function. * Mild segmental left ventricular systolic dysfunction. * Mild left ventricular diastolic dysfunction. * Atypical septal motion consistent with post-operative status. Right Ventricle * Normal right ventricular structure and function. Left Atrium * Mildly dilated left atrium. Right Atrium * Normal right atrial size. Aortic Valve * Trileaflet aortic valve. * Mildly sclerotic aortic valve leaflets. * No aortic regurgitation. * No aortic stenosis. Mitral Valve * Mild mitral annular calcification * Trace mitral regurgitation. * No mitral stenosis. Tricuspid Valve * Normal tricuspid valve structure and function. * No tricuspid regurgitation. * Unable to estimate RVSP due to lack of adequate TR jet. Pulmonic Valve * Pulmonic valve is not well visualized. * No pulmonic regurgitation. Aorta * Normally sized aortic root. Pericardium * The pericardium appears normal. IVC * Normal IVC dimensions and inspiratory collapse. Pulmonary Artery * Normal visualized portions of the main pulmonary artery. Active Medications Acetaminophen (Tylenol) 650 mg PO Q6HR PRN PRN Reason: Mild Pain/Fever Stop: 10/20/18 16:39 Aspirin (Aspirin Ec) 81 mg PO DAILY [facility] Stop: 10/21/18 09:01 Last Admin: 04/22/18 08:21 Dose: 81 mg Bupropion HCl (Wellbutrin Xl) 150 mg PO DAILY [facility] Stop: 10/21/18 09:01 Last Admin: 04/22/18 08:22 Dose: 150 mg Clopidogrel Bisulfate (Plavix) 75 mg PO DAILY [facility] Stop: 10/21/18 09:01 Last Admin: 04/22/18 08:21 Dose: 75 mg Dextrose/Water (Dextrose 50% (Syg)) 25 ml IVP AD PRN PRN Reason: Hypoglycemia Stop: 10/20/18 17:21 Finasteride (Proscar) 5 mg PO DAILY [facility]; Protocol Stop: 10/21/18 09:01 Last Admin: 04/22/18 08:21 Dose: 5 mg Fludrocortisone Acetate (Florinef) 0.1 mg PO DAILY [facility] Stop: 10/21/18 09:01 Last Admin: 04/22/18 08:21 Dose: 0.1 mg Glucagon (Glucagen) 1 mg IM ONCE PRN PRN Reason: Hypoglycemia Stop: 10/20/18 17:21 Glucose (Gluctose) 15 gm PO ONCE PRN PRN Reason: Hypoglycemia Stop: 10/20/18 17:21 Glucose (Gluctose) 30 gm PO ONCE PRN PRN Reason: Hypoglycemia Stop: 10/20/18 17:21 Heparin Sodium (Porcine) (Heparin) 5,100 unit 70 unit/kg (5100 unit) IVP Q6HR PRN PRN Reason: SEE COMMENTS Stop: 10/21/18 11:29 Heparin Sodium (Porcine) (Heparin) 2,600 unit 35 unit/kg (2600 unit) IVP Q6H PRN PRN Reason: SEE COMMENTS Stop: 10/21/18 11:29 Dextrose (Dextrose 5%) 1,000 mls @ 100 mls/hr IVC .Q10H PRN PRN Reason: HYPOGLYCEMIA Stop: 10/20/18 17:21 Heparin Sodium/Dextrose (Heparin 25,000 Unit/500 Ml D5w) 25,000 unit in 500 mls @ 20.468 mls/hr IVC .Q24H [facility]; Protocol Stop: 10/21/18 11:31 Last Titration: 04/22/18 07:02 Dose: 10.5 unit/kg/hr, 15.351 mls/hr Insulin Detemir (Levemir) 24 unit SQ HS [facility] Stop: 10/20/18 21:01 Last Admin: 04/21/18 22:09 Dose: 24 unit Insulin Human Lispro (Humalog) 0 units SQ HS [facility]; Protocol Stop: 10/20/18 21:01 Last Admin: 04/21/18 22:08 Dose: 6 units Insulin Human Lispro (Humalog) 0 units SQ TIDAC [facility]; Protocol Stop: 10/20/18 17:31 Last Admin: 04/22/18 08:22 Dose: 8 units Megestrol Acetate (Megace) 400 mg PO BID [facility]; Protocol Stop: 10/20/18 21:01 Last Admin: 04/22/18 08:21 Dose: 400 mg Metoprolol Succinate (Toprol Xl) 25 mg PO DAILY [facility] Stop: 10/21/18 09:01 Last Admin: 04/22/18 08:21 Dose: 25 mg Midodrine (Proamatine) 2.5 mg PO 0800,1200,1700 [facility] Stop: 10/21/18 12:01 Last Admin: 04/22/18 08:21 Dose: 2.5 mg Naloxone HCl (Narcan) 0.4 mg IVP Q2MIN PRN PRN Reason: SEE COMMENTS Stop: 10/20/18 16:39 Simvastatin (Zocor) 80 mg PO HS [facility]; Protocol Stop: 10/20/18 21:01 Last Admin: 04/21/18 22:09 Dose: 80 mg Tamsulosin HCl (Flomax) 0.4 mg PO DAILY [facility]; Protocol Stop: 10/21/18 09:01 Last Admin: 04/22/18 08:21 Dose: 0.4 mg - Imaging and Cardiology Echo: report reviewed - EKG Interpretation EKG results cardiology: other (12 hr tele AVG HR 67, SR) Consult Discharge Plan - Plan Additional Instructions: 1. Follow up with Dr. Misael Stokes in wound care center or [facility] clinic 1 week after discharge. Referrals: Michael Brown Jr, MD [Primary Care Provider] -
[2018-04-22] MEDS ORDERED: Insulin NPH 100 UNIT/ML (x5UNIT) SQ ONE (10:23)
[2018-04-22] MEDS: *HR* Heparin 5,000 UNIT/ML VIAL SQ SCH (17:22)
[2018-04-22] MEDS: Insulin DETEMIR 100 UNIT/ML X5UNITS SQ SCH (21:30)
[2018-04-22] MEDS ORDERED: Insulin DETEMIR 100 UNIT/ML X5UNITS SQ ONE (23:25)
--- NOTE | 2018-04-22 23:31 | Internal Med Progress Note ---
Hospitalist Progress Note - Encounter Date of Encounter: 04/22/18 Time of Encounter: 19:00 - Subjective Interval History: SUBJECTIVE: The patient feels better today. It looks like, he has less dizziness/lightheadedness in sitting position. He is not ready for walking, yet. Denies chest pain. Denies difficulty breathing. OBJECTIVE: Skin: Free of rash and discoloration. ENMT: Oral/pharyngeal mucosa is normal in appearance. Eyes: Sclera is white. There is no discharge from eyes. Respiratory: Normal breath sounds; no crackles or wheezes. CV: Heart is regular; no gallop or murmur. GI: Abdomen is soft and not tender. There is no palpable mass or visceromegaly. Neuro: There is no focal deficits. ADDITIONAL DATA: His telemetry shows normal sinus rhythm. I am ordering a random cortisol level in the morning. ASSESSMENT AND PLAN: Postural hypotension. We appreciate help from cardiology. He is on Florinef and midodrine. We will be checking his orthostatics at least once a day. We will increase dose of midodrine, if needed. Hyperglycemia. I will increase his dose of Levemir. Coronary artery disease. Seems to be stable/controlled. Continue Lopressor with Zocor and enteric coated aspirin/Plavix. The patient supposedly had an episode of atrial fibrillation shortly before this admission. We are trying to get the records from [place] (supposedly it happened there). The patient is currently on IV heparin drip. The patient had recently amputation of her right great toefor treatment of osteomyelitis. See notes from podiatry. BPH without urinary obstruction. To continue Flomax and Proscar. - Exam Vitals: Temp Pulse Resp BP Pulse Ox 98.3 F 67 16 106/65 98 04/22/18 19:34 04/22/18 19:34 04/22/18 19:34 04/22/18 19:34 04/22/18 19:34 Exam: xx - Assessment and Plan (1) Orthostatic hypotension Current Visit: No Status: Acute (2) Diabetes mellitus Current Visit: No Status: Chronic (3) Coronary artery disease Current Visit: No Status: Chronic (4) A-fib Current Visit: Yes Status: Acute (5) Wound of right foot Current Visit: Yes Status: Acute (6) BPH (benign prostatic hyperplasia) Current Visit: No Status: Chronic - Time Spent with Patient Total time spent is greater than 50% in coordination of care (as documented) at patient's floor/unit and/or counseling patient: 25 - 35 minutes Plan of Care Discussed with: patient Internal Medicine: Result - Labs CBC & Chem 7: 04/21/18 13:02 04/21/18 02:00 - ABG Interpretation ABG results: PT/INR, D-dimer PT 10.9 Seconds (9.4-12.1) 04/21/18 13:02 Consult Discharge Plan - Plan Additional Instructions: 1. Follow up with Dr. Misael Stokes in wound care center or [facility] clinic 1 week after discharge. 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 transplanted heart: [place] heart Associated angina: without angina Qualified Code(s): I25.10 - Atherosclerotic heart disease of [place] coronary artery wit hout angina pectoris (4) A-fib Qualifiers: Atrial fibrillation type: paroxysmal Qualified Code(s): I48.0 - Paroxysmal atrial fibrillation (6) BPH (benign prostatic hyperplasia) Qualifiers: Lower urinary tract symptom presence: symptoms present Lower urinary tract symptom detail: urinary retention Qualified Code(s): N40.1 - Benign prostatic hyperplasia with lower urinary tract symptoms; R33.8 - Other retention of urine; R33.8 - Other retention of urine
[2018-04-23] MEDS: *HR* Heparin 5,000 UNIT/ML VIAL SQ SCH ×2 (04:56→17:44)
[2018-04-23] MEDS: Insulin LISPRO 300 UNITS/3 ML VIAL SQ SCH ×4 (08:23→21:01)
[2018-04-23] MEDS: BuPROPion XL (24 HR) 150 MG TABLET PO SCH (09:00)
[2018-04-23] MEDS: Aspirin Enteric Coated 81 MG Tablet PO SCH (09:01)
[2018-04-23] MEDS: Finasteride 5 MG TABLET PO SCH (09:01)
[2018-04-23] MEDS: Metoprolol XL (24 HR) Succ 25 MG TAB.ER.24H PO SCH (09:01)
[2018-04-23] MEDS: Megestrol Acetate 400 MG/10 ML UDC PO SCH ×2 (09:01→21:05)
--- NOTE | 2018-04-23 11:13 | Cardiology Progress Note ---
Date of Encounter: 04/23/18 Time of Encounter: 11:11 Assessment and Plan (1) Orthostatic hypotension Current Visit: No Status: Ruled-out Transferred to our [facility] from [place] [facility] inpatient rehab because of orthostatic hypotension, unable to have physical therapy. Started on Fludrocortisone at [place] [facility] without improvement. Added Midodrine 2.5mg 04/21/18, increased to 5mg TID on 04/22. Recommend increased water and Na intake, slow position change. Pt drinks mostly tea. Recommend water, but he still admits to limited water intake. Stop Toprol XL. Orthostatic BP this AM was 113/69 lying, 88/58 sitting. Discussed and reviewed with Dr. Cárdenas. Recommend neurology consult to evaluate for autonomic dysfunction. Cardiology signing off. Reconsult PRN. (2) PAF (paroxysmal atrial fibrillation) Current Visit: Yes Status: Acute Questionable diagnosis of PAF. Reason for consult states orthostatic hypotension in setting of PAF. On review of [place] [facility] documentation it states pt was tachycardic when "he stood up and appeared to be sinus tach, not thought to be A-Fib". No strips or ECG showing A-Fib. Requested any strips or ECGs from [place], none have been obtained. Continues to maintain SR on tele. TTE LVEF 55%. Mild segmental left ventricular systolic dysfunction (unchanged from prior). Mild LVDD. No significant valvular dysfunction. [id number] (Age, CAD, CVA, DM). High CVA risk. Given no confirmation of A-Fib, recommend he continue ASA and Plavix for his CVA hx. If can confirm PAF, could then discuss AC. (3) Coronary artery disease Current Visit: No Status: Acute Hx of CABG. Continue ASA, Statin. Stopping BB for orthostatic hypotension as above. Qualifiers: Coronary Disease-Associated Artery/Lesion type: [place] artery [place] vs. transplanted heart: [place] heart Associated angina: without angina Qualified Code(s): I25.10 - Atherosclerotic heart disease of [place] coronary artery without angina pectoris Discussion w patient/family: The assessment and plan as outlined above was discussed with the patient and/or family members who expressed understanding and agreement. All questions were answered. Thank you for involving us in the care of your patient. Please call with any questions. I will discuss all the above with Dr. Cárdenas and make changes as necessary. Subjective Principal diagnosis: right foot ulcer Interval history: Denies acute complaints this AM. Objective Vital Signs, Last 4 Hours Temp Pulse Pulse Pulse Resp BP BP 04/23/18 08:15 71 70 113/69 04/23/18 07:14 97.7 F 58 16 143/77 BP Pulse Ox 04/23/18 08:15 88/58 91 04/23/18 07:14 91 Vital Signs Temp Pulse Pulse Pulse Resp BP BP 04/23/18 08:15 71 70 113/69 04/23/18 07:14 97.7 F 58 16 143/77 04/23/18 07:10 58 143/77 04/23/18 05:14 60 91 101/64 04/23/18 05:08 98.5 F 61 16 101/64 04/22/18 19:34 98.3 F 67 67 66 16 106/65 106/65 04/22/18 15:43 97.5 F L 65 16 100/60 100/60 BP Pulse Ox 04/23/18 08:15 88/58 91 04/23/18 07:14 91 04/23/18 07:10 04/23/18 05:14 106/59 04/23/18 05:08 98 04/22/18 19:34 88/56 98 04/22/18 15:43 91/54 97 Intake and Output 04/22/18 04/23/18 04/23/18 23:59 07:59 15:59 Intake Total 440 / 440 240 / 240 Output Total 200 / 200 450 / 450 Balance 240 / 240 -210 / -210 Intake: Oral 440 / 440 240 / 240 Output: Urine 200 / 200 450 / 450 Other: Meal Dinner Percent of Meal Consumed 65% Stool Size Moderate Stool Consistency soft Stool Color Brown # Voids 1 # Urine Diapers 1 # Bowel Movements 0 # Bowel Movement Diapers 0 Weight 76 kg Blood Glucose* 265 84 Patient Weight 04/23/18 23:59 Weight 76 kg General: Conversant, No Apparent Distress HEENT: Atraumatic, Normocephaly, Mucus Membranes Moist Neck: No JVD Cardiac: Reg Rate and Rhythm, Normal S1 and S2, No Murmur Lungs: Normal Breath Sounds, No Wheeze, Rales, Rhonchi Neuro: Alert and responsive, No focal deficits noted Abdomen: Soft, Non-Tender Skin: No rashes noted on visualized skin Musculoskeletal: No Chest Wall Tenderness Extremities: No Clubbing, No Cyanosis, No Edema, Normal Pulses Results 04/21/18 13:02 04/21/18 02:00 Active Medications Acetaminophen (Tylenol) 650 mg PO Q6HR PRN PRN Reason: Mild Pain/Fever Stop: 10/20/18 16:39 Aspirin (Aspirin Ec) 81 mg PO DAILY [facility] Stop: 10/21/18 09:01 Last Admin: 04/23/18 09:01 Dose: 81 mg Bupropion HCl (Wellbutrin Xl) 150 mg PO DAILY [facility] Stop: 10/21/18 09:01 Last Admin: 04/23/18 09:00 Dose: 150 mg Clopidogrel Bisulfate (Plavix) 75 mg PO DAILY [facility] Stop: 10/21/18 09:01 Last Admin: 04/23/18 09:00 Dose: 75 mg Dextrose/Water (Dextrose 50% (Syg)) 25 ml IVP AD PRN PRN Reason: Hypoglycemia Stop: 10/20/18 17:21 Finasteride (Proscar) 5 mg PO DAILY [facility]; Protocol Stop: 10/21/18 09:01 Last Admin: 04/23/18 09:01 Dose: 5 mg Fludrocortisone Acetate (Florinef) 0.1 mg PO DAILY [facility] Stop: 10/21/18 09:01 Last Admin: 04/23/18 09:01 Dose: 0.1 mg Glucagon (Glucagen) 1 mg IM ONCE PRN PRN Reason: Hypoglycemia Stop: 10/20/18 17:21 Glucose (Gluctose) 15 gm PO ONCE PRN PRN Reason: Hypoglycemia Stop: 10/20/18 17:21 Glucose (Gluctose) 30 gm PO ONCE PRN PRN Reason: Hypoglycemia Stop: 10/20/18 17:21 Heparin Sodium (Porcine) (Heparin) 5,000 unit SQ Q12HCO [facility] Stop: 10/22/18 18:01 Last Admin: 04/23/18 04:56 Dose: 5,000 unit Dextrose (Dextrose 5%) 1,000 mls @ 100 mls/hr IVC .Q10H PRN PRN Reason: HYPOGLYCEMIA Stop: 10/20/18 17:21 Insulin Detemir (Levemir) 30 unit SQ HS [facility] Stop: 10/22/18 21:01 Last Admin: 04/22/18 21:30 Dose: 30 unit Insulin Human Lispro (Humalog) 0 units SQ HS [facility]; Protocol Stop: 10/20/18 21:01 Last Admin: 04/22/18 21:30 Dose: 6 units Insulin Human Lispro (Humalog) 0 units SQ TIDAC [facility]; Protocol Stop: 10/20/18 17:31 Last Admin: 04/23/18 08:23 Dose: Not Given Megestrol Acetate (Megace) 400 mg PO BID [facility]; Protocol Stop: 10/20/18 21:01 Last Admin: 04/23/18 09:01 Dose: 400 mg Midodrine (Proamatine) 5 mg PO 0800,1200,1700 KRUNAL Stop: 10/22/18 12:01 Last Admin: 04/23/18 09:01 Dose: 5 mg Naloxone HCl (Narcan) 0.4 mg IVP Q2MIN PRN PRN Reason: SEE COMMENTS Stop: 10/20/18 16:39 Simvastatin (Zocor) 80 mg PO HS [facility]; Protocol Stop: 10/20/18 21:01 Last Admin: 04/22/18 19:59 Dose: 80 mg Tamsulosin HCl (Flomax) 0.4 mg PO DAILY [facility]; Protocol Stop: 10/21/18 09:01 Last Admin: 04/23/18 09:01 Dose: 0.4 mg - Imaging and Cardiology Echo: report reviewed - EKG Interpretation EKG results cardiology: other (12 hr tele AVG HR 64, SR, no significant pauses or arrhythmias.) Consult Discharge Plan - Plan Additional Instructions: 1. Follow up with Dr. Misael Stokes in wound care center or [facility] clinic 1 week after discharge. Referrals: Michael Brown Jr, MD [Primary Care Provider] -
--- NOTE | 2018-04-23 12:41 | Neurology - Consult Note ---
<Lamont Harp - Last Filed: 04/23/18 17:48> Date of Encounter: 04/23/18 Time of Encounter: 12:41 Assessment and Plan (1) Orthostatic hypotension Current Visit: Yes Status: Chronic Patient with orthostatic hypotension causing inability to ambulate with physical therapy. Patient was placed on Fludrocortisone without improvement in orthostatic hypotension in the past. Cardiology evaluated him during current admission and started him on Midodrine. 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 Echo revealed LVEF 55%, no significant valvular dysfunction. Patient had a low morning cortisol level. Management per primary team. Continue Aspirin, Plavix, and statin given pervious CVA. Patient is asymptomatic and reports no complaints at this time. Blood pressure much improved. PT/OT consulted, participate as tolerated. (2) Coronary artery disease Current Visit: No Status: Chronic Cardiology signed off. Continue current therapy. Qualifiers: Coronary Disease-Associated Artery/Lesion type: [place] artery [place] vs. transplanted heart: [place] heart Associated angina: without angina Qualified Code(s): I25.10 - Atherosclerotic heart disease of [place] coronary artery without angina pectoris (3) Mixed hyperlipidemia Current Visit: No Status: Chronic Continue statin (4) Diabetes mellitus Current Visit: No Status: Chronic Management per primary team Qualifiers: Diabetes mellitus type: type 2 Diabetes mellitus senior care insulin use: with ocean transportation intermediary use Diabetes mellitus complication status: with skin complications Diabetes mellitus complication detail: with foot ulcer Qualified Code(s): E11.621 - Type 2 diabetes mellitus with foot ulcer; L97.509 - Non-pressure chronic ulcer of other part of unspecified foot with unspecified severity; Z79.4 - [facility] (current) use of insulin (5) Wound of right foot Current Visit: Yes Status: Acute Management per primary team History of Present Illness Chief complaint: Orthostatic hypotension HPI: Mr. Nava is a 78 year old male with a past medical history of paroxysmal A. 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 Of note, patient was placed on Fludrocortisone without improvement in orthostatic hypotension in the past. Patient takes Aspirin, Plavix, and statin. Cardiology evaluated him during current admission and started him on Midodrine. He denies syncope, palpitations, or dizziness with standing. He had a bowel movement today without any associated syncopal events. Patient is asymptomatic and reports no complaints at this time. Neurology was consulted for further recommendations due to concerns for autonomic dysfunction. Past Med Surg Social Fam HX - Past Medical History Medical history: coronary artery disease, diabetes, hyperlipidemia, other Additional medical history: multiple spinal fractures, left ear laceration, rib fractures, occlusion right ICA (chronic), BPH Psychiatric history: depression - Past Surgical History Surgical History: coronary bypass (CABG), other Additional surgical history: right great toe amputation - Social History Smoking Status: Never smoker Smokeless Tobacco Status: No Alcohol use: none Drug use: none - Family History Father Living Status: Sister Hx Family Endocrine Disorder: Yes (DM) Mother Living Status: Hx Family Endocrine Disorder: Yes (DM) Medications and Allergies Aspirin Enteric Coated [Aspirin EC] 81 mg PO DAILY 14 Days #14 tablet. 07/25/17 [Rx] Clopidogrel [Plavix] 75 mg PO DAILY 14 Days #14 tablet 07/25/17 [Rx] BuPROPion XL (24 HR) [Wellbutrin Xl] 150 mg PO DAILY 02/06/18 [History] Megestrol Acetate [Megace] 10 ml PO BID 04/10/18 [History] Insulin DETEMIR [Levemir] 15 unit SQ HS 30 Days [id number] 04/13/18 [Rx] Metoprolol [Lopressor] 25 mg PO BID tablet 04/13/18 [Rx] Simvastatin [Zocor] 80 mg PO HS tablet 04/13/18 [Rx] Tamsulosin [Flomax] 0.4 mg PO DAILY capsule 04/13/18 [Rx] Allergy/AdvReac Type Severity Reaction Status Date / Time No Known Allergies Allergy Verified 08/16/17 12:13 All Systems: The remainder of the systems were reviewed and are negative - Constitutional Constitutional ROS IM: daytime sleepiness, weakness, no chills, no fever(s), no headache(s) - Nose, Mouth, Throat Nose, mouth and throat: disequilibrium (toe amputation), no dizziness, no headache(s) - Cardiovascular Cardiovascular ROS IM: no chest pain, no palpitations - Respiratory Respiratory IM: no cough, no dyspnea - Gastrointestinal Gastrointestinal: constipation, no abdominal pain, no nausea, no vomiting - Genitourinary Genitourinary ROS: no urinary frequency, no urinary urgency - Musculoskeletal Musculoskeletal ROS IM: no back pain, no neck pain - Integumentary Integumentary IM: lesions, non-healing lesions, skin ulcer, wounds - Neurological Neurological ROS: lack of coordination (toe amputation), numbness, tingling, no confusion, no dizziness - Psychiatric Psychiatric general PM: no anxiety, no depression Physical Examination - Vital Signs Vital Signs: Initial Vital Signs Pulse Ox 99 04/20/18 15:22 - Constitutional General appearance: comfortable - Neurologic Sensorimotor examination: intact Detailed motor examination: grossly full strength in all extremities, full strength in all major muscle groups Motor examination - right side: 5/5: deltoids, biceps, triceps, wrist flexion, wrist extension, folder seamer automatic, hip flexors, tibialis Anterior, quadriceps, toe extension (EHL), plantarflexion Motor examination - left side: 5/5: deltoids, biceps, triceps, wrist flexion, wrist extension, hip flexors, folder seamer automatic, quadriceps, tibialis Anterior, toe extension (EHL), plantarflexion Detailed sensory examination: intact, light touch (peripheral neuropathy in feet) Reflex and gait examination: intact Reflexes: Biceps: 2+, Triceps: 2+, Brachioradialis: 2+, Patella: 2+, Achilles: 2+ Mental Status Examination: awake, alert, oriented to person, oriented to place, oriented to time, follows commands appropriately, answers questions appropriately, no agnosia, no aphasia, no aproxia, makes eye contact, follows simple commands, localizes noxious stimulation Cranial nerve examination: PERRL, EOMI, visual whittaker intact, sensory to face intact, no facial asymmetry is present, no dysarthria, hearing is intact symmetrically, soft palate elevates bilaterally upon phonation, flexes SCM and trapezius muscles symmetrically with full power, tongue protrudes midline, no atrophy or facial fasiculations present Cerebellar examination: no dysmetria, performs finger to nose and heel to luis symmetrically without ataxia, no truncal ataxia, no difficulty with rapid alternating movements Results - Laboratory Findings CBC and BMP: 04/21/18 13:02 04/21/18 02:00 Abnormal lab findings: Abnormal lab results RBC 4.07 M/mcL (4.19-5.50) L 04/21/18 13:02 Hgb 12.2 g/dL (12.9-16.9) L 04/21/18 13:02 Hct 36.6 % (37.5-50.1) L 04/21/18 13:02 RDW 16.0 % (11.5-14.5) H 04/21/18 13:02 MPV 8.7 fL (9.4-12.4) L 04/21/18 13:02 Chloride 110 mEq/L (98-107) H 04/21/18 02:00 BUN 37 mg/dL (8-23) H 04/21/18 02:00 BUN/Creatinine Ratio 32 (6-26) H 04/21/18 02:00 Glucose 278 mg/dL (70-105) H 04/21/18 02:00 POC Glucose 265 mg/dL (70-99) H 04/22/18 20:32 Calculated Osmolality 311 (280-300) H 04/21/18 02:00 Serum Total Protein 6.3 g/dL (6.4-8.9) L 04/20/18 16:52 Albumin 3.2 g/dL (3.5-5.7) L 04/20/18 16:52 Albumin/Globulin Ratio 1.0 (1.1-2.2) L 04/20/18 16:52 - Diagnostic Findings Additional findings: ITS Impressions Echocardiogram 04/20/18 16:53 Impressions: LVEF 55%. Normal LV chamber size, wall thickness and overall function. Mild segmental left ventricular systolic dysfunction. Mild left ventricular diastolic dysfunction. Atypical septal motion consistent with post-operative status. Normal right ventricular structure and function. Unable to estimate RVSP due to lack of adequate TR jet. No significant valvular dysfunction. Left Ventricular Wall Motion: Rest Echo Findings The basal inferior wall was akinetic. All other wall segments showed normal motion. Findings: Study Quality * Technically adequate exam. ECG Findings * Normal sinus rhythm. Left Ventricle * LVEF 55%. * Normal LV chamber size, wall thickness and overall function. * Mild segmental left ventricular systolic dysfunction. * Mild left ventricular diastolic dysfunction. * Atypical septal motion consistent with post-operative status. Right Ventricle * Normal right ventricular structure and function. Left Atrium * Mildly dilated left atrium. Right Atrium * Normal right atrial size. Aortic Valve * Trileaflet aortic valve. * Mildly sclerotic aortic valve leaflets. * No aortic regurgitation. * No aortic stenosis. Mitral Valve * Mild mitral annular calcification * Trace mitral regurgitation. * No mitral stenosis. Tricuspid Valve * Normal tricuspid valve structure and function. * No tricuspid regurgitation. * Unable to estimate RVSP due to lack of adequate TR jet. Pulmonic Valve * Pulmonic valve is not well visualized. * No pulmonic regurgitation. Aorta * Normally sized aortic root. Pericardium * The pericardium appears normal. IVC * Normal IVC dimensions and inspiratory collapse. Pulmonary Artery * Normal visualized portions of the main pulmonary artery. Consult Discharge Plan - Plan Additional Instructions: 1. Follow up with Dr. Misael Stokes in [facility] or [facility] clinic 1 week after discharge. Referrals: Michael Brown Jr, MD [Primary Care Provider] - <Tim Quezada - Last Filed: 04/23/18 18:57> Date of Encounter: 04/23/18 Time of Encounter: 18:50 Assessment and Plan (1) Orthostatic hypotension Current Visit: Yes Status: Chronic Patient certainly has proven orthostasis, however has not demonstrated syncope or any other clinical symptom. It is certainly reasonable to suspect that there could be an autonomic component due to his poorly controlled diabetes. Also from a hemodynamic perspective is my understanding that he has significant vasculopathy and likely has significant peripheral vascular disease and lack of elasticity of the arteries. I believe both of these factors may be contributing to the orthostasis. I do not see evidence of a multi-system atrophy however. Otherwise from a neurologic perspective there is no additional treatment to be rendered. I will reevaluate him at your request. History of Present Illness HPI: The chart was reviewed, the patient was seen and evaluated along with the resident. I agree with the neurology resident's assessment and history as stated above. Although patient has had demonstrable orthostasis, he has not had any clinical symptoms of it. He denies any dizziness or loss of consciousness. He is a poorly controlled diabetic, and also has peripheral vascular disease. All Systems: The remainder of the systems were reviewed and are negative Review of Systems: The balance of the systems review is negative. Physical Examination - Vital Signs Vital Signs: Initial Vital Signs Pulse Ox 99 04/20/18 15:22 - Neurologic Detailed motor examination: full strength in all major muscle groups Motor examination - right side: 5/5: deltoids, biceps, triceps, wrist flexion, wrist extension, folder seamer automatic, hip flexors, tibialis Anterior, quadriceps, toe extension (EHL), plantarflexion Motor examination - left side: 5: deltoids, biceps, triceps, wrist flexion, wrist extension, hip flexors, folder seamer automatic, quadriceps, tibialis Anterior, toe extension (EHL), plantarflexion Mental Status Examination: awake, alert, oriented to person, oriented to place, oriented to time, follows commands appropriately, answers questions appropriately, no agnosia, no aphasia, no aproxia Cranial nerve examination: PERRL, EOMI, visual whittaker intact, corneal reflexes brisk symmetrically, sensory to face intact, mastication intact, no facial asymmetry is present, no dysarthria, hearing is intact symmetrically, soft palate elevates bilaterally upon phonation, gag reflex intact, flexes SCM and trapezius muscles symmetrically with full power, tongue protrudes midline, no atrophy or facial fasiculations present Cerebellar examination: no dysmetria, performs finger to nose and heel to luis symmetrically without ataxia, no gait ataxia, no truncal ataxia, no difficulty with rapid alternating movements Results - Laboratory Findings CBC and BMP: 04/21/18 13:02 04/21/18 02:00 Abnormal lab findings: Abnormal lab results RBC 4.07 M/mcL (4.19-5.50) L 04/21/18 13:02 Hgb 12.2 g/dL (12.9-16.9) L 04/21/18 13:02 Hct 36.6 % (37.5-50.1) L 04/21/18 13:02 RDW 16.0 % (11.5-14.5) H 04/21/18 13:02 MPV 8.7 fL (9.4-12.4) L 04/21/18 13:02 Chloride 110 mEq/L (98-107) H 04/21/18 02:00 BUN 37 mg/dL (8-23) H 04/21/18 02:00 BUN/Creatinine Ratio 32 (6-26) H 04/21/18 02:00 Glucose 278 mg/dL (70-105) H 04/21/18 02:00 POC Glucose 268 mg/dL (70-99) H 04/23/18 16:10 Calculated Osmolality 311 (280-300) H 04/21/18 02:00 Serum Total Protein 6.3 g/dL (6.4-8.9) L 04/20/18 16:52 Albumin 3.2 g/dL (3.5-5.7) L 04/20/18 16:52 Albumin/Globulin Ratio 1.0 (1.1-2.2) L 04/20/18 16:52
[2018-04-23] MEDS: Insulin DETEMIR 100 UNIT/ML X5UNITS SQ SCH (21:03)
[2018-04-24] MEDS: *HR* Heparin 5,000 UNIT/ML VIAL SQ SCH ×2 (06:10→17:26)
--- NOTE | 2018-04-24 06:36 | Internal Med Progress Note ---
Hospitalist Progress Note - Encounter Date of Encounter: 04/23/18 Time of Encounter: 19:00 - Subjective Interval History: SUBJECTIVE: The patient has not started any ambulation yet. He becomes dizzy when he assumes sitting/standing position. Today morning his blood pressure in the supine position was 122/70; 85/56 in sitting position. Denies chest pain. Denies difficulty breathing. OBJECTIVE: Skin: Free of rash and discoloration. ENMT: Oral/pharyngeal mucosa is normal in appearance. Eyes: Sclera is white. There is no discharge from eyes. Respiratory: Normal breath sounds; no crackles or wheezes. CV: Heart is regular; no gallop or murmur. GI: Abdomen is soft and not tender. There is no palpable mass or visceromegaly. Neuro: There is no focal deficits. ADDITIONAL DATA: His telemetry shows normal sinus rhythm. His random cortisol level from today morning he is only 1.2 with normal range between 5.0 and 23.0. His fingersticks for glucose from today are 84, 188 and 268. ASSESSMENT AND PLAN: Postural hypotension. Low cortisol level. The patient may have some adrenal insufficiency. We will double the dose of Florinef. We will continue midodrine. I will give him low-dose prednisone every morning. He needs an endocrine consultoutpatient. Hyperglycemia. He is on increased dose of Levemir. He is increased dose of Humalog before each major meal. Coronary artery disease. Seems to be stable/controlled. Continue Lopressor wit h Zocor and enteric coated aspirin/Plavix. IV heparin has been stopped by cardiology. There is no evidence that he had atrial fibrillation in the past. The patient had recently amputation of her right great toefor treatment of osteomyelitis. See notes from podiatry. BPH without urinary obstruction. To continue Flomax and Proscar. - Exam Vitals: Temp Pulse Resp BP Pulse Ox 98.9 F 72 15 122/70 96 04/24/18 03:10 04/24/18 03:10 04/24/18 03:10 04/24/18 03:10 04/24/18 03:10 Exam: xx - Assessment and Plan (1) Orthostatic hypotension Current Visit: Yes Status: Chronic (2) Diabetes mellitus Current Visit: No Status: Chronic (3) Coronary artery disease Current Visit: No Status: Chronic (4) A-fib Current Visit: Yes Status: Acute (5) Wound of right foot Current Visit: Yes Status: Acute (6) BPH (benign prostatic hyperplasia) Current Visit: No Status: Chronic - Time Spent with Patient Total time spent is greater than 50% in coordination of care (as documented) at patient's floor/unit and/or counseling patient: 25 - 35 minutes Plan of Care Discussed with: patient Internal Medicine: Result - Labs CBC & Chem 7: 04/21/18 13:02 04/21/18 02:00 - ABG Interpretation ABG results: PT/INR, D-dimer PT 10.9 Seconds (9.4-12.1) 04/21/18 13:02 Consult Discharge Plan - Plan Additional Instructions: 1. Follow up with Dr. Misael Stokes in wound care center or [facility] clinic 1 week after discharge. Referrals: Michael Brown Jr, MD [Primary Care Provider] - _ (2) Diabetes mellitus Qualifiers: Diabetes mellitus type: type 2 Diabetes mellitus half-way insulin use: unspecified half-way insulin use status Diabetes mellitus complication status: with circulatory complication Diabetes mellitus complication detail: with other circulatory complications Qualified Code(s): E11.59 - Type 2 diabetes mellitus with other circulatory complications (3) Coronary artery disease Qualifiers: Coronary Disease-Associated Artery/Lesion type: [place] artery [place] vs. transplanted heart: [place] heart Associated angina: without angina Qualified Code(s): I25.10 - Atherosclerotic heart disease of [place] coronary artery without angina pectoris (4) A-fib Qualifiers: Atrial fibrillation type: paroxysmal Qualified Code(s): I48.0 - Paroxysmal atrial fibrillation (6) BPH (benign prostatic hyperplasia) Qualifiers: Lower urinary tract symptom presence: symptoms present Lower urinary tract symptom detail: urinary retention Qualified Code(s): N40.1 - Benign prostatic hyperplasia with lower urinary tract symptoms; R33.8 - Other retention of urine; R33.8 - Other retention of urine
[2018-04-24] MEDS ORDERED: Insulin LISPRO 300 UNITS/3 ML VIAL SQ SCH (07:30)
[2018-04-24 07:31] LABS: Basophils # 0.1 K/mcL (0.0-0.2); Basophils % 0.8 %; Eosinophils # 0.3 K/mcL (0.0-0.6); Eosinophils % 2.1 %; Hematocrit 36.4 % (37.5-50.1); Hemoglobin 12.2 g/dL (12.9-16.9); Immature Granulocytes % 0.6 % (0-4); Lymphocytes # 3.1 K/mcL (0.6-4.6); Lymphocytes % 26.3 %; Mean Corpuscular HGB Conc 33.5 g/dL (31.6-35.5); Mean Corpuscular Hemoglobin 30.3 pg (28.0-33.3); Mean Corpuscular Volume 90.3 fL (83.0-100.0); Mean Platelet Volume 8.7 fL (9.4-12.4); Monocytes # 0.8 K/mcL (0.0-1.3); Monocytes % 6.8 %; Neutrophils # 7.6 K/mcL (1.6-8.9); Platelet Count 361 K/mcL (140-400); Red Blood Count 4.03 M/mcL (4.19-5.50); Red Cell Distribution Width 16.3 % (11.5-14.5); Segmented Neutrophils % 63.4 %
[2018-04-24] MEDS: Insulin LISPRO 300 UNITS/3 ML VIAL SQ SCH ×6 (08:30→21:10)
[2018-04-24] MEDS: Finasteride 5 MG TABLET PO SCH (08:38)
[2018-04-24] MEDS: Megestrol Acetate 400 MG/10 ML UDC PO SCH (08:38)
[2018-04-24] MEDS: Aspirin Enteric Coated 81 MG Tablet PO SCH (08:38)
[2018-04-24] MEDS: BuPROPion XL (24 HR) 150 MG TABLET PO SCH (08:39)
[2018-04-24] MEDS ORDERED: predniSONE 10 MG TABLET PO SCH (09:00)
[2018-04-24 09:23] LABS: BUN/Creatinine Ratio 33 (6-26); Blood Urea Nitrogen 32 mg/dL (8-23); Carbon Dioxide 22 mEq/L (23-29); Chloride 114 mEq/L (98-107); Glucose 161 mg/dL (70-105); Osmolality,Calculated 308 (280-300); Sodium 144 mEq/L (136-145); eGFR For Non-African Americans > 60 (> 60)
--- NOTE | 2018-04-24 10:25 | Internal Med Progress Note ---
Hospitalist Progress Note - Encounter Date of Encounter: 04/24/18 Time of Encounter: 10:20 - Subjective Interval History: Mr. Nava is a 78 year old male transferred to our hospital from [facility] because of orthostatic hypotension and cannot have physical therapy. Past medical history is significant for diabetes, osteomyelitis S/P right big t oe amputation and finished antibiotic course, CAD S/P CABG, S/P left carotid surgery. Patient was hospitalized in our hospital because of weakness and uncontrolled diabetes. Patient was discharged to [facility] for further physical therapy. However, patient shows significant orthostatic hypotension and cannot have physical therapy. Patient was also found paroxysmal A. fib per cardiac monitoring there. Patient was placed on Fludrocortisone however his orthostatic hypotension does not improve. [facility] physician wants to and midodrine but worry about A Fib. Patient also on by mouth metoprolol. [facility] physician asked to transfer patient to our hospital and consult cardiology for further medication adjustment for his orthostatic hypotension. Patient denies shortness of breath, chest pain, nausea, dizziness, palpitation. He said he has no dizziness upon getting up. patient cntinue to have weakness from orthostatic hypotension, I check his BP this mornign supine 123/62, HR 67, sitting 72/39 will start IVF, bolus 500 firts then 100 ml per hour he also has normal TSH, but low random cortisol, he was placed on prednisone 10 mg, will increase to BID for now - Exam Vitals: Temp Pulse Resp BP Pulse Ox 98.6 F 70 15 149/75 96 04/24/18 07:20 04/24/18 07:20 04/24/18 07:20 04/24/18 07:20 04/24/18 07:20 Exam: CONSTITUTIONAL: patient appears as an age appropriate male in no acute distress. EYES Clear sclerae, bilateral pupils are equal, reactive to light. EMOI. RESPIRATORY: No accessory muscle use, bilateral clear to auscultation, no wheezing, no crackles/rales. CARDIOVASCULAR: Regular heart rate, normal S1 and S2, no murmurs GASTROINTESTINAL: bowel sounds present, soft, no tenderness. MUSCULOSKELETAL: Joints in normal range of motion, no clubbing, no edema, no cy anosis. Bilateral peripheral pulses 2+. NEUROLOGIC: CN II to XII are grossly intact, no focal neurological deficit. DVT Prophylaxis: Heparin subcutaneous - Summary of Assessment and Plan Summary of Assessment and Plan: Mr. Nava is a 78 year old male transferred to our hospital from [facility] because of orthostatic hypotension and cannot have physical therapy. Past medical history is significant for diabetes, osteomyelitis S/P right big toe amputation and finished antibiotic course, CAD S/P CABG, S/P left carotid cárdenas rgery. Patient was hospitalized in our hospital because of weakness and uncontrolled diabetes. Patient was discharged to [facility] for further physical therapy. However, patient shows significant orthostatic hypotension and cannot have physical therapy. Patient was also found paroxysmal A. fib per cardiac monitoring there. Patient was placed on Fludrocortisone however his orthostatic hypotension does not improve. [facility] physician wants to and midodrine but worry about A Fib. Patient also on by mouth metoprolol. [facility] physician asked to transfer patient to our hospital and consult cardiology for further medication adjustment for his orthostatic hypotension. Patient denies shortness of breath, chest pain, nausea, dizziness, palpitation. He said he has no dizziness upon getting up. patient cntinue to have weakness from orthostatic hypotension, I check his BP t his mornign supine 123/62, HR 67, sitting 72/39 will start IVF, bolus 500 firts then 100 ml per hour he also has normal TSH, but low random cortisol, he was placed on prednisone 10 mg, will increase to BID for now (1) Orthostatic hypotension, Current Visit: Yes Status: Chronic Patient with orthostatic hypotension causing inability to ambulate with physical therapy. I check his BP this morning SBP [id number] dropped to 72 by sitting BB was d/bhavin, on Fludrocortisone 0.2 mg, I will start IVF, bolus and at 100 ml per hour, d/c flomax ( alpha block), increase Midodrine to 10 mg TID Echo revealed LVEF 55%, no significant valvular dysfunction. Patient had a low morning cortisol level. increaase prednisone to 10 mg BID check orthostatic BP TID (2) Coronary artery disease Current Visit: No Status: Chronic Cardiology signed off. Continue Aspirin, Plavix, and statin Qualifiers: Coronary Disease-Associated Artery/Lesion type: [place] artery [place] vs. transplanted heart: [place] heart Associated angina: without angina Qualified Code(s): I25.10 - Atherosclerotic heart disease of [place] coronary artery without angina pectoris (3) Mixed hyperlipidemia Current Visit: No Status: Chronic Continue statin (4) Diabetes mellitus type 2 with hyperglycemia, due to prednisone, increase meal insulin to 10 unit TID Current Visit: No Status: Chronic Diabetes mellitus type: type 2 Diabetes mellitus oysterman insulin use: with oysterman use Diabetes mellitus complication status: with skin complications Diabetes mellitus complication detail: with foot ulcer Qualified Code(s): E11.621 - Type 2 diabetes mellitus with foot ulcer; L97.509 - Non-pressure chronic ulcer of other part of unspecified foot with unspecified severity; Z79.4 - oysterman (current) use of insulin (5) right foot diabetic ulcer, and chronic osteomylitis, new bone culture was positive on 04/21 for staph epi, will kofi SWIFT and Podiatry Dr stokes (6) Hx of stroke and 100% occlusion of right ICA and previous left carotid endarterectomy. Continue Aspirin, Plavix, and statin given pervious CVA. (7) paroxysmal A-fib?, cardiology was consulted, BB stopped due to orthostatic hypotension, current in sinus. TTE LVEF 55%. Mild segmental left ventricular systolic dysfunction (unchanged from prior). Mild LVDD. No significant valvular dysfunction. [id number] (Age, CAD, CVA, DM). High CVA risk. Given no confirmation of A-Fib, recommend he continue ASA and Plavix for his CVA hx. If can confirm PAF, could then discuss AC per cardiology consult. Current Visit: Yes Status: Acute (8) BPH (benign prostatic hyperplasia) continue fnasterides, but will hold flomax due to a-block hypotension Current Visit: No Status: Chronic Unable to discharge due to siginificant orthostatic hypotension, meds adjusted lali SWIFT and Dr stokes for his right foot wound and positive culture - Time Spent with Patient Total time spent is greater than 50% in coordination of care (as documented) at patient's floor/unit and/or counseling patient: Greater than 35 minutes Plan of Care Discussed with: patient Internal Medicine: Result - Labs CBC & Chem 7: 04/24/18 07:19 04/24/18 07:19 Labs: Short CBC 04/24/18 Range/Units 07:19 WBC 12.0 H (4.3-11.1) K/mcL Hgb 12.2 L (12.9-16.9) g/dL Hct 36.4 L (37.5-50.1) % Plt Count 361 (140-400) K/mcL Neutrophils # 7.6 (1.6-8.9) K/mcL BMP 04/24/18 07:19 Sodium 144 Potassium 4.0 Chloride 114 H Carbon Dioxide 22 L BUN 32 H Creatinine 0.97 Glucose 161 H Calcium 9.0 - ABG Interpretation ABG results: PT/INR, D-dimer PT 10.9 Seconds (9.4-12.1) 04/21/18 13:02 Consult Discharge Plan - Plan Additional Instructions: 1. Follow up with Dr. Misael Stokes in wound care center or [facility] clinic 1 week after discharge. Referrals: Michael Brown Jr, MD [Primary Care Provider] -
[2018-04-24] MEDS ORDERED: Ringers Solution, Lactated 500 ML IVC ONE (10:28)
[2018-04-24] MEDS: predniSONE 10 MG TABLET PO SCH ×2 (10:49→16:38)
--- NOTE | 2018-04-24 11:28 | Infectious Disease Consult ---
Date of Encounter: 04/24/18 Time of Encounter: 11:45 Assessment and Plan (1) Leukocytosis Status: Acute Assessment and plan: WBC elevated [place] admission[place] [address] with normal differential. Etiology infection vs. steroids. No other SIRS criteria noted. Blood cultures have not been drawn. Recommendations: Continue to trend WBC. Get blood cultures x 2 sets now. Repeat culture of the right foot wound. Check ESR and CRP. May need to consider imaging of the foot, but will defer imaging to Podiatry. Wound care and activity per the Podiatry and primary teams. Start Zosyn 3.375 grams IV Q8H. Duration of treatment depends on the clinical picture. Monitor renal function and for drug toxicity and dose-adjust antibiotics. Strict glucose control per the primary team. Qualifiers: Leukocytosis type: unspecified Qualified Code(s): D72.829 - Elevated white blood cell count, unspecified (2) Wound of right foot Status: Acute Assessment and plan: Location: Right foot, medial aspect. Non-healing surgical wound. Wound care per the Podiatry team. Antibiotic recommendations as above. (3) Orthostatic hypotension Status: Chronic Assessment and plan: Management per the cardiology, neurology, and primary teams. (4) Carotid occlusion, right Status: Chronic (5) Mixed hyperlipidemia Status: Chronic (6) Uncontrolled diabetes mellitus Status: Acute Assessment and plan: Strict glucose control. Qualifiers: Diabetes mellitus type: type 2 Glycemic state: with hyperglycemia Qualified Code(s): E11.65 - Type 2 diabetes mellitus with hyperglycemia Infectious Disease HPI - Data of Consult Patient: known to practice within the last 3 years Consult date: 04/24/18 Requesting Physician: Rex Becerril MD Primary Care Provider: Michael Brown Jr, MD - Consult Narrative Reason for consult: Foot infection History of present illness: Mr. Nava is a 78 year old male with a past medical history of CAD status post CABG, poorly-controlled DM x 40 years, HLD, and osteomyelitis of the right great toe status post amputation and 6 weeks of IV antibiotics on /March 2018. He was admitted to the hospital 04/20/18 for orthostatic hypotension, poorly controlled DM, and non-healing foot ulcer. We are consulted 04/24/18 for diabetic foot infection. Briefly, the patient is a 78 year old male with a past medical history as stated above. He is well-known to the ID service as we were consulted on his case in January with he had a right great toe infection and underwent amputation. Cultures grew MSSA and P. rettgeri. He was treated with 6 weeks of IV Rocephin and was transitioned to PO Bactrim 03/20/18, but according to the notes he could not tolerate the medication and had severe nausea, vomiting, and diarrhea so it is unclear how much he actually took. He was admitted to the hospital 04/10 for weakness, diarrhea, and GIANA and was discharged to [facility]. He developed orthostatic hypotension and was unable to participate in the PT and he was transferred here for further evaluation. Upon arrival, the patient was afebrile. At rest, his blood pressure was stable. No tachycardia or tachypnea. Labs revealed mildly elevated WBC at 11.4 and glucose of 327. TTE showed an EF 55%. Podiatry was consulted and did not feel the wound was infected, but a wound culture was obtained and is growing S. epi, Enterococcus, and unidentified GPR. Cardiology and neurology were consulted to assist with management of the orthostatic hypotension. Since admission, the patient has remained afebrile. He continues to have orthostasis. His WBC is mildly elevated at 12,000. He is not on any antibiotics. We've been asked to evaluate and make further recommendations. During my exam today, the patient states that overall he has felt well. He denies any fevers, chills, or rigors. Denies headache, neck pain, or dizziness. Per nursing, the patient has syncope/presyncope when standing. He denies chest pain, shortness of breath, or cough. Denies nausea, vomiting, or diarrhea. States that prior to yesterday, he had been constipated for 7 days. Denies abdominal pain or urinary frequency/hematuria, or dysuria. States his appetite was better prior to admission when he was on an appetite stimulant. States that the wound on his right foot has been stable, but he has been unable to see podiatry due to being at rehab. He denies pain at the site of the ulceration. Denies redness, swelling, or drainage. Denies pain in his joints, back, or extremities. Denies oral thrush or new skin lesions. The patient has been residing at a local inpatient rehab facility. He denies tobacco, alcohol, or illicit drug use. He is retired. Denies any chronic infectious diseases. Denies pet or animal exposures. Denies recent travel outside the [facility]. CC: Rex Becerril MD Past Med Surg Social Fam HX - Past Medical History Attestation: Yes The following information was validated with the patient. Source: patient, old records reviewed, nursing notes reviewed Medical history: coronary artery disease, diabetes, hyperlipidemia, other Additional medical history: multiple spinal fractures, left ear laceration, rib fractures, occlusion right ICA (chronic), BPH Psychiatric history: depression - Past Surgical History Surgical History: coronary bypass (CABG), other Additional surgical history: right great toe amputation - Social History Smoking Status: Never smoker Smokeless Tobacco Status: No Alcohol use: none Drug use: none Occupational status: retired Current living situation: [facility] Activity Level: Uses cane/walker Recent Out of Country Travel Within the Last 8 Weeks: No Exposure or Possible Exposure to Illness During Travel: No - Family History Father Living Status: Mother Living Status: Hx Family Endocrine Disorder: Yes (DM) Sister Hx Family Endocrine Disorder: Yes (DM) Infectious Disease-CN:Meds RX: Aspirin Enteric Coated [Aspirin EC] 81 mg PO DAILY 14 Days #14 tablet. 07/25/17 [Rx] RX: Clopidogrel [Plavix] 75 mg PO DAILY 14 Days #14 tablet 07/25/17 [Rx] RX: BuPROPion XL (24 HR) [Wellbutrin Xl] 150 mg PO DAILY 02/06/18 [History] RX: Megestrol Acetate [Megace] 10 ml PO BID 04/10/18 [History] RX: Insulin DETEMIR [Levemir] 15 unit SQ HS 30 Days [id number] 04/13/18 [Rx] RX: Metoprolol [Lopressor] 25 mg PO BID tablet 04/13/18 [Rx] RX: Simvastatin [Zocor] 80 mg PO HS tablet 04/13/18 [Rx] RX: Tamsulosin [Flomax] 0.4 mg PO DAILY capsule 04/13/18 [Rx] Allergy/AdvReac Type Severity Reaction Status Date / Time No Known Allergies Allergy Verified 08/16/17 12:13 All systems: reviewed and no additional remarkable complaints except as stated Exam - Constitutional Vitals: Temp Pulse Resp BP Pulse Ox 98.6 F 70 15 149/75 96 04/24/18 07:20 04/24/18 07:20 04/24/18 07:20 04/24/18 07:20 04/24/18 07:20 General appearance: average body habitus, cooperative, no acute distress - Head Head exam: Present: atraumatic, normal inspection, normocephalic - Eye Eye exam: Present: EOMI, normal appearance, PERRL Pupils: Present: normal accommodation - ENT ENT exam: Present: mucous membranes moist - Neck Neck exam: Present: normal inspection - Respiratory Respiratory exam: Present: CTAB. Absent: rales, respiratory distress, rhonchi, wheezes - Cardiovascular Cardiovascular exam: Present: RRR, +S1, +S2 - GI/Abdominal GI/Abdominal exam: Present: normal bowel sounds, soft. Absent: distended, tenderness - Extremities Exam Extremities exam: Absent: joint swelling, normal inspection (Ulceration noted to the medial aspect of the right foot overlying previous surgical site of great toe amputation. No surrounding erythema, warmth, or tenderness noted. Purulent drainage expressed from the wound with palpation of the surrounding area. No foul odor noted.), pedal edema, tenderness - Neurological Exam Neurological exam: Present: alert, oriented X3, no focal deficits - Psychiatric Psychiatric exam: Present: normal affect, normal mood - Skin Skin exam: Present: dry, intact, normal color, warm Infectious Disease CN: Results - Labs CBC & Chem 7: 04/25/18 03:27 04/25/18 03:27 Cultures: Cultures 04/21/18 10:30 Surgical Biopsy Culture - Preliminary Right Foot Staphylococcus epidermidis Gram Positive Cocci Gram Positive Rods#2 04/21/18 10:30 Anaerobic Culture - Preliminary Right Foot At this time, no anaerobic growth is present. The culture will be finalized after 5 days of incubation. Consult Discharge Plan - Plan Additional Instructions: 1. Follow up with Dr. Misael Stokes in wound care center or [facility] clinic 1 week after discharge. Referrals: Michael Brown Jr, MD [Primary Care Provider] - - Attending Attestation I examined this patient and my medical decision-making was reviewed with the Resident Physician. I agree with the documented findings, disposition and treatment plan as described except to the extent set forth below. This is an addendum to original report dictated by Dori Herman CNP. Please refer to Dori's note for full details. Patient is a 78-year-old gentleman well-known to our service who we have been following for quite some time since January of this year for right great toe infection. Patient underwent an amputation of the right great toe and cultures grew Providencia rettgeri and MSSA on 02/08/2018. Patient was treated for 6 weeks with IV Rocephin and transitioned to by mouth Bactrim on 03/20/2018. Patient also had anaerobes and was given Flagyl by me as an outpatient. 04/10/2018 patient was admitted to the hospital for acute kidney injury, dehy dration and diarrhea and was sent to [facility]. Patient apparently developed orthostatic hypotension unable to participate with physical therapy and was transferred here for evaluation. Since admission patient had a foot MRI which read marrow signal changes in the first metatarsal which are most compatible with osteomyelitis given surrounding soft tissue changes and ulceration of the first metatarsal head medially. No organized drainable fluid collection identified. Swab culture of the wound grew coag-negative staph, Enterococcus faecalis and 2 gram-positive rods likely anaerobes patient was started on broad antibiotics were asked to evaluate the patient and make further recommendations At this point if there is any osteomyelitis we will see what podiatry wants to do. Patient is going for surgery or Intra-Op cultures and biopsy to be done we will hold antibiotics and further notice. If patient is an be treated conservatively we will start empiric Zosyn while the cultures finalize. Duration of treatment depends on the clinical picture but likely 6 weeks.
[2018-04-24] MEDS: 0.9 % Sodium Chloride 1,000 ML IVC SCH (12:14)
[2018-04-24] MEDS ORDERED: Gadolinium Contrast Agent (WT Based) IV PRN (13:31)
--- NOTE | 2018-04-24 13:38 | Podiatry Progress Note ---
Date of Encounter: 04/24/18 Time of Encounter: 12:00 - Assessment and Plan (1) Wound of right foot Current Visit: Yes Status: Acute Assessment: Non-healing wound from right hallux amputation 01/31/[address] Stokes. Medial aspect of foot measuring 1.5 x 1 x 0.3 cm. Red beefy wound bed. Yellow purulent drainage noted. Hyperkeratosis noted to surrounding wound bed. No erythema, no streaking, no foul odor noted. Does not probe to bone. No calf pain with squeeze. WBC 12.0 Wound culture growing staph epidermis, gram positive cocci, and gram positive rods. ESR and CRP pending. VERONICA 02/08/18 Segmental Pressures Right PT/DP noncompressible Left PT 1.40 DP 1.38 XRAY 04/10 negative for OM. Plan: MRI ordered for further evaluation. May need to consider surgical intervention dependent upon findings. Cleansed wound with 0.9 NS. Placed maxorb alginate dressing Covered with 4x4 dry gauze and kerlex. Subjective Principal diagnosis: right foot ulcer Interval history: Patient awake in bed. Alert and oriented x 3. at bedside. Patient denies any fevers, chills, nausea, vomiting, or diarrhea. Denies any calf pain, chest pain, or shortness of breath. Objective - Vital Signs Vital Signs: Vital Signs Temp Pulse Pulse Pulse Resp BP BP 04/24/18 11:42 160/84 04/24/18 07:20 98.6 F 70 15 149/75 04/24/18 03:10 98.9 F 72 72 71 15 122/70 122/70 04/23/18 18:55 98.6 F 73 73 76 15 131/83 131/83 04/23/18 16:02 98.0 F 80 15 142/71 BP Pulse Ox 04/24/18 11:42 106/71 04/24/18 07:20 96 04/24/18 03:10 85/56 96 04/23/18 18:55 105/61 98 04/23/18 16:02 92 Intake and Output 04/23/18 04/24/18 04/24/18 23:59 07:59 15:59 Intake Total 360 / 360 100 / 100 620 / 620 Output Total 0 / 0 400 / 400 Balance 360 / 360 -300 / -300 620 / 620 Intake: IV Fluids 500 / 500 Lactated Ringers 500 ML @ 1000 500 / 500 mls/hr IVC .Q30M ONE Rx#: [id number] Oral 360 / 360 100 / 100 120 / 120 Output: Urine 0 / 0 400 / 400 Other: Meal Dinner Breakfast Percent of Meal Consumed 25% 25% # Urine Diapers 0 Weight 77.4 kg Blood Glucose* 392 128 136 Patient Weight 04/24/18 23:59 Weight 77.4 kg - Exam Exam: Constitiutional: Alert and oriented x 3. Vascular: non-palpable DP/PT, CFT <3 sec to all digits RLE, warm to warm from tibia to toes RLE, no calf pain with squeeze RLE Neurologic: Diminished sensation to touch, normal plantar response Dermatologic: Nonhealing ulcer to right medial 1st metatarsal measuring 1.5 x 1 x 0.3 cm, red beefy wound bed, right hallux amputation, hyperkeratosis noted to surrounding wound bed. Musculoskeletal: 3/5 muscle strength and normal tone RLE - Lab Result Diagrams: 04/24/18 07:19 04/24/18 07:19 Labs: Abnormal lab results WBC 12.0 K/mcL (4.3-11.1) H 04/24/18 07:19 RBC 4.03 M/mcL (4.19-5.50) L 04/24/18 07:19 Hgb 12.2 g/dL (12.9-16.9) L 04/24/18 07:19 Hct 36.4 % (37.5-50.1) L 04/24/18 07:19 RDW 16.3 % (11.5-14.5) H 04/24/18 07:19 MPV 8.7 fL (9.4-12.4) L 04/24/18 07:19 Chloride 114 mEq/L (98-107) H 04/24/18 07:19 Carbon Dioxide 22 mEq/L (23-29) L 04/24/18 07:19 BUN 32 mg/dL (8-23) H 04/24/18 07:19 BUN/Creatinine Ratio 33 (6-26) H 04/24/18 07:19 Glucose 161 mg/dL (70-105) H 04/24/18 07:19 POC Glucose 392 mg/dL (70-99) H 04/23/18 20:59 Calculated Osmolality 308 (280-300) H 04/24/18 07:19 Serum Total Protein 6.3 g/dL (6.4-8.9) L 04/20/18 16:52 Albumin 3.2 g/dL (3.5-5.7) L 04/20/18 16:52 Albumin/Globulin Ratio 1.0 (1.1-2.2) L 04/20/18 16:52 Microbiology, Last 48 Hours 04/21/18 10:30 Surgical Biopsy Culture - Preliminary Right Foot Staphylococcus epidermidis Gram Positive Cocci Gram Positive Rods#2 04/21/18 10:30 Anaerobic Culture - Preliminary Right Foot At this time, no anaerobic growth is present. The culture will be finalized after 5 days of incubation. Consult Discharge Plan - Plan Additional Instructions: 1. Follow up with Dr. Misael Stokes in wound care center or [facility] clinic 1 week after discharge. Referrals: Michael Brown Jr, MD [Primary Care Provider] -
[2018-04-24 13:47] LABS: C-Reactive Protein < 5 mg/L (Less than 10)
[2018-04-24] MEDS: Piperacillin/Tazobactam 3.375 GM in 0.9 % Sodium Chloride Mini Bag 100 ML IVPB SCH (16:37)
--- NOTE | 2018-04-24 16:49 | Electrocardiograph Report ---
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
--- NOTE | 2018-04-24 16:50 | Electrocardiograph Report ---
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
[2018-04-24] MEDS: Insulin DETEMIR 100 UNIT/ML X5UNITS SQ SCH (21:11)
[2018-04-25] MEDS: Piperacillin/Tazobactam 3.375 GM in 0.9 % Sodium Chloride Mini Bag 100 ML IVPB SCH ×3 (00:27→17:25)
[2018-04-25] MEDS: 0.9 % Sodium Chloride 1,000 ML IVC SCH ×4 (00:28→21:30)
[2018-04-25 00:30] LABS: Bilirubin,Urine Negative (Negative); Blood,Urine Negative (Negative); Clarity,Urine Clear (Clear); Color,Urine Yellow (Yellow); Glucose,Urine (UA) >=1000 mg/dL (Normal); Ketones,Urine Negative (Negative); Leukocyte Esterase,Urine Small (Negative); Nitrite,Urine Negative (Negative); PH,Urine 5.5 pH Units (5.0-8.0); Protein,Urine Trace mg/dL (Neg-Trace); Specific Gravity,Urine 1.021 (1.010-1.025); Urobilinogen,Urine Normal (Normal)
[2018-04-25 00:31] LABS: Bacteria,Urine None Seen per hpf (None-Few); Hyaline Casts,Urine None Seen per lpf (None-Few); RBC,Urine 0-3 per hpf (0-3); Squamous Epithelial Cell,Urine Many per lpf (None-Few)
[2018-04-25 04:15] LABS: Basophils % 0.4 %; Eosinophils % 0.1 %; Hematocrit 35.7 % (37.5-50.1); Hemoglobin 11.9 g/dL (12.9-16.9); Immature Granulocytes % 0.5 % (0-4); Lymphocytes # 1.5 K/mcL (0.6-4.6); Lymphocytes % 13.2 %; Mean Corpuscular HGB Conc 33.3 g/dL (31.6-35.5); Mean Corpuscular Hemoglobin 29.8 pg (28.0-33.3); Mean Corpuscular Volume 89.5 fL (83.0-100.0); Mean Platelet Volume 8.7 fL (9.4-12.4); Monocytes # 0.5 K/mcL (0.0-1.3); Monocytes % 4.2 %; Platelet Count 364 K/mcL (140-400); Red Blood Count 3.99 M/mcL (4.19-5.50); Red Cell Distribution Width 16.1 % (11.5-14.5); Segmented Neutrophils % 81.6 %
[2018-04-25 04:29] LABS: BUN/Creatinine Ratio 29 (6-26); Blood Urea Nitrogen 31 mg/dL (8-23); Calcium 8.5 mg/dL (8.6-10.3); Carbon Dioxide 20 mEq/L (23-29); Chloride 113 mEq/L (98-107); Glucose 181 mg/dL (70-105); Magnesium 1.9 mg/dL (1.6-2.6); Osmolality,Calculated 301 (280-300); Potassium 3.7 mEq/L (3.5-5.1); Sodium 140 mEq/L (136-145); eGFR For Non-African Americans > 60 (> 60)
[2018-04-25 04:41] LABS: Thyroid Stimulating Hormone 1.914 mcIU/mL (0.340-5.600)
[2018-04-25] MEDS: *HR* Heparin 5,000 UNIT/ML VIAL SQ SCH ×2 (05:19→17:29)
[2018-04-25] MEDS: Insulin LISPRO 300 UNITS/3 ML VIAL SQ SCH ×7 (08:22→21:29)
[2018-04-25] MEDS: Finasteride 5 MG TABLET PO SCH (08:23)
[2018-04-25] MEDS: BuPROPion XL (24 HR) 150 MG TABLET PO SCH (08:23)
[2018-04-25] MEDS: Aspirin Enteric Coated 81 MG Tablet PO SCH (08:23)
[2018-04-25] MEDS: predniSONE 10 MG TABLET PO SCH (08:24)
--- NOTE | 2018-04-25 09:42 | Infectious Disease Progress No ---
Date of Encounter: 04/25/18 Time of Encounter: 09:25 - Assessment and Plan (1) Leukocytosis Current Visit: No Status: Acute WBC elevated on admission[place] [address] with normal differential. Etiology infection vs. steroids. No other SIRS criteria noted. Resolved. Recommendations: Continue to trend WBC. Await further recommendations from the podiatry team regarding the MRI results. Wound care and activity per the Podiatry and primary teams. Continue Zosyn 3.375 grams IV Q8H. Duration of treatment depends on the clinical picture. Monitor renal function and for drug toxicity and dose-adjust antibiotics. Strict glucose control per the primary team. Qualifiers: Leukocytosis type: unspecified Qualified Code(s): D72.829 - Elevated white blood cell count, unspecified (2) Osteomyelitis Current Visit: No Status: Suspected Location: Right foot first metatarsal and possible second metatarsal head. Causative organism: Staph epi (oxacillin-susceptible), Enterococcus faecalis (amp-sensitive), and gram-positive nii that is still pending identification. Likely secondary to nonhealing surgical wound. MRI of the right foot completed 04/24/18 showed marrow signal changes of the first metatarsal which are most compatible with osteomyelitis given the surrounding soft tissue changes and ulceration of the first metatarsal head medially. There is no organized drainable fluid collection noted. There is also subtle nonspecific patchy edema and enhancement of the second metatarsal head with minimal associated decreased T1 signal which may reflect early changes of osteomyelitis versus reactive on infectious osteitis. Dye Can Operator consult and following. We will await their further recommendations. ESR was mildly elevated at 28, but the CRP is less than 5. Currently on IV Zosyn. Qualifiers: Osteomyelitis type: unspecified type Osteomyelitis location: foot Laterality: right Qualified Code(s): M86.9 - Osteomyelitis, unspecified (3) Wound of right foot Current Visit: Yes Status: Acute Location: Right foot, medial aspect. Non-healing surgical wound. Wound care per the Podiatry team. Antibiotic recommendations as above. (4) Orthostatic hypotension Current Visit: Yes Status: Chronic Management per the cardiology, neurology, and primary teams. (5) Carotid occlusion, right Current Visit: No Status: Chronic (6) Mixed hyperlipidemia Current Visit: No Status: Chronic (7) Uncontrolled diabetes mellitus Current Visit: No Status: Acute Strict glucose control. Qualifiers: Diabetes mellitus type: type 2 Glycemic state: with hyperglycemia Qualified Code(s): E11.65 - Type 2 diabetes mellitus with hyperglycemia - Subjective Interval history: Patient seen and examined. No acute events noted overnight. Patient states overall he feels well and wants to go home. Denies fevers, chills, or rigors. Denies chest pain, shortness of breath, or cough. Denies any dizziness or weakness. Denies nausea, vomiting, diarrhea, or constipation. Denies any abdominal pain or urinary complaints. He states his appetite is good and he ate most of his breakfast. Denies any pain in his joints or extremities. Denies any oral thrush or any skin lesions. Infect Dis PN-Objective Data - Labs CBC & Chem 7: 04/25/18 03:27 04/25/18 03:27 Labs: Laboratory Results - last 24 hr 04/24/18 04/24/18 04/24/18 07:19 07:19 11:33 WBC RBC Hgb Hct MCV MCH MCHC RDW Plt Count MPV Immature Gran % Seg Neutrophils % Lymphocytes % Monocytes % Eosinophils % Basophils % Neutrophils # Lymphocytes # Monocytes # Eosinophils # Basophils # ESR 28 H Sodium 144 Potassium 4.0 Chloride 114 H Carbon Dioxide 22 L BUN 32 H Creatinine 0.97 Est GFR ( Amer) > 60 Est GFR (Non-Af Amer) > 60 BUN/Creatinine Ratio 33 H Glucose 161 H POC Glucose 136 H Calculated Osmolality 308 H Calcium 9.0 Magnesium C-Reactive Protein < 5 TSH Urine Color Urine Clarity Urine pH Ur Specific [place] Urine Protein Urine Glucose (UA) Urine Ketones Urine Blood Urine Nitrite Urine Bilirubin Urine Urobilinogen Ur Leukocyte Esterase Urine Microscopic RBC Urine Microscopic WBC Ur Squamous Epith Cells Urine Bacteria Hyaline Casts Ur Culture Indicated? 04/24/18 04/25/18 04/25/18 20:52 00:15 03:27 WBC 11.1 RBC 3.99 L Hgb 11.9 L Hct 35.7 L MCV 89.5 MCH 29.8 MCHC 33.3 RDW 16.1 H Plt Count 364 MPV 8.7 L Immature Gran % 0.5 Seg Neutrophils % 81.6 Lymphocytes % 13.2 Monocytes % 4.2 Eosinophils % 0.1 Basophils % 0.4 Neutrophils # 9.0 H Lymphocytes # 1.5 Monocytes # 0.5 Eosinophils # 0.0 Basophils # 0.0 ESR Sodium Potassium Chloride Carbon Dioxide BUN Creatinine Est GFR ( Amer) Est GFR (Non-Af Amer) BUN/Creatinine Ratio Glucose POC Glucose 320 H Calculated Osmolality Calcium Magnesium C-Reactive Protein TSH Urine Color Yellow Urine Clarity Clear Urine pH 5.5 Ur Specific [place] 1.021 Urine Protein Trace Urine Glucose (UA) >=1000 H Urine Ketones Negative Urine Blood Negative Urine Nitrite Negative Urine Bilirubin Negative Urine Urobilinogen Normal Ur Leukocyte Esterase Small H Urine Microscopic RBC 0-3 Urine Microscopic WBC 5-15 H Ur Squamous Epith Cells Many H Urine Bacteria None Seen Hyaline Casts None Seen Ur Culture Indicated? NO. A 04/25/18 03:27 WBC RBC Hgb Hct MCV MCH MCHC RDW Plt Count MPV Immature Gran % Seg Neutrophils % Lymphocytes % Monocytes % Eosinophils % Basophils % Neutrophils # Lymphocytes # Monocytes # Eosinophils # Basophils # ESR Sodium 140 Potassium 3.7 Chloride 113 H Carbon Dioxide 20 L BUN 31 H Creatinine 1.06 Est GFR ( Amer) > 60 Est GFR (Non-Af Amer) > 60 BUN/Creatinine Ratio 29 H Glucose 181 H POC Glucose Calculated Osmolality 301 H Calcium 8.5 L Magnesium 1.9 C-Reactive Protein TSH 1.914 Urine Color Urine Clarity Urine pH Ur Specific [place] Urine Protein Urine Glucose (UA) Urine Ketones Urine Blood Urine Nitrite Urine Bilirubin Urine Urobilinogen Ur Leukocyte Esterase Urine Microscopic RBC Urine Microscopic WBC Ur Squamous Epith Cells Urine Bacteria Hyaline Casts Ur Culture Indicated? Cultures: Cultures 04/21/18 10:30 Surgical Biopsy Culture - Final Right Foot Staphylococcus epidermidis Enterococcus faecalis Gram Positive Rods#2 04/21/18 10:30 Anaerobic Culture - Preliminary Right Foot At this time, no anaerobic growth is present. The culture will be finalized after 5 days of incubation. Serology 04/25/18 Range/Units 00:15 Urine Color Yellow (Yellow) Urine Clarity Clear (Clear) Urine pH 5.5 (5.0-8.0) pH Units Ur Specific [place] 1.021 (1.010-1.025) Urine Protein Trace (Neg-Trace) mg/dL Urine Glucose (UA) >=1000 H (Normal) mg/dL Urine Ketones Negative (Negative) mg/dL Urine Blood Negative (Negative) Urine Nitrite Negative (Negative) Urine Bilirubin Negative (Negative) Urine Urobilinogen Normal (Normal) mg/dL Ur Leukocyte Esterase Small H (Negative) Urine Microscopic RBC 0-3 (0-3) per hpf Urine Microscopic WBC 5-15 H (0-3) per hpf Ur Squamous Epith Cells Many H (None-Few) per lpf Urine Bacteria None Seen (None-Few) per hpf Hyaline Casts None Seen (None-Few) per lpf Ur Culture Indicated? NO. A (NO) - Impressions Impressions Foot MRI 04/24/18 13:31 IMPRESSION: 1. Marrow signal changes of the 1st metatarsal which are most compatible with osteomyelitis given surrounding soft tissue changes and ulceration at the 1st metatarsal head medially. No organized drainable fluid collection identified. 2. Subtle nonspecific patchy edema and enhancement of the 2nd metatarsal head with minimal associated decreased T1 signal. Findings may reflect early changes of osteomyelitis versus reactive noninfectious osteitis. D/ / Thomas Worrell MD / Thomas Worrell MD Interpreting Provider: Thomas Worrell MD Exam - Constitutional Vitals: Temp Pulse Resp BP Pulse Ox 98.2 F 79 15 150/74 98 04/25/18 06:47 04/25/18 06:47 04/25/18 06:47 04/25/18 06:47 04/25/18 06:47 General appearance: average body habitus, cooperative, no acute distress - Head Head exam: Present: atraumatic, normal inspection, normocephalic - Eye Eye exam: Present: EOMI, normal appearance, PERRL Pupils: Present: normal accommodation - ENT ENT exam: Present: mucous membranes moist - Neck Neck exam: Present: normal inspection - Respiratory Respiratory exam: Present: CTAB. Absent: rales, respiratory distress, rhonchi, wheezes - Cardiovascular Cardiovascular exam: Present: RRR, +S1, +S2 - GI/Abdominal GI/Abdominal exam: Present: normal bowel sounds, soft. Absent: distended, tenderness - Extremities Exam Extremities exam: Absent: joint swelling, normal inspection (Right foot dressing clean, dry, and intact.), pedal edema, tenderness - Neurological Exam Neurological exam: Present: alert, oriented X3, no focal deficits - Psychiatric Psychiatric exam: Present: normal affect, normal mood - Skin Skin exam: Present: dry, intact, normal color, warm Consult Discharge Plan - Plan Additional Instructions: 1. Follow up with Dr. Misael Stokes in wound care center or [facility] clinic 1 week after discharge. Referrals: Michael Brown Jr, MD [Primary Care Provider] - - Attending Attestation I examined this patient and my medical decision-making was reviewed with the Resident Physician. I agree with the documented findings, disposition and fermín tment plan as described except to the extent set forth below.
--- NOTE | 2018-04-25 12:50 | Podiatry Progress Note ---
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 Stokes. Medial aspect of foot measuring 1.5 x 1 x 0.3 cm. Slough noted to wound bed. Yellow purulent drainage noted. Hyperkeratosis noted to surrounding wound bed. Erythema noted to surrounding tissue Does not probe to bone. No calf pain with squeeze. WBC 11.1 Wound culture growing staph epidermis, enterococcus, and gram positive rods. ESR 28 and CRP less than 5. VERONICA 02/08/18 Segmental Pressures Right PT/DP noncompressible Left PT 1.40 DP 1.38 XRAY 04/10 negative for OM. MRI positive for OM. Plan: Surgery Monday with Dr. Elizondo. Will make NPO after MN tomorrow 12.13 Cleansed wound with 0.9 NS. Placed maxorb alginate dressing Covered with 4x4 dry gauze and kerlex. Subjective Principal diagnosis: right foot ulcer Interval history: Patient awake in bed. Alert and oriented x 3. at bedside. Discussed MRI findings with patient and . Patient agreeable to surgery if necessary. Patient denies any fevers, chills, nausea, vomiting, or diarrhea. Denies any calf pain, chest pain, or shortness of breath. Objective - Vital Signs Vital Signs: Vital Signs Temp Pulse Pulse Pulse Resp BP BP 04/25/18 10:45 98.8 F 82 17 157/85 04/25/18 06:47 98.2 F 79 15 150/74 04/25/18 03:40 76 73 145/73 04/25/18 03:38 98.4 F 76 15 145/73 04/24/18 19:34 98.3 F 83 14 155/72 04/24/18 19:33 83 82 155/72 04/24/18 16:08 97.9 F 73 16 146/76 BP Pulse Ox 04/25/18 10:45 95 04/25/18 06:47 98 04/25/18 03:40 91/53 04/25/18 03:38 96 04/24/18 19:34 99 04/24/18 19:33 138/75 04/24/18 16:08 97 Intake and Output 04/24/18 04/25/18 04/25/18 23:59 07:59 15:59 Intake Total 1340 / 1340 500 / 500 120 / 120 Output Total 200 / 200 0 / 0 225 / 225 Balance 1140 / 1140 500 / 500 -105 / -105 Intake: IV Fluids 1100 / 1100 100 / 100 0.9 % Sodium Chloride 1,000 ML 1000 / 1000 @ 100 mls/hr IVC .Q10H KRUNAL Rx#: [id number] Zosyn 3.375 GM In 0.9 % Sodium 100 / 100 100 / 100 Chloride (Mini-Bag +) 100 ML @ 25 mls/hr IVPB Q8HR KRUNAL Rx#: [id number] Oral 240 / 240 400 / 400 120 / 120 Output: Urine 200 / 200 0 / 0 225 / 225 Other: Meal Breakfast Percent of Meal Consumed 45% 100% Weight 78.2 kg Blood Glucose* 320 155 184 Patient Weight 04/25/18 23:59 Weight 78.2 kg - Exam Exam: Constitiutional: Alert and oriented x 3. Vascular: non-palpable DP/PT, CFT <3 sec to all digits RLE, warm to warm from tibia to toes RLE, no calf pain with squeeze RLE Neurologic: Diminished sensation to touch, normal plantar response Dermatologic: Nonhealing ulcer to right medial 1st metatarsal measuring 1.5 x 1 x 0.3 cm, red beefy wound bed, right hallux amputation, hyperkeratosis noted to surrounding wound bed. Musculoskeletal: 3/5 muscle strength and normal tone RLE - Lab Result Diagrams: 04/25/18 03:27 04/25/18 03:27 Labs: Abnormal lab results RBC 3.99 M/mcL (4.19-5.50) L 04/25/18 03:27 Hgb 11.9 g/dL (12.9-16.9) L 04/25/18 03:27 Hct 35.7 % (37.5-50.1) L 04/25/18 03:27 RDW 16.1 % (11.5-14.5) H 04/25/18 03:27 MPV 8.7 fL (9.4-12.4) L 04/25/18 03:27 Neutrophils # 9.0 K/mcL (1.6-8.9) H 04/25/18 03:27 ESR 28 mm/hr (0-10) H 04/24/18 07:19 Chloride 113 mEq/L (98-107) H 04/25/18 03:27 Carbon Dioxide 20 mEq/L (23-29) L 04/25/18 03:27 BUN 31 mg/dL (8-23) H 04/25/18 03:27 BUN/Creatinine Ratio 29 (6-26) H 04/25/18 03:27 Glucose 181 mg/dL (70-105) H 04/25/18 03:27 POC Glucose 320 mg/dL (70-99) H 04/24/18 20:52 Calculated Osmolality 301 (280-300) H 04/25/18 03:27 Calcium 8.5 mg/dL (8.6-10.3) L 04/25/18 03:27 Serum Total Protein 6.3 g/dL (6.4-8.9) L 04/20/18 16:52 Albumin 3.2 g/dL (3.5-5.7) L 04/20/18 16:52 Albumin/Globulin Ratio 1.0 (1.1-2.2) L 04/20/18 16:52 Urine Glucose (UA) >=1000 mg/dL (Normal) H 04/25/18 00:15 Ur Leukocyte Esterase Small (Negative) H 04/25/18 00:15 Urine Microscopic WBC 5-15 per hpf (0-3) H 04/25/18 00:15 Ur Squamous Epith Cells Many per lpf (None-Few) H 04/25/18 00:15 Ur Culture Indicated? NO. (NO) A 04/25/18 00:15 Microbiology, Last 48 Hours 04/21/18 10:30 Surgical Biopsy Culture - Final Right Foot Staphylococcus epidermidis Enterococcus faecalis Gram Positive Rods#2 04/21/18 10:30 Anaerobic Culture - Preliminary Right Foot At this time, no anaerobic growth is present. The culture will be finalized after 5 days of incubation. Consult Discharge Plan - Plan Additional Instructions: 1. Follow up with Dr. Misael Stokes in wound care center or [facility] 1 week after discharge. Referrals: Michael Brown Jr, MD [Primary Care Provider] -
--- NOTE | 2018-04-25 12:52 | Internal Med Progress Note ---
Hospitalist Progress Note - Encounter Date of Encounter: 04/25/18 Time of Encounter: 12:50 - Subjective Interval History: Pt had PT this morning and he reported back pain when sitting up, but denies dizziness or lightheadedness. Does have bilateral leg weakness when standing up. Also reported significant weight loss recently. - Exam Vitals: Temp Pulse Resp BP Pulse Ox 98.8 F 82 17 157/85 95 04/25/18 10:45 04/25/18 10:45 04/25/18 10:45 04/25/18 10:45 04/25/18 10:45 - Assessment and Plan (1) Diabetes mellitus Current Visit: No Status: Chronic (2) Coronary artery disease Current Visit: No Status: Chronic (3) BPH (benign prostatic hyperplasia) Current Visit: No Status: Chronic (4) Orthostatic hypotension Current Visit: Yes Status: Chronic (5) Wound of right foot Current Visit: Yes Status: Acute (6) A-fib Current Visit: Yes Status: Acute - Time Spent with Patient Total time spent is greater than 50% in coordination of care (as documented) at patient's floor/unit and/or counseling patient: Internal Medicine: Result - Labs CBC & Chem 7: 04/25/18 03:27 04/25/18 03:27 Labs: Short CBC 04/25/18 Range/Units 03:27 WBC 11.1 (4.3-11.1) K/mcL Hgb 11.9 L (12.9-16.9) g/dL Hct 35.7 L (37.5-50.1) % Plt Count 364 (140-400) K/mcL Neutrophils # 9.0 H (1.6-8.9) K/mcL BMP 04/24/18 04/25/18 07:19 03:27 Sodium 144 140 Potassium 4.0 3.7 Chloride 114 H 113 H Carbon Dioxide 22 L 20 L BUN 32 H 31 H Creatinine 0.97 1.06 Glucose 161 H 181 H Calcium 9.0 8.5 L Urine 04/25/18 Range/Units 00:15 Urine Color Yellow (Yellow) Urine Clarity Clear (Clear) Urine pH 5.5 (5.0-8.0) pH Units Ur Specific [place] 1.021 (1.010-1.025) Urine Protein Trace (Neg-Trace) mg/dL Urine Glucose (UA) >=1000 H (Normal) mg/dL - ABG Interpretation ABG results: PT/INR, D-dimer PT 10.9 Seconds (9.4-12.1) 04/21/18 13:02 - Impressions Impressions Foot MRI 04/24/18 13:31 IMPRESSION: 1. Marrow signal changes of the 1st metatarsal which are most compatible with osteomyelitis given surrounding soft tissue changes and ulceration at the 1st metatarsal head medially. No organized drainable fluid collection identified. 2. Subtle nonspecific patchy edema and enhancement of the 2nd metatarsal head with minimal associated decreased T1 signal. Findings may reflect early changes of osteomyelitis versus reactive noninfectious osteitis. D/ / Thomas Worrell MD / Thomas Worrell MD Interpreting Provider: Thomas Worrell MD Consult Discharge Plan - Plan Additional Instructions: 1. Follow up with Dr. Misael Stokes in wound care center or [facility] clinic 1 week after discharge. Referrals: Michael Brown Jr, MD [Primary Care Provider] - (1) Diabetes mellitus Qualifiers: Qualified Code(s): E11.59 - Type 2 diabetes mellitus with other circulatory complications (2) Coronary artery disease Qualifiers: Qualified Code(s): I25.10 - Atherosclerotic heart disease of [place] coronary artery without angina pectoris (3) BPH (benign prostatic hyperplasia) Qualifiers: Qualified Code(s): N40.1 - Benign prostatic hyperplasia with lower urinary tract symptoms; R33.8 - Other retention of urine (6) A-fib Qualifiers: Qualified Code(s): I48.0 - Paroxysmal atrial fibrillation
[2018-04-25] MEDS: Insulin DETEMIR 100 UNIT/ML X5UNITS SQ SCH (21:29)
[2018-04-26] MEDS: *HR* Heparin 5,000 UNIT/ML VIAL SQ SCH ×2 (05:14→17:32)
[2018-04-26 05:53] LABS: Basophils # 0.1 K/mcL (0.0-0.2); Basophils % 0.4 %; Eosinophils # 0.1 K/mcL (0.0-0.6); Eosinophils % 0.6 %; Hematocrit 35.3 % (37.5-50.1); Immature Granulocytes % 0.3 % (0-4); Lymphocytes # 3.3 K/mcL (0.6-4.6); Mean Corpuscular Hemoglobin 29.8 pg (28.0-33.3); Mean Corpuscular Volume 87.6 fL (83.0-100.0); Mean Platelet Volume 8.5 fL (9.4-12.4); Monocytes # 0.8 K/mcL (0.0-1.3); Monocytes % 6.6 %; Neutrophils # 7.2 K/mcL (1.6-8.9); Platelet Count 348 K/mcL (140-400); Red Blood Count 4.03 M/mcL (4.19-5.50); Red Cell Distribution Width 16.3 % (11.5-14.5); Segmented Neutrophils % 63.1 %
[2018-04-26 07:07] LABS: BUN/Creatinine Ratio 30 (6-26); Blood Urea Nitrogen 24 mg/dL (8-23); Calcium 8.9 mg/dL (8.6-10.3); Carbon Dioxide 18 mEq/L (23-29); Chloride 112 mEq/L (98-107); Glucose 147 mg/dL (70-105); Osmolality,Calculated 295 (280-300); Potassium 3.4 mEq/L (3.5-5.1); Sodium 139 mEq/L (136-145); eGFR For Non-African Americans > 60 (> 60)
[2018-04-26] MEDS: Insulin LISPRO 300 UNITS/3 ML VIAL SQ SCH ×7 (07:51→21:57)
[2018-04-26 08:39] LABS: Total Volume 24 Hour,Urine 1.97 Liters (0.80-1.80)
[2018-04-26] MEDS: Finasteride 5 MG TABLET PO SCH (08:40)
[2018-04-26] MEDS: BuPROPion XL (24 HR) 150 MG TABLET PO SCH (08:40)
[2018-04-26] MEDS: predniSONE 10 MG TABLET PO SCH (08:41)
[2018-04-26] MEDS: Aspirin Enteric Coated 81 MG Tablet PO SCH (08:41)
--- NOTE | 2018-04-26 10:26 | Infectious Disease Progress No ---
Date of Encounter: 04/26/18 Time of Encounter: 10:24 - Assessment and Plan (1) Leukocytosis Current Visit: No Status: Acute WBC elevated [place] admission[place] [id number] with normal differential. Etiology infection vs. steroids. No other SIRS criteria noted. Resolved. Recommendations: Continue to trend WBC. Wound care and activity per the Podiatry and primary teams. Hold Zosyn for now and re-start post-op. Duration of treatment depends on the clinical picture. Monitor renal function and for drug toxicity and dose-adjust antibiotics. Strict glucose control per the primary team. Qualifiers: Leukocytosis type: unspecified Qualified Code(s): D72.829 - Elevated white blood cell count, unspecified (2) Osteomyelitis Current Visit: Yes Status: Suspected Location: Right foot first metatarsal and possible second metatarsal head. Causative organism: Staph epi (oxacillin-susceptible), Enterococcus faecalis (am p-sensitive), and gram-positive nii that is still pending identification. Likely secondary to nonhealing surgical wound. MRI of the right foot completed 04/24/18 showed marrow signal changes of the fi rst metatarsal which are most compatible with osteomyelitis given the surrounding soft tissue changes and ulceration of the first metatarsal head medially. There is no organized drainable fluid collection noted. There is also subtle nonspecific patchy edema and enhancement of the second metatarsal head with minimal associated decreased T1 signal which may reflect early changes of osteomyelitis versus reactive on infectious osteitis. Industrial Organizational Psychologist consult and following. Planning for I & D tomorrow. ESR was mildly elevated at 28, but the CRP is less than 5. Zosyn on hold until post-op. Qualifiers: Osteomyelitis type: unspecified type Osteomyelitis location: foot Laterality: right Qualified Code(s): M86.9 - Osteomyelitis, unspecified (3) Wound of right foot Current Visit: Yes Status: Acute Location: Right foot, medial aspect. Non-healing surgical wound. Wound care per the Podiatry team. Antibiotic recommendations as above. (4) Orthostatic hypotension Current Visit: No Status: Chronic Management per the cardiology, neurology, and primary teams. (5) Carotid occlusion, right Current Visit: No Status: Chronic (6) Mixed hyperlipidemia Current Visit: No Status: Chronic (7) Uncontrolled diabetes mellitus Current Visit: No Status: Acute Strict glucose control. Qualifiers: Diabetes mellitus type: type 2 Glycemic state: with hyperglycemia Qualified Code(s): E11.65 - Type 2 diabetes mellitus with hyperglycemia - Subjective Interval history: Patient seen and examined. No acute events noted overnight. Patient states overall he feels well and wants to go home. Denies fevers, chills, or rigors. Denies chest pain, shortness of breath, or cough. Denies any dizziness or weakness. Denies nausea, vomiting, diarrhea, or constipation. Denies any abdominal pain or urinary complaints. He states his appetite is good and he ate most of his breakfast. Denies any pain in his joints or extremities. Denies any oral thrush or any skin lesions. Infect Dis PN-Objective Data - Labs CBC & Chem 7: 04/26/18 04:44 04/26/18 04:44 Labs: Laboratory Results - last 24 hr 04/24/18 04/24/18 04/25/18 07:57 17:10 07:04 WBC RBC Hgb Hct MCV MCH MCHC RDW Plt Count MPV Immature Gran % Seg Neutrophils % Lymphocytes % Monocytes % Eosinophils % Basophils % Neutrophils # Lymphocytes # Monocytes # Eosinophils # Basophils # Sodium Potassium Chloride Carbon Dioxide BUN Creatinine Est GFR ( Amer) Est GFR (Non-Af Amer) BUN/Creatinine Ratio Glucose POC Glucose 128 H 260 H 155 H Calculated Osmolality Calcium Urine Total Volume Urine Creatinine Ur Creatinine 24 Hour Urine Sodium Ur Sodium 24 Hour 04/25/18 04/26/18 04/26/18 10:50 02:00 04:44 WBC 11.4 H RBC 4.03 L Hgb 12.0 L Hct 35.3 L MCV 87.6 MCH 29.8 MCHC 34.0 RDW 16.3 H Plt Count 348 MPV 8.5 L Immature Gran % 0.3 Seg Neutrophils % 63.1 Lymphocytes % 29.0 Monocytes % 6.6 Eosinophils % 0.6 Basophils % 0.4 Neutrophils # 7.2 Lymphocytes # 3.3 Monocytes # 0.8 Eosinophils # 0.1 Basophils # 0.1 Sodium Potassium Chloride Carbon Dioxide BUN Creatinine Est GFR ( Amer) Est GFR (Non-Af Amer) BUN/Creatinine Ratio Glucose POC Glucose 184 H Calculated Osmolality Calcium Urine Total Volume 1.97 H Urine Creatinine 54 Ur Creatinine 24 Hour 1064 Urine Sodium 149.0 Ur Sodium 24 Hour 294 H 04/26/18 04:44 WBC RBC Hgb Hct MCV MCH MCHC RDW Plt Count MPV Immature Gran % Seg Neutrophils % Lymphocytes % Monocytes % Eosinophils % Basophils % Neutrophils # Lymphocytes # Monocytes # Eosinophils # Basophils # Sodium 139 Potassium 3.4 L Chloride 112 H Carbon Dioxide 18 L BUN 24 H Creatinine 0.79 Est GFR ( Amer) > 60 Est GFR (Non-Af Amer) > 60 BUN/Creatinine Ratio 30 H Glucose 147 H POC Glucose Calculated Osmolality 295 Calcium 8.9 Urine Total Volume Urine Creatinine Ur Creatinine 24 Hour Urine Sodium Ur Sodium 24 Hour Cultures: Cultures 04/21/18 10:30 Anaerobic Culture - Final Right Foot No anaerobes were recovered. 04/21/18 10:30 Surgical Biopsy Culture - Final Right Foot Staphylococcus epidermidis Enterococcus faecalis Gram Positive Rods#2 Serology 04/26/18 04/25/18 Range/Units 02:00 00:15 Urine Color Yellow (Yellow) Urine Clarity Clear (Clear) Urine pH 5.5 (5.0-8.0) pH Units Ur Specific [place] 1.021 (1.010-1.025) Urine Protein Trace (Neg-Trace) mg/dL Urine Glucose (UA) >=1000 H (Normal) mg/dL Urine Ketones Negative (Negative) mg/dL Urine Blood Negative (Negative) Urine Nitrite Negative (Negative) Urine Bilirubin Negative (Negative) Urine Urobilinogen Normal (Normal) mg/dL Ur Leukocyte Esterase Small H (Negative) Urine Microscopic RBC 0-3 (0-3) per hpf Urine Microscopic WBC 5-15 H (0-3) per hpf Ur Squamous Epith Cells Many H (None-Few) per lpf Urine Bacteria None Seen (None-Few) per hpf Hyaline Casts None Seen (None-Few) per lpf Ur Culture Indicated? NO. A (NO) Urine Total Volume 1.97 H (0.80-1.80) Liters Urine Creatinine 54 mg/dL Ur Creatinine 24 Hour 1064 (800-2000) mg/day Urine Sodium 149.0 mEq/L Ur Sodium 24 Hour 294 H (40-220) mEq/day - Impressions Impressions Lumbar Spine X-Ray 04/25/18 10:16 IMPRESSION: Chronic T11 compression fracture. Otherwise, no acute abnormality identified. D/ / Chepe Quiles MD / Chepe Quiles MD Interpreting Provider: Chepe Quiles MD Exam - Constitutional Vitals: Temp Pulse Resp BP Pulse Ox 97.9 F 77 16 121/77 96 04/26/18 06:34 04/26/18 06:34 04/26/18 06:34 04/26/18 06:34 04/26/18 06:34 General appearance: average body habitus, cooperative, no acute distress - Head Head exam: Present: atraumatic, normal inspection, normocephalic - Eye Eye exam: Present: EOMI, normal appearance, PERRL Pupils: Present: normal accommodation - ENT ENT exam: Present: mucous membranes moist - Neck Neck exam: Present: normal inspection - Respiratory Respiratory exam: Present: CTAB. Absent: rales, respiratory distress, rhonchi, wheezes - Cardiovascular Cardiovascular exam: Present: RRR, +S1, +S2 - GI/Abdominal GI/Abdominal exam: Present: normal bowel sounds, soft. Absent: distended, tenderness - Extremities Exam Extremities exam: Absent: normal inspection (Right foot dressing C/D/I), pedal edema, tenderness - Neurological Exam Neurological exam: Present: alert, oriented X3, no focal deficits - Psychiatric Psychiatric exam: Present: normal affect, normal mood - Skin Skin exam: Present: dry, intact, normal color, warm Consult Discharge Plan - Plan Additional Instructions: 1. Follow up with Dr. Misael Stokes in wound care center or [facility] clinic 1 week after discharge. Referrals: Michael Brown Jr, MD [Primary Care Provider] - - Attending Attestation I examined this patient and my medical decision-making was reviewed with the Resident Physician. I agree with the documented findings, disposition and treatment plan as described except to the extent set forth below.
[2018-04-26] MEDS ORDERED: Ondansetron 4 MG/2 ML VIAL IVP PRN (10:52)
--- NOTE | 2018-04-26 11:43 | Internal Med Progress Note ---
Hospitalist Progress Note - Encounter Date of Encounter: 04/25/18 Time of Encounter: 11:41 - Subjective Interval History: Pt has no complaints at this time. - Exam Vitals: Temp Pulse Resp BP Pulse Ox 97.4 F L 80 16 126/78 100 04/26/18 11:00 04/26/18 11:00 04/26/18 11:00 04/26/18 11:00 04/26/18 11:00 Exam: CONSTITUTIONAL: patient appears as an age appropriate male in no acute distress. EYES Clear sclerae, bilateral pupils are equal, reactive to light. EMOI. RESPIRATORY: No accessory muscle use, bilateral clear to auscultation, no wheezing, no crackles/rales. CARDIOVASCULAR: Regular heart rate, normal S1 and S2, no murmurs GASTROINTESTINAL: bowel sounds present, soft, no tenderness. MUSCULOSKELETAL: Joints in normal range of motion, no clubbing, no edema, no cyanosis. Bilateral peripheral pulses 2+. NEUROLOGIC: CN II to XII are grossly intact, no focal neurological deficit. 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 Wound culture grew multiple organisms including Staphylococcus, enterococcus, and gram-positive rods. He was on IV Zosyn. Repeat right foot MRI demonstrated first metatarsal and the second metatarsal osteomyelitis. Podiatry is planning surgery on 04/27. - Continue wound care and dressing change daily. - ID following, podiatry following, appreciate help. (2) Osteomyelitis Current Visit: Yes Status: Suspected Assessment and Plan: Same as above. (3) Orthostatic hypotension Current Visit: No Status: Chronic Assessment and Plan: Patient has orthostatic hypotension, he has long time diabetes with neuropathy. Patient also has bilateral carotid artery disease. However, patient denies lightheadedness, syncope, or dizziness. His major symptom is weakness and back pain when sitting up or standing. - Get up with records assistant only, get up slowly and immediately lay down if patient complaint of dizziness, nausea, or any discomfort. - Patient has tried fludrocortisone in the past without significant effect, cardiology ordered Midrin, dose has been adjusted to the maximum. - Patient also has low cortisol level, adrenal insufficiency was suspected, pending ACTH, physiological dose of prednisone started. - Patient still having severe recorded orthostatic hypotension with all the above treatment, however, it does not cause significant safety issues at this point, we will continue monitoring. (4) Adrenal insufficiency Current Visit: Yes Status: Suspected Assessment and Plan: Pending ACTH, further workup as outpatient if needed, continue physiological dose of prednisone. (5) Diabetes mellitus Current Visit: No Status: Chronic Assessment and Plan: Poorly controlled diabetes. Continue basal and sliding scale insulin (6) Coronary artery disease Current Visit: No Status: Chronic Assessment and Plan: Patient has no chest pain. S/P CABG. On aspirin, Plavix, beta alissa, and statin (7) BPH (benign prostatic hyperplasia) Current Visit: No Status: Chronic Assessment and Plan: Continue home medication tamsulosin and finasteride. (8) A-fib Current Visit: Yes Status: Acute Assessment and Plan: Report by [place] physician that patient has intermittent A. fib. Sinus rhythm right now. - Continue cardiac monitoring - Echocardiogram EF 55%, mild LVDD, no obvious valvular disease. - normal Magnesium and TSH. - No confirmed pAF per cardiology, continue ASA and Plavix for now. IF pt has a recorded AFIb, the AC will be started. 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 DVT Prophylaxis: Heparin subcutaneous - Time Spent with Patient Total time spent is greater than 50% in coordination of care (as documented) at patient's floor/unit and/or counseling patient: Greater than 35 minutes Plan of Care Discussed with: patient Internal Medicine: Result - Labs CBC & Chem 7: 04/26/18 04:44 04/26/18 04:44 Labs: Short CBC 04/26/18 Range/Units 04:44 WBC 11.4 H (4.3-11.1) K/mcL Hgb 12.0 L (12.9-16.9) g/dL Hct 35.3 L (37.5-50.1) % Plt Count 348 (140-400) K/mcL Neutrophils # 7.2 (1.6-8.9) K/mcL BMP 04/26/18 04:44 Sodium 139 Potassium 3.4 L Chloride 112 H Carbon Dioxide 18 L BUN 24 H Creatinine 0.79 Glucose 147 H Calcium 8.9 - ABG Interpretation ABG results: PT/INR, D-dimer PT 10.9 Seconds (9.4-12.1) 04/21/18 13:02 - Impressions Impressions Lumbar Spine X-Ray 04/25/18 10:16 IMPRESSION: Chronic T11 compression fracture. Otherwise, no acute abnormality identified. D/ / Chepe Quiles MD / Chepe Quiles MD Interpreting Provider: Chepe Quiles MD Consult Discharge Plan - Plan Additional Instructions: 1. Follow up with Dr. Misael Stokes in wound care center or [facility] clinic 1 week after discharge. Referrals: Michael Brown Jr, MD [Primary Care Provider] - (2) Osteomyelitis Qualifiers: Osteomyelitis type: unspecified type Osteomyelitis location: foot [place]ality: right Qualified Code(s): M86.9 - Osteomyelitis, unspecified (5) Diabetes mellitus Qualifiers: Diabetes mellitus type: type 2 Diabetes mellitus system technologist insulin use: unspecified retirement insulin use status Diabetes mellitus complication status: with circulatory complication Diabetes mellitus complication detail: with other circulatory complications Qualified Code(s): E11.59 - Type 2 diabetes mellitus with other circulatory complications (6) Coronary artery disease Qualifiers: Coronary Disease-Associated Artery/Lesion type: [place] artery [place] vs. transplanted heart: [place] heart Associated angina: without angina Qualified Code(s): I25.10 - Atherosclerotic heart disease of [place] coronary artery wi thout angina pectoris (7) BPH (benign prostatic hyperplasia) Qualifiers: Lower urinary tract symptom presence: symptoms present Lower urinary tract symptom detail: urinary retention Qualified Code(s): N40.1 - Benign prostatic hyperplasia with lower urinary tract symptoms; R33.8 - Other retention of urine (8) A-fib Qualifiers: Atrial fibrillation type: paroxysmal Qualified Code(s): I48.0 - Paroxysmal atrial fibrillation (9) Compression fx, thoracic spine Qualifiers: Encounter type: subsequent encounter Fracture healing: with routine healing Qualified Code(s): S22.000D - Wedge compression fracture of unspecified thoracic vertebra, subsequent encounter for fracture with routine healing
--- NOTE | 2018-04-26 12:07 | Podiatry Progress Note ---
Date of Encounter: 04/26/18 Time of Encounter: 11:15 - Assessment and Plan (1) Wound of right foot Current Visit: Yes Status: Acute Assessment: Non-healing wound from right hallux amputation 01/31/[address] Stokes. Dressing in tact to right foot with no drainage noted. No calf pain with squeeze. CFT <3 seconds WBC 11.4 Wound culture growing staph epidermis, enterococcus, and gram positive rods. 04/24 ESR 28 and CRP less than 5. VERONICA 02/08/18 Segmental Pressures Right PT/DP noncompressible Left PT 1.40 DP 1.38 MRI positive for OM. Plan: Surgery Monday with Dr. Elizondo. NPO after MN. Nursing to change dressing. Subjective Principal diagnosis: right foot ulcer Interval history: Patient awake in bed. Alert and oriented x 3. at bedside. Updated on plan for surgery tomorrow. Patient denies any fevers, chills, nausea, vomiting, or diarrhea. Denies any calf pain, chest pain, or shortness of breath. Objective - Vital Signs Vital Signs: Vital Signs Temp Pulse Resp BP Pulse Ox 04/26/18 11:00 97.4 F L 80 16 126/78 100 04/26/18 06:34 97.9 F 77 16 121/77 96 04/26/18 03:46 98.7 F 76 14 161/84 97 04/25/18 22:46 98.8 F 76 15 161/81 95 04/25/18 18:59 97.7 F 84 15 163/84 97 04/25/18 14:10 98.2 F 83 18 138/74 99 Intake and Output 04/25/18 04/26/18 04/26/18 23:59 07:59 15:59 Intake Total 2480 / 2480 0 / 0 Output Total 550 / 550 550 / 550 Balance 1930 / 1930 -550 / -550 Intake: IV Fluids 1999 0.9 % Sodium Chloride 1,000 ML 1999 @ 100 mls/hr IVC .Q10H KRUNAL Rx#: [id number] Oral 480 / 480 0 / 0 Output: Urine 550 / 550 550 / 550 Other: Meal Dinner Percent of Meal Consumed 5% # Bowel Movements 0 0 Weight 79 kg Blood Glucose* 231 105 144 Patient Weight 04/26/18 23:59 Weight 79 kg - Lab Result Diagrams: 04/26/18 04:44 04/26/18 04:44 Labs: Abnormal lab results WBC 11.4 K/mcL (4.3-11.1) H 04/26/18 04:44 RBC 4.03 M/mcL (4.19-5.50) L 04/26/18 04:44 Hgb 12.0 g/dL (12.9-16.9) L 04/26/18 04:44 Hct 35.3 % (37.5-50.1) L 04/26/18 04:44 RDW 16.3 % (11.5-14.5) H 04/26/18 04:44 MPV 8.5 fL (9.4-12.4) L 04/26/18 04:44 ESR 28 mm/hr (0-10) H 04/24/18 07:19 Potassium 3.4 mEq/L (3.5-5.1) L 04/26/18 04:44 Chloride 112 mEq/L (98-107) H 04/26/18 04:44 Carbon Dioxide 18 mEq/L (23-29) L 04/26/18 04:44 BUN 24 mg/dL (8-23) H 04/26/18 04:44 BUN/Creatinine Ratio 30 (6-26) H 04/26/18 04:44 Glucose 147 mg/dL (70-105) H 04/26/18 04:44 POC Glucose 144 mg/dL (70-99) H 04/26/18 11:06 Serum Total Protein 6.3 g/dL (6.4-8.9) L 04/20/18 16:52 Albumin 3.2 g/dL (3.5-5.7) L 04/20/18 16:52 Albumin/Globulin Ratio 1.0 (1.1-2.2) L 04/20/18 16:52 Urine Glucose (UA) >=1000 mg/dL (Normal) H 04/25/18 00:15 Ur Leukocyte Esterase Small (Negative) H 04/25/18 00:15 Urine Microscopic WBC 5-15 per hpf (0-3) H 04/25/18 00:15 Ur Squamous Epith Cells Many per lpf (None-Few) H 04/25/18 00:15 Ur Culture Indicated? NO. (NO) A 04/25/18 00:15 Urine Total Volume 1.97 Liters (0.80-1.80) H 04/26/18 02:00 Ur Sodium 24 Hour 294 mEq/day (40-220) H 04/26/18 02:00 Microbiology, Last 48 Hours 04/21/18 10:30 Anaerobic Culture - Final Right Foot No anaerobes were recovered. 04/21/18 10:30 Surgical Biopsy Culture - Final Right Foot Staphylococcus epidermidis Enterococcus faecalis Gram Positive Rods#2 Consult Discharge Plan - Plan Additional Instructions: 1. Follow up with Dr. Misael Stokes in wound care center or [facility] clinic 1 week after discharge. Referrals: Michael Brown Jr, MD [Primary Care Provider] -
--- NOTE | 2018-04-26 12:10 | Internal Med Progress Note ---
Hospitalist Progress Note - Encounter Date of Encounter: 04/26/18 Time of Encounter: 12:08 - Subjective Interval History: Pt has no complaints at this time. - Exam Vitals: Temp Pulse Resp BP Pulse Ox 97.4 F L 80 16 126/78 100 04/26/18 11:00 04/26/18 11:00 04/26/18 11:00 04/26/18 11:00 04/26/18 11:00 Exam: CONSTITUTIONAL: patient appears as an age appropriate male in no acute distress. EYES Clear sclerae, bilateral pupils are equal, reactive to light. EMOI. RESPIRATORY: No accessory muscle use, bilateral clear to auscultation, no wheezing, no crackles/rales. CARDIOVASCULAR: Regular heart rate, normal S1 and S2, no murmurs GASTROINTESTINAL: bowel sounds present, soft, no tenderness. MUSCULOSKELETAL: Joints in normal range of motion, no clubbing, no edema, no cyanosis. Bilateral peripheral pulses 2+. NEUROLOGIC: CN II to XII are grossly intact, no focal neurological deficit. 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 Wound culture grew multiple organisms including Staphylococcus, enterococcus, and gram-positive rods. He was on IV Zosyn. Repeat right foot MRI demonstrated first metatarsal and the second metatarsal osteomyelitis. Podiatry is planning surgery on 04/27. - Continue wound care and dressing change daily. - ID following, podiatry following, appreciate help. (2) Osteomyelitis Current Visit: Yes Status: Suspected Assessment and Plan: Same as above. (3) Orthostatic hypotension Current Visit: No Status: Chronic Assessment and Plan: Patient has orthostatic hypotension, he has long time diabetes with neuropathy. Patient also has bilateral carotid artery disease. However, patient denies lightheadedness, syncope, or dizziness. His major symptom is weakness and back pain when sitting up or standing. - Get up with assistant front end manager only, get up slowly and immediately lay down if patient complaint of dizziness, nausea, or any discomfort. - Patient has tried fludrocortisone in the past without significant effect, cardiology ordered Midrin, dose has been adjusted to the maximum. - Patient also has low cortisol level, adrenal insufficiency was suspected, pending ACTH, physiological dose of prednisone started. - Patient still having severe recorded orthostatic hypotension with all the above treatment, however, it does not cause significant safety issues at this point, we will continue monitoring. (4) Adrenal insufficiency Current Visit: Yes Status: Suspected Assessment and Plan: Pending ACTH, further workup as outpatient if needed, continue physiological dose of prednisone. (5) Diabetes mellitus Current Visit: No Status: Chronic Assessment and Plan: Poorly controlled diabetes. Continue basal and sliding scale insulin (6) Coronary artery disease Current Visit: No Status: Chronic Assessment and Plan: Patient has no chest pain. S/P CABG. On aspirin, Plavix, beta alissa, and statin (7) BPH (benign prostatic hyperplasia) Current Visit: No Status: Chronic Assessment and Plan: Continue home medication tamsulosin and finasteride. (8) A-fib Current Visit: Yes Status: Acute Assessment and Plan: Report by [place] physician that patient has intermittent A. fib. Sinus rhythm right now. - Continue cardiac monitoring - Echocardiogram EF 55%, mild LVDD, no obvious valvular disease. - normal Magnesium and TSH. - No confirmed pAF per cardiology, continue ASA and Plavix for now. IF pt has a recorded AFIb, the AC will be started. 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 DVT Prophylaxis: Heparin subcutaneous - Time Spent with Patient Total time spent is greater than 50% in coordination of care (as documented) at patient's floor/unit and/or counseling patient: Greater than 35 minutes Plan of Care Discussed with: patient Internal Medicine: Result - Labs CBC & Chem 7: 04/26/18 04:44 04/26/18 04:44 Labs: Short CBC 04/26/18 Range/Units 04:44 WBC 11.4 H (4.3-11.1) K/mcL Hgb 12.0 L (12.9-16.9) g/dL Hct 35.3 L (37.5-50.1) % Plt Count 348 (140-400) K/mcL Neutrophils # 7.2 (1.6-8.9) K/mcL BMP 04/26/18 04:44 Sodium 139 Potassium 3.4 L Chloride 112 H Carbon Dioxide 18 L BUN 24 H Creatinine 0.79 Glucose 147 H Calcium 8.9 - ABG Interpretation ABG results: PT/INR, D-dimer PT 10.9 Seconds (9.4-12.1) 04/21/18 13:02 - Impressions Impressions Lumbar Spine X-Ray 04/25/18 10:16 IMPRESSION: Chronic T11 compression fracture. Otherwise, no acute abnormality identified. D/ / Chepe Quiles MD / Chepe Quiles MD Interpreting Provider: Chepe Quiles MD Consult Discharge Plan - Plan Additional Instructions: 1. Follow up with Dr. Misael Stokes in wound care center or [facility] clinic 1 week after discharge. Referrals: Michael Brown Jr, MD [Primary Care Provider] - (2) Osteomyelitis Qualifiers: Osteomyelitis type: unspecified type Osteomyelitis location: foot Laterality: right Qualified Code(s): M86.9 - Osteomyelitis, unspecified (5) Diabetes mellitus Qualifiers: Diabetes mellitus type: type 2 Diabetes mellitus retirement insulin use: unspecified assistant terminal manager insulin use status Diabetes mellitus complication status: with circulatory complication Diabetes mellitus complication detail: with other circulatory complications Qualified Code(s): E11.59 - Type 2 diabetes mellitus with other circulatory complications (6) Coronary artery disease Qualifiers: Coronary Disease-Associated Artery/Lesion type: [place] artery [place] vs. transplanted heart: [place] heart Associated angina: without angina Qualified Code(s): I25.10 - Atherosclerotic heart disease of [place] coronary artery without angina pectoris (7) BPH (benign prostatic hyperplasia) Qualifiers: Lower urinary tract symptom presence: symptoms present Lower urinary tract symptom detail: urinary retention Qualified Code(s): N40.1 - Benign prostatic hyperplasia with lower urinary tract symptoms; R33.8 - Other retention of urine (8) A-fib Qualifiers: Atrial fibrillation type: paroxysmal Qualified Code(s): I48.0 - Paroxysmal atrial fibrillation (9) Compression fx, thoracic spine Qualifiers: Encounter type: subsequent encounter Fracture healing: with routine healing Qualified Code(s): S22.000D - Wedge compression fracture of unspecified thoracic vertebra, subsequent encounter for fracture with routine healing
[2018-04-26] MEDS: 0.9 % Sodium Chloride 1,000 ML IVC SCH (13:10)
--- NOTE | 2018-04-26 18:07 | Anesthesia Evaluation PreOp ---
Addendum entered and electronically signed by Delores Ray MD 04/27/18 16:05: Pt is NPO, labs reviewed. plan MAC, plan b GA Laboratory Tests 04/11/18 04/21/18 04/27/18 03:09 13:02 04:10 WBC 12.5 H Hgb 11.9 L Hct 35.8 L Plt Count 361 PT 10.9 INR 1.0 Sodium Potassium Chloride Carbon Dioxide BUN Creatinine Est Mean Plasma Glucose 226 04/27/18 04:10 WBC Hgb Hct Plt Count PT INR Sodium 139 Potassium 4.4 D Chloride 109 H Carbon Dioxide 25 BUN 27 H Creatinine 1.01 Est Mean Plasma Glucose Original Note: Date of Encounter: 04/26/18 Time of Encounter: 18:15 - Past History Planned Operation: Rt Partial Ray Amputation Cardiac History: HTN, Hyperlipidemia, Cardiac Surgery (CABG 2008), Other (CEA) Pulmonary History: Denies Any Significant HX NUTRITION THERAPIST History: CVA Other Medical History: Diabetes Type II, Other (Anxiety Depression) Anesthesia History: No Prior Anesthetic Complications Alcohol Use: none Drug use: none Medications and Allergies Aspirin Enteric Coated [Aspirin EC] 81 mg PO DAILY 14 Days #14 tablet. 07/25/17 [Rx] Clopidogrel [Plavix] 75 mg PO DAILY 14 Days #14 tablet 07/25/17 [Rx] BuPROPion XL (24 HR) [Wellbutrin Xl] 150 mg PO DAILY 02/06/18 [History] Megestrol Acetate [Megace] 10 ml PO BID 04/10/18 [History] Insulin DETEMIR [Levemir] 15 unit SQ HS 30 Days [id number] 04/13/18 [Rx] Metoprolol [Lopressor] 25 mg PO BID tablet 04/13/18 [Rx] Simvastatin [Zocor] 80 mg PO HS tablet 04/13/18 [Rx] Tamsulosin [Flomax] 0.4 mg PO DAILY capsule 04/13/18 [Rx] Allergy/AdvReac Type Severity Reaction Status Date / Time No Known Allergies Allergy Verified 08/16/17 12:13 - Meds/Allergy Pre-op Review Medications Reviewed: Yes Allergies Reviewed: Yes Beta Blockers on Current Med List: Yes (on Metoprolol) Anesthesia Results - Labs 04/26/18 04:44 04/26/18 04:44 Laboratory Tests 04/26/18 04/26/18 04:44 04:44 Hgb 12.0 L Hct 35.3 L Plt Count 348 Sodium 139 Potassium 3.4 L BUN 24 H Creatinine 0.79 - Imaging Additional studies: 2018 ECHO EF 55%, no valvular dysfunction Anesthesia Exam O2 Sat Weight 79 kg O2 Sat by Pulse Oximetry 99 O2 Sat by Pulse Oximetry 100 O2 Sat by Pulse Oximetry 96 O2 Sat by Pulse Oximetry 97 O2 Sat by Pulse Oximetry 95 O2 Sat by Pulse Oximetry 97 Vital Signs Pulse Ox 99 04/20/18 15:22 Height: 5'10 Weight: 174 lbs NPO (# of Hours): MN Pain Scale: 0 - HEENT Pupil (Motor): Pupils equal, EOMI Oral Opening: Greater than 3 - NUTRITION THERAPIST LOC: Oriented NUTRITION THERAPIST Motor: Normal RUE, Normal LUE, Normal LLE, Normal Face, Deficit RLE (non healing wound) NUTRITION THERAPIST Sensory: Normal: RUE, LUE, LLE, Face, Deficit: RLE (paresthesia) - Cardiac Rhythm: Regular Murmur: None JVD: No Carotid Bruit: No - Pulmonary Breath Sounds: bilateral Clear Respiratory Effort: Symmetrical Anesthesia Assess/Plan ASA Score: 3 (HTN CAD DM) Level of consciousness: Cooperative, Oriented Anesthetic Plan: MAC Autologous Blood: No Monitoring Plan: Standard Monitors Recovery Plan: Other (Discussed MAC, possible GA, agrees to proceed)
[2018-04-27] MEDS: *HR* Heparin 5,000 UNIT/ML VIAL SQ SCH ×2 (05:06→21:18)
[2018-04-27 05:19] LABS: Basophils # 0.1 K/mcL (0.0-0.2); Basophils % 0.6 %; Eosinophils # 0.3 K/mcL (0.0-0.6); Eosinophils % 2.2 %; Hematocrit 35.8 % (37.5-50.1); Hemoglobin 11.9 g/dL (12.9-16.9); Immature Granulocytes % 0.5 % (0-4); Lymphocytes # 3.7 K/mcL (0.6-4.6); Mean Corpuscular HGB Conc 33.2 g/dL (31.6-35.5); Mean Corpuscular Volume 90.2 fL (83.0-100.0); Mean Platelet Volume 8.6 fL (9.4-12.4); Monocytes # 0.9 K/mcL (0.0-1.3); Monocytes % 7.2 %; Neutrophils # 7.4 K/mcL (1.6-8.9); Platelet Count 361 K/mcL (140-400); Red Blood Count 3.97 M/mcL (4.19-5.50); Red Cell Distribution Width 16.8 % (11.5-14.5); Segmented Neutrophils % 59.5 %
[2018-04-27 05:39] LABS: BUN/Creatinine Ratio 27 (6-26); Blood Urea Nitrogen 27 mg/dL (8-23); Calcium 9.1 mg/dL (8.6-10.3); Carbon Dioxide 25 mEq/L (23-29); Chloride 109 mEq/L (98-107); Glucose 233 mg/dL (70-105); Osmolality,Calculated 301 (280-300); Potassium 4.4 mEq/L (3.5-5.1); Sodium 139 mEq/L (136-145); eGFR For Non-African Americans > 60 (> 60)
[2018-04-27] MEDS: Insulin LISPRO 300 UNITS/3 ML VIAL SQ SCH ×3 (08:21→21:28)
[2018-04-27] MEDS: Aspirin Enteric Coated 81 MG Tablet PO SCH (08:26)
[2018-04-27] MEDS: BuPROPion XL (24 HR) 150 MG TABLET PO SCH (08:31)
[2018-04-27] MEDS: predniSONE 10 MG TABLET PO SCH (08:32)
[2018-04-27] MEDS: Finasteride 5 MG TABLET PO SCH (08:32)
--- NOTE | 2018-04-27 10:54 | Infectious Disease Progress No ---
Date of Encounter: 04/27/18 Time of Encounter: 10:52 - Assessment and Plan (1) Leukocytosis Current Visit: No Status: Acute WBC [place] admission[place] [address] with normal differential. Etiology infection vs. steroids. No other SIRS criteria noted. Resolved. Recommendations: Continue to trend WBC. Wound care and activity per the Podiatry and primary teams. Pending OR today. Please send specimens for culture (aerobic, anaerobic, AFB, and fungal) and pathology. Hold Zosyn for now and re-start post-op. Duration of treatment depends on the clinical picture. Monitor renal function and for drug toxicity and dose-adjust antibiotics. Strict glucose control per the primary team. Qualifiers: Leukocytosis type: unspecified Qualified Code(s): D72.829 - Elevated white blood cell count, unspecified (2) Osteomyelitis Current Visit: Yes Status: Suspected Location: Right foot first metatarsal and possible second metatarsal head. Causative organism: Staph epi (oxacillin-susceptible), Enterococcus faecalis (amp-sensitive), and Corynebacterium. Likely secondary to nonhealing surgical wound. MRI of the right foot completed 04/24/18 showed marrow signal changes of the first metatarsal which are most compatible with osteomyelitis given the surrounding soft tissue changes and ulceration of the first metatarsal head medially. There is no organized drainable fluid collection noted. There is also subtle nonspecific patchy edema and enhancement of the second metatarsal head with minimal associated decreased T1 signal which may reflect early changes of osteomyelitis versus reactive on infectious osteitis. Safety Deposit Boxes Custodian consult and following. Planning for I & D later today. ESR was mildly elevated at 28, but the CRP is less than 5. Zosyn on hold until post-op. Qualifiers: Osteomyelitis type: unspecified type Osteomyelitis location: foot Laterality: right Qualified Code(s): M86.9 - Osteomyelitis, unspecified (3) Wound of right foot Current Visit: Yes Status: Acute Location: Right foot, medial aspect. Non-healing surgical wound. Wound care per the Podiatry team. Antibiotic recommendations as above. (4) Orthostatic hypotension Current Visit: No Status: Chronic Management per the cardiology, neurology, and primary teams. (5) Carotid occlusion, right Current Visit: No Status: Chronic (6) Mixed hyperlipidemia Current Visit: No Status: Chronic (7) Uncontrolled diabetes mellitus Current Visit: No Status: Acute Strict glucose control. Qualifiers: Diabetes mellitus type: type 2 Glycemic state: with hyperglycemia Qualified Code(s): E11.65 - Type 2 diabetes mellitus with hyperglycemia - Subjective Interval history: Patient seen and examined. No acute events noted overnight. Patient states overall he feels well. Denies fevers, chills, or rigors. Denies chest pain, shortness of breath, or cough. Denies any dizziness or weakness. Had nausea with vomiting yesterday, but denies nausea, vomiting, diarrhea, or constipation today. Denies any abdominal pain or urinary complaints. He states he is not hu ngry this morning. Denies any pain in his joints or extremities. Denies any oral thrush or any skin lesions. Pending OR today. Infect Dis PN-Objective Data - Labs CBC & Chem 7: 04/27/18 04:10 04/27/18 04:10 Labs: Laboratory Results - last 24 hr 04/25/18 04/25/18 04/25/18 10:34 16:06 20:12 WBC RBC Hgb Hct MCV MCH MCHC RDW Plt Count MPV Immature Gran % Seg Neutrophils % Lymphocytes % Monocytes % Eosinophils % Basophils % Neutrophils # Lymphocytes # Monocytes # Eosinophils # Basophils # Sodium Potassium Chloride Carbon Dioxide BUN Creatinine Est GFR ( Amer) Est GFR (Non-Af Amer) BUN/Creatinine Ratio Glucose POC Glucose 203 H 231 H Calculated Osmolality Calcium ACTH 15 04/26/18 04/26/18 04/27/18 06:39 11:06 04:10 WBC 12.5 H RBC 3.97 L Hgb 11.9 L Hct 35.8 L MCV 90.2 MCH 30.0 MCHC 33.2 RDW 16.8 H Plt Count 361 MPV 8.6 L Immature Gran % 0.5 Seg Neutrophils % 59.5 Lymphocytes % 30.0 Monocytes % 7.2 Eosinophils % 2.2 Basophils % 0.6 Neutrophils # 7.4 Lymphocytes # 3.7 Monocytes # 0.9 Eosinophils # 0.3 Basophils # 0.1 Sodium Potassium Chloride Carbon Dioxide BUN Creatinine Est GFR ( Amer) Est GFR (Non-Af Amer) BUN/Creatinine Ratio Glucose POC Glucose 105 H 144 H Calculated Osmolality Calcium ACTH 04/27/18 04:10 WBC RBC Hgb Hct MCV MCH MCHC RDW Plt Count MPV Immature Gran % Seg Neutrophils % Lymphocytes % Monocytes % Eosinophils % Basophils % Neutrophils # Lymphocytes # Monocytes # Eosinophils # Basophils # Sodium 139 Potassium 4.4 D Chloride 109 H Carbon Dioxide 25 BUN 27 H Creatinine 1.01 Est GFR ( Amer) > 60 Est GFR (Non-Af Amer) > 60 BUN/Creatinine Ratio 27 H Glucose 233 H POC Glucose Calculated Osmolality 301 H Calcium 9.1 ACTH Cultures: Cultures 04/21/18 10:30 Surgical Biopsy Culture - Preliminary Right Foot Staphylococcus epidermidis Enterococcus faecalis Corynebacterium species 04/21/18 10:30 Anaerobic Culture - Final Right Foot No anaerobes were recovered. Serology 04/26/18 04/25/18 Range/Units 02:00 00:15 Urine Color Yellow (Yellow) Urine Clarity Clear (Clear) Urine pH 5.5 (5.0-8.0) pH Units Ur Specific [place] 1.021 (1.010-1.025) Urine Protein Trace (Neg-Trace) mg/dL Urine Glucose (UA) >=1000 H (Normal) mg/dL Urine Ketones Negative (Negative) mg/dL Urine Blood Negative (Negative) Urine Nitrite Negative (Negative) Urine Bilirubin Negative (Negative) Urine Urobilinogen Normal (Normal) mg/dL Ur Leukocyte Esterase Small H (Negative) Urine Microscopic RBC 0-3 (0-3) per hpf Urine Microscopic WBC 5-15 H (0-3) per hpf Ur Squamous Epith Cells Many H (None-Few) per lpf Urine Bacteria None Seen (None-Few) per hpf Hyaline Casts None Seen (None-Few) per lpf Ur Culture Indicated? NO. A (NO) Urine Total Volume 1.97 H (0.80-1.80) Liters Urine Creatinine 54 mg/dL Ur Creatinine 24 Hour 1064 (800-2000) mg/day Urine Sodium 149.0 mEq/L Ur Sodium 24 Hour 294 H (40-220) mEq/day Exam - Constitutional Vitals: Temp Pulse Resp BP Pulse Ox 97.6 F 75 16 130/83 95 04/27/18 10:41 04/27/18 10:41 04/27/18 10:41 04/27/18 10:41 04/27/18 10:41 General appearance: average body habitus, cooperative, no acute distress - Head Head exam: Present: atraumatic, normal inspection, normocephalic - Eye Eye exam: Present: EOMI, normal appearance, PERRL Pupils: Present: normal accommodation - ENT ENT exam: Present: mucous membranes moist - Neck Neck exam: Present: normal inspection - Respiratory Respiratory exam: Present: CTAB. Absent: rales, respiratory distress, rhonchi, wheezes - Cardiovascular Cardiovascular exam: Present: RRR, +S1, +S2 - GI/Abdominal GI/Abdominal exam: Present: normal bowel sounds, soft. Absent: distended, tenderness - Extremities Exam Extremities exam: Absent: joint swelling, normal inspection (Right foot dressing C/D/I.), pedal edema, tenderness - Neurological Exam Neurological exam: Present: alert, oriented X3, no focal deficits - Psychiatric Psychiatric exam: Present: normal affect, normal mood - Skin Skin exam: Present: dry, intact, normal color, warm Consult Discharge Plan - Plan Additional Instructions: 1. Follow up with Dr. Misael Stokes in wound care center or [facility] clinic 1 week after discharge. Referrals: Michael Brown Jr, MD [Primary Care Provider] - - Attending Attestation I examined this patient and my medical decision-making was reviewed with the Resident Physician. I agree with the documented findings, disposition and treatment plan as described except to the extent set forth below.
--- NOTE | 2018-04-27 13:14 | Internal Med Progress Note ---
Hospitalist Progress Note - Encounter Date of Encounter: 04/27/18 Time of Encounter: 13:10 - Subjective Interval History: Pt has no complaints at this time. - Exam Vitals: Temp Pulse Resp BP Pulse Ox 97.6 F 75 16 104/64 95 04/27/18 10:41 04/27/18 10:41 04/27/18 10:41 04/27/18 12:30 04/27/18 10:41 Exam: CONSTITUTIONAL: patient appears as an age appropriate male in no acute distress. EYES Clear sclerae, bilateral pupils are equal, reactive to light. EMOI. RESPIRATORY: No accessory muscle use, bilateral clear to auscultation, no wheezing, no crackles/rales. CARDIOVASCULAR: Regular heart rate, normal S1 and S2, no murmurs GASTROINTESTINAL: bowel sounds present, soft, no tenderness. MUSCULOSKELETAL: Joints in normal range of motion, no clubbing, no edema, no cyanosis. Bilateral peripheral pulses 2+. NEUROLOGIC: CN II to XII are grossly intact, no focal neurological deficit. 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 Wound culture grew multiple organisms including Staphylococcus, enterococcus, and gram-positive rods. He was on IV Zosyn. Repeat right foot MRI demonstrated first metatarsal and the second metatarsal osteomyelitis. Podiatry is planning surgery on 04/27. - Continue wound care and dressing change daily. - ID following, podiatry following, appreciate help. (2) Osteomyelitis Current Visit: Yes Status: Suspected Assessment and Plan: Same as above. (3) Orthostatic hypotension Current Visit: No Status: Chronic Assessment and Plan: Patient has orthostatic hypotension, he has long time diabetes with neuropathy. Patient also has bilateral carotid artery disease. However, patient denies lightheadedness, syncope, or dizziness. His major symptom is weakness and back pain when sitting up or standing. - Get up with planning assistant only, get up slowly and immediately lay down if patient complaint of dizziness, nausea, or any discomfort. - Patient has tried fludrocortisone in the past without significant effect, cardiology ordered Midrin, dose has been adjusted to the maximum. - Patient also has low cortisol level, adrenal insufficiency was suspected, but normal ACTH, prednisone dc'ed. workup as outpt if indicated. - Patient still having severe recorded orthostatic hypotension with all the above treatment, however, it does not cause significant safety issues at this point, we will continue monitoring. (4) Adrenal insufficiency Current Visit: Yes Status: Suspected Assessment and Plan: normal ACTH, unclear the low random cortisol is lab artifact or not, outpt f/u with endocrine. Prednisone dc'ed. (5) Diabetes mellitus Current Visit: No Status: Chronic Assessment and Plan: Poorly controlled diabetes. Continue basal and sliding scale insulin (6) Coronary artery disease Current Visit: No Status: Chronic Assessment and Plan: Patient has no chest pain. S/P CABG. On aspirin, Plavix, beta alissa, and statin (7) BPH (benign prostatic hyperplasia) Current Visit: No Status: Chronic Assessment and Plan: Continue home medication tamsulosin and finasteride. (8) A-fib Current Visit: Yes Status: Acute Assessment and Plan: Report by [place] physician that patient has intermittent A. fib. Sinus rhythm right now. - Continue cardiac monitoring - Echocardiogram EF 55%, mild LVDD, no obvious valvular disease. - normal Magnesium and TSH. - No confirmed pAF per cardiology, continue ASA and Plavix for now. IF pt has a recorded AFIb, the AC will be started. 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 DVT Prophylaxis: Heparin subcutaneous - Time Spent with Patient Total time spent is greater than 50% in coordination of care (as documented) at patient's floor/unit and/or counseling patient: Greater than 35 minutes Plan of Care Discussed with: patient Internal Medicine: Result - Labs CBC & Chem 7: 04/27/18 04:10 04/27/18 04:10 Labs: Short CBC 04/27/18 Range/Units 04:10 WBC 12.5 H (4.3-11.1) K/mcL Hgb 11.9 L (12.9-16.9) g/dL Hct 35.8 L (37.5-50.1) % Plt Count 361 (140-400) K/mcL Neutrophils # 7.4 (1.6-8.9) K/mcL BMP 04/27/18 04:10 Sodium 139 Potassium 4.4 D Chloride 109 H Carbon Dioxide 25 BUN 27 H Creatinine 1.01 Glucose 233 H Calcium 9.1 - ABG Interpretation ABG results: PT/INR, D-dimer PT 10.9 Seconds (9.4-12.1) 04/21/18 13:02 Consult Discharge Plan - Plan Additional Instructions: 1. Follow up with Dr. Misael Stokes in wound care center or [facility] clinic 1 week after discharge. Referrals: Michael Brown Jr, MD [Primary Care Provider] - (2) Osteomyelitis Qualifiers: Osteomyelitis type: unspecified type Osteomyelitis location: foot Laterality: right Qualified Code(s): M86.9 - Osteomyelitis, unspecified (5) Diabetes mellitus Qualifiers: Diabetes mellitus type: type 2 Diabetes mellitus moth exterminator insulin use: unspecified moth exterminator insulin use status Diabetes mellitus complication status: with circulatory complication Diabetes mellitus complication detail: with other circulatory complications Qualified Code(s): E11.59 - Type 2 diabetes mellitus with other circulatory complications (6) Coronary artery disease Qualifiers: Coronary Disease-Associated Artery/Lesion type: [place] artery [place] vs. transplanted heart: [place] heart Associated angina: without angina Qualified Code(s): I25.10 - Atherosclerotic heart disease of [place] coronary artery without angina pectoris (7) BPH (benign prostatic hyperplasia) Qualifiers: Lower urinary tract symptom presence: symptoms present Lower urinary tract symptom detail: urinary retention Qualified Code(s): N40.1 - Benign prostatic hyperplasia with lower urinary tract symptoms; R33.8 - Other retention of urine (8) A-fib Qualifiers: Atrial fibrillation type: paroxysmal Qualified Code(s): I48.0 - Paroxysmal atrial fibrillation (9) Compression fx, thoracic spine Qualifiers: Encounter type: subsequent encounter Fracture healing: with routine healing Qualified Code(s): S22.000D - Wedge compression fracture of unspecified thoracic vertebra, subsequent encounter for fracture with routine healing
[2018-04-27] MEDS ORDERED: *HR* FentaNYL (PF) 100 MCG/2 ML VIAL ONE (15:09)
[2018-04-27] MEDS ORDERED: *HR* Propofol 200 MG/20 ML VIAL IVP ONE (15:09)
[2018-04-27] MEDS ORDERED: Ondansetron 4 MG/2 ML VIAL ONE (15:09)
[2018-04-27] MEDS ORDERED: *HR* Succinylcholine 200 MG/10 ML VIAL IVP ONE (15:09)
[2018-04-27] MEDS ORDERED: Dexamethasone 4 MG/ML VIAL ONE (15:09)
[2018-04-27] MEDS ORDERED: Lidocaine -MPF 2% 2 ML VIAL ONE (15:09)
[2018-04-27] MEDS ORDERED: Lidocaine -MPF 4% 5 ML AMPUL ONE (15:09)
[2018-04-27] MEDS ORDERED: Propofol 500 MG/50 ML INFUS..BTL ONE (15:10)
[2018-04-27] MEDS ORDERED: Bupivacaine/Clonidine Syringe 1 EACH SYRINGE ONE (16:26)
[2018-04-27] MEDS ORDERED: D5% in Water 1,000 ML IVC PRN (17:56)
[2018-04-27] MEDS ORDERED: Acetaminophen 325 MG TABLET PO PRN (17:56)
[2018-04-27] MEDS ORDERED: Ondansetron 4 MG/2 ML VIAL IVP PRN (17:56)
[2018-04-27] MEDS ORDERED: Dextrose Gel 15 GM/37.5 ML TUBE PO PRN ×2 (17:56)
[2018-04-27] MEDS ORDERED: *HR* Dextrose 50 % in Water (Syg) 50 ML SYRINGE IVP PRN (17:56)
[2018-04-27] MEDS ORDERED: Naloxone 0.4 MG/ML INJ IVP PRN (17:56)
--- NOTE | 2018-04-27 17:58 | Anesthesia Evaluation Post Op ---
Date of Encounter: 04/27/18 Time of Encounter: 17:45 - Vital Signs Vital Signs: BP 128/68 HR 61 O2sat 98% RR 13 Temp 98.6 - Lungs Lungs: Clear Ascult./Percussion - Airway Airway: Non-obstructed - Cardiovascular Regular Rate - Mental Status Mental Status: Alert & Oriented, Answers Appropriately - Pain Pain Scale: 0 Pain Scale used: Numeric (1 - 10) - Nausea Vomiting Nausea Vomiting: Not Present - Hydration Hydration: NPO, Has not voided Notes: 04/27/18 17:5 pt denies complaints - Discharge PostOp Status: Transfer Patient to floor
--- NOTE | 2018-04-27 19:57 | Orthopedic Operative Note ---
Date of procedure: 04/27/18 Pre-op diagnosis: Right foot ulcer, osteomyelitis 1st metatarsal Post-op diagnosis: same Procedure: 04/27/18 19:44 1. Incision and drainage with right 1st metatarsal head resection Implants: None Complications: None Anesthesia: MAC Local Anesthetics: 0.5% Sensorcaine HCL SubQ (cc), 1% Lidocaine HCL SubQ (cc) Surgeon: Zia Brown Was there an administrative services assistant present: No Estimated blood loss (cc): 1 Tourniquet Time (Minutes): 0 Specimen: right 1st metatarsal head to pathology, proximal margin to micro Condition: stable Disposition: floor Procedure in Detail: 04/27/18 19:45 INDICATIONS AND CONSENT Eugene Nava is a 78 year old male who initially presented to [facility] admitted for orthostatic hypotension. 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 He completed a course of IV antibiotics, but the wound was persistent. This admission, the wound was initially stable, but worsened and later developed drainage from the wound. MRI showed evidence of osteomyelitis of the right 1st metatarsal head. Treatment options were reviewed including bone culture with IV antibiotics, or incision and drainage with partial 1st metatarsal resection for infection source control. He elected to proceed with 1st metatarsal head resection. We discussed the above procedures in detail. This included a discussion on the indications, contraindications, and possible complications including but not limited to: worsening infection, non-healing wound, pain, swelling, bleeding, blood clots, heart complications, nerve injury, vascular injury, loss of limb, loss of life, long term care social worker antibiotics, and need for further surgery. We also reviewed the expected post operative course, including a discussion on the partial weightbearing status after this procedure using an orthowedge shoe. He related understanding of our discussion regarding this surgery. All questions were answered to his satisfaction, and a proper written informed consent was obtained, signed, and placed in the chart. No guarantees were given, stated or implied, as to the outcome of this procedure. PROCEDURE IN DETAIL The patient was seen in the pre-operative holding area by Anesthesia, where he was consented for MAC with local block. The patient was then brought back to the operative suite and placed on the operating room table in the supine position. A sign-in was performed. General anesthesia was then initiated per Anesthesia protocol. A well-padded pneumatic right ankle tourniquet was placed but was not used during the procedure. Next, the right lower leg was scrubbed, prepped, and draped in the usual aseptic manner. A [place] Time-Out was performed, and all parties in the room agreed. A total of 5mL of 1% lidocaine plain and 5mL of 0.5% marcaine plain was injected to the right medial foot in a Shoemaker block technique. A 15 blade was used to excise the right foot ulcer to the level of the 1st metatarsal head. A [place] elevator was used to remove the soft tissue attachments at the 1st metatarsal head. A bone saw was then used to remove the 1st metatarsal head, which was sent to pathology. The tibial and fibular sesamoids were excised and sent to pathology. The remaining 1st metatarsal appeared viable and healthy, as well as healthy surrounding soft tissue. The wound was irrigated with 3 liters of normal saline with cysto tubing. A proximal bone culture was taken from the 1st metatarsal shaft and sent to micro for aerobe, anaerobe, AFB, fungal cultures. The deep tissue was re-approximated using 3-0 Vicryl and the skin was re-approximated using 3-0 Nylon under minimal tension. The wound was dressed with xeroform, kerlix, ABD and ERICKA wrap. A sign-out was performed. The patient tolerated anesthesia and the procedure well, and was transferred to PAC- U with vital signs stable and vascular status intact to the right lower extremity. Needle and sponge counts were correct X 2 at the end of the case. Dr. Zia Brown was present, scrubbed, and participated in all vital aspects of the procedure. After a brief stay in PAC-U, the patient will be admitted back to the floor for continued IV antibiotics. We appreciate ID recommendations for antibiotics at discharged based on operative cultures and sensitivities. Podiatry will continue to follow while admitted.
[2018-04-27] MEDS ORDERED: Insulin DETEMIR 100 UNIT/ML X5UNITS SQ SCH ×2 (21:00)
[2018-04-28 04:26] LABS: Basophils # 0.1 K/mcL (0.0-0.2); Basophils % 0.6 %; Eosinophils # 0.1 K/mcL (0.0-0.6); Eosinophils % 0.9 %; Hematocrit 36.2 % (37.5-50.1); Immature Granulocytes % 0.4 % (0-4); Lymphocytes # 3.3 K/mcL (0.6-4.6); Lymphocytes % 29.5 %; Mean Corpuscular HGB Conc 33.1 g/dL (31.6-35.5); Mean Corpuscular Hemoglobin 29.6 pg (28.0-33.3); Mean Corpuscular Volume 89.4 fL (83.0-100.0); Mean Platelet Volume 8.4 fL (9.4-12.4); Monocytes # 0.9 K/mcL (0.0-1.3); Monocytes % 7.6 %; Neutrophils # 6.8 K/mcL (1.6-8.9); Platelet Count 340 K/mcL (140-400); Red Blood Count 4.05 M/mcL (4.19-5.50); Red Cell Distribution Width 16.6 % (11.5-14.5)
[2018-04-28 04:31] LABS: BUN/Creatinine Ratio 29 (6-26); Blood Urea Nitrogen 27 mg/dL (8-23); Calcium 8.8 mg/dL (8.6-10.3); Carbon Dioxide 22 mEq/L (23-29); Chloride 110 mEq/L (98-107); Glucose 132 mg/dL (70-105); Osmolality,Calculated 297 (280-300); Sodium 140 mEq/L (136-145); eGFR For Non-African Americans > 60 (> 60)
[2018-04-28] MEDS: *HR* Heparin 5,000 UNIT/ML VIAL SQ SCH ×2 (05:01→18:17)
[2018-04-28] MEDS: Insulin LISPRO 300 UNITS/3 ML VIAL SQ SCH ×7 (08:24→21:09)
[2018-04-28] MEDS: BuPROPion XL (24 HR) 150 MG TABLET PO SCH (08:28)
[2018-04-28] MEDS: Finasteride 5 MG TABLET PO SCH (08:28)
[2018-04-28] MEDS: Aspirin Enteric Coated 81 MG Tablet PO SCH (08:28)
--- NOTE | 2018-04-28 12:13 | Internal Med Progress Note ---
Hospitalist Progress Note - Encounter Date of Encounter: 04/28/18 Time of Encounter: 12:10 - Subjective Interval History: Pt has no complaints at this time. - Exam Vitals: Temp Pulse Resp BP Pulse Ox 98.2 F 79 16 109/71 93 04/28/18 07:59 04/28/18 07:59 04/28/18 07:59 04/28/18 07:59 04/28/18 07:59 Exam: CONSTITUTIONAL: patient appears as an age appropriate male in no acute distress. EYES Clear sclerae, bilateral pupils are equal, reactive to light. EMOI. RESPIRATORY: No accessory muscle use, bilateral clear to auscultation, no wheezing, no crackles/rales. CARDIOVASCULAR: Regular heart rate, normal S1 and S2, no murmurs GASTROINTESTINAL: bowel sounds present, soft, no tenderness. MUSCULOSKELETAL: Joints in normal range of motion, no clubbing, no edema, no cyanosis. Bilateral peripheral pulses 2+. NEUROLOGIC: CN II to XII are grossly intact, no focal neurological deficit. 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 Wound culture grew multiple organisms including Staphylococcus, enterococcus, and gram-positive rods. He was on IV Zosyn. Repeat right foot MRI demonstrated first metatarsal and the second metatarsal osteomyelitis. right 1st metatarsal excision on 04/27. - Pt doing well. - Continue wound care and dressing change daily. - Restarted pt on vanco based on the result of wound cx. ID can tailor ABX based on their expertise. - ID following, podiatry following, appreciate help. (2) Osteomyelitis Current Visit: Yes Status: Suspected Assessment and Plan: Same as above. (3) Orthostatic hypotension Current Visit: No Status: Chronic Assessment and Plan: Patient has orthostatic hypotension, he has long time diabetes with neuropathy. Patient also has bilateral carotid artery disease. However, patient denies lightheadedness, syncope, or dizziness. His major symptom is weakness and back pain when sitting up or standing. - Get up with travel assistant only, get up slowly and immediately lay down if patient complaint of dizziness, nausea, or any discomfort. - Patient has tried fludrocortisone in the past without significant effect, cardiology ordered Midrin, dose has been adjusted to the maximum. - Patient also has low cortisol level, adrenal insufficiency was suspected, but normal ACTH, prednisone dc'ed. workup as outpt if indicated. - Patient still having severe recorded orthostatic hypotension with all the above treatment, however, it does not cause significant safety issues at this point, we will continue monitoring. (4) Adrenal insufficiency Current Visit: Yes Status: Suspected Assessment and Plan: normal ACTH, unclear the low random cortisol is lab artifact or not, outpt f/u with endocrine. Prednisone dc'ed. (5) Diabetes mellitus Current Visit: No Status: Chronic Assessment and Plan: Poorly controlled diabetes. Continue basal and sliding scale insulin (6) Coronary artery disease Current Visit: No Status: Chronic Assessment and Plan: Patient has no chest pain. S/P CABG. On aspirin, Plavix, beta alissa, and st [place]in (7) BPH (benign prostatic hyperplasia) Current Visit: No Status: Chronic Assessment and Plan: Continue home medication tamsulosin and finasteride. (8) A-fib Current Visit: Yes Status: Acute Assessment and Plan: Report by [place] physician that patient has intermittent A. fib. Sinus rhythm right now. - Continue cardiac monitoring - Echocardiogram EF 55%, mild LVDD, no obvious valvular disease. - normal Magnesium and TSH. - No confirmed pAF per cardiology, continue ASA and Plavix for now. IF pt has a recorded AFIb, the AC will be started. 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 DVT Prophylaxis: Heparin subcutaneous - Time Spent with Patient Total time spent is greater than 50% in coordination of care (as documented) at patient's floor/unit and/or counseling patient: Greater than 35 minutes Plan of Care Discussed with: patient Internal Medicine: Result - Labs CBC & Chem 7: 04/28/18 03:26 04/28/18 03:26 Labs: Short CBC 04/28/18 Range/Units 03:26 WBC 11.2 H (4.3-11.1) K/mcL Hgb 12.0 L (12.9-16.9) g/dL Hct 36.2 L (37.5-50.1) % Plt Count 340 (140-400) K/mcL Neutrophils # 6.8 (1.6-8.9) K/mcL BMP 04/28/18 03:26 Sodium 140 Potassium 4.0 Chloride 110 H Carbon Dioxide 22 L BUN 27 H Creatinine 0.93 Glucose 132 H Calcium 8.8 - ABG Interpretation ABG results: PT/INR, D-dimer PT 10.9 Seconds (9.4-12.1) 04/21/18 13:02 Consult Discharge Plan - Plan Additional Instructions: 1. Follow up with Dr. Misael Stokes in wound care center or [facility] clinic 1 week after discharge. Referrals: Michael Brown Jr, MD [Primary Care Provider] - (2) Osteomyelitis Qualifiers: Osteomyelitis type: unspecified type Osteomyelitis location: foot Laterality: right Qualified Code(s): M86.9 - Osteomyelitis, unspecified (5) Diabetes mellitus Qualifiers: Diabetes mellitus type: type 2 Diabetes mellitus senior living insulin use: unspecified senior living insulin use status Diabetes mellitus complication status: with circulatory complication Diabetes mellitus complication detail: with other circulatory complications Qualified Code(s): E11.59 - Type 2 diabetes mellitus with other circulatory complications (6) Coronary artery disease Qualifiers: Coronary Disease-Associated Artery/Lesion type: [place] artery [place] vs. transplanted heart: [place] heart Associated angina: without angina Qualified Code(s): I25.10 - Atherosclerotic heart disease of [place] coronary artery without angina pectoris (7) BPH (benign prostatic hyperplasia) Qualifiers: Lower urinary tract symptom presence: symptoms present Lower urinary tract symptom detail: urinary retention Qualified Code(s): N40.1 - Benign prostatic hyperplasia with lower urinary tract symptoms; R33.8 - Other retention of urine (8) A-fib Qualifiers: Atrial fibrillation type: paroxysmal Qualified Code(s): I48.0 - Paroxysmal atrial fibrillation (9) Compression fx, thoracic spine Qualifiers: Encounter type: subsequent encounter Fracture healing: with routine healing Qualified Code(s): S22.000D - Wedge compression fracture of unspecified thoracic vertebra, subsequent encounter for fracture with routine healing
[2018-04-28] MEDS ORDERED: Insulin DETEMIR 100 UNIT/ML X5UNITS SQ SCH (21:00)
[2018-04-29 03:20] LABS: Basophils # 0.1 K/mcL (0.0-0.2); Eosinophils # 0.4 K/mcL (0.0-0.6); Eosinophils % 3.2 %; Hematocrit 37.6 % (37.5-50.1); Hemoglobin 12.7 g/dL (12.9-16.9); Immature Granulocytes % 0.4 % (0-4); Lymphocytes # 3.6 K/mcL (0.6-4.6); Lymphocytes % 30.4 %; Mean Corpuscular HGB Conc 33.8 g/dL (31.6-35.5); Mean Corpuscular Hemoglobin 30.3 pg (28.0-33.3); Mean Corpuscular Volume 89.7 fL (83.0-100.0); Mean Platelet Volume 8.3 fL (9.4-12.4); Monocytes # 0.9 K/mcL (0.0-1.3); Monocytes % 7.3 %; Neutrophils # 6.8 K/mcL (1.6-8.9); Platelet Count 332 K/mcL (140-400); Red Blood Count 4.19 M/mcL (4.19-5.50); Red Cell Distribution Width 16.6 % (11.5-14.5); Segmented Neutrophils % 57.7 %
[2018-04-29 03:41] LABS: BUN/Creatinine Ratio 25 (6-26); Blood Urea Nitrogen 26 mg/dL (8-23); Calcium 9.1 mg/dL (8.6-10.3); Carbon Dioxide 24 mEq/L (23-29); Chloride 112 mEq/L (98-107); Glucose 64 mg/dL (70-105); Osmolality,Calculated 297 (280-300); Potassium 3.4 mEq/L (3.5-5.1); Sodium 142 mEq/L (136-145); eGFR For Non-African Americans > 60 (> 60)
[2018-04-29] MEDS: *HR* Heparin 5,000 UNIT/ML VIAL SQ SCH ×2 (05:04→17:20)
[2018-04-29] MEDS ORDERED: Aminoglycoside Consult 1 EACH MC ONE (08:16)
[2018-04-29] MEDS: Insulin LISPRO 300 UNITS/3 ML VIAL SQ SCH ×7 (08:57→21:26)
[2018-04-29] MEDS ORDERED: Potassium Chloride Elixir 20 MEQ/15 ML UDC PO SCH (09:00)
[2018-04-29] MEDS: Aspirin Enteric Coated 81 MG Tablet PO SCH (09:05)
[2018-04-29] MEDS: BuPROPion XL (24 HR) 150 MG TABLET PO SCH (09:05)
[2018-04-29] MEDS: Finasteride 5 MG TABLET PO SCH (09:05)
--- NOTE | 2018-04-29 10:51 | Internal Med Progress Note ---
Hospitalist Progress Note - Encounter Date of Encounter: 04/29/18 Time of Encounter: 10:49 - Subjective Interval History: Pt has no complaints at this time. - Exam Vitals: Temp Pulse Resp BP Pulse Ox 97.6 F 84 16 140/82 99 04/29/18 07:21 04/29/18 07:21 04/29/18 07:21 04/29/18 07:21 04/29/18 07:21 Exam: CONSTITUTIONAL: patient appears as an age appropriate male in no acute distress. EYES Clear sclerae, bilateral pupils are equal, reactive to light. EMOI. RESPIRATORY: No accessory muscle use, bilateral clear to auscultation, no wheezing, no crackles/rales. CARDIOVASCULAR: Regular heart rate, normal S1 and S2, no murmurs GASTROINTESTINAL: bowel sounds present, soft, no tenderness. MUSCULOSKELETAL: Joints in normal range of motion, no clubbing, no edema, no cyanosis. Bilateral peripheral pulses 2+. NEUROLOGIC: CN II to XII are grossly intact, no focal neurological deficit. 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 Wound culture grew multiple organisms including Staphylococcus, enterococcus, and corynebacter. He was on IV Zosyn. Repeat right foot MRI demonstrated first metatarsal and the second metatarsal osteomyelitis. right 1st metatarsal excision on 04/27. Zosyn was on hold prior to surgery. - Pt doing well. - Continue wound care and dressing change daily. - Restarted pt on vanco based on the result of wound cx on 04/28. ID can tailor ABX based on their expertise. - ID following, podiatry following, appreciate help. (2) Osteomyelitis Current Visit: Yes Status: Suspected Assessment and Plan: Same as above. (3) Orthostatic hypotension Current Visit: No Status: Chronic Assessment and Plan: Patient has orthostatic hypotension, he has long time diabetes with neuropathy. Patient also has bilateral carotid artery disease. However, patient denies lightheadedness, syncope, or dizziness. His major symptom is weakness and back pain when sitting up or standing. - Get up with assistant scientist only, get up slowly and immediately lay down if patient complaint of dizziness, nausea, or any discomfort. - Patient has tried fludrocortisone in the past without significant effect, cardiology ordered Midrin, dose has been adjusted to the maximum. - Patient also has low cortisol level, adrenal insufficiency was suspected, but normal ACTH, prednisone dc'ed. workup as outpt if indicated. - Patient still having severe recorded orthostatic hypotension with all the above treatment, however, it does not cause significant safety issues at this point, we will continue monitoring. (4) Adrenal insufficiency Current Visit: Yes Status: Suspected Assessment and Plan: normal ACTH, unclear the low random cortisol is lab artifact or not, outpt f/u with endocrine. Prednisone dc'ed. (5) Diabetes mellitus Current Visit: No Status: Chronic Assessment and Plan: Poorly controlled diabetes. Continue basal and sliding scale insulin (6) Coronary artery disease Current Visit: No Status: Chronic Assessment and Plan: Patient has no chest pain. S/P CABG. On aspirin, Plavix, beta alissa, and statin (7) BPH (benign prostatic hyperplasia) Current Visit: No Status: Chronic Assessment and Plan: Continue home medication tamsulosin and finasteride. (8) A-fib Current Visit: Yes Status: Acute Assessment and Plan: Report by [place] physician that patient has intermittent A. fib. Sinus rhythm right now. - Continue cardiac monitoring - Echocardiogram EF 55%, mild LVDD, no obvious valvular disease. - normal Magnesium and TSH. - No confirmed pAF per cardiology, continue ASA and Plavix for now. IF pt has a recorded AFIb, the AC will be started. 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 DVT Prophylaxis: Heparin subcutaneous - Time Spent with Patient Total time spent is greater than 50% in coordination of care (as documented) at patient's floor/unit and/or counseling patient: Greater than 35 minutes Plan of Care Discussed with: patient Internal Medicine: Result - Labs CBC & Chem 7: 04/29/18 02:47 04/29/18 02:47 Labs: Short CBC 04/29/18 Range/Units 02:47 WBC 11.7 H (4.3-11.1) K/mcL Hgb 12.7 L (12.9-16.9) g/dL Hct 37.6 (37.5-50.1) % Plt Count 332 (140-400) K/mcL Neutrophils # 6.8 (1.6-8.9) K/mcL BMP 04/29/18 02:47 Sodium 142 Potassium 3.4 L Chloride 112 H Carbon Dioxide 24 BUN 26 H Creatinine 1.02 Glucose 64 L Calcium 9.1 - ABG Interpretation ABG results: PT/INR, D-dimer PT 10.9 Seconds (9.4-12.1) 04/21/18 13:02 Consult Discharge Plan - Plan Additional Instructions: 1. Follow up with Dr. Misael Stokes in wound care center or [facility] clinic 1 week after discharge. Referrals: Michael Brown Jr, MD [Primary Care Provider] - (2) Osteomyelitis Qualifiers: Osteomyelitis type: unspecified type Osteomyelitis location: foot Laterality: right Qualified Code(s): M86.9 - Osteomyelitis, unspecified (5) Diabetes mellitus Qualifiers: Diabetes mellitus type: type 2 Diabetes mellitus mcfp insulin use: unspecified mcfp insulin use status Diabetes mellitus complication status: with circulatory complication Diabetes mellitus complication detail: with other circulatory complications Qualified Code(s): E11.59 - Type 2 diabetes mellitus with other circulatory complications (6) Coronary artery disease Qualifiers: Coronary Disease-Associated Artery/Lesion type: [place] artery [place] vs. transplanted heart: [place] heart Associated angina: without angina Qualified Code(s): I25.10 - Atherosclerotic heart disease of [place] coronary artery without angina pectoris (7) BPH (benign prostatic hyperplasia) Qualifiers: Lower urinary tract symptom presence: symptoms present Lower urinary tract symptom detail: urinary retention Qualified Code(s): N40.1 - Benign prostatic hyperplasia with lower urinary tract symptoms; R33.8 - Other retention of urine (8) A-fib Qualifiers: Atrial fibrillation type: paroxysmal Qualified Code(s): I48.0 - Paroxysmal atrial fibrillation (9) Compression fx, thoracic spine Qualifiers: Encounter type: subsequent encounter Fracture healing: with routine healing Qualified Code(s): S22.000D - Wedge compression fracture of unspecified thoracic vertebra, subsequent encounter for fracture with routine healing
[2018-04-29] MEDS: Insulin DETEMIR 100 UNIT/ML X5UNITS SQ SCH (21:25)
[2018-04-30] MEDS: *HR* Heparin 5,000 UNIT/ML VIAL SQ SCH ×2 (05:15→17:16)
[2018-04-30] MEDS: Finasteride 5 MG TABLET PO SCH (08:47)
[2018-04-30] MEDS: BuPROPion XL (24 HR) 150 MG TABLET PO SCH (08:47)
[2018-04-30] MEDS: Insulin LISPRO 300 UNITS/3 ML VIAL SQ SCH ×7 (08:48→21:50)
[2018-04-30] MEDS: Aspirin Enteric Coated 81 MG Tablet PO SCH (08:48)
--- NOTE | 2018-04-30 10:22 | Internal Med Progress Note ---
Hospitalist Progress Note - Encounter Date of Encounter: 04/30/18 Time of Encounter: 10:21 - Subjective Interval History: Pt has no complaints at this time. - Exam Vitals: Temp Pulse Resp BP Pulse Ox 98.7 F 75 16 110/63 98 04/30/18 06:22 04/30/18 06:22 04/30/18 06:22 04/30/18 06:22 04/30/18 06:22 Exam: CONSTITUTIONAL: patient appears as an age appropriate male in no acute distress. EYES Clear sclerae, bilateral pupils are equal, reactive to light. EMOI. RESPIRATORY: No accessory muscle use, bilateral clear to auscultation, no wheezing, no crackles/rales. CARDIOVASCULAR: Regular heart rate, normal S1 and S2, no murmurs GASTROINTESTINAL: bowel sounds present, soft, no tenderness. MUSCULOSKELETAL: Joints in normal range of motion, no clubbing, no edema, no cyanosis. Bilateral peripheral pulses 2+. NEUROLOGIC: CN II to XII are grossly intact, no focal neurological deficit. 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 Wound culture grew multiple organisms including Staphylococcus, enterococcus, and corynebacter. He was on IV Zosyn. Repeat right foot MRI demonstrated first metatarsal and the second metatarsal osteomyelitis. right 1st metatarsal excision on 04/27. Zosyn was on hold prior to surgery. - Pt doing well. - Continue wound care and dressing change daily. - Restarted pt on vanco based on the result of wound cx on 04/28. Vanco dc'ed on 04/30 per ID, Zosyn re-started on 04/30. surgical specimen cx has no growth. waiting for pathology report. - ID following, podiatry following, appreciate help. (2) Osteomyelitis Current Visit: Yes Status: Suspected Assessment and Plan: Same as above. (3) Orthostatic hypotension Current Visit: No Status: Chronic Assessment and Plan: Patient has orthostatic hypotension, he has long time diabetes with neuropathy. Patient also has bilateral carotid artery disease. However, patient denies lightheadedness, syncope, or dizziness. His major symptom is weakness and back pain when sitting up or standing. - Get up with residential assistant only, get up slowly and immediately lay down if patient complaint of dizziness, nausea, or any discomfort. - Patient has tried fludrocortisone in the past without significant effect, cardiology ordered Midrin, dose has been adjusted to the maximum. - Patient also has low cortisol level, adrenal insufficiency was suspected, but normal ACTH, prednisone dc'ed. workup as outpt if indicated. - Patient still having severe recorded orthostatic hypotension with all the above treatment, however, it does not cause significant safety issues at this point, we will continue monitoring. (4) Adrenal insufficiency Current Visit: Yes Status: Suspected Assessment and Plan: normal ACTH, unclear the low random cortisol is lab artifact or not, outpt f/u with endocrine. Prednisone dc'ed. (5) Diabetes mellitus Current Visit: No Status: Chronic Assessment and Plan: Poorly controlled diabetes. Continue basal and sliding scale insulin (6) Coronary artery disease Current Visit: No Status: Chronic Assessment and Plan: Patient has no chest pain. S/P CABG. On aspirin, Plavix, beta alissa, and statin (7) BPH (benign prostatic hyperplasia) Current Visit: No Status: Chronic Assessment and Plan: Continue home medication tamsulosin and finasteride. (8) A-fib Current Visit: Yes Status: Acute Assessment and Plan: Report by [place] physician that patient has intermittent A. fib. Sinus rhythm right now. - Continue cardiac monitoring - Echocardiogram EF 55%, mild LVDD, no obvious valvular disease. - normal Magnesium and TSH. - No confirmed pAF per cardiology, continue ASA and Plavix for now. IF pt has a recorded AFIb, the AC will be started. 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 DVT Prophylaxis: Heparin subcutaneous - Time Spent with Patient Total time spent is greater than 50% in coordination of care (as documented) at patient's floor/unit and/or counseling patient: Greater than 35 minutes Plan of Care Discussed with: patient Internal Medicine: Result - Labs CBC & Chem 7: 04/29/18 02:47 04/29/18 02:47 - ABG Interpretation ABG results: PT/INR, D-dimer PT 10.9 Seconds (9.4-12.1) 04/21/18 13:02 Consult Discharge Plan - Plan Additional Instructions: 1. Follow up with Dr. Misael Stokes in wound care center or [facility] 1 week after discharge. Referrals: Michael Brown Jr, MD [Primary Care Provider] - (2) Osteomyelitis Qualifiers: Osteomyelitis type: unspecified type Osteomyelitis location: foot Laterality: right Qualified Code(s): M86.9 - Osteomyelitis, unspecified (5) Diabetes mellitus Qualifiers: Diabetes mellitus type: type 2 Diabetes mellitus fdc insulin use: un specified fdc insulin use status Diabetes mellitus complication status: with circulatory complication Diabetes mellitus complication detail: with other circulatory complications Qualified Code(s): E11.59 - Type 2 diabetes mellitus with other circulatory complications (6) Coronary artery disease Qualifiers: Coronary Disease-Associated Artery/Lesion type: [place] artery [place] vs. transplanted heart: [place] heart Associated angina: without angina Qualified Code(s): I25.10 - Atherosclerotic heart disease of [place] coronary artery without angina pectoris (7) BPH (benign prostatic hyperplasia) Qualifiers: Lower urinary tract symptom presence: symptoms present Lower urinary tract symptom detail: urinary retention Qualified Code(s): N40.1 - Benign prostatic hyperplasia with lower urinary tract symptoms; R33.8 - Other retention of urine (8) A-fib Qualifiers: Atrial fibrillation type: paroxysmal Qualified Code(s): I48.0 - Paroxysmal atrial fibrillation (9) Compression fx, thoracic spine Qualifiers: Encounter type: subsequent encounter Fracture healing: with routine healing Qualified Code(s): S22.000D - Wedge compression fracture of unspecified thoracic vertebra, subsequent encounter for fracture with routine healing
--- NOTE | 2018-04-30 10:36 | Infectious Disease Progress No ---
Date of Encounter: 04/30/18 Time of Encounter: 10:34 - Assessment and Plan (1) Leukocytosis Current Visit: No Status: Acute WBC elevated [place] [address] with normal differential. Etiology infection vs. steroids. No other SIRS criteria noted. Resolved. Recommendations: Continue to trend WBC. Wound care and activity per the Podiatry and primary teams. Await pathology report. Discontinue Vancomycin. Re-start Zosyn 3.375 grams IV Q8H. Duration of treatment depends on the clinical picture. If pathology negative, can likely transition to PO antibiotics on discharge. Monitor renal function and for drug toxicity and dose-adjust antibiotics. Strict glucose control per the primary team. Qualifiers: Leukocytosis type: unspecified Qualified Code(s): D72.829 - Elevated white blood cell count, unspecified (2) Osteomyelitis Current Visit: Yes Status: Suspected Location: Right foot first metatarsal and possible second metatarsal head. Causative organism: Staph epi (oxacillin-susceptible), Enterococcus faecalis (amp-sensitive), and Corynebacterium. Likely secondary to nonhealing surgical wound. MRI of the right foot completed 04/24/18 showed marrow signal changes of the first metatarsal which are most compatible with osteomyelitis given the surrounding soft tissue changes and ulceration of the first metatarsal head medially. There is no organized drainable fluid collection noted. There is also subtle nonspecific patchy edema and enhancement of the second metatarsal head with minimal associated decreased T1 signal which may reflect early changes of osteomyelitis versus reactive on infectious osteitis. [facility] consult and following. Status post I & D with 1st metatarsal head resection 04/27/[address] Brown. Operative note reviewed. No purulence noted intra-op. Cultures negative. Pathology report is pending. ESR was mildly elevated at 28, but the CRP is less than 5. Given the culture and inflammatory marker results, osteomyelitis is less likely, but will await pathology to make final antibiotic recommendations. Currently on IV Vancomycin. Qualifiers: Osteomyelitis type: unspecified type Osteomyelitis location: foot Laterality: right Qualified Code(s): M86.9 - Osteomyelitis, unspecified (3) Wound of right foot Current Visit: Yes Status: Acute Location: Right foot, medial aspect. Non-healing surgical wound. Wound care per the Podiatry team. Antibiotic recommendations as above. (4) Orthostatic hypotension Current Visit: No Status: Chronic Management per the cardiology, neurology, and primary teams. (5) Carotid occlusion, right Current Visit: No Status: Chronic (6) Mixed hyperlipidemia Current Visit: No Status: Chronic (7) Uncontrolled diabetes mellitus Current Visit: No Status: Acute Strict glucose control. Qualifiers: Diabetes mellitus type: type 2 Glycemic state: with hyperglycemia Qualified Code(s): E11.65 - Type 2 diabetes mellitus with hyperglycemia - Subjective Interval history: Patient seen and examined. No acute events noted overnight. Patient states overall he feels well. Denies fevers, chills, or rigors. Denies chest pain, shortness of breath, or cough. Denies any dizziness or weakness. Denies nausea, vomiting, diarrhea, or constipation today. Last BM was yesterday. Denies any abdominal pain or urinary complaints. He states his appetite is good. Denies any pain in his joints or extremities. Denies any oral thrush or any skin lesions. Infect Dis PN-Objective Data - Labs CBC & Chem 7: 04/29/18 02:47 04/29/18 02:47 Labs: Laboratory Results - last 24 hr 04/28/18 04/28/18 04/28/18 12:17 16:52 20:25 POC Glucose 139 H 216 H 225 H 04/29/18 04/29/18 02:58 07:25 POC Glucose 53 L 127 H Cultures: Cultures 04/21/18 10:30 Surgical Biopsy Culture - Final Right Foot Staphylococcus epidermidis Enterococcus faecalis Corynebacterium species 04/27/18 16:52 Surgical Biopsy Culture - Final Right Foot 04/27/18 16:52 Acid Fast Stain - Final Right Foot 04/21/18 10:30 Anaerobic Culture - Final Right Foot No anaerobes were recovered. Serology 04/26/18 04/25/18 Range/Units 02:00 00:15 Urine Color Yellow (Yellow) Urine Clarity Clear (Clear) Urine pH 5.5 (5.0-8.0) pH Units Ur Specific [place] 1.021 (1.010-1.025) Urine Protein Trace (Neg-Trace) mg/dL Urine Glucose (UA) >=1000 H (Normal) mg/dL Urine Ketones Negative (Negative) mg/dL Urine Blood Negative (Negative) Urine Nitrite Negative (Negative) Urine Bilirubin Negative (Negative) Urine Urobilinogen Normal (Normal) mg/dL Ur Leukocyte Esterase Small H (Negative) Urine Microscopic RBC 0-3 (0-3) per hpf Urine Microscopic WBC 5-15 H (0-3) per hpf Ur Squamous Epith Cells Many H (None-Few) per lpf Urine Bacteria None Seen (None-Few) per hpf Hyaline Casts None Seen (None-Few) per lpf Ur Culture Indicated? NO. A (NO) Urine Total Volume 1.97 H (0.80-1.80) Liters Urine Creatinine 54 mg/dL Ur Creatinine 24 Hour 1064 (800-2000) mg/day Urine Sodium 149.0 mEq/L Ur Sodium 24 Hour 294 H (40-220) mEq/day Exam - Constitutional Vitals: Temp Pulse Resp BP Pulse Ox 98.7 F 75 16 110/63 98 04/30/18 06:22 04/30/18 06:22 04/30/18 06:22 04/30/18 06:22 04/30/18 06:22 General appearance: average body habitus, cooperative, no acute distress - Head Head exam: Present: atraumatic, normal inspection, normocephalic - Eye Eye exam: Present: EOMI, normal appearance, PERRL Pupils: Present: normal accommodation - ENT ENT exam: Present: mucous membranes moist - Neck Neck exam: Present: normal inspection - Respiratory Respiratory exam: Present: CTAB. Absent: rales, respiratory distress, rhonchi, wheezes - Cardiovascular Cardiovascular exam: Present: RRR, +S1, +S2 - GI/Abdominal GI/Abdominal exam: Present: normal bowel sounds, soft. Absent: distended, tenderness - Extremities Exam Extremities exam: Absent: normal inspection (Right foot dressing C/D/I.) - Neurological Exam Neurological exam: Present: alert, oriented X3, no focal deficits - Psychiatric Psychiatric exam: Present: normal affect, normal mood - Skin Skin exam: Present: dry, intact, normal color, warm Consult Discharge Plan - Plan Additional Instructions: 1. Follow up with Dr. Misael Stokes in wound care center or [facility] clinic 1 week after discharge. Referrals: Michael Brown Jr, MD [Primary Care Provider] - - Attending Attestation I examined this patient and my medical decision-making was reviewed with the Resident Physician. I agree with the documented findings, disposition and treatment plan as described except to the extent set forth below.
[2018-04-30] MEDS: Piperacillin/Tazobactam 3.375 GM in 0.9 % Sodium Chloride Mini Bag 100 ML IVPB SCH ×2 (13:21→21:54)
--- NOTE | 2018-04-30 16:38 | Podiatry Progress Note ---
Date of Encounter: 04/30/18 Time of Encounter: 12:00 - Assessment and Plan (1) Osteomyelitis Current Visit: Yes Status: Acute assessed at bedside s/p 1. Incision and drainage with right 1st metatarsal head resection Healing well without complication Cleansed with saline, pat dry, applied adaptic 4x4 and kerlix Elevate, minimal weight bearing, pivot on heel only with post operative shoe Pathology results pending Wound culture positive for Staph epi (oxacillin-susceptible), Enterococcus faecalis (amp-sensitive), and Corynebacterium. Currently on Zosyn Pending pathology results may be discharged on oral antibiotics ID on board, following and appreciated Leave dressing CDI at this time Will need to follow up in clinic 1 week after discharge with . Patient denies any questions or concerns at this time Qualifiers: Osteomyelitis type: unspecified type Osteomyelitis location: foot Laterality: right Qualified Code(s): M86.9 - Osteomyelitis, unspecified Subjective Principal diagnosis: right foot ulcer Interval history: POD #3 s/p 1. Incision and drainage with right 1st metatarsal head resection with bone biopsy on 04/27 per . States he feels fine and denies pain at this time. Patient denies any known fevers, chills, n/v or fls. Resting comfortably with dressing cdi on arrival. Family at bedside. Objective - Vital Signs Vital Signs: Vital Signs Temp Pulse Pulse Pulse Resp BP BP 04/30/18 14:36 98.8 F 82 14 113/62 04/30/18 10:35 97.9 F 81 14 145/78 04/30/18 06:22 98.7 F 75 16 110/63 110/63 04/30/18 04:24 98.2 F 71 16 153/81 04/30/18 00:14 98.9 F 80 15 150/94 04/30/18 00:10 80 80 150/94 18 19:18 98.4 F 71 15 181/78 BP Pulse Ox 04/30/18 14:36 98 04/30/18 10:35 99 04/30/18 06:22 111/64 98 04/30/18 04:24 95 04/30/18 00:14 96 04/30/18 00:10 112/76 04/29/18 19:18 96 Intake and Output 04/30/18 04/30/18 04/30/18 07:59 15:59 23:59 Intake Total 100 / 100 240 / 240 Output Total 800 / 800 175 / 175 150 / 150 Balance -700 / -700 65 / 65 -150 / -150 Intake: Oral 100 / 100 240 / 240 Output: Urine 800 / 800 175 / 175 150 / 150 Other: Meal Breakfast Percent of Meal Consumed 100% # Urine Diapers 1 Weight 79.2 kg Blood Glucose* 83 102 210 Patient Weight 04/30/18 23:59 Weight 79.2 kg - Exam Exam: Podiatry General Exam: General appearance: alert awake oriented X 3. Calm and pleasant, no acute distress.. Vascular: Pedal pulses +2/4 DP/PT , No evidence of cyanosis, pallor or rubor, Edema graded at 1+/4, Skin Temperature warm, No calf pain with manual compression. capillary refill time is immediate to digits. Neurologic: Sensation intact with light touch to foot. . Postop Exam: S/P 1. Incision and drainage with right 1st metatarsal head resection Sutures intact to incision line, no signs of dehiscence. No open area, no drainage, no odor, no erythema, no streaking. Minimal edema. healing well without complication - Lab Result Diagrams: 05/01/18 04:17 05/03/18 04:39 Labs: Abnormal lab results WBC 11.7 K/mcL (4.3-11.1) H 04/29/18 02:47 Hgb 12.7 g/dL (12.9-16.9) L 04/29/18 02:47 RDW 16.6 % (11.5-14.5) H 04/29/18 02:47 MPV 8.3 fL (9.4-12.4) L 04/29/18 02:47 ESR 28 mm/hr (0-10) H 04/24/18 07:19 Potassium 3.4 mEq/L (3.5-5.1) L 04/29/18 02:47 Chloride 112 mEq/L (98-107) H 04/29/18 02:47 BUN 26 mg/dL (8-23) H 04/29/18 02:47 Glucose 64 mg/dL (70-105) L 04/29/18 02:47 POC Glucose 102 mg/dL (70-99) H 04/30/18 11:06 Serum Total Protein 6.3 g/dL (6.4-8.9) L 04/20/18 16:52 Albumin 3.2 g/dL (3.5-5.7) L 04/20/18 16:52 Albumin/Globulin Ratio 1.0 (1.1-2.2) L 04/20/18 16:52 Urine Glucose (UA) >=1000 mg/dL (Normal) H 04/25/18 00:15 Ur Leukocyte Esterase Small (Negative) H 04/25/18 00:15 Urine Microscopic WBC 5-15 per hpf (0-3) H 04/25/18 00:15 Ur Squamous Epith Cells Many per lpf (None-Few) H 04/25/18 00:15 Ur Culture Indicated? NO. (NO) A 04/25/18 00:15 Urine Total Volume 1.97 Liters (0.80-1.80) H 04/26/18 02:00 Ur Sodium 24 Hour 294 mEq/day (40-220) H 04/26/18 02:00 Microbiology, Last 48 Hours 04/21/18 10:30 Surgical Biopsy Culture - Final Right Foot Staphylococcus epidermidis Enterococcus faecalis Corynebacterium species 04/27/18 16:52 Surgical Biopsy Culture - Final Right Foot 04/27/18 16:52 Acid Fast Stain - Final Right Foot Consult Discharge Plan - Plan Additional Instructions: 1. Follow up with Dr. Misael Stokes in [facility] clinic 1 week after discharge. Referrals: Michael Brown Jr, MD [Primary Care Provider] -
[2018-04-30] MEDS: Insulin DETEMIR 100 UNIT/ML X5UNITS SQ SCH (21:54)
[2018-05-01 05:25] LABS: Basophils # 0.1 K/mcL (0.0-0.2); Basophils % 0.8 %; Eosinophils # 0.4 K/mcL (0.0-0.6); Eosinophils % 4.1 %; Hematocrit 34.3 % (37.5-50.1); Hemoglobin 11.5 g/dL (12.9-16.9); Immature Granulocytes % 0.4 % (0-4); Lymphocytes % 27.9 %; Mean Corpuscular HGB Conc 33.5 g/dL (31.6-35.5); Mean Corpuscular Hemoglobin 29.9 pg (28.0-33.3); Mean Corpuscular Volume 89.1 fL (83.0-100.0); Mean Platelet Volume 8.6 fL (9.4-12.4); Monocytes # 0.8 K/mcL (0.0-1.3); Monocytes % 7.3 %; Neutrophils # 6.3 K/mcL (1.6-8.9); Platelet Count 313 K/mcL (140-400); Red Blood Count 3.85 M/mcL (4.19-5.50); Red Cell Distribution Width 16.4 % (11.5-14.5); Segmented Neutrophils % 59.5 %
[2018-05-01 05:37] LABS: BUN/Creatinine Ratio 25 (6-26); Blood Urea Nitrogen 23 mg/dL (8-23); Calcium 8.9 mg/dL (8.6-10.3); Carbon Dioxide 24 mEq/L (23-29); Chloride 111 mEq/L (98-107); Glucose 86 mg/dL (70-105); Osmolality,Calculated 297 (280-300); Potassium 3.2 mEq/L (3.5-5.1); Sodium 142 mEq/L (136-145); eGFR For Non-African Americans > 60 (> 60)
[2018-05-01] MEDS: Piperacillin/Tazobactam 3.375 GM in 0.9 % Sodium Chloride Mini Bag 100 ML IVPB SCH ×3 (06:06→20:48)
[2018-05-01] MEDS: *HR* Heparin 5,000 UNIT/ML VIAL SQ SCH ×2 (06:07→17:38)
[2018-05-01] MEDS: Insulin LISPRO 300 UNITS/3 ML VIAL SQ SCH ×7 (08:29→20:56)
[2018-05-01] MEDS: Finasteride 5 MG TABLET PO SCH (09:30)
[2018-05-01] MEDS: BuPROPion XL (24 HR) 150 MG TABLET PO SCH (09:30)
[2018-05-01] MEDS: Aspirin Enteric Coated 81 MG Tablet PO SCH (09:31)
--- NOTE | 2018-05-01 09:36 | Infectious Disease Progress No ---
Date of Encounter: 05/01/18 Time of Encounter: 09:34 - Assessment and Plan (1) Leukocytosis Current Visit: No Status: Acute WBC elevated on admission. Etiology infection vs. steroids. No other SIRS criteria noted. Resolved. Recommendations: Continue to trend WBC. Wound care and activity per the Podiatry and primary teams. Await pathology report. Continue Zosyn 3.375 grams IV Q8H. Duration of treatment depends on the clinical picture. If pathology negative, can likely transition to PO antibiotics on discharge. Monitor renal function and for drug toxicity and dose-adjust antibiotics. Strict glucose control per the primary team. Qualifiers: Leukocytosis type: unspecified Qualified Code(s): D72.829 - Elevated white blood cell count, unspecified (2) Osteomyelitis Current Visit: Yes Status: Acute Location: Right foot first metatarsal and possible second metatarsal head. Causative organism: Staph epi (oxacillin-susceptible), Enterococcus faecalis (amp-sensitive), and Corynebacterium. Likely secondary to nonhealing surgical wound. MRI of the right foot completed 04/24/18 showed marrow signal changes of the first metatarsal which are most compatible with osteomyelitis given the surrounding soft tissue changes and ulceration of the first metatarsal head medially. There is no organized drainable fluid collection noted. There is also subtle nonspecific patchy edema and enhancement of the second metatarsal head with minimal associated decreased T1 signal which may reflect early changes of osteomyelitis versus reactive on infectious osteitis. [employer] consult and following. Status post I & D with 1st metatarsal head resection 04/27/[address] Brown. Operative note reviewed. No purulence noted intra-op. Cultures negative. Pathology report is pending. ESR was mildly elevated at 28, but the CRP is less than 5. Given the culture and inflammatory marker results, osteomyelitis is less likely, but will await pathology to make final antibiotic recommendations. Currently on IV Zosyn. Qualifiers: Osteomyelitis type: unspecified type Osteomyelitis location: foot Laterality: right Qualified Code(s): M86.9 - Osteomyelitis, unspecified (3) Wound of right foot Current Visit: Yes Status: Acute Location: Right foot, medial aspect. Non-healing surgical wound. Status post I & D with wound closure 04/27/18. Clinically, the wound looks great. Wound care per the Podiatry team. Antibiotic recommendations as above. (4) Orthostatic hypotension Current Visit: Yes Status: Acute Management per the cardiology, neurology, and primary teams. (5) Carotid occlusion, right Current Visit: No Status: Chronic (6) Mixed hyperlipidemia Current Visit: No Status: Chronic (7) Uncontrolled diabetes mellitus Current Visit: No Status: Acute Strict glucose control. Qualifiers: Diabetes mellitus type: type 2 Glycemic state: with hyperglycemia Qualified Code(s): E11.65 - Type 2 diabetes mellitus with hyperglycemia - Subjective Interval history: Patient seen and examined. Per nursing, the patient had an episode of hypoglycemia this morning. He was clammy and diaphoretic. Patient states overall he feels well, but is cold because his sheets and down are wet. Denies fevers, chills, or rigors. Denies chest pain, shortness of breath, or cough. Denies any dizziness or weakness. Denies nausea, vomiting, diarrhea, or constipation today. Last BM was yesterday. Denies any abdominal pain or urinary complaints. He states his appetite is good. Denies any pain in his joints or extremities. Denies any oral thrush or any skin lesions. Infect Dis PN-Objective Data - Labs CBC & Chem 7: 05/01/18 04:17 05/01/18 04:17 Labs: Laboratory Results - last 24 hr 04/29/18 04/29/18 04/29/18 03:32 11:26 16:02 WBC RBC Hgb Hct MCV MCH MCHC RDW Plt Count MPV Immature Gran % Seg Neutrophils % Lymphocytes % Monocytes % Eosinophils % Basophils % Neutrophils # Lymphocytes # Monocytes # Eosinophils # Basophils # Sodium Potassium Chloride Carbon Dioxide BUN Creatinine Est GFR ( Amer) Est GFR (Non-Af Amer) BUN/Creatinine Ratio Glucose POC Glucose 70 191 H 103 H Calculated Osmolality Calcium 04/29/18 04/30/18 04/30/18 20:57 07:06 11:06 WBC RBC Hgb Hct MCV MCH MCHC RDW Plt Count MPV Immature Gran % Seg Neutrophils % Lymphocytes % Monocytes % Eosinophils % Basophils % Neutrophils # Lymphocytes # Monocytes # Eosinophils # Basophils # Sodium Potassium Chloride Carbon Dioxide BUN Creatinine Est GFR ( Amer) Est GFR (Non-Af Amer) BUN/Creatinine Ratio Glucose POC Glucose 282 H 83 102 H Calculated Osmolality Calcium 04/30/18 05/01/18 05/01/18 21:10 04:17 04:17 WBC 10.6 RBC 3.85 L Hgb 11.5 L Hct 34.3 L MCV 89.1 MCH 29.9 MCHC 33.5 RDW 16.4 H Plt Count 313 MPV 8.6 L Immature Gran % 0.4 Seg Neutrophils % 59.5 Lymphocytes % 27.9 Monocytes % 7.3 Eosinophils % 4.1 Basophils % 0.8 Neutrophils # 6.3 Lymphocytes # 3.0 Monocytes # 0.8 Eosinophils # 0.4 Basophils # 0.1 Sodium 142 Potassium 3.2 L Chloride 111 H Carbon Dioxide 24 BUN 23 Creatinine 0.93 Est GFR ( Amer) > 60 Est GFR (Non-Af Amer) > 60 BUN/Creatinine Ratio 25 Glucose 86 POC Glucose 197 H Calculated Osmolality 297 Calcium 8.9 05/01/18 09:08 WBC RBC Hgb Hct MCV MCH MCHC RDW Plt Count MPV Immature Gran % Seg Neutrophils % Lymphocytes % Monocytes % Eosinophils % Basophils % Neutrophils # Lymphocytes # Monocytes # Eosinophils # Basophils # Sodium Potassium Chloride Carbon Dioxide BUN Creatinine Est GFR ( Amer) Est GFR (Non-Af Amer) BUN/Creatinine Ratio Glucose POC Glucose 110 H Calculated Osmolality Calcium Cultures: Cultures 04/21/18 10:30 Surgical Biopsy Culture - Final Right Foot Staphylococcus epidermidis Enterococcus faecalis Corynebacterium species 04/27/18 16:52 Surgical Biopsy Culture - Final Right Foot 04/27/18 16:52 Acid Fast Stain - Final Right Foot 04/21/18 10:30 Anaerobic Culture - Final Right Foot No anaerobes were recovered. Serology 04/26/18 04/25/18 Range/Units 02:00 00:15 Urine Color Yellow (Yellow) Urine Clarity Clear (Clear) Urine pH 5.5 (5.0-8.0) pH Units Ur Specific [place] 1.021 (1.010-1.025) Urine Protein Trace (Neg-Trace) mg/dL Urine Glucose (UA) >=1000 H (Normal) mg/dL Urine Ketones Negative (Negative) mg/dL Urine Blood Negative (Negative) Urine Nitrite Negative (Negative) Urine Bilirubin Negative (Negative) Urine Urobilinogen Normal (Normal) mg/dL Ur Leukocyte Esterase Small H (Negative) Urine Microscopic RBC 0-3 (0-3) per hpf Urine Microscopic WBC 5-15 H (0-3) per hpf Ur Squamous Epith Cells Many H (None-Few) per lpf Urine Bacteria None Seen (None-Few) per hpf Hyaline Casts None Seen (None-Few) per lpf Ur Culture Indicated? NO. A (NO) Urine Total Volume 1.97 H (0.80-1.80) Liters Urine Creatinine 54 mg/dL Ur Creatinine 24 Hour 1064 (800-2000) mg/day Urine Sodium 149.0 mEq/L Ur Sodium 24 Hour 294 H (40-220) mEq/day Exam - Constitutional Vitals: Temp Pulse Resp BP Pulse Ox 97.4 F L 72 15 134/84 93 05/01/18 07:11 05/01/18 07:11 05/01/18 07:11 05/01/18 07:11 05/01/18 07:11 General appearance: average body habitus, cooperative, no acute distress - Head Head exam: Present: atraumatic, normal inspection, normocephalic - Eye Eye exam: Present: EOMI, normal appearance, PERRL Pupils: Present: normal accommodation - ENT ENT exam: Present: mucous membranes moist - Neck Neck exam: Present: normal inspection - Respiratory Respiratory exam: Present: CTAB. Absent: rales, respiratory distress, rhonchi, wheezes - Cardiovascular Cardiovascular exam: Present: RRR, +S1, +S2 - GI/Abdominal GI/Abdominal exam: Present: normal bowel sounds, soft. Absent: distended, tenderness - Extremities Exam Extremities exam: Absent: normal inspection Additional comments: Surgical site overlying the right first metatarsal with wound edges intact and sutures in place. No erythema, drainage, or tenderness noted. - Neurological Exam Neurological exam: Present: alert, oriented X3, no focal deficits - Psychiatric Psychiatric exam: Present: normal affect, normal mood - Skin Skin exam: Present: dry, intact, normal color, warm Consult Discharge Plan - Plan Additional Instructions: 1. Follow up with Dr. Misael Stokes in wound care center or [facility] clinic 1 week after discharge. Referrals: Michael Brown Jr, MD [Primary Care Provider] - - Attending Attestation I examined this patient and my medical decision-making was reviewed with the Resident Physician. I agree with the documented findings, disposition and treatment plan as described except to the extent set forth below.
[2018-05-01] MEDS ORDERED: 0.9 % Sodium Chloride Mini Bag 100 ML ONE (20:38)
[2018-05-01] MEDS: Insulin DETEMIR 100 UNIT/ML X5UNITS SQ SCH (20:55)
--- NOTE | 2018-05-01 22:56 | Internal Med Progress Note ---
Hospitalist Progress Note - Encounter Date of Encounter: 05/01/18 Time of Encounter: 19:00 - Subjective Interval History: SUBJECTIVE: The patient feels better. However, he is very weak. He is not able to sit up in bed without significant help. Sitting up does not make him dizzy/lightheaded. Denies chest pain and difficulty breathing. Denies abdominal pain, nausea and vomiting. He has normal urination. OBJECTIVE: Skin: Free of rash and discoloration. See description of the right foot wound by podiatry. ENMT: Oral/pharyngeal mucosa is normal in appearance. Eyes: Sclera is white. There is no discharge from eyes. Respiratory: Normal breath sounds; no crackles or wheezes. CV: Heart is regular; no gallop or murmur. GI: Abdomen is soft and not tender. There is no palpable mass or visceromegaly. Neuro: There is no focal deficits. ADDITIONAL DATA: Hemoglobin is 11.5 with a normal WBC/platelet count. BMP shows potassium of 3.2; otherwise, it is normal. ASSESSMENT AND PLAN: Osteomyelitis of right foot. See notes from podiatry and infectious disease. The patient is on IV Zosyn. Orthostatic hypotension. Likely due to adrenal insufficiency. He is currently on higher dose of Florinef and midodrine. He is very deconditioned. He seems to be ready for physical therapy. He does have a compression fracture in thoracic spine. However, he did not complain of pain in his spine, when he was moving around in bed. We will see how he does with physical therapy. Coronary artery disease/type 2 diabetes mellitus. Stable/under control. 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 (6) Coronary artery disease Current Visit: No Status: Chronic (7) Diabetes mellitus Current Visit: No Status: Chronic - Time Spent with Patient Total time spent is greater than 50% in coordination of care (as documented) at patient's floor/unit and/or counseling patient: 25 - 35 minutes Plan of Care Discussed with: patient Internal Medicine: Result - Labs CBC & Chem 7: 05/01/18 04:17 05/01/18 04:17 Labs: Short CBC 05/01/18 Range/Units 04:17 WBC 10.6 (4.3-11.1) K/mcL Hgb 11.5 L (12.9-16.9) g/dL Hct 34.3 L (37.5-50.1) % Plt Count 313 (140-400) K/mcL Neutrophils # 6.3 (1.6-8.9) K/mcL BMP 05/01/18 04:17 Sodium 142 Potassium 3.2 L Chloride 111 H Carbon Dioxide 24 BUN 23 Creatinine 0.93 Glucose 86 Calcium 8.9 - ABG Interpretation ABG results: PT/INR, D-dimer PT 10.9 Seconds (9.4-12.1) 04/21/18 13:02 Consult Discharge Plan - Plan Additional Instructions: 1. Follow up with Dr. Misael Stokes in wound care center or [facility] clinic 1 week after discharge. Referrals: Michael Brown Jr, MD [Primary Care Provider] - (1) Osteomyelitis Qualifiers: Osteomyelitis type: unspecified type Osteomyelitis location: foot Laterality: right Qualified Code(s): M86.9 - Osteomyelitis, unspecified (5) Compression fx, thoracic spine Qualifiers: Encounter type: subsequent encounter Fracture healing: with routine healing Qualified Code(s): S22.000D - Wedge compression fracture of unspecified thoracic vertebra, subsequent encounter for fracture with routine healing (6) Coronary artery disease Qualifiers: Coronary Disease-Associated Artery/Lesion type: [place] artery [place] vs. 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
[2018-05-02] MEDS: Piperacillin/Tazobactam 3.375 GM in 0.9 % Sodium Chloride Mini Bag 100 ML IVPB SCH ×3 (04:51→20:37)
[2018-05-02] MEDS: *HR* Heparin 5,000 UNIT/ML VIAL SQ SCH ×2 (04:57→17:34)
[2018-05-02] MEDS: Insulin LISPRO 300 UNITS/3 ML VIAL SQ SCH ×7 (08:07→20:28)
[2018-05-02] MEDS: Finasteride 5 MG TABLET PO SCH (08:08)
[2018-05-02] MEDS: Aspirin Enteric Coated 81 MG Tablet PO SCH (08:09)
[2018-05-02] MEDS: BuPROPion XL (24 HR) 150 MG TABLET PO SCH (08:09)
--- NOTE | 2018-05-02 14:59 | Infectious Disease Progress No ---
Date of Encounter: 05/02/18 Time of Encounter: 14:57 - Assessment and Plan (1) Leukocytosis Current Visit: No Status: Acute WBC elevated on admission. Etiology infection vs. steroids. No other SIRS criteria noted. Resolved. Recommendations: Continue to trend WBC. Wound care and activity per the Podiatry and primary teams. Await pathology report. Continue Zosyn 3.375 grams IV Q8H. Duration of treatment depends on the clinical picture. If pathology negative, can likely transition to PO antibiotics on discharge. Monitor renal function and for drug toxicity and dose-adjust antibiotics. Strict glucose control per the primary team. Qualifiers: Leukocytosis type: unspecified Qualified Code(s): D72.829 - Elevated white blood cell count, unspecified (2) Osteomyelitis Current Visit: Yes Status: Acute Location: Right foot first metatarsal and possible second metatarsal head. Causative organism: Staph epi (oxacillin-susceptible), Enterococcus faecalis (amp-sensitive), and Corynebacterium. Likely secondary to nonhealing surgical wound. MRI of the right foot completed 04/24/18 showed marrow signal changes of the first metatarsal which are most compatible with osteomyelitis given the surrounding soft tissue changes and ulceration of the first metatarsal head medially. There is no organized drainable fluid collection noted. There is also subtle nonspecific patchy edema and enhancement of the second metatarsal head with minimal associated decreased T1 signal which may reflect early changes of osteomyelitis versus reactive on infectious osteitis. Boat Pilot consult and following. Status post I & D with 1st metatarsal head resection 04/27/[address] Brown. Operative note reviewed. No purulence noted intra-op. Cultures negative. Pathology report is pending. ESR was mildly elevated at 28, but the CRP is less than 5. Given the culture and inflammatory marker results, osteomyelitis is less likely, but will await pathology to make final antibiotic recommendations. Currently on IV Zosyn. Qualifiers: Osteomyelitis type: unspecified type Osteomyelitis location: foot Laterality: right Qualified Code(s): M86.9 - Osteomyelitis, unspecified (3) Wound of right foot Current Visit: Yes Status: Acute Location: Right foot, medial aspect. Non-healing surgical wound. Status post I & D with wound closure 04/27/18. Clinically, the wound looks great. Wound care per the Podiatry team. Antibiotic recommendations as above. (4) Orthostatic hypotension Current Visit: Yes Status: Acute Management per the cardiology, neurology, and primary teams. (5) Carotid occlusion, right Current Visit: No Status: Chronic (6) Mixed hyperlipidemia Current Visit: No Status: Chronic (7) Uncontrolled diabetes mellitus Current Visit: No Status: Acute Strict glucose control. Qualifiers: Diabetes mellitus type: type 2 Glycemic state: with hyperglycemia Qualified Code(s): E11.65 - Type 2 diabetes mellitus with hyperglycemia - Subjective Interval history: Patient seen and examined. Per nursing, the patient had an episode of hypoglycemia this morning. He was clammy and diaphoretic. Patient states overall he feels well, but is cold because his sheets and down are wet. Denies fevers, chills, or rigors. Denies chest pain, shortness of breath, or cough. Denies any dizziness or weakness. Denies nausea, vomiting, diarrhea, or constipation today. Last BM was yesterday. Denies any abdominal pain or urinary complaints. He states his appetite is good. Denies any pain in his joints or extremities. Denies any oral thrush or any skin lesions. is at bedside Patient was eating lunch Denies any complaints In the last 24 hours: Patient afebrile, no tachycardia, hemodynamically stable. Labs from yesterday are reviewed no labs from today Pathology still pending Infect Dis PN-Objective Data - Labs CBC & Chem 7: 05/01/18 04:17 05/01/18 04:17 Labs: Laboratory Results - last 24 hr 04/30/18 05/01/18 05/01/18 16:02 07:22 07:23 POC Glucose 210 H 49 L* 51 L 05/01/18 05/01/18 05/01/18 07:47 07:49 08:07 POC Glucose 51 L 50 L 54 L 05/01/18 05/01/18 05/01/18 12:26 16:44 20:35 POC Glucose 211 H 115 H 235 H Cultures: Cultures 04/27/18 16:52 Anaerobic Culture - Preliminary Right Foot At this time, no anaerobic growth is present. The culture will be finalized after 5 days of incubation. 04/21/18 10:30 Surgical Biopsy Culture - Final Right Foot Staphylococcus epidermidis Enterococcus faecalis Corynebacterium species 04/27/18 16:52 Surgical Biopsy Culture - Final Right Foot 04/27/18 16:52 Acid Fast Stain - Final Right Foot 04/21/18 10:30 Anaerobic Culture - Final Right Foot No anaerobes were recovered. Serology 04/26/18 04/25/18 Range/Units 02:00 00:15 Urine Color Yellow (Yellow) Urine Clarity Clear (Clear) Urine pH 5.5 (5.0-8.0) pH Units Ur Specific [place] 1.021 (1.010-1.025) Urine Protein Trace (Neg-Trace) mg/dL Urine Glucose (UA) >=1000 H (Normal) mg/dL Urine Ketones Negative (Negative) mg/dL Urine Blood Negative (Negative) Urine Nitrite Negative (Negative) Urine Bilirubin Negative (Negative) Urine Urobilinogen Normal (Normal) mg/dL Ur Leukocyte Esterase Small H (Negative) Urine Microscopic RBC 0-3 (0-3) per hpf Urine Microscopic WBC 5-15 H (0-3) per hpf Ur Squamous Epith Cells Many H (None-Few) per lpf Urine Bacteria None Seen (None-Few) per hpf Hyaline Casts None Seen (None-Few) per lpf Ur Culture Indicated? NO. A (NO) Urine Total Volume 1.97 H (0.80-1.80) Liters Urine Creatinine 54 mg/dL Ur Creatinine 24 Hour 1064 (800-2000) mg/day Urine Sodium 149.0 mEq/L Ur Sodium 24 Hour 294 H (40-220) mEq/day Exam - Constitutional Vitals: Temp Pulse Resp BP Pulse Ox 98.8 F 79 16 136/85 94 05/02/18 07:42 05/02/18 07:42 05/02/18 07:42 05/02/18 07:42 05/02/18 07:42 General appearance: no acute distress, no febrile - Eye Eye exam: Present: EOMI, PERRL - Respiratory Respiratory exam: Present: CTAB. Absent: wheezes - Cardiovascular Cardiovascular exam: Present: RRR, +S1, +S2 - Neurological Exam Neurological exam: Present: alert, oriented X3 Consult Discharge Plan - Plan Additional Instructions: 1. Follow up with Dr. Misael Stokes in wound care center or [facility] clinic 1 week after discharge. Referrals: Michael Brown Jr, MD [Primary Care Provider] -
--- NOTE | 2018-05-02 15:33 | Podiatry Progress Note ---
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 Stokes. S/P met head resection with Dr. Elizondo 04/27/18 Incision well approximated, no signs of dehiscence, no signs of infection CFT <3 seconds WBC 10.6 Wound culture growing 04/21 staph epidermis, enterococcus, and corynebacterium 04/24 ESR 28 and CRP less than 5. 04/27 surgical culture negative, preliminary VERONICA 02/08/18 Segmental Pressures Right PT/DP noncompressible Left PT 1.40 DP 1.38 Plan: Placed adaptic to suture line. Covered with 4x4 dry gauze, and kerlex. Nursing to change dressing. OK for patient to d/c once cleared with ID and chief creative officer. Subjective Principal diagnosis: right foot ulcer Interval history: Patient awake in bed. Alert and oriented x 3. PT/OT at bedside. Patient denies any fevers, chills, nausea, vomiting, or diarrhea. Denies any calf pain, chest pain, or shortness of breath. Objective - Vital Signs Vital Signs: Vital Signs Temp Pulse Resp BP Pulse Ox 05/02/18 07:42 98.8 F 79 16 136/85 94 05/02/18 03:16 98.8 F 70 15 148/83 98 05/01/18 16:48 97.6 F 76 16 167/96 98 Intake and Output 05/01/18 05/02/18 05/02/18 23:59 07:59 15:59 Intake Total 340 / 340 200 / 200 460 / 460 Output Total 200 / 200 625 / 625 75 / 75 Balance 140 / 140 -425 / -425 385 / 385 Intake: IV Fluids 100 / 100 100 / 100 100 / 100 Zosyn 3.375 GM In 0.9 % Sodium 100 / 100 100 / 100 100 / 100 Chloride (Mini-Bag +) 100 ML @ 25 mls/hr IVPB Q8H [facility] Rx#: [id number] Oral 240 / 240 100 / 100 360 / 360 Output: Urine 200 / 200 625 / 625 75 / 75 Other: Meal Dinner Lunch Percent of Meal Consumed 75% 100% Stool Size Moderate Stool Consistency soft formed Stool Color Brown # Voids 1 # Urine Diapers 1 # Bowel Movements 0 0 Weight 79.3 kg Blood Glucose* 235 173 109 Patient Weight 05/02/18 23:59 Weight 79.3 kg - Lab Result Diagrams: 05/01/18 04:17 05/01/18 04:17 Labs: Abnormal lab results RBC 3.85 M/mcL (4.19-5.50) L 05/01/18 04:17 Hgb 11.5 g/dL (12.9-16.9) L 05/01/18 04:17 Hct 34.3 % (37.5-50.1) L 05/01/18 04:17 RDW 16.4 % (11.5-14.5) H 05/01/18 04:17 MPV 8.6 fL (9.4-12.4) L 05/01/18 04:17 ESR 28 mm/hr (0-10) H 04/24/18 07:19 Potassium 3.2 mEq/L (3.5-5.1) L 05/01/18 04:17 Chloride 111 mEq/L (98-107) H 05/01/18 04:17 POC Glucose 235 mg/dL (70-99) H 05/01/18 20:35 Serum Total Protein 6.3 g/dL (6.4-8.9) L 04/20/18 16:52 Albumin 3.2 g/dL (3.5-5.7) L 04/20/18 16:52 Albumin/Globulin Ratio 1.0 (1.1-2.2) L 04/20/18 16:52 Urine Glucose (UA) >=1000 mg/dL (Normal) H 04/25/18 00:15 Ur Leukocyte Esterase Small (Negative) H 04/25/18 00:15 Urine Microscopic WBC 5-15 per hpf (0-3) H 04/25/18 00:15 Ur Squamous Epith Cells Many per lpf (None-Few) H 04/25/18 00:15 Ur Culture Indicated? NO. (NO) A 04/25/18 00:15 Urine Total Volume 1.97 Liters (0.80-1.80) H 04/26/18 02:00 Ur Sodium 24 Hour 294 mEq/day (40-220) H 04/26/18 02:00 Microbiology, Last 48 Hours 04/27/18 16:52 Anaerobic Culture - Preliminary Right Foot At this time, no anaerobic growth is present. The culture will be finalized after 5 days of incubation. 04/21/18 10:30 Surgical Biopsy Culture - Final Right Foot Staphylococcus epidermidis Enterococcus faecalis Corynebacterium species Consult Discharge Plan - Plan Additional Instructions: 1. Follow up with Dr. Misael Stokes in [facility] clinic 1 week after discharge. Referrals: Michael Brown Jr, MD [Primary Care Provider] -
[2018-05-02] MEDS: Insulin DETEMIR 100 UNIT/ML X5UNITS SQ SCH (20:37)
--- NOTE | 2018-05-02 21:45 | Internal Med Progress Note ---
Hospitalist Progress Note - Encounter Date of Encounter: 05/02/18 Time of Encounter: 19:00 - Subjective Interval History: SUBJECTIVE: The patient is in good spirits. He did a low bit of physical therapy yesterday. He was sitting at the age of his bed balancing his body and exercising his extremities. He has not done any standing up or walking yet. He did not experience any dizziness or lightheadedness when sitting. Denies chest pain. Denies difficulty breathing. He does not have any significant pain in his right foot. OBJECTIVE: Skin: Free of rash and discoloration. See description of the right foot wound by podiatry. ENMT: Oral/pharyngeal mucosa is normal in appearance. Eyes: Sclera is white. There is no discharge from eyes. Respiratory: Normal breath sounds; no crackles or wheezes. CV: Heart is regular; no gallop or murmur. GI: Abdomen is soft and not tender. There is no palpable mass or visceromegaly. Neuro: There is no focal deficits. ADDITIONAL DATA (from yesterday): Hemoglobin is 11.5 with a normal WBC/platelet count. BMP shows potassium of 3.2; otherwise, it is normal. ASSESSMENT AND PLAN: Osteomyelitis of right foot. See notes from podiatry and infectious disease. The patient is on IV Zosyn. Orthostatic hypotension. Likely due to adrenal insufficiency. He is currently on higher dose of Florinef and midodrine. He is very deconditioned. Physical therapy has been started. He does have a compression fracture in thoracic spine. However, he did not complain of pain in his spine recently. He will likely need supportive treatments only. Coronary artery disease/type 2 diabetes mellitus. Stable/under control. 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 (6) Coronary artery disease Current Visit: No Status: Chronic (7) Diabetes mellitus Current Visit: No Status: Chronic (8) Acute hypokalemia Current Visit: Yes Status: Acute - Time Spent with Patient Total time spent is greater than 50% in coordination of care (as documented) at patient's floor/unit and/or counseling patient: 25 - 35 minutes Plan of Care Discussed with: patient Internal Medicine: Result - Labs CBC & Chem 7: 05/01/18 04:17 05/01/18 04:17 - ABG Interpretation ABG results: PT/INR, D-dimer PT 10.9 Seconds (9.4-12.1) 04/21/18 13:02 Consult Discharge Plan - Plan Additional Instructions: 1. Follow up with Dr. Misael Stokes in [facility] 1 week after discharge. Referrals: Michael Brown Jr, MD [Primary Care Provider] - (1) Osteomyelitis Qualifiers: Osteomyelitis type: unspecified type Osteomyelitis location: foot Laterality: right Qualified Code(s): M86.9 - Osteomyelitis, unspecified (5) Compression fx, thoracic spine Qualifiers: Encounter type: subsequent encounter Fracture healing: with routine healing Qualified Code(s): S22.000D - Wedge compression fracture of unspecified thoracic vertebra, subsequent encounter for fracture with routine healing (6) Coronary artery disease Qualifiers: Coronary Disease-Associated Artery/Lesion type: [place] artery [place] vs. 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
[2018-05-03] MEDS: Piperacillin/Tazobactam 3.375 GM in 0.9 % Sodium Chloride Mini Bag 100 ML IVPB SCH ×3 (05:28→21:10)
[2018-05-03] MEDS: *HR* Heparin 5,000 UNIT/ML VIAL SQ SCH ×2 (05:28→17:56)
[2018-05-03 05:32] LABS: BUN/Creatinine Ratio 22 (6-26); Blood Urea Nitrogen 23 mg/dL (8-23); Calcium 9.5 mg/dL (8.6-10.3); Carbon Dioxide 25 mEq/L (23-29); Chloride 109 mEq/L (98-107); Glucose 85 mg/dL (70-105); Osmolality,Calculated 295 (280-300); Sodium 141 mEq/L (136-145); eGFR For Non-African Americans > 60 (> 60)
[2018-05-03] MEDS: Insulin LISPRO 300 UNITS/3 ML VIAL SQ SCH ×7 (08:16→20:50)
[2018-05-03] MEDS: BuPROPion XL (24 HR) 150 MG TABLET PO SCH (08:48)
[2018-05-03] MEDS: Finasteride 5 MG TABLET PO SCH (08:48)
[2018-05-03] MEDS: Aspirin Enteric Coated 81 MG Tablet PO SCH (08:48)
--- NOTE | 2018-05-03 17:10 | Infectious Disease Progress No ---
Date of Encounter: 05/03/18 Time of Encounter: 17:06 - Assessment and Plan (1) Leukocytosis Current Visit: No Status: Acute WBC elevated on admission. Etiology infection vs. steroids. No other SIRS criteria noted. Resolved. Recommendations: Pathology report reviewed. Concerning for osteomyelitis. Even though cultures were negative and Gram stain showed gram-positive cocci Most likely underwent recommend continuing a very antibiotics for 6 weeks duration of it is okay with podiatry. I will try to reach to podiatry today and discussed with them, I will also have to figure out what the best antibiotics with the patient on would be. Zosyn 4 hour continuous infusion with be something that we can try to do but that would mean he will have the medication on even when he sleeping. I am not sure if the The patient is going home or to a [facility] facility Qualifiers: Leukocytosis type: unspecified Qualified Code(s): D72.829 - Elevated white blood cell count, unspecified (2) Osteomyelitis Current Visit: Yes Status: Acute Location: Right foot first metatarsal and possible second metatarsal head. Causative organism: Staph epi (oxacillin-susceptible), Enterococcus faecalis (amp-sensitive), and Corynebacterium. Likely secondary to nonhealing surgical wound. MRI of the right foot completed 04/24/18 showed marrow signal changes of the first metatarsal which are most compatible with osteomyelitis given the surrounding soft tissue changes and ulceration of the first metatarsal head medially. There is no organized drainable fluid collection noted. There is also subtle nonspecific patchy edema and enhancement of the second metatarsal head with minimal associated decreased T1 signal which may reflect early changes of osteomyelitis versus reactive on infectious osteitis. Cable Inspector consult and following. Status post I & D with 1st metatarsal head resection 04/27/[address] Brown. Operative note reviewed. No purulence noted intra-op. Cultures negative. Pathology report is pending. ESR was mildly elevated at 28, but the CRP is less than 5. Given the culture and inflammatory marker results, osteomyelitis is less likely, but will await pathology to make final antibiotic recommendations. Currently on IV Zosyn. Qualifiers: Osteomyelitis type: unspecified type Osteomyelitis location: foot Laterality: right Qualified Code(s): M86.9 - Osteomyelitis, unspecified (3) Wound of right foot Current Visit: Yes Status: Acute Location: Right foot, medial aspect. Non-healing surgical wound. Status post I & D with wound closure 04/27/18. Clinically, the wound looks great. Wound care per the Podiatry team. Antibiotic recommendations as above. (4) Orthostatic hypotension Current Visit: Yes Status: Acute Management per the cardiology, neurology, and primary teams. (5) Carotid occlusion, right Current Visit: No Status: Chronic (6) Mixed hyperlipidemia Current Visit: No Status: Chronic (7) Uncontrolled diabetes mellitus Current Visit: No Status: Acute Strict glucose control. Qualifiers: Diabetes mellitus type: type 2 Glycemic state: with hyperglycemia Qualified Code(s): E11.65 - Type 2 diabetes mellitus with hyperglycemia - Subjective Interval history: Patient seen and examined. Appears comfortable. No acute distress. Pleasant. Denies any chest pain. Breath. No nausea no vomiting. Eating okay. No urinary symptoms. No diarrhea Denies any complaints In the last 24 hours: Patient afebrile, no tachycardia, hemodynamically stable. Labs reviewed WBC 5.0, CR 0.46 Pathology report noted Infect Dis PN-Objective Data - Labs CBC & Chem 7: 05/01/18 04:17 05/03/18 04:39 Labs: Laboratory Results - last 24 hr 05/02/18 05/02/18 05/02/18 07:54 12:41 17:32 Sodium Potassium Chloride Carbon Dioxide BUN Creatinine Est GFR ( Amer) Est GFR (Non-Af Amer) BUN/Creatinine Ratio Glucose POC Glucose 173 H 109 H 287 H Calculated Osmolality Calcium Magnesium 05/02/18 05/03/18 05/03/18 20:27 04:39 04:39 Sodium 141 Potassium 4.0 Chloride 109 H Carbon Dioxide 25 BUN 23 Creatinine 1.06 Est GFR ( Amer) > 60 Est GFR (Non-Af Amer) > 60 BUN/Creatinine Ratio 22 Glucose 85 POC Glucose 154 H Calculated Osmolality 295 Calcium 9.5 Magnesium 1.9 05/03/18 05/03/18 05/03/18 07:06 10:49 16:05 Sodium Potassium Chloride Carbon Dioxide BUN Creatinine Est GFR ( Amer) Est GFR (Non-Af Amer) BUN/Creatinine Ratio Glucose POC Glucose 92 108 H 111 H Calculated Osmolality Calcium Magnesium Cultures: Cultures 04/27/18 16:52 Anaerobic Culture - Final Right Foot No anaerobes were recovered. 04/21/18 10:30 Surgical Biopsy Culture - Final Right Foot Staphylococcus epidermidis Enterococcus faecalis Corynebacterium species 04/27/18 16:52 Surgical Biopsy Culture - Final Right Foot 04/27/18 16:52 Acid Fast Stain - Final Right Foot 04/21/18 10:30 Anaerobic Culture - Final Right Foot No anaerobes were recovered. Serology 04/26/18 04/25/18 Range/Units 02:00 00:15 Urine Color Yellow (Yellow) Urine Clarity Clear (Clear) Urine pH 5.5 (5.0-8.0) pH Units Ur Specific [place] 1.021 (1.010-1.025) Urine Protein Trace (Neg-Trace) mg/dL Urine Glucose (UA) >=1000 H (Normal) mg/dL Urine Ketones Negative (Negative) mg/dL Urine Blood Negative (Negative) Urine Nitrite Negative (Negative) Urine Bilirubin Negative (Negative) Urine Urobilinogen Normal (Normal) mg/dL Ur Leukocyte Esterase Small H (Negative) Urine Microscopic RBC 0-3 (0-3) per hpf Urine Microscopic WBC 5-15 H (0-3) per hpf Ur Squamous Epith Cells Many H (None-Few) per lpf Urine Bacteria None Seen (None-Few) per hpf Hyaline Casts None Seen (None-Few) per lpf Ur Culture Indicated? NO. A (NO) Urine Total Volume 1.97 H (0.80-1.80) Liters Urine Creatinine 54 mg/dL Ur Creatinine 24 Hour 1064 (800-2000) mg/day Urine Sodium 149.0 mEq/L Ur Sodium 24 Hour 294 H (40-220) mEq/day Exam - Constitutional Vitals: Temp Pulse Resp BP Pulse Ox 98.3 F 74 15 167/86 97 05/03/18 15:11 05/03/18 15:11 05/03/18 15:11 05/03/18 15:11 05/03/18 15:11 General appearance: no acute distress, no febrile - Eye Eye exam: Present: EOMI, PERRL - Respiratory Respiratory exam: Present: CTAB. Absent: wheezes - Cardiovascular Cardiovascular exam: Present: RRR, +S1, +S2 - GI/Abdominal GI/Abdominal exam: Present: normal bowel sounds, soft. Absent: tenderness Consult Discharge Plan - Plan Additional Instructions: 1. Follow up with Dr. Misael Stokes in [facility] 1 week after di scharge. Referrals: Michael Brown Jr, MD [Primary Care Provider] -
[2018-05-03] MEDS: Insulin DETEMIR 100 UNIT/ML X5UNITS SQ SCH (20:51)
--- NOTE | 2018-05-03 22:30 | Internal Med Progress Note ---
Hospitalist Progress Note - Encounter Date of Encounter: 05/03/18 Time of Encounter: 19:00 - Subjective Interval History: SUBJECTIVE: The patient feels good. He is not able to stand up; they did not do any walking today. He did not have any dizziness/lightheadedness or significant back pain when sitting at the edge of his bed. Denies chest pain. Denies difficulty breathing. He does not have any significant pain in his right foot. OBJECTIVE: Skin: Free of rash and discoloration. See description of the right foot wound by podiatry. ENMT: Oral/pharyngeal mucosa is normal in appearance. Eyes: Sclera is white. There is no discharge from eyes. Respiratory: Normal breath sounds; no crackles or wheezes. CV: Heart is regular; no gallop or murmur. GI: Abdomen is soft and not tender. There is no palpable mass or visceromegaly. Neuro: There is no focal deficits. ADDITIONAL DATA (from yesterday): BMP from today is normal including potassium 4.0 (3.2 2 days ago). ASSESSMENT AND PLAN: Osteomyelitis of right foot. See notes from podiatry and infectious disease. The patient is on IV Zosyn. Orthostatic hypotension. Likely due to adrenal insufficiency. He is currently on higher dose of Florinef and midodrine. He is very deconditioned. Physical therapy has been started. His compression fracture in thoracic spine seems to be stable. He does not give him any significant pain. Coronary artery disease/type 2 diabetes mellitus. Stable/under control. Disposition: A referral has been made to get inpatient physical therapy for him. 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 (6) Coronary artery disease Current Visit: No Status: Chronic (7) Diabetes mellitus Current Visit: No Status: Chronic (8) Acute hypokalemia Current Visit: Yes Status: Acute - Time Spent with Patient Total time spent is greater than 50% in coordination of care (as documented) at patient's floor/unit and/or counseling patient: 25 - 35 minutes Plan of Care Discussed with: patient Internal Medicine: Result - Labs CBC & Chem 7: 05/01/18 04:17 05/03/18 04:39 Labs: BMP 05/03/18 04:39 Sodium 141 Potassium 4.0 Chloride 109 H Carbon Dioxide 25 BUN 23 Creatinine 1.06 Glucose 85 Calcium 9.5 - ABG Interpretation ABG results: PT/INR, D-dimer PT 10.9 Seconds (9.4-12.1) 04/21/18 13:02 Consult Discharge Plan - Plan Additional Instructions: 1. Follow up with Dr. Misael Stokes in [facility] clinic 1 week after discharge. Referrals: Michael Brown Jr, MD [Primary Care Provider] - (1) Osteomyelitis Qualifiers: Osteomyelitis type: unspecified type Osteomyelitis location: foot Laterality: right Qualified Code(s): M86.9 - Osteomyelitis, unspecified (5) Compression fx, thoracic spine Qualifiers: Encounter type: subsequent encounter Fracture healing: with routine healing Qualified Code(s): S22.000D - Wedge compression fracture of unspecified thoracic vertebra, subsequent encounter for fracture with routine healing (6) Coronary artery disease Qualifiers: Coronary Disease-Associated Artery/Lesion type: [place] artery [place] vs. transplanted heart: [place] heart Associated angina: without angina Qualified Code(s): I25.10 - Atherosclerotic heart disease of [place] coronary artery without angina pectoris (7) Diabetes mellitus Qualifiers: Diabetes mellitus type: type 2 Diabetes mellitus nursing home insulin use: unspecified nursing home insulin use status Diabetes mellitus complication status: with circulatory complication Diabetes mellitus complication detail: with other circulatory complications Qualified Code(s): E11.59 - Type 2 diabetes mellitus with other circulatory complications
--- NOTE | 2018-05-04 00:16 | Event Note ---
Date of Encounter: 05/04/18 Time of Encounter: 00:00 Responded to a rapid response around 12 AM. Per report patient was assisted to his bedside commode and shortly thereafter became unresponsive. When I arrived patient was sitting on the bedside commode with his head slumped forward. Noted to be drooling and had urinated on the floor. Patient was unresponsive for approximately 1 minute. Heart rate and O2 saturation was normal. There was initial difficulty obtaining his blood pressure and a manual cuff was requested. Patient shortly thereafter came to and was responding appropriately to commands. He knew where he was was slightly confused as to the year. He was moving all 4 limbs spontaneously. He had 1 episode of nonbloody, nonbilious emesis. Patient was subsequently assisted back into bed and manual blood pressure was obtained showing a blood pressure 140/80 with a heart rate of 83. No evidence of any focal neurological deficits area and patient's mental status improved back to baseline after placing the patient back in bed. EKG obtained hic was normal. Stat labs were ordered. Patient placed on 75 mL of normal saline with instructions to maintain bed rest for now. We will obtain CT scan of the head.
[2018-05-04] MEDS: 0.9 % Sodium Chloride 1,000 ML IVC SCH ×2 (01:06→21:08)
[2018-05-04 01:19] LABS: Hematocrit 39.1 % (37.5-50.1); Hemoglobin 12.9 g/dL (12.9-16.9); Mean Corpuscular Hemoglobin 30.1 pg (28.0-33.3); Mean Corpuscular Volume 91.1 fL (83.0-100.0); Mean Platelet Volume 8.3 fL (9.4-12.4); Platelet Count 305 K/mcL (140-400); Red Blood Count 4.29 M/mcL (4.19-5.50); Red Cell Distribution Width 16.6 % (11.5-14.5)
[2018-05-04 01:36] LABS: BUN/Creatinine Ratio 19 (6-26); Blood Urea Nitrogen 25 mg/dL (8-23); Calcium 9.7 mg/dL (8.6-10.3); Carbon Dioxide 23 mEq/L (23-29); Chloride 109 mEq/L (98-107); Glucose 105 mg/dL (70-105); Osmolality,Calculated 297 (280-300); Sodium 141 mEq/L (136-145); eGFR For Non-African Americans 54 (> 60)
[2018-05-04 01:37] LABS: Troponin I < 0.03 ng/mL (< 0.04)
[2018-05-04] MEDS: Piperacillin/Tazobactam 3.375 GM in 0.9 % Sodium Chloride Mini Bag 100 ML IVPB SCH ×3 (05:06→21:04)
[2018-05-04] MEDS: *HR* Heparin 5,000 UNIT/ML VIAL SQ SCH ×2 (05:07→20:43)
[2018-05-04] MEDS: BuPROPion XL (24 HR) 150 MG TABLET PO SCH (10:30)
[2018-05-04] MEDS: Finasteride 5 MG TABLET PO SCH (10:30)
[2018-05-04] MEDS: Insulin LISPRO 300 UNITS/3 ML VIAL SQ SCH ×7 (10:31→21:09)
[2018-05-04] MEDS: Aspirin Enteric Coated 81 MG Tablet PO SCH (10:31)
--- NOTE | 2018-05-04 12:46 | Podiatry Progress Note ---
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 Stokes. S/P met head resection with Dr. Elizondo 04/27/18 Incision well approximated, no signs of dehiscence, no signs of infection Minimal erythema noted around incision site CFT <3 seconds WBC 11.3 Wound culture growing 04/21 staph epidermis, enterococcus, and corynebacterium 04/24 ESR 28 and CRP less than 5. 04/27 surgical culture negative, final VERONICA 02/08/18 Segmental Pressures Right PT/DP noncompressible Left PT 1.40 DP 1.38 Plan: Placed adaptic to suture line. Covered with 4x4 dry gauze, and kerlex. Do not change dressing. Keep dry. Do not get wet. Will change outpatient or in 5 days if still inpatient. OK for patient to d/c once cleared with ID and billet header. Subjective Principal diagnosis: right foot ulcer Interval history: Patient awake in bed. Alert and oriented x 3. at bedside. Patient had overnight event in which he went unresponsive. Patient denies complications since event other than hiccups. Denies any fevers, chills, nausea, vomiting, or diarrhea. Denies any calf pain, chest pain, or shortness of breath. Objective - Vital Signs Vital Signs: Vital Signs Temp Pulse Resp BP Pulse Ox 05/04/18 10:15 97.3 F L 75 16 150/85 99 05/04/18 06:34 98.5 F 77 16 124/60 91 05/04/18 04:53 98.3 F 83 13 141/60 97 05/04/18 00:05 97.5 F L 83 140/80 96 05/03/18 20:36 98.1 F 73 12 155/88 96 05/03/18 15:11 98.3 F 74 15 167/86 97 Intake and Output 05/03/18 05/04/18 05/04/18 23:59 07:59 15:59 Intake Total 220 / 220 100 / 100 Output Total 350 / 350 250 / 250 0 / 0 Balance -130 / -130 -150 / -150 0 / 0 Intake: IV Fluids 100 / 100 100 / 100 Zosyn 3.375 GM In 0.9 % Sodium 100 / 100 100 / 100 Chloride (Mini-Bag +) 100 ML @ 25 mls/hr IVPB Q8H [facility] Rx#: [id number] Oral 120 / 120 0 / 0 Output: Urine 350 / 350 250 / 250 0 / 0 Other: Percent of Meal Consumed 40% Stool Size Small Large Stool Consistency loose formed Stool Color Brown Brown Dark Red Blood # Voids 1 # Bowel Movements 1 Weight 75.5 kg Blood Glucose* 107 104 150 Patient Weight 05/04/18 23:59 Weight 75.5 kg - Exam Exam: Constitiutional: Alert and oriented x 3. Vascular: non-palpable DP/PT, CFT <3 sec to all digits RLE, warm to warm from tibia to toes RLE, no calf pain with squeeze RLE Neurologic: Diminished sensation to touch, normal plantar response Dermatologic: Incision to right 1st metatarsal noted. Well approximated. No signs of infection, no drainage, no edema. Musculoskeletal: 3/5 muscle strength and normal tone RLE - Lab Result Diagrams: 05/04/18 01:05 05/04/18 01:05 Labs: Abnormal lab results WBC 11.3 K/mcL (4.3-11.1) H 05/04/18 01:05 RDW 16.6 % (11.5-14.5) H 05/04/18 01:05 MPV 8.3 fL (9.4-12.4) L 05/04/18 01:05 ESR 28 mm/hr (0-10) H 04/24/18 07:19 Chloride 109 mEq/L (98-107) H 05/04/18 01:05 BUN 25 mg/dL (8-23) H 05/04/18 01:05 Est GFR (Non-Af Amer) 54 (> 60) L 05/04/18 01:05 POC Glucose 150 mg/dL (70-99) H 05/04/18 11:10 Serum Total Protein 6.3 g/dL (6.4-8.9) L 04/20/18 16:52 Albumin 3.2 g/dL (3.5-5.7) L 04/20/18 16:52 Albumin/Globulin Ratio 1.0 (1.1-2.2) L 04/20/18 16:52 Urine Glucose (UA) >=1000 mg/dL (Normal) H 04/25/18 00:15 Ur Leukocyte Esterase Small (Negative) H 04/25/18 00:15 Urine Microscopic WBC 5-15 per hpf (0-3) H 04/25/18 00:15 Ur Squamous Epith Cells Many per lpf (None-Few) H 04/25/18 00:15 Ur Culture Indicated? NO. (NO) A 04/25/18 00:15 Urine Total Volume 1.97 Liters (0.80-1.80) H 04/26/18 02:00 Ur Sodium 24 Hour 294 mEq/day (40-220) H 04/26/18 02:00 Microbiology, Last 48 Hours 04/27/18 16:52 Anaerobic Culture - Final Right Foot No anaerobes were recovered. Consult Discharge Plan - Plan Additional Instructions: 1. Follow up with Dr. Zia Brown in [facility] clinic 1 week after discharge. Referrals: Michael Brown Jr, MD [Primary Care Provider] - Zia Brown DPM [Partnered Physician] -
[2018-05-04] MEDS ORDERED: Insulin DETEMIR 100 UNIT/ML X5UNITS SQ SCH (21:00)
--- NOTE | 2018-05-04 21:23 | Internal Med Progress Note ---
Hospitalist Progress Note - Encounter Date of Encounter: 05/04/18 Time of Encounter: 19:00 - Subjective Interval History: SUBJECTIVE: The patient is quite weak. It was last night, when he fell into his bed from sitting in bed position. They suspected him to have postural hypotension. However, nobody checked his orthostatics. He did have relatively low glucose levels last night. He was not able to do any standing or walking today. He did not have any dizziness/lightheadedness when sitting at the age of his bed. Denies chest pain. Denies difficulty breathing. He does not have any significant pain in his right foot. OBJECTIVE: Skin: Free of rash and discoloration. See description of the right foot wound by podiatry. ENMT: Oral/pharyngeal mucosa is normal in appearance. Eyes: Sclera is white. There is no discharge from eyes. Respiratory: Normal breath sounds; no crackles or wheezes. CV: Heart is regular; no gallop or murmur. GI: Abdomen is soft and not tender. There is no palpable mass or visceromegaly. Neuro: There is no focal deficits. ADDITIONAL DATA: CBC is basically normal; WBCs 11.3 thousand. BMP shows fasting glucose of 105. Creatinine and lites are normal. ASSESSMENT AND PLAN: Osteomyelitis of right foot. See notes from podiatry and infectious disease. We will switch him from IV antibiotics to oral Augmentin. He would be using it for at least 3 weeks. Orthostatic hypotension. Likely due to adrenal insufficiency. He is currently on higher dose of Florinef and midodrine. He is very deconditioned. Physical therapy has been started. His compression fracture in thoracic spine seems to be stable. It does not give him any significant pain. Coronary artery disease. Stable/under control. Type 2 diabetes mellitus. We decreased his dose of insulin. Disposition: A referral has been made to get inpatient physical therapy for him. 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 (6) Coronary artery disease Current Visit: No Status: Chronic (7) Diabetes mellitus Current Visit: No Status: Chronic - Time Spent with Patient Total time spent is greater than 50% in coordination of care (as documented) at patient's floor/unit and/or counseling patient: 25 - 35 minutes Plan of Care Discussed with: patient Internal Medicine: Result - Labs CBC & Chem 7: 05/04/18 01:05 05/04/18 01:05 Labs: Short CBC 05/04/18 Range/Units 01:05 WBC 11.3 H (4.3-11.1) K/mcL Hgb 12.9 (12.9-16.9) g/dL Hct 39.1 (37.5-50.1) % Plt Count 305 (140-400) K/mcL BMP 05/04/18 01:05 Sodium 141 Potassium 4.0 Chloride 109 H Carbon Dioxide 23 BUN 25 H Creatinine 1.29 Glucose 105 Calcium 9.7 Cardiac Enzymes 05/04/18 Range/Units 01:05 Troponin I < 0.03 (< 0.04) ng/mL - ABG Interpretation ABG results: PT/INR, D-dimer PT 10.9 Seconds (9.4-12.1) 04/21/18 13:02 - Impressions Impressions Head CT 05/04/18 00:19 IMPRESSION: No acute intracranial abnormality. Chronic small vessel ischemic disease and age related involutional changes. Paranasal sinus disease and small mastoid effusions. D/ / Ga Garcias / Ga Garcias Interpreting Provider: Ga Garcias Consult Discharge Plan - Plan Additional Instructions: 1. Follow up with Dr. Zia Brown in [facility] 1 week after discharge. Referrals: Zia Brown, DPM [Partnered Physician] - Michael Brown Jr, MD [Primary Care Provider] - (1) Osteomyelitis Qualifiers: Osteomyelitis type: unspecified type Osteomyelitis location: foot Laterality: right Qualified Code(s): M86.9 - Osteomyelitis, unspecified (5) Compression fx, thoracic spine Qualifiers: Encounter type: subsequent encounter Fracture healing: with routine healing Qualified Code(s): S22.000D - Wedge compression fracture of unspecified thoracic vertebra, subsequent encounter for fracture with routine healing (6) Coronary artery disease Qualifiers: Coronary Disease-Associated Artery/Lesion type: [place] artery [place] vs. 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
--- NOTE | 2018-05-04 22:50 | Infectious Disease Progress No ---
Date of Encounter: 05/04/18 Time of Encounter: 16:00 - Assessment and Plan (1) Leukocytosis Current Visit: No Status: Acute WBC elevated on admission. Etiology infection vs. steroids. No other SIRS criteria noted. Resolved. Recommendations: Pathology report reviewed. Concerning for osteomyelitis. Even though cultures were negative and Gram stain showed gram-positive cocci Most likely underwent recommend continuing a very antibiotics for 6 weeks duration of it is okay with podiatry. I will try to reach to podiatry today and discussed with them, I will also have to figure out what the best antibiotics with the patient on would be. Zosyn 4 hour continuous infusion with be something that we can try to do but that would mean he will have the medication on even when he sleeping. I am not sure if the The patient is going home or to a [facility] facility Qualifiers: Leukocytosis type: unspecified Qualified Code(s): D72.829 - Elevated white blood cell count, unspecified (2) Osteomyelitis Current Visit: Yes Status: Acute Location: Right foot first metatarsal and possible second metatarsal head. Causative organism: Staph epi (oxacillin-susceptible), Enterococcus faecalis (amp-sensitive), and Corynebacterium. Likely secondary to nonhealing surgical wound. MRI of the right foot completed 04/24/18 showed marrow signal changes of the first metatarsal which are most compatible with osteomyelitis given the surrounding soft tissue changes and ulceration of the first metatarsal head medially. There is no organized drainable fluid collection noted. There is also subtle nonspecific patchy edema and enhancement of the second metatarsal head with minimal associated decreased T1 signal which may reflect early changes of osteomyelitis versus reactive on infectious osteitis. Felt Hat Flanging Operator consult and following. Status post I & D with 1st metatarsal head resection 04/27/[address] Brown. Operative note reviewed. No purulence noted intra-op. Cultures negative. Pathology report is pending. ESR was mildly elevated at 28, but the CRP is less than 5. biopsy results noted. I did speak with Maddy Ledezma from podiatry who also discussed with her attending and they feel that they got all the possible infect ed tissue and they recommend oral antibiotics. I told that I will send on oral but she tells me he cant tolerate oral Abx. I called pharmacy at [phone] and they said they dispensed bactrim on 03/20 and flagyl on 03/09 . I explained to the raquel tI'm going to do augmentin and doxy and hopefully he can tolerate them she is willing to try d/w Dr. Weaver as well Qualifiers: Osteomyelitis type: unspecified type Osteomyelitis location: foot Laterality: right Qualified Code(s): M86.9 - Osteomyelitis, unspecified (3) Wound of right foot Current Visit: Yes Status: Acute Location: Right foot, medial aspect. Non-healing surgical wound. Status post I & D with wound closure 04/27/18. Clinically, the wound looks great. Wound care per the Podiatry team. Antibiotic recommendations as above. (4) Orthostatic hypotension Current Visit: Yes Status: Acute Management per the cardiology, neurology, and primary teams. (5) Carotid occlusion, right Current Visit: No Status: Chronic (6) Mixed hyperlipidemia Current Visit: No Status: Chronic (7) Uncontrolled diabetes mellitus Current Visit: No Status: Acute Strict glucose control. Qualifiers: Diabetes mellitus type: type 2 Glycemic state: with hyperglycemia Qualified Code(s): E11.65 - Type 2 diabetes mellitus with hyperglycemia - Subjective Interval history: Patient seen and examined. Appears comfortable. No acute distress. Pleasant. Denies any chest pain. Breath. No nausea no vomiting. Eating okay. No urinary symptoms. No diarrhea overnight he had what appears a syncopal episode or a vasovagal episode which since then had resolved. CT head noted. Denies any complaints In the last 24 hours: Patient afebrile, no tachycardia, hemodynamically stable. Labs reviewed WBC 5.0, CR 0.46 Pathology report noted Infect Dis PN-Objective Data - Labs CBC & Chem 7: 05/04/18 01:05 05/04/18 01:05 Labs: Laboratory Results - last 24 hr 05/03/18 05/03/18 05/04/18 20:36 23:45 01:05 WBC 11.3 H RBC 4.29 Hgb 12.9 Hct 39.1 MCV 91.1 MCH 30.1 MCHC 33.0 RDW 16.6 H Plt Count 305 MPV 8.3 L Sodium Potassium Chloride Carbon Dioxide BUN Creatinine Est GFR ( Amer) Est GFR (Non-Af Amer) BUN/Creatinine Ratio Glucose POC Glucose 107 H 84 Calculated Osmolality Lactic Acid Calcium Troponin I 12/05/04/18 05/04/18 01:05 01:05 07:28 WBC RBC Hgb Hct MCV MCH MCHC RDW Plt Count MPV Sodium 141 Potassium 4.0 Chloride 109 H Carbon Dioxide 23 BUN 25 H Creatinine 1.29 Est GFR ( Amer) > 60 Est GFR (Non-Af Amer) 54 L BUN/Creatinine Ratio 19 Glucose 105 POC Glucose 104 H Calculated Osmolality 297 Lactic Acid 1.2 Calcium 9.7 Troponin I < 0.03 05/04/18 05/04/18 11:10 16:03 WBC RBC Hgb Hct MCV MCH MCHC RDW Plt Count MPV Sodium Potassium Chloride Carbon Dioxide BUN Creatinine Est GFR ( Amer) Est GFR (Non-Af Amer) BUN/Creatinine Ratio Glucose POC Glucose 150 H 114 H Calculated Osmolality Lactic Acid Calcium Troponin I Cultures: Cultures 04/27/18 16:52 Anaerobic Culture - Final Right Foot No anaerobes were recovered. 04/21/18 10:30 Surgical Biopsy Culture - Final Right Foot Staphylococcus epidermidis Enterococcus faecalis Corynebacterium species 04/27/18 16:52 Surgical Biopsy Culture - Final Right Foot 04/27/18 16:52 Acid Fast Stain - Final Right Foot 04/21/18 10:30 Anaerobic Culture - Final Right Foot No anaerobes were recovered. Serology 04/26/18 04/25/18 Range/Units 02:00 00:15 Urine Color Yellow (Yellow) Urine Clarity Clear (Clear) Urine pH 5.5 (5.0-8.0) pH Units Ur Specific [place] 1.021 (1.010-1.025) Urine Protein Trace (Neg-Trace) mg/dL Urine Glucose (UA) >=1000 H (Normal) mg/dL Urine Ketones Negative (Negative) mg/dL Urine Blood Negative (Negative) Urine Nitrite Negative (Negative) Urine Bilirubin Negative (Negative) Urine Urobilinogen Normal (Normal) mg/dL Ur Leukocyte Esterase Small H (Negative) Urine Microscopic RBC 0-3 (0-3) per hpf Urine Microscopic WBC 5-15 H (0-3) per hpf Ur Squamous Epith Cells Many H (None-Few) per lpf Urine Bacteria None Seen (None-Few) per hpf Hyaline Casts None Seen (None-Few) per lpf Ur Culture Indicated? NO. A (NO) Urine Total Volume 1.97 H (0.80-1.80) Liters Urine Creatinine 54 mg/dL Ur Creatinine 24 Hour 1064 (800-2000) mg/day Urine Sodium 149.0 mEq/L Ur Sodium 24 Hour 294 H (40-220) mEq/day - Impressions Impressions Head CT 05/04/18 00:19 IMPRESSION: No acute intracranial abnormality. Chronic small vessel ischemic disease and age related involutional changes. Paranasal sinus disease and small mastoid effusions. D/ / Ga Garcias / Ga Garcias Interpreting Provider: Ga Garcias Exam - Constitutional Vitals: Temp Pulse Resp BP Pulse Ox 97.8 F 73 16 160/73 98 05/04/18 18:40 05/04/18 18:40 05/04/18 18:40 05/04/18 18:40 05/04/18 18:40 - Additional findings Additional findings: HEENT: [place] EOMI, MMM, no oral thrush Neck: supple, no masses lungs: CTAB, no Wheezing CV: S1S2 RRR Abdomen: soft, NT, normal bowel sounds Ext: surgical wound intact with staplesintact no erythema no drainage and no signs of infection Neuro: A&Ox3 Consult Discharge Plan - Plan Additional Instructions: 1. Follow up with Dr. Zia Brown in [facility] clinic 1 week after discharge. Referrals: Zia Brown DPM [Partnered Physician] - Michael Brown Jr, MD [Primary Care Provider] -
[2018-05-05] MEDS: Piperacillin/Tazobactam 3.375 GM in 0.9 % Sodium Chloride Mini Bag 100 ML IVPB SCH ×2 (04:14→12:08)
[2018-05-05] MEDS: 0.9 % Sodium Chloride 1,000 ML IVC SCH (04:19)
[2018-05-05] MEDS: *HR* Heparin 5,000 UNIT/ML VIAL SQ SCH (05:11)
[2018-05-05] MEDS: BuPROPion XL (24 HR) 150 MG TABLET PO SCH (08:37)
[2018-05-05] MEDS: Finasteride 5 MG TABLET PO SCH (08:37)
[2018-05-05] MEDS: Aspirin Enteric Coated 81 MG Tablet PO SCH (08:37)
[2018-05-05] MEDS: Insulin LISPRO 300 UNITS/3 ML VIAL SQ SCH ×4 (08:39→11:36)
--- NOTE | 2018-05-05 13:04 | Discharge Summary ---
Orders not resulted at time of discharge: Pending orders 04/27/18 16:52 AFB Culture, Tissue [TB] Routine AFB Smear [TB] Routine Fungal Culture [MYC] Routine Date of Encounter: 05/05/18 Time of Encounter: 13:02 - Discharge Diagnosis (1) Osteomyelitis Priority: Primary Status: Acute Qualifiers: Osteomyelitis type: unspecified type Osteomyelitis location: foot Laterality: right Qualified Code(s): M86.9 - Osteomyelitis, unspecified (2) Wound of right foot Priority: Primary Status: Acute (3) Orthostatic hypotension Priority: Primary Status: Acute (4) Adrenal insufficiency Priority: Secondary Status: Chronic (5) Physical deconditioning Priority: Primary Status: Acute (6) Compression fx, thoracic spine Priority: Secondary Status: Chronic Qualifiers: Encounter type: subsequent encounter Fracture type: closed Fracture healing: with routine healing Qualified Code(s): S22.000D - Wedge compression fracture of unspecified thoracic vertebra, subsequent encounter for fracture with routine healing (7) Coronary artery disease Priority: Secondary Status: Chronic Qualifiers: Coronary Disease-Associated Artery/Lesion type: [place] artery [place] vs. transplanted heart: [place] heart Associated angina: without angina Qualified Code(s): I25.10 - Atherosclerotic heart disease of [place] coronary artery without angina pectoris (8) Diabetes mellitus Priority: Secondary Status: Chronic Qualifiers: Diabetes mellitus type: type 2 Diabetes mellitus fpc insulin use: unspecified fpc insulin use status Diabetes mellitus complication status: with circulatory complication Diabetes mellitus complication detail: with other circulatory complications Qualified Code(s): E11.59 - Type 2 diabetes mellitus with other circulatory complications Hospital course: HOSPITAL COURSE: The patient is a 78-year-old man. We got him from [place] [facility], where he could not to do physical therapy due to postural hypotension. He has had long-standing type 2 diabetes mellitus with peripheral neuropathy. His glucose was very high at the time of admission to our hospital. We also found him to have right foot wound secondary to treatment of diabetic ulcer. Cardiology and neurology were consulted. The patient was put on midodrine and Florinef. Both medications were titrated up, as we could not get his dizziness/lightheadedness under control. He was on low-dose of prednisone (20 mg every morning) for a short period of time. We tried to help his high glucose levels adjusting his insulin Levemir and insulin Humalog. Podiatry and infectious diseases were consulted to help his right foot wound. He was found to have osteomyelitis requiring surgical treatment. The patient was on IV Zosyn. We switched him to oral Augmentin and oral doxycycline at the time of discharge. The patient was free from postural hypotension in the last few days preceding his discharge. However, he developed severe deconditioning due to staying in bed for prolonged period of time. CONDITION AT DISCHARGE: He feels good. Denies chest pain and difficulty breathing. He does not have any significant pain in the area of right foot. Skin: Free of rash and discoloration. The surgical wound in the distal portion of right foot is clean/showing signs of healing. Respiratory: Normal breath sounds with no crackles and wheezes bilaterally. CV: Heart is regular with no gallop or murmur. GI: Abdomen is flat and soft with no palpable mass or visceromegaly. Neuro exam: There is no focal deficits. Normal speech, swallowing and gait. SEE DISCHARGE ORDERS/MEDICATIONS.. We found ECF for him he needs physical therapy for ambulation he needs daily dressings to the right foot wound. He will be on oral Augmentin and oral doxycycline for the next 3 weeks. Discharge discussed with: patient, family, nurse, case management - Time Spent with Patient Total time spent providing and/or coordinating discharge services: Greater than 30 minutes (45 minutes..) - Discharge Medications Prescriptions: Amoxicillin/Clavulanate [Augmentin] 875 mg PO BIDWM 21 Days #42 tablet Doxycycline 100 mg PO BID 21 Days #42 capsule Home Medications: Aspirin Enteric Coated [Aspirin EC] 81 mg PO DAILY 14 Days #14 tablet 07/25/17 [Rx] Clopidogrel [Plavix] 75 mg PO DAILY 14 Days #14 tablet 07/25/17 [Rx] BuPROPion XL (24 HR) [Wellbutrin Xl] 150 mg PO DAILY 02/06/18 [History] Megestrol Acetate [Megace] 10 ml PO BID 04/10/18 [History] Metoprolol [Lopressor] 25 mg PO BID tablet 04/13/18 [Rx] Simvastatin [Zocor] 80 mg PO HS tablet 04/13/18 [Rx] Tamsulosin [Flomax] 0.4 mg PO DAILY capsule 04/13/18 [Rx] Acetaminophen [Tylenol] 650 mg PO Q6HR PRN tablet 05/05/18 [Rx] Amoxicillin/Clavulanate [Augmentin] 875 mg PO BIDWM 21 Days #42 tablet 05/05/18 [Rx] Doxycycline 100 mg PO BID 21 Days #42 capsule 05/05/18 [Rx] Finasteride [Proscar] 5 mg PO DAILY tablet 05/05/18 [Rx] Fludrocortisone Acetate [Florinef] 0.2 mg PO DAILY tablet 05/05/18 [Rx] Insulin DETEMIR [Levemir] 25 unit SQ HS [id number] 05/05/18 [Rx] Insulin LISPRO [HumaLOG] 0 units SQ HS vial 05/05/18 [Rx] Insulin LISPRO [HumaLOG] 0 units SQ TIDAC vial 05/05/18 [Rx] Insulin LISPRO [HumaLOG] 8 units SQ TIDAC vial 05/05/18 [Rx] Midodrine [ProAmatine] 10 mg PO 0800,1200,1700 tablet 05/05/18 [Rx] Potassium Chloride 20 meq PO BID tab.er.prt 05/05/18 [Rx] Allergies/Adverse Reactions: Allergy/AdvReac Type Severity Reaction Status Date / Time No Known Allergies Allergy Verified 08/16/17 12:13 Date of admission: 04/25/18 14:35 Primary care physician: Michael Brown Jr, MD Consults: 04/20/18 16:34 Consult to Chief Electrician [CONS] Routine Reason for SW Consult: Discharge planning. 04/20/18 16:44 Consult to Cardiology [CONS] Routine Comment: Consulting Provider: Cardiology [facility] Reason for Consult: Pt has severe orthostatic hypotension cannot have PT in [place], also found PAF per [place] physician. Wants to add midodrine but worry about PAF. 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 Call Completed: Yes 04/23/18 11:59 Consult to Neurology [CONS] Routine Consulting Provider: Neurology [facility] Reason for Consult: orthostatic hypotension. Evaluate for autonomic dysfunction. Call Completed: Yes 04/23/18 17:39 Consult to Physical Therapy [CONS] Routine Comment: Evaluate, develop and implement POC Reason for Consult: ambulation, toe amputation Does patient have active BEDREST order?: No Is patient medically & hemodynamically stable?: Yes Patient assessed for mobility or mobilized this visit?: No OT [Consult to Occupational Therapy] [CONS] Routine Comment: Evaluate, develop and implement POC Reason for Consult: ambulation, toe amputation Does patient have active BEDREST order?: No Is patient medically & hemodynamically stable?: Yes Patient assessed for mobility or mobilized this visit?: No 04/24/18 10:50 Consult to Physician [CONS] Routine Consulting Provider: Misael Stokes Reason for Consult: right foot Call Completed: Yes 04/24/18 10:53 Consult to Physician [CONS] Routine Consulting Provider: Indy Horn Reason for Consult: chronci osteo, ne culture Call Completed: Yes Discharging clinician: Loyd Angel Anticipated date of discharge: 05/05/18 - Constitutional Vitals: Temp Pulse Resp BP Pulse Ox 97.6 F 81 16 180/93 98 05/05/18 11:09 05/05/18 11:09 05/05/18 11:09 05/05/18 11:09 05/05/18 11:09 General appearance: Present: A&O X 3, no acute distress, answers questions appropriately Exam: xx - Patient Status Disposition: Transfer SNF Condition: Fair Functional capacity at discharge: bed bound Overall status at discharge: patient is progressing back to baseline - Discharge Instructions Follow Up With: Zia Brown DPM [Partnered Physician] - Michael Brown Jr, MD [Primary Care Provider] - Additional Instructions: 1. Follow up with Dr. Zia Brown in [facility] clinic 1 week after discharge. 2. FOLLOW-UP WITH ID -- IN ABOUT 2 WEEKS.. 3. DRESSINGS (RIGHT FOOT WOUND) -- PER PODIATRY.. 4. FINGERSTICKS FOR [id number] -- ROUTINE.. - Diet and Activity Activity: as per physical therapy Diet: diabetic diet - VTE Deep Vein Thrombosis/Pulmonary Embolism Present on Admission: No
--- NOTE | 2018-05-05 13:28 | Physician Discharge Referral ---
ExtendedCare Referral Info Transfer To: [facility] Provider in Charge: Sudhir Angel MD Institutional Level of Care: Skilled - Diagnosis (1) Osteomyelitis Priority: Primary Status: Acute (2) Wound of right foot Priority: Primary Status: Acute (3) Orthostatic hypotension Priority: Primary Status: Acute (4) Adrenal insufficiency Priority: Primary Status: Chronic (5) Physical deconditioning Priority: Primary Status: Acute (6) Compression fx, thoracic spine Priority: Secondary Status: Chronic (7) Coronary artery disease Priority: Secondary Status: Chronic (8) Diabetes mellitus Priority: Secondary Status: Chronic Prognosis: Fair Aware of Diagnosis: Patient, Family Aware of Prognosis: Patient, Family - Transfer Medications Prescriptions: Amoxicillin/Clavulanate [Augmentin] 875 mg PO BIDWM 21 Days #42 tablet Doxycycline 100 mg PO BID 21 Days #42 capsule Home Medications: Aspirin Enteric Coated [Aspirin EC] 81 mg PO DAILY 14 Days #14 tablet. 07/25/17 [Rx] Clopidogrel [Plavix] 75 mg PO DAILY 14 Days #14 tablet 07/25/17 [Rx] BuPROPion XL (24 HR) [Wellbutrin Xl] 150 mg PO DAILY 02/06/18 [History] Megestrol Acetate [Megace] 10 ml PO BID 04/10/18 [History] Metoprolol [Lopressor] 25 mg PO BID tablet 04/13/18 [Rx] Simvastatin [Zocor] 80 mg PO HS tablet 04/13/18 [Rx] Tamsulosin [Flomax] 0.4 mg PO DAILY capsule 04/13/18 [Rx] Acetaminophen [Tylenol] 650 mg PO Q6HR PRN tablet 05/05/18 [Rx] Amoxicillin/Clavulanate [Augmentin] 875 mg PO BIDWM 21 Days #42 tablet 05/05/18 [Rx] Doxycycline 100 mg PO BID 21 Days #42 capsule 05/05/18 [Rx] Finasteride [Proscar] 5 mg PO DAILY tablet 05/05/18 [Rx] Fludrocortisone Acetate [Florinef] 0.2 mg PO DAILY tablet 05/05/18 [Rx] Insulin DETEMIR [Levemir] 25 unit SQ HS [id number] 05/05/18 [Rx] Insulin LISPRO [HumaLOG] 0 units SQ HS vial 05/05/18 [Rx] Insulin LISPRO [HumaLOG] 0 units SQ TIDAC vial 05/05/18 [Rx] Insulin LISPRO [HumaLOG] 8 units SQ TIDAC vial 05/05/18 [Rx] Midodrine [ProAmatine] 10 mg PO 0800,1200,1700 tablet 05/05/18 [Rx] Potassium Chloride 20 meq PO BID tab.er.prt 05/05/18 [Rx] Allergies/Adverse Reactions: Allergy/AdvReac Type Severity Reaction Status Date / Time No Known Allergies Allergy Verified 08/16/17 12:13 - Respiratory Orders None Smoking Cessation: Smoking cessation has been advised. For more information, call the [place] Tobacco Quit Line at 0-884-GEUU-NOW. - Advance Directives Code Status: Full Code - Mobility Orders Bedrest, Other (Advance activity -- as tolerated..) - Rehabiliation Orders Rehab Potential: Fair - Diet Orders No Concentrated Sweets CERTIFICATION: I certify that the transfer of the above named patient to an Extended Care Facility is necessary for the continuing treatment of the diagnosis listed. The above information is true and accurate reflection of patient's current condition. Confidential - Redisclosure prohibited without a patient's written consent.
[2018-05-05 15:44] VITALS: BP 188/93
--- NOTE | 2018-05-05 16:51 | Electrocardiograph Report ---
[address] [place], [place] [address] Test Date: 2018-05-04 Pat Name: Eugene Nava Department: 115 Room: 3A21 Gender: M Provider Relations Advocate: : 1940 Requested By: Mariaa Varghese Order Number: [id number] Reading MD: Andrea Muri Measurements Intervals [place] Rate: 72 P: -32 RI: 163 QRS: -13 QRSD: 102 T: 6 QT: 425 QTc: 450 Interpretive Statements SINUS RHYTHM POSSIBLE LEFT ATRIAL ENLARGEMENT INFERIOR MYOCARDIAL INFARCTION, PROBABLY OLD POOR R WAVE PROGRESSION Electronically Signed On 05-05-2018 16:50:13 EST by Andrea Muir
== END 2018-05-05 16:48 | DRG 629 ==
LOC: INTOOBSV 15:09 → 3ANU 15:09 → SUATTDRO 15:09
PROVIDERS: ADMIT Internal Medicine; ATTEND Internal Medicine

== ENCOUNTER 2018-06-19 11:29 | Observation (INO) ==
--- NOTE | 2018-06-19 11:43 | Emergency Department Note ---
Disposition Clinical Impression: Altered mental status, Diabetes mellitus, Frail elderly, Bradycardia, Cerebral atrophy, Cerebrovascular disease, Dehydration, Anemia, Hypoglycemia Disposition: Admitted As Inpatient Referrals: Brock Francisco MD [Primary Care Provider] - General Adult HPI - General Stated complaint: AMS Time Seen by Provider: 06/19/18 11:37 - History of Present Illness HPI Narrative: 78-year-old male comes to the emergency department via EMS, reportedly he is a [facility] and was at the [facility] [employer]'s office. The family are concer anthony regarding confusion and altered mental status. The patient does not describe acute concerns, there is no history of fall or injury. The patient denies chest pain or shortness of breath. On review, there is no history of slurred speech or difficulty moving the arms or legs independently, no abdominal pain is reported. No bleeding. The patient is a poor historian and on initial questioning and obtainable information, no specific physical complaints apart from confusion and altered mental status are reported. - Related Data Home Medications Medication Instructions Recorded Confirmed BuPROPion XL (24 HR) [Wellbutrin 150 mg PO DAILY 02/06/18 05/13/18 Xl] Megestrol Acetate [Megace] 400 mg PO BID 04/10/18 05/13/18 Loratadine [Claritin] 10 mg PO DAILY 05/13/18 05/13/18 Previous Rx's Medication Instructions Recorded Aspirin Enteric Coated [Aspirin EC] 81 mg PO DAILY 14 Days #14 07/25/17 tablet. Clopidogrel [Plavix] 75 mg PO DAILY 14 Days #14 tablet 07/25/17 Metoprolol [Lopressor] 25 mg PO BID tablet 04/13/18 Simvastatin [Zocor] 80 mg PO HS tablet 04/13/18 Tamsulosin [Flomax] 0.4 mg PO DAILY capsule 04/13/18 Acetaminophen [Tylenol] 650 mg PO Q6HR PRN tablet 05/05/18 Finasteride [Proscar] 5 mg PO DAILY tablet 05/05/18 Fludrocortisone Acetate [Florinef] 0.2 mg PO DAILY tablet 05/05/18 Midodrine [ProAmatine] 10 mg PO 0800,1200,1700 tablet 05/05/18 Potassium Chloride 20 meq PO BID tab.er.prt 05/05/18 Insulin LISPRO [HumaLOG] See Protocol SQ HS #1 vial 05/15/18 Insulin LISPRO [HumaLOG] See Protocol SQ TIDAC #1 vial 05/15/18 Allergies Allergy/AdvReac Type Severity Reaction Status Date / Time No Known Allergies Allergy Verified 08/16/17 12:13 All systems ED: reviewed and negative except as stated. Past Medical History - Past Medical History Medical history: Reports: coronary artery disease, diabetes, hyperlipidemia, other Surgical history: Reports: coronary bypass (CABG), other Psychiatric history: Reports: depression - Social History Smoking Status: Never smoker Smokeless Tobacco Status: No Alcohol use: Reports: none Drug use: Reports: none Physical Exam - General Limitations: altered mental status General appearance: alert - Head Head exam: atraumatic, normocephalic, normal inspection - Eye Eye exam: Present: miosis. Absent: conjunctival injection - ENT ENT exam: normal exam, normal oropharynx, mucous membranes moist, normal external ear exam - Neck Neck exam: Present: normal inspection, full ROM, trachea midline - Chest Chest inspection: Present: symmetric chest wall rise. Absent: tenderness - Respiratory Respiratory exam: Present: normal lung sounds bilaterally. Absent: respiratory distress, prolonged expiratory phase - Cardiovascular Cardiovascular exam: Present: regular rate, normal rhythm, normal heart sounds - Abdominal Exam Abdominal exam: Present: soft, Non-Tender, normal bowel sounds. Absent: tenderness, distention, guarding, rebound, rigidity, trauma, pulsatile mass - Extremities Exam Extremities exam: Present: full ROM, normal capillary refill, other (Scrapes abrasions on the lower extremities in various states of healing no varinder cellulitis right great toe amputated with chronic appearing skin discoloration.). Absent: tenderness, pedal edema, joint swelling, calf tenderness - Expanded Lower Extremity Exam Neurovascular/Tendon exam: Present: normal capillary refill. Absent: motor deficit, sensory deficit, tendon deficit, extremity cold to touch, pallor - Back Exam Back exam: Present: normal inspection, full ROM. Absent: tenderness, CVA tenderness (R), CVA tenderness (L), vertebral tenderness - Neurological Exam Neurological exam: Present: alert, CN II-XII intact, other (The patient moves head neck arms and legs usual fashion I detect no overt focal defect on limited gross exam) Course Vital Signs Temperature 98.7 F 06/19/18 13:01 Pulse Rate 52 06/19/18 13:01 Respiratory Rate 14 06/19/18 13:01 Blood Pressure 92/58 06/19/18 13:01 O2 Sat by Pulse Oximetry 100 06/19/18 13:01 Temperature 98.7 F 06/19/18 13:01 Pulse Rate 52 06/19/18 13:01 Respiratory Rate 14 06/19/18 13:01 Blood Pressure 92/58 06/19/18 13:01 O2 Sat by Pulse Oximetry 100 06/19/18 13:01 Oxygen Delivery Oxygen Delivery Room Air Medical Decision Making - MDM Narrative Medical decision making narrative: The patient is elderly and has been more and more confused per the family. Per the family's report the patient [facility] a [facility] for agitated behavior. They are unsure of what it was. The family members report the patient had a CBC and chem basic this morning. Chem basic noted with glucose of 265 earlier today. The patient apparently has an element of dementia, the family members report progressive and worsening confusion particularly over the last week. The patient does not answer questions properly, CT head reveals no acute disease, ED laboratory studies show an elevated creatinine and lactic acid, and hypoglycemia, blood pressure was initially in the 80s systolic, 1 L of fluid was given, blood pressure improved into the 120 systolic. An amp of dextrose was ordered. Also D5 and one half normal saline at 125 mL an hour. Urinalysis shows no infectious change. EKG cardiac enzymes chest x-ray demonstrate no emergent disease. The family members are very concerned the patient is becoming more and more confused and did not feel comfortable sending the patient [facility] to the [facility]. Based on the family's request, the patient's apparent increasing confusion, an element of hypotension as well as bradycardia with renal insufficiency and elevated lactate in an elderly diabetic with hypoglycemia, I thought it would be appropriate to consult with the hospitalist for observation admission. The family reports they feel the patient would just come right back to the emergency department if he was discharged. After review with the hospitalist, he has accepted the patient to his care. The patient is currently stable pending admission to the floor. - Lab Data Lab results reviewed: Yes I reviewed the patient's lab results. Result diagrams: 06/19/18 12:10 06/19/18 12:10 Lab Results 06/19/18 06/19/18 06/19/18 Range/Units 12:10 12:10 12:10 WBC 9.3 (4.3-11.1) K/mcL RBC 3.60 L (4.19-5.50) M/mcL Hgb 11.3 L (12.9-16.9) g/dL Hct 35.0 L (37.5-50.1) % MCV 97.2 (83.0-100.0) fL MCH 31.4 (28.0-33.3) pg MCHC 32.3 (31.6-35.5) g/dL RDW 14.9 H (11.5-14.5) % Plt Count 341 (140-400) K/mcL MPV 8.4 L (9.4-12.4) fL Immature Gran % 1.1 (0-4) % Seg Neutrophils % 51.5 % Lymphocytes % 33.7 % Monocytes % 7.7 % Eosinophils % 4.9 % Basophils % 1.1 % Neutrophils # 4.8 (1.6-8.9) K/mcL Lymphocytes # 3.1 (0.6-4.6) K/mcL Monocytes # 0.7 (0.0-1.3) K/mcL Eosinophils # 0.5 (0.0-0.6) K/mcL Basophils # 0.1 (0.0-0.2) K/mcL PT 10.7 (9.4-12.1) Seconds INR 1.0 Sodium 143 (136-145) mEq/L Potassium 3.5 (3.5-5.1) mEq/L Chloride 113 H (98-107) mEq/L Carbon Dioxide 23 (23-29) mEq/L BUN 24 H (8-23) mg/dL Creatinine 1.37 H (0.70-1.30) mg/dL Est GFR ( Amer) > 60 (> 60) Est GFR (Non-Af Amer) 50 L (> 60) BUN/Creatinine Ratio 18 (6-26) Glucose 47 L (70-105) mg/dL Calculated Osmolality 297 (280-300) Lactic Acid (0.5-2.2) mmol/L Calcium 8.4 L (8.6-10.3) mg/dL Magnesium 1.9 (1.6-2.6) mg/dL Total Bilirubin 0.4 (0.3-1.0) mg/dL AST 13 (13-39) Units/L ALT 11 (7-52) Units/L Alkaline Phosphatase 77 (34-104) Units/L Ammonia (16-53) mcmol/L Troponin I < 0.03 (< 0.04) ng/mL C-Reactive Protein (Less than 10) mg/L Serum Total Protein 5.4 L (6.4-8.9) g/dL Albumin 2.7 L (3.5-5.7) g/dL Globulin 2.7 (2.4-3.5) g/dL Albumin/Globulin Ratio 1.0 L (1.1-2.2) TSH 4.931 (0.340-5.600) mcIU/mL Urine Color (Yellow) Urine Clarity (Clear) Urine pH (5.0-8.0) pH Units Ur Specific [place] (1.010-1.025) Urine Protein (Neg-Trace) mg/dL Urine Glucose (UA) (Normal) mg/dL Urine Ketones (Negative) mg/dL Urine Blood (Negative) Urine Nitrite (Negative) Urine Bilirubin (Negative) Urine Urobilinogen (Normal) mg/dL Ur Leukocyte Esterase (Negative) Ur Culture Indicated? (NO) Urine Opiates Screen (Uflyno=743) ng/mL Ur Barbiturates Screen (Ewbeno=423) ng/mL Ur Phencyclidine Scrn (Cutoff=25) ng/mL Ur Amphetamines Screen (Rhqhkc=1454) ng/mL U Benzodiazepines Scrn (Wglmoe=245) ng/mL Urine Cocaine Screen (Cutoff= 300) ng/mL U Marijuana (THC) Screen (Cutoff = 50) ng/mL Ur Drug Screen Interp 06/19/18 06/19/18 06/19/18 Range/Units 12:10 12:10 12:10 WBC (4.3-11.1) K/mcL RBC (4.19-5.50) M/mcL Hgb (12.9-16.9) g/dL Hct (37.5-50.1) % MCV (83.0-100.0) fL MCH (28.0-33.3) pg MCHC (31.6-35.5) g/dL RDW (11.5-14.5) % Plt Count (140-400) K/mcL MPV (9.4-12.4) fL Immature Gran % (0-4) % Seg Neutrophils % % Lymphocytes % % Monocytes % % Eosinophils % % Basophils % % Neutrophils # (1.6-8.9) K/mcL Lymphocytes # (0.6-4.6) K/mcL Monocytes # (0.0-1.3) K/mcL Eosinophils # (0.0-0.6) K/mcL Basophils # (0.0-0.2) K/mcL PT (9.4-12.1) Seconds INR Sodium (136-145) mEq/L Potassium (3.5-5.1) mEq/L Chloride (98-107) mEq/L Carbon Dioxide (23-29) mEq/L BUN (8-23) mg/dL Creatinine (0.70-1.30) mg/dL Est GFR ( Amer) (> 60) Est GFR (Non-Af Amer) (> 60) BUN/Creatinine Ratio (6-26) Glucose (70-105) mg/dL Calculated Osmolality (280-300) Lactic Acid 2.8 H (0.5-2.2) mmol/L Calcium (8.6-10.3) mg/dL Magnesium (1.6-2.6) mg/dL Total Bilirubin (0.3-1.0) mg/dL AST (13-39) Units/L ALT (7-52) Units/L Alkaline Phosphatase (34-104) Units/L Ammonia 26 (16-53) mcmol/L Troponin I (< 0.04) ng/mL C-Reactive Protein 32 H (Less than 10) mg/L Serum Total Protein (6.4-8.9) g/dL Albumin (3.5-5.7) g/dL Globulin (2.4-3.5) g/dL Albumin/Globulin Ratio (1.1-2.2) TSH (0.340-5.600) mcIU/mL Urine Color (Yellow) Urine Clarity (Clear) Urine pH (5.0-8.0) pH Units Ur Specific [place] (1.010-1.025) Urine Protein (Neg-Trace) mg/dL Urine Glucose (UA) (Normal) mg/dL Urine Ketones (Negative) mg/dL Urine Blood (Negative) Urine Nitrite (Negative) Urine Bilirubin (Negative) Urine Urobilinogen (Normal) mg/dL Ur Leukocyte Esterase (Negative) Ur Culture Indicated? (NO) Urine Opiates Screen (Wiyjft=307) ng/mL Ur Barbiturates Screen (Npyqsg=063) ng/mL Ur Phencyclidine Scrn (Cutoff=25) ng/mL Ur Amphetamines Screen (Nebxox=5508) ng/mL U Benzodiazepines Scrn (Xrjsqt=286) ng/mL Urine Cocaine Screen (Cutoff= 300) ng/mL U Marijuana (THC) Screen (Cutoff = 50) ng/mL Ur Drug Screen Interp 06/19/18 06/19/18 06/19/18 Range/Units 14:37 14:37 15:54 WBC (4.3-11.1) K/mcL RBC (4.19-5.50) M/mcL Hgb (12.9-16.9) g/dL Hct (37.5-50.1) % MCV (83.0-100.0) fL MCH (28.0-33.3) pg MCHC (31.6-35.5) g/dL RDW (11.5-14.5) % Plt Count (140-400) K/mcL MPV (9.4-12.4) fL Immature Gran % (0-4) % Seg Neutrophils % % Lymphocytes % % Monocytes % % Eosinophils % % Basophils % % Neutrophils # (1.6-8.9) K/mcL Lymphocytes # (0.6-4.6) K/mcL Monocytes # (0.0-1.3) K/mcL Eosinophils # (0.0-0.6) K/mcL Basophils # (0.0-0.2) K/mcL PT (9.4-12.1) Seconds INR Sodium (136-145) mEq/L Potassium (3.5-5.1) mEq/L Chloride (98-107) mEq/L Carbon Dioxide (23-29) mEq/L BUN (8-23) mg/dL Creatinine (0.70-1.30) mg/dL Est GFR ( Amer) (> 60) Est GFR (Non-Af Amer) (> 60) BUN/Creatinine Ratio (6-26) Glucose (70-105) mg/dL Calculated Osmolality (280-300) Lactic Acid 1.2 (0.5-2.2) mmol/L Calcium (8.6-10.3) mg/dL Magnesium (1.6-2.6) mg/dL Total Bilirubin (0.3-1.0) mg/dL AST (13-39) Units/L ALT (7-52) Units/L Alkaline Phosphatase (34-104) Units/L Ammonia (16-53) mcmol/L Troponin I (< 0.04) ng/mL C-Reactive Protein (Less than 10) mg/L Serum Total Protein (6.4-8.9) g/dL Albumin (3.5-5.7) g/dL Globulin (2.4-3.5) g/dL Albumin/Globulin Ratio (1.1-2.2) TSH (0.340-5.600) mcIU/mL Urine Color Dark Yellow (Yellow) Urine Clarity Clear (Clear) Urine pH 5.0 (5.0-8.0) pH Units Ur Specific [place] 1.014 (1.010-1.025) Urine Protein Negative (Neg-Trace) mg/dL Urine Glucose (UA) 500 H (Normal) mg/dL Urine Ketones Negative (Negative) mg/dL Urine Blood Negative (Negative) Urine Nitrite Negative (Negative) Urine Bilirubin Small H (Negative) Urine Urobilinogen Normal (Normal) mg/dL Ur Leukocyte Esterase Negative (Negative) Ur Culture Indicated? NO (NO) Urine Opiates Screen Negative (Thpsqj=027) ng/mL Ur Barbiturates Screen Negative (Hjdpib=773) ng/mL Ur Phencyclidine Scrn Negative (Cutoff=25) ng/mL Ur Amphetamines Screen Negative (Omxiuh=1299) ng/mL U Benzodiazepines Scrn Negative (Lmdcdw=818) ng/mL Urine Cocaine Screen Negative (Cutoff= 300) ng/mL U Marijuana (THC) Screen Positive H (Cutoff = 50) ng/mL Ur Drug Screen Interp See Below - Radiology Data Radiology results reviewed: Yes I reviewed the patient's radiology results.
[2018-06-19 12:23] LABS: Basophils # 0.1 K/mcL (0.0-0.2); Basophils % 1.1 %; Eosinophils # 0.5 K/mcL (0.0-0.6); Eosinophils % 4.9 %; Hemoglobin 11.3 g/dL (12.9-16.9); Immature Granulocytes % 1.1 % (0-4); Lymphocytes # 3.1 K/mcL (0.6-4.6); Lymphocytes % 33.7 %; Mean Corpuscular HGB Conc 32.3 g/dL (31.6-35.5); Mean Corpuscular Hemoglobin 31.4 pg (28.0-33.3); Mean Corpuscular Volume 97.2 fL (83.0-100.0); Mean Platelet Volume 8.4 fL (9.4-12.4); Monocytes # 0.7 K/mcL (0.0-1.3); Monocytes % 7.7 %; Neutrophils # 4.8 K/mcL (1.6-8.9); Platelet Count 341 K/mcL (140-400); Red Cell Distribution Width 14.9 % (11.5-14.5); Segmented Neutrophils % 51.5 %
[2018-06-19 12:44] LABS: Alanine Aminotransferase 11 Units/L (7-52); Albumin 2.7 g/dL (3.5-5.7); Alkaline Phosphatase 77 Units/L (34-104); Aspartate Amino Transferase 13 Units/L (13-39); BUN/Creatinine Ratio 18 (6-26); Bilirubin,Total 0.4 mg/dL (0.3-1.0); Blood Urea Nitrogen 24 mg/dL (8-23); Calcium 8.4 mg/dL (8.6-10.3); Carbon Dioxide 23 mEq/L (23-29); Chloride 113 mEq/L (98-107); Globulin 2.7 g/dL (2.4-3.5); Glucose 47 mg/dL (70-105); Magnesium 1.9 mg/dL (1.6-2.6); Osmolality,Calculated 297 (280-300); Potassium 3.5 mEq/L (3.5-5.1); Sodium 143 mEq/L (136-145); Total Protein 5.4 g/dL (6.4-8.9); eGFR For Non-African Americans 50 (> 60)
[2018-06-19 12:46] LABS: Troponin I < 0.03 ng/mL (< 0.04)
[2018-06-19 12:50] LABS: Prothrombin Time 10.7 Seconds (9.4-12.1)
[2018-06-19 12:56] LABS: Thyroid Stimulating Hormone 4.931 mcIU/mL (0.340-5.600)
[2018-06-19] MEDS ORDERED: 0.9 % Sodium Chloride 1,000 ML IVC ONE (14:07)
[2018-06-19 15:25] LABS: Bilirubin,Urine Small (Negative); Blood,Urine Negative (Negative); Clarity,Urine Clear (Clear); Color,Urine Dark Yellow (Yellow); Glucose,Urine (UA) 500 mg/dL (Normal); Ketones,Urine Negative (Negative); Leukocyte Esterase,Urine Negative (Negative); Nitrite,Urine Negative (Negative); Protein,Urine Negative (Neg-Trace); Specific Gravity,Urine 1.014 (1.010-1.025); Urobilinogen,Urine Normal (Normal)
[2018-06-19 15:42] LABS: Amphetamine Screen,Urine Negative ng/mL (Cutoff=1000); Barbiturate Screen,Urine Negative ng/mL (Cutoff=200); Benzodiazepines Screen,Urine Negative ng/mL (Cutoff=200); Cannabinoid Screen,Urine Positive ng/mL (Cutoff = 50); Cocaine Screen,Urine Negative ng/mL (Cutoff= 300); Opiate Screen,Urine Negative ng/mL (Cutoff=300); Phencyclidine Screen,Urine Negative ng/mL (Cutoff=25)
[2018-06-19] MEDS ORDERED: *HR* Dextrose 50 % in Water (Syg) 50 ML SYRINGE IVP ONE (16:43)
[2018-06-19] MEDS ORDERED: *HR* Dextrose 50 % in Water (Syg) 50 ML SYRINGE ONE (16:46)
--- NOTE | 2018-06-19 17:23 | Internal Med History&Physical ---
Date of Encounter: 06/19/18 Time of Encounter: 16:30 Internal Medicine - H&P: HPI Chief complaint: Altered mental statu Admitted From: Long-term Nursing Facility Plans for Post Hospital Care: Transfer Snf Care History of present illness: Mr. Nava is a 78 year old male with past medical history of CVA in 2018, diab etes, carotid stenosis, carotid endarterectomy, coronary artery disease, CABG, hyperlipidemia, BPH, A. fib, dementia, right great toe amputation January, with suspected osteomyelitis in April,. Patient is a resident at [facility]. He was sent by ambulance to see Dr. Stokes this morning for evaluation of that toe amputation and wounds and to have his nails trimmed. He was not seen by Dr. Stokes due to decreased mental status. He was sent to the emergency department for evaluation. Patient was found to be bradycardic with a rate in the 40s, continued altered mental status with a blood sugar of 47 that is being treated in the emergency department. He also was found to be mildly dehydrated with an AK I did serum creatinine of 1.37 and GFR 50., Also noted was his drug screen was positive for THC. Lactic is 2.8, CRP is elevated at 32, patient also has a urine glucose of 500. I spoke with family at bedside who states that patient has been bradycardic since his initial surgery for his right great toe amputation in January, and that he has had orthostatic hypotension since April,. He has been seen by cardiology during his visit in April and was started on Fludrocortisone and Midodrine 5mg po TID, which it appears that he is still taking. He was also seen for reports a-fib, but it was never captured and he continued his ASA and Plavix for CVA history and was not started on AC. Noted, he had a very low cortisol level in April and was also seen by neurology to be assessed for autonomic dysfunction, but was doing well. Pt was noted to have periods of apnea on exam, lasting approximately 1 min, however, his 02 sat never decreased and was 99-100%. I recommend that this pt be monitored closely when he is moved to a nursing unit. Pt will be admitted for observation for hypoglycemia, dehydration, bradycardia, and altered mental status. Time spent with pt approximately 25 minutes. Past Med Surg Social Fam HX - Past Medical History Medical history: coronary artery disease, diabetes, hyperlipidemia, other Additional medical history: multiple spinal fractures, left ear laceration, rib fractures, occlusion right ICA (chronic), BPH Psychiatric history: depression - Past Surgical History Surgical History: coronary bypass (CABG), other Additional surgical history: right great toe amputation - Social History Smoking Status: Never smoker Smokeless Tobacco Status: No Alcohol use: none Drug use: none - Family History Father Living Status: Sister Hx Family Endocrine Disorder: Yes (DM) Mother Living Status: Hx Family Endocrine Disorder: Yes (DM) Internal Medicine - H&P: Meds Aspirin Enteric Coated [Aspirin EC] 81 mg PO DAILY 14 Days #14 tablet. 07/25/17 [Rx] Clopidogrel [Plavix] 75 mg PO DAILY 14 Days #14 tablet 07/25/17 [Rx] BuPROPion XL (24 HR) [Wellbutrin Xl] 150 mg PO DAILY 02/06/18 [History] Megestrol Acetate [Megace] 400 mg PO BID 04/10/18 [History] Metoprolol [Lopressor] 25 mg PO BID tablet 04/13/18 [Rx] Simvastatin [Zocor] 80 mg PO HS tablet 04/13/18 [Rx] Tamsulosin [Flomax] 0.4 mg PO DAILY capsule 04/13/18 [Rx] Acetaminophen [Tylenol] 650 mg PO Q6HR PRN tablet 05/05/18 [Rx] Finasteride [Proscar] 5 mg PO DAILY tablet 05/05/18 [Rx] Fludrocortisone Acetate [Florinef] 0.2 mg PO DAILY tablet 05/05/18 [Rx] Midodrine [ProAmatine] 10 mg PO 0800,1200,1700 tablet 05/05/18 [Rx] Potassium Chloride 20 meq PO BID tab.er.prt 05/05/18 [Rx] Loratadine [Claritin] 10 mg PO DAILY 05/13/18 [History] Insulin LISPRO [HumaLOG] See Protocol SQ HS #1 vial 05/15/18 [Rx] Insulin LISPRO [HumaLOG] See Protocol SQ TIDAC #1 vial 05/15/18 [Rx] Allergy/AdvReac Type Severity Reaction Status Date / Time No Known Allergies Allergy Verified 08/16/17 12:13 ROS unobtainable: due to mental status All Systems PM: A 10-system review of systems was performed and is negative for pertinent findings except as documented above in the HPI. Review of systems: Questions answered by daughter in law and . - Constitutional Constitutional: weakness, no falls - Neurological Neurological ROS: confusion, memory loss - Constitutional Vitals: Temp Pulse Resp BP Pulse Ox 98.7 F 52 14 92/58 100 06/19/18 13:01 06/19/18 13:01 06/19/18 13:01 06/19/18 13:01 06/19/18 13:01 General appearance: Present: no acute distress Exam: General: Pt resting quietly on bed, no distress. Skin: pwd, no rashes, lesions, redness Neurological: Pt is drowsy, arouses briefly with sternal rub, PERRLA, pupils 3mm bilaterally HEENT: mucous mumbranes moist, no conjuctival pallor Neck: supple, no tracheal deviation, no lymphadenopathy, tenderness, no thyromegaly Heart: S1S2 heard without gallops, clicks, murmurs, bradycardia , no tachycardia, pt has +1 pitting peripheral edema, pedal and radial pulses palpable bilaterally. Lungs: clear throughout without wheezing, rales, or ronchi, respirations are unlabored, periods of apnea noted. Abdomen: soft and non tender with bowel sound present, no hepatomegaly. - Head Head exam: Present: atraumatic, normal inspection, normocephalic - Eye Eye exam: Present: PERRL - ENT ENT exam: Present: mucous membranes dry, normal external ear exam - Neck Neck exam general surgery: Present: normal inspection, trachea midline. Absent: lymphadenopathy - Respiratory Respiratory exam: Present: decreased breath sounds, CTAB. Absent: respiratory distress - Cardiovascular Cardiovascular exam: Present: bradycardia, RRR, +S1, +S2. Absent: rubs, systolic murmur, tachycardia - GI/Abdominal GI/Abdominal exam: Present: soft. Absent: hepatomegaly, mass, splenomegaly - Extremities Exam Extremities exam: Present: pedal edema, warm Additional comments: Right great toe amputation. Scabbed wounds to right 2nd toe. - Neurological Exam Neurological exam: Present: altered. Absent: alert Additional comments: difficult to assess due to mental status Internal Med - H&P Results - Labs CBC & Chem 7: 06/19/18 12:10 06/19/18 12:10 Labs: Short CBC 06/19/18 Range/Units 12:10 WBC 9.3 (4.3-11.1) K/mcL Hgb 11.3 L (12.9-16.9) g/dL Hct 35.0 L (37.5-50.1) % Plt Count 341 (140-400) K/mcL Neutrophils # 4.8 (1.6-8.9) K/mcL BMP 06/19/18 12:10 Sodium 143 Potassium 3.5 Chloride 113 H Carbon Dioxide 23 BUN 24 H Creatinine 1.37 H Glucose 47 L Calcium 8.4 L Cardiac Enzymes 06/19/18 Range/Units 12:10 Troponin I < 0.03 (< 0.04) ng/mL Liver Function 06/19/18 Range/Units 12:10 Total Bilirubin 0.4 (0.3-1.0) mg/dL AST 13 (13-39) Units/L ALT 11 (7-52) Units/L Alkaline Phosphatase 77 (34-104) Units/L Albumin 2.7 L (3.5-5.7) g/dL Urine 06/19/18 Range/Units 14:37 Urine Color Dark Yellow (Yellow) Urine Clarity Clear (Clear) Urine pH 5.0 (5.0-8.0) pH Units Ur Specific [place] 1.014 (1.010-1.025) Urine Protein Negative (Neg-Trace) mg/dL Urine Glucose (UA) 500 H (Normal) mg/dL - Impressions ITS Impressions Chest X-Ray 06/19/18 11:47 IMPRESSION: No acute cardiopulmonary abnormality. D/ / Nacho Fam MD / Nacho Fam MD Interpreting Provider: Nacho Fam MD Head CT 06/19/18 11:48 IMPRESSION: 1. No acute intracranial abnormality. 2. Global atrophy with chronic periventricular white matter ischemic changes. 3. Partial opacification of the mastoid air cells bilaterally. Please correlate with clinical symptoms of mastoid inflammation. D/ / 06/19/2018 13:15:03 Dagoberto Singh MD / Slime Aguirre Interpreting Provider: Dagoberto Singh MD - Assessment and plan (1) Bradycardia Current Visit: Yes Status: Acute Assessment and plan: Rate 40s in the ED. Pt has prior history of bradycardia in April 2018. Will hold BB and correct glucose Telemetry Consider cardiology consult if no improvement EKG in the morning (2) Diabetes mellitus Current Visit: No Status: Chronic Assessment and plan: Uncontrolled. A1c in April 8.3%. 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 Today pt sent from media account executive's office for altered mental status. Blood glucose 47 on arrival, pt remains altered and difficult to arouse during my exam. He was to be given D50 to correct and placed on D5 1/2 NS. He was thought to be dehydrated and was given IVF bolus in the ED. Chest xray is negative, urine appears to be negative for infection, and head CT was negative for acute findings. Hypoglycemia likely cause today, as well as dehydration and possibly symptomatic bradycardia. Risperdal increased last night could be contributing as well. Pt has no leukocytosis, fever, signs of SIRS or sepsis. Monitor for falls and safety Telemetry Hold BB, risperdal, Marinol, any other sedating medications Continue to monitor blood glucose closely Monitor labs and vitals Consider cardiology consult for symptomatic bradycardia if no improvement. Consider neurology consult for evaluation of progression of dementia. Qualifiers: Altered mental status type: unspecified Qualified Code(s): R41.82 - Altered mental status, unspecified (5) Carotid stenosis Current Visit: Yes Status: Chronic Assessment and plan: Chronic. Continue ASA and Plavix Qualifiers: Laterality: right Qualified Code(s): I65.21 - Occlusion and stenosis of right carotid artery (6) Coronary artery disease Current Visit: Yes Status: Chronic Assessment and plan: Chronic. Continue ASA, Plavix. Holding BB now due to bradycardia. Qualifiers: Coronary Disease-Associated Artery/Lesion type: [place] artery [place] vs. transplanted heart: [place] heart Associated angina: without angina Qualified Code(s): I25.10 - Atherosclerotic heart disease of [place] coronary artery without angina pectoris (7) Mixed hyperlipidemia Current Visit: Yes Status: Chronic Assessment and plan: Chronic. Continue home medication once medication reconciliation is completed. (8) BPH (benign prostatic hyperplasia) Current Visit: Yes Status: Chronic Assessment and plan: Chronic. Qualifiers: Lower urinary tract symptom presence: symptoms present Lower urinary tract symptom detail: urinary retention Qualified Code(s): N40.1 - Benign prostatic hyperplasia with lower urinary tract symptoms; R33.8 - Other retention of urine (9) GIANA (acute kidney injury) Current Visit: Yes Status: Acute Assessment and plan: Mild GIANA. SrCr 1.37, GFR 50. Pt given IVF in the ED, continue gentle IVF hydration Monitor labs in the a.m. (10) Lactic acid acidosis Current Visit: Yes Status: Acute Assessment and plan: Elevated lactic. Pt recently treated for suspected osteomyelitis of Right great toe after amputation with po Augmentin and Doxycycline, stopped about a week ago per family. No leukocytosis, fever, tachycardia. Pt was hypotensive on admission to ED, but this is his baseline, as it has returned to normal during my exam. Will repeat. (11) Dehydration Current Visit: Yes Status: Acute Assessment and plan: Mild GIANA on admission. Plan as above. - Time Spent With Patient Total time spent is greater than 50% in coordination of care (as documented) at patient's floor/unit and/or counseling patient: 25 - 35 minutes
[2018-06-19] MEDS ORDERED: D5% in Water 1,000 ML IVC PRN (17:52)
[2018-06-19] MEDS ORDERED: *HR* Dextrose 50 % in Water (Syg) 50 ML SYRINGE IVP PRN (17:52)
[2018-06-19] MEDS ORDERED: Dextrose Gel 15 GM/37.5 ML TUBE PO PRN ×2 (17:52)
[2018-06-19] MEDS ORDERED: Naloxone 0.4 MG/ML INJ IVP PRN (17:52)
[2018-06-19] MEDS ORDERED: Acetaminophen IV 500 MG/50 ML INFUS..BTL IVPB ONE (21:03)
[2018-06-19] MEDS: Insulin LISPRO 300 UNITS/3 ML VIAL SQ SCH (21:19)
[2018-06-19] MEDS: D5% in 0.45% NACL 1,000 ML IVC SCH ×2 (21:29→21:30)
[2018-06-19] MEDS: *HR* Heparin 5,000 UNIT/ML VIAL SQ SCH (21:29)
[2018-06-20 05:14] LABS: Basophils # 0.1 K/mcL (0.0-0.2); Basophils % 0.9 %; Eosinophils # 0.4 K/mcL (0.0-0.6); Eosinophils % 4.8 %; Hematocrit 34.3 % (37.5-50.1); Hemoglobin 11.4 g/dL (12.9-16.9); Immature Granulocytes % 0.7 % (0-4); Lymphocytes # 2.3 K/mcL (0.6-4.6); Lymphocytes % 26.1 %; Mean Corpuscular HGB Conc 33.2 g/dL (31.6-35.5); Mean Corpuscular Hemoglobin 31.6 pg (28.0-33.3); Mean Platelet Volume 8.4 fL (9.4-12.4); Monocytes # 0.6 K/mcL (0.0-1.3); Monocytes % 7.4 %; Neutrophils # 5.2 K/mcL (1.6-8.9); Platelet Count 348 K/mcL (140-400); Red Blood Count 3.61 M/mcL (4.19-5.50); Red Cell Distribution Width 14.9 % (11.5-14.5); Segmented Neutrophils % 60.1 %
[2018-06-20 05:37] LABS: Alanine Aminotransferase 10 Units/L (7-52); Albumin 2.4 g/dL (3.5-5.7); Albumin/Globulin Ratio 0.9 (1.1-2.2); Alkaline Phosphatase 68 Units/L (34-104); Aspartate Amino Transferase 12 Units/L (13-39); BUN/Creatinine Ratio 19 (6-26); Bilirubin,Total 0.4 mg/dL (0.3-1.0); Blood Urea Nitrogen 22 mg/dL (8-23); Calcium 7.7 mg/dL (8.6-10.3); Carbon Dioxide 19 mEq/L (23-29); Chloride 114 mEq/L (98-107); Globulin 2.6 g/dL (2.4-3.5); Glucose 235 mg/dL (70-105); Osmolality,Calculated 307 (280-300); Potassium 3.8 mEq/L (3.5-5.1); Sodium 143 mEq/L (136-145); eGFR For Non-African Americans > 60 (> 60)
[2018-06-20] MEDS: D5% in 0.45% NACL 1,000 ML IVC SCH ×2 (06:20→10:44)
[2018-06-20] MEDS: *HR* Heparin 5,000 UNIT/ML VIAL SQ SCH (06:21)
[2018-06-20] MEDS: Insulin LISPRO 300 UNITS/3 ML VIAL SQ SCH ×2 (09:43→11:42)
[2018-06-20 11:31] VITALS: BP 122/72
--- NOTE | 2018-06-20 11:43 | Discharge Summary ---
- NOTES TO OUTPATIENT PROVIDER Notes to Outpatient Provider: Follow up with PCP in one week. Please cut down on Metoprolol to 12.5 mg PO b[address]d. Please place him on low [place] sliding scale only.. His HbA1C 8.3 only from 05/07/18. Orders not resulted at time of discharge: Pending orders 06/21/18 04:00 Complete Blood Count [HEME] AM 0400 Comprehensive Metabolic [place] 04006/21/18 06:00 ECG 12 lead ECG [ECG] AM 0606/22/18 04:00 Complete Blood Count [HEME] AM 0400 Comprehensive Metabolic Panel AM 04006/22/18 06:00 ECG 12 lead ECG [ECG] AM 0600 Date of Encounter: 06/20/18 Time of Encounter: 11:40 - Discharge Diagnosis (1) Altered mental status Priority: Primary Status: Acute Qualifiers: Altered mental status type: unspecified Qualified Code(s): R41.82 - Altered mental status, unspecified (2) Coronary artery disease Priority: Secondary Status: Chronic Qualifiers: Coronary Disease-Associated Artery/Lesion type: [place] artery [place] vs. transplanted heart: [place] heart Associated angina: without angina Qualified Code(s): I25.10 - Atherosclerotic heart disease of [place] coronary artery without angina pectoris (3) Mixed hyperlipidemia Priority: Secondary Status: Chronic (4) GIANA (acute kidney injury) Priority: Primary Status: Acute (5) Lactic acid acidosis Priority: Primary Status: Acute (6) Bradycardia Priority: Secondary Status: Acute (7) Dehydration Priority: Primary Status: Acute (8) Hypoglycemia Priority: Primary Status: Resolved (9) Diabetes mellitus Priority: Secondary Status: Chronic Qualifiers: Diabetes mellitus type: type 2 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 Diabetes mellitus complication status: with hypoglycemia Diabetes mellitus complication detail: without coma Qualified Code(s): E11.649 - Type 2 diabetes mellitus with hypoglycemia without coma (10) Carotid stenosis Priority: Secondary Status: Chronic Qualifiers: Laterality: right Qualified Code(s): I65.21 - Occlusion and stenosis of right carotid artery (11) BPH (benign prostatic hyperplasia) Priority: Secondary Status: Chronic Qualifiers: Lower urinary tract symptom presence: symptoms present Lower urinary tract symptom detail: urinary retention Qualified Code(s): N40.1 - Benign prostatic hyperplasia with lower urinary tract symptoms; R33.8 - Other retention of urine (12) DVT prophylaxis Priority: Secondary Status: Acute Hospital course: Mr. Nava is a 78 year old male with past medical history of CVA in 2018, diabetes, carotid stenosis, carotid endarterectomy, coronary artery disease, CABG, hyperlipidemia, BPH, A. fib, dementia, right great toe amputation January, with suspected osteomyelitis in April,. Patient is a resident at [facility]. He was sent by ambulance to see Dr. Stokes this morning for evaluation of that toe amputation and wounds and to have his nails trimmed. He was not seen by Dr. Stokes due to decreased mental status. He was sent to the emergency department for evaluation. Patient was found to be bradycardic with a rate in the 40s, continued altered mental status with a blood sugar of 47 that is being treated in the emergency department. He also was found to be mildly dehydrated with an AK I did serum creatinine of 1.37. He was admitted in the hospital and started him on IV hydration. His symptoms started improving. His BS improved now with out any fluids and he is tolerating oral intake well. His bradycardia also resolved. His mentation seems to be back to baseline. At this point we cut down on his Metoprolol to 12.5mg PO BID, also recommend to place him on Low ISS only at [facility] since his recent HbA1C 8.3 only and his PO intake was not so great due to his advanced dementia. - Time Spent with Patient Total time spent providing and/or coordinating discharge services: - Discharge Medications Home Medications: Aspirin Enteric Coated [Aspirin EC] 81 mg PO DAILY 14 Days #14 tablet. 07/25/17 [Rx] BuPROPion XL (24 HR) [Wellbutrin Xl] 150 mg PO HS 02/06/18 [History] Acetaminophen [Tylenol] 650 mg PO Q6HR PRN tablet 05/05/18 [Rx] Finasteride [Proscar] 5 mg PO DAILY tablet 05/05/18 [Rx] Loratadine [Claritin] 10 mg PO DAILY PRN 05/13/18 [History] Insulin LISPRO [HumaLOG] See Protocol SQ HS #1 vial 05/15/18 [Rx] Insulin LISPRO [HumaLOG] See Protocol SQ TIDAC #1 vial 05/15/18 [Rx] Clopidogrel [Plavix] 75 mg PO HS 06/19/18 [History] DiphenhydraMINE [Benadryl] 25 mg PO HS 06/19/18 [History] DiphenhydraMINE [Benadryl] 25 mg PO Q6HR PRN 06/19/18 [History] Divalproex Sodium [Depakote] 125 mg PO TID 06/19/18 [History] Dronabinol [Marinol] 2.5 mg PO BID 06/19/18 [History] Fludrocortisone Acetate [Florinef] 0.4 mg PO DAILY 06/19/18 [History] Melatonin 5 mg Tablet 5 mg PO HS 06/19/18 [History] Midodrine HCl 10 mg PO TID 06/19/18 [History] Potassium Chloride [Klor-Con 10] 10 meq PO BID 06/19/18 [History] Promethazine [Phenergan] 12.5 mg IM Q8HR PRN 06/19/18 [History] Simvastatin [Zocor] 20 mg PO HS 06/19/18 [History] Tamsulosin [Flomax] 0.4 mg PO HS 06/19/18 [History] risperiDONE [RisperDAL] 1 mg PO DAILY 06/19/18 [History] risperiDONE [RisperDAL] 1.5 mg PO HS 06/19/18 [History] Metoprolol [Lopressor] 12.5 mg PO BID #0 tablet 06/20/18 [Rx] Allergies/Adverse Reactions: Allergy/AdvReac Type Severity Reaction Status Date / Time No Known Allergies Allergy Verified 08/16/17 12:13 Date of admission: 06/19/18 18:45 Primary care physician: Brock Francisco MD Consults: 06/20/18 08:49 Consult to Traffic Sign Supervisor [CONS] Routine Reason for Consult: PATIENT FROM SIGNATURE - Constitutional Vitals: Temp Pulse Resp BP Pulse Ox 97.9 F 84 18 122/72 99 06/20/18 11:28 06/20/18 11:28 06/20/18 11:28 06/20/18 11:28 06/20/18 11:28 General appearance: Present: no acute distress Exam: Gen: Alert, awake, Oriented to Self.. Pleasantly demented Chest: Diminished breath sounds B/L, No wheezing, No crackles, No rales Heart: S1S2+ RRR No murmurs Abd: Soft, NT, BS +, No organomegaly Ext: No edema, pulses are palpable, No calf tenderness.. Rt great toe amputation.. No signs of inf. Neuro : Demented Skin: No rash. - Patient Status Disposition: Transfer SNF Condition: Good Overall status at discharge: patient is back to baseline - Discharge Instructions Follow Up With: Brock Francisco MD [Primary Care Provider] - Forms: ED Satisfaction Letter - Diet and Activity Activity: increase activity as tolerated Diet: low fat, low cholesterol, low salt diet
--- NOTE | 2018-06-20 11:51 | Physician Discharge Referral ---
ExtendedCare Referral Info Transfer To: F Provider in Charge after Transfer: PCP Institutional Level of Care: Skilled - Diagnosis (1) Altered mental status Status: Acute (2) Coronary artery disease Status: Chronic (3) Mixed hyperlipidemia Status: Chronic (4) GIANA (acute kidney injury) Status: Acute (5) Lactic acid acidosis Status: Acute (6) Bradycardia Status: Acute (7) Dehydration Status: Acute (8) Hypoglycemia Status: Resolved (9) Diabetes mellitus Status: Chronic (10) Carotid stenosis Status: Chronic (11) BPH (benign prostatic hyperplasia) Status: Chronic (12) DVT prophylaxis Status: Acute - Transfer Medications Home Medications: Aspirin Enteric Coated [Aspirin EC] 81 mg PO DAILY 14 Days #14 tablet. 07/25/17 [Rx] BuPROPion XL (24 HR) [Wellbutrin Xl] 150 mg PO HS 02/06/18 [History] Acetaminophen [Tylenol] 650 mg PO Q6HR PRN tablet 05/05/18 [Rx] Finasteride [Proscar] 5 mg PO DAILY tablet 05/05/18 [Rx] Loratadine [Claritin] 10 mg PO DAILY PRN 05/13/18 [History] Insulin LISPRO [HumaLOG] See Protocol SQ HS #1 vial 05/15/18 [Rx] Insulin LISPRO [HumaLOG] See Protocol SQ TIDAC #1 vial 05/15/18 [Rx] Clopidogrel [Plavix] 75 mg PO HS 06/19/18 [History] DiphenhydraMINE [Benadryl] 25 mg PO HS 06/19/18 [History] DiphenhydraMINE [Benadryl] 25 mg PO Q6HR PRN 06/19/18 [History] Divalproex Sodium [Depakote] 125 mg PO TID 06/19/18 [History] Dronabinol [Marinol] 2.5 mg PO BID 06/19/18 [History] Fludrocortisone Acetate [Florinef] 0.4 mg PO DAILY 06/19/18 [History] Melatonin 5 mg Tablet 5 mg PO HS 06/19/18 [History] Midodrine HCl 10 mg PO TID 06/19/18 [History] Potassium Chloride [Klor-Con 10] 10 meq PO BID 06/19/18 [History] Promethazine [Phenergan] 12.5 mg IM Q8HR PRN 06/19/18 [History] Simvastatin [Zocor] 20 mg PO HS 06/19/18 [History] Tamsulosin [Flomax] 0.4 mg PO HS 06/19/18 [History] risperiDONE [RisperDAL] 1 mg PO DAILY 06/19/18 [History] risperiDONE [RisperDAL] 1.5 mg PO HS 06/19/18 [History] Metoprolol [Lopressor] 12.5 mg PO BID #0 tablet 06/20/18 [Rx] Allergies/Adverse Reactions: Allergy/AdvReac Type Severity Reaction Status Date / Time No Known Allergies Allergy Verified 08/16/17 12:13 - Respiratory Orders Smoking Cessation: Smoking cessation has been advised. For more information, call the [place] Tobacco Quit Line at 0-471-WJWZNOW. CERTIFICATION: I certify that the transfer of the above named patient to an Extended Care Facility is necessary for the continuing treatment of the diagnosis listed. The above information is true and accurate reflection of patient's current condition. Confidential - Redisclosure prohibited without a patient's written consent.
[2018-06-20] MEDS ORDERED: Divalproex Sodium 125 MG CAPSULE PO SCH (12:00)
[2018-06-20] MEDS ORDERED: risperiDONE 1 MG TABLET PO SCH (21:00)
[2018-06-20] MEDS ORDERED: Melatonin 3 MG TABLET PO SCH (21:00)
[2018-06-21] MEDS ORDERED: Finasteride 5 MG TABLET PO SCH (09:00)
[2018-06-21] MEDS ORDERED: Aspirin Enteric Coated 81 MG Tablet PO SCH (09:00)
[2018-06-21] MEDS ORDERED: risperiDONE 1 MG TABLET PO SCH (09:00)
--- NOTE | 2018-06-22 09:55 | Electrocardiograph Report ---
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
--- NOTE | 2018-06-23 12:59 | Electrocardiograph Report ---
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
== END 2018-06-20 13:11 ==
LOC: EMEROOARM 11:29 → 3BNU 11:29 → SUATTDRO 18:45 → 3BNU 20:02
PROVIDERS: ADMIT Student in an Organized Health Care Education/Training Program; ATTEND Family Medicine